=== PATIENT | female | born 1960 | race Caucasian/White ===

== ENCOUNTER 2021-12-27 09:30 | Outpatient (REF) | payer OTHER, SELFPAY ==
[2021-12-27 09:58] LABS: Binax Internal Control QC Valid; Binax Now Covid-19 Ag Negative (Negative); Binax Performed by: HO.BONILM
== END 2021-12-27 09:31 | disposition home or self-care (01) ==
LOC: HO.HMGCLDS 09:30
PROVIDERS: PCP Internal Medicine; Visit Provider Physician Assistant Medical
DX: Z13.89 Encounter for screening for other disorder (principal)

== ENCOUNTER 2022-02-23 06:49 | Outpatient (REF) | payer OTHER, SELFPAY ==
[2022-02-23 12:48] LABS: MANUAL DIFF FLAG NO
[2022-02-23 12:56] LABS: Basophils Absolute Auto 0.1 X10*3/uL (0.0-0.2); Basophils Percent Auto 0.5 % (0-2); Eosinophils Percent Auto 0.4 % (0-4); Hematocrit 38.7 % (37.0-47.0); Hemoglobin 12.7 g/dl (12.0-16.0); Imm Gran Abs Auto 0.05 X10*3/uL (0.00-0.03); Imm Gran Pct Auto 0.5 % (0.0-0.4); Lymphocytes Percent Auto 8.7 % (20-40); Mean Corpuscular HGB Conc 32.8 g/dl (31.0-35.0); Mean Corpuscular Hemoglobin 34.8 pg (27.0-33.0); Mean Platelet Volume 8.6 fL (9.4-12.3); Monocytes Absolute Auto 0.6 X10*3/uL (0.1-1.2); Monocytes Percent Auto 5.6 % (2-11); Neutrophils Absolute Auto 9.3 x10*3/uL (2.0-8.3); Neutrophils Percent Auto 84.3 % (45-73); Platelet Count 302 X10*3/uL (160-400); Red Blood Count 3.65 X10*6/uL (4.20-5.50); Red Cell Distribution Width 12.8 % (11.0-16.0)
[2022-02-23 13:19] LABS: Alanine Aminotransferase 25 U/L (0-31); Albumin Level 4.6 g/dL (3.5-5.0); Alkaline Phosphatase 56 U/L (39-117); Anion Gap 14 (12-20); Aspartate Amino Transferase 23 U/L (5-31); Bilirubin Total 0.6 mg/dL (0.0-1.0); Blood Urea Nitrogen 10 mg/dL (9-16); Calcium 9.1 mg/dL (8.4-10.2); Carbon Dioxide 25 mmol/L (22-29); Chloride 95 mmol/L (96-108); Cholesterol 229 mg/dL; Estimated Glomerular Filt Rate > 60; Glucose Fasting 88 mg/dL (60-99); HDL Cholesterol 85 mg/dL; LDL Cholesterol Calculated 121 mg/dl; Potassium 3.9 mmol/L (3.3-5.1); Sodium 130 mmol/L (135-145); Total Protein 7.1 g/dL (6.5-8.0); Triglycerides 115 mg/dL
== END 2022-02-23 06:50 | disposition home or self-care (01) ==
LOC: HO.HMGCLDS 06:49
PROVIDERS: PCP Internal Medicine; Visit Provider Nurse Practitioner Acute Care
DX: I10 Essential (primary) hypertension (principal); M70.71 Other bursitis of hip, right hip; M70.72 Other bursitis of hip, left hip; M06.9 Rheumatoid arthritis, unspecified; M19.90 Unspecified osteoarthritis, unspecified site
CPT/HCPCS: 36415; 80053; 80061; 85025

== ENCOUNTER → 2022-03-03 10:26 | Outpatient (BNVA) | payer OTHER, SELFPAY | PROVIDERS: PCP Internal Medicine; Visit Provider Physician Assistant Medical | DX: S80.01XA Contusion of right knee, initial encounter (principal); S60.032A Contusion of left middle finger without damage to nail, initial encounter; S39.012A Strain of muscle, fascia and tendon of lower back, initial encounter; W01.0XXA Fall on same level from slipping, tripping and stumbling without subsequent striking against object, initial encounter | CPT/HCPCS: 72100; 73130; 73564; 99203 ==

== ENCOUNTER → 2022-03-06 08:52 | Outpatient (BNVA) | payer OTHER, SELFPAY | PROVIDERS: PCP Internal Medicine; Visit Provider Physician Assistant Medical | DX: S80.01XA Contusion of right knee, initial encounter (principal); L03.115 Cellulitis of right lower limb; S60.032A Contusion of left middle finger without damage to nail, initial encounter; S39.012A Strain of muscle, fascia and tendon of lower back, initial encounter; W01.0XXA Fall on same level from slipping, tripping and stumbling without subsequent striking against object, initial encounter; M54.16 Radiculopathy, lumbar region | CPT/HCPCS: 99213 ==

== ENCOUNTER → 2022-03-10 07:50 | Outpatient (BNVA) | payer OTHER, SELFPAY | PROVIDERS: PCP Internal Medicine; Visit Provider Physician Assistant Medical | DX: S80.01XA Contusion of right knee, initial encounter (principal); L03.115 Cellulitis of right lower limb; S60.032A Contusion of left middle finger without damage to nail, initial encounter; S39.012A Strain of muscle, fascia and tendon of lower back, initial encounter; W18.30XA Fall on same level, unspecified, initial encounter; M54.16 Radiculopathy, lumbar region; G89.29 Other chronic pain | CPT/HCPCS: 99213 ==

== ENCOUNTER → 2022-03-17 09:15 | Outpatient (BNVA) | payer OTHER, SELFPAY | PROVIDERS: PCP Internal Medicine; Visit Provider Internal Medicine | DX: S80.01XD Contusion of right knee, subsequent encounter (principal); S60.032D Contusion of left middle finger without damage to nail, subsequent encounter; S39.012D Strain of muscle, fascia and tendon of lower back, subsequent encounter; W18.30XD Fall on same level, unspecified, subsequent encounter; M54.16 Radiculopathy, lumbar region; G89.29 Other chronic pain | CPT/HCPCS: 99213 ==

== ENCOUNTER → 2022-03-26 07:43 | Outpatient (BNVA) | payer OTHER, SELFPAY | PROVIDERS: PCP Internal Medicine; Visit Provider Physician Assistant Medical | DX: S80.01XD Contusion of right knee, subsequent encounter (principal); S60.032D Contusion of left middle finger without damage to nail, subsequent encounter; S39.012D Strain of muscle, fascia and tendon of lower back, subsequent encounter; W18.30XD Fall on same level, unspecified, subsequent encounter; M54.16 Radiculopathy, lumbar region; G89.29 Other chronic pain | CPT/HCPCS: 99213 ==

== ENCOUNTER → 2022-04-09 08:00 | Outpatient (BNVA) | payer OTHER, SELFPAY | PROVIDERS: PCP Internal Medicine; Visit Provider Physician Assistant Medical | DX: S80.01XD Contusion of right knee, subsequent encounter (principal); S60.032D Contusion of left middle finger without damage to nail, subsequent encounter; S39.012D Strain of muscle, fascia and tendon of lower back, subsequent encounter; W01.0XXD Fall on same level from slipping, tripping and stumbling without subsequent striking against object, subsequent encounter; G89.29 Other chronic pain | CPT/HCPCS: 99213 ==

== ENCOUNTER 2022-04-23 07:00 | Outpatient (RCR) | payer OTHER, SELFPAY ==
--- NOTE | 2022-03-17 08:58 | MHC.PT.EP ---
[facility] [place] [facility] [place] Office [place] Office [address] Tejal Bond [address] [phone] F: [phone] F: [phone] F: [phone] F: [phone] Physical Therapy Plan of Care Date of Evaluation: Date of Surgery: Diagnosis: lumbar strain, right knee contusion. Assessment: The patient arrived reporting lumbar strain and right knee pain. She had reduced knee extension bilaterally by 4 degrees. She has poor lumbar mobility. Decreased lumbar lordosis. Pt did not have a directional preference with Rae assessment. Neutral spine exercises will likely be best. Pt has slightly decreased strength in right knee likely due to pain restriction. She walks with significant trunk kyphosis and has decreased functional mobility due to pain. Frequency and Duration: The patient will be seen 2x/week x 4 weeks. Short Term Goals: 1. Improve knee extension ROM for improved heel strike during gait 2. Educate patient on good pain relieving strategies for work. [employer] Goals: 1. Return to all functional mobility pain free 2. Pt to have improved trunk mobility to allow pain free motion and gait 3. pt to be independent with final HEP. Treatment Plan: Modalities to reduce pain, spasms and effusion. Manual therapy to restore motion and function. Therapeutic exercise to improve strength and flexibility. Neuromuscular re-education for posture and balance. Therapeutic activities to return to functional activities of daily living. Electronically signed by: Rocio Diaz PT DPT Please sign and return to therapist. Thank you for your referral.
== END 2022-05-01 08:49 | disposition home or self-care (01) ==
LOC: HO.PT 07:00
PROVIDERS: Visit Provider Physician Assistant Medical
DX: S80.01XD Contusion of right knee, subsequent encounter (principal); S39.012D Strain of muscle, fascia and tendon of lower back, subsequent encounter
CPT/HCPCS: 97110; 97140; 97161

== ENCOUNTER → 2022-04-23 07:59 | Outpatient (BNVA) | payer OTHER, SELFPAY | PROVIDERS: PCP Internal Medicine; Visit Provider Physician Assistant Medical | DX: S80.01XD Contusion of right knee, subsequent encounter (principal); S60.032D Contusion of left middle finger without damage to nail, subsequent encounter; S39.012D Strain of muscle, fascia and tendon of lower back, subsequent encounter; W01.0XXD Fall on same level from slipping, tripping and stumbling without subsequent striking against object, subsequent encounter; M54.16 Radiculopathy, lumbar region | CPT/HCPCS: 99213 ==

== ENCOUNTER 2022-05-07 09:11 | Outpatient (REF) | payer OTHER, SELFPAY ==
[2022-05-07 11:54] LABS: Anion Gap 16 (12-20); Blood Urea Nitrogen 8 mg/dL (9-16); Calcium 9.4 mg/dL (8.4-10.2); Carbon Dioxide 23 mmol/L (22-29); Chloride 96 mmol/L (96-108); Estimated Glomerular Filt Rate > 60; Glucose Random 126 mg/dL (60-115); Potassium 3.9 mmol/L (3.3-5.1); Sodium 131 mmol/L (135-145)
== END 2022-05-07 09:12 | disposition home or self-care (01) ==
LOC: HO.HMGCLDS 09:11
PROVIDERS: PCP Internal Medicine; Visit Provider Internal Medicine
DX: J44.9 Chronic obstructive pulmonary disease, unspecified (principal); M85.80 Other specified disorders of bone density and structure, unspecified site; I10 Essential (primary) hypertension
CPT/HCPCS: 36415; 80048

== ENCOUNTER → 2022-05-12 07:42 | Outpatient (BNVA) | payer OTHER, SELFPAY | PROVIDERS: PCP Internal Medicine; Visit Provider Physician Assistant Medical | DX: S80.01XD Contusion of right knee, subsequent encounter (principal); S60.032D Contusion of left middle finger without damage to nail, subsequent encounter; S39.012D Strain of muscle, fascia and tendon of lower back, subsequent encounter; W01.0XXD Fall on same level from slipping, tripping and stumbling without subsequent striking against object, subsequent encounter | CPT/HCPCS: 99213 ==

== ENCOUNTER 2022-05-21 07:57 | Outpatient (REF) | payer OTHER, SELFPAY ==
--- NOTE | ~2022-05-21 | MM_ITS ---
EXAMINATION: BONE DENSITOMETRY CLINICAL INDICATION: Encounter for screening for osteoporosis. Essential, primary, hypertension. COMPARISON: None (current study represents initial baseline exam). TECHNIQUE: Using a [employer] DXA System (software version: 13.1) manufactured by [email or web address], dual-energy x-ray absorptiometry was performed of the lumbar spine and left hip. The images are of good technical quality. Summary results are attached. FINDINGS: AP SPINE L1-L2: Density measurements at L3 and L4 are excluded as degenerative changes at these levels may cause overestimation of the lumbar bone mineral density. BMD 1.194 g/cm2, Z-score 1.8, T-score 0.2, normal. LEFT FEMUR, NECK: BMD 0.731 g/cm2, Z-score -0.7, T-score -2.2, osteopenia. LEFT FEMUR, TOTAL: BMD 0.698 g/cm2, Z-score -1.3, T-score -2.5, osteoporosis. IDENTIFIED RISK FACTORS: Rheumatoid arthritis, osteoporosis, history of fracture (adult), tobacco use (current smoker), alcoholism, recurrent falls, height loss, low body weight, low calcium intake, secondary osteoporosis, anticonvulsants, early menopause. HISTORY OF FRACTURE: Lower extremity. MEDICATIONS: None listed. MM/XR DEXA axial skeleton IMPRESSION: 1. DIAGNOSIS: Osteoporosis based on the lowest T-score value of -2.5 in the total femur applying World Health Organization criteria. 2. 10-YEAR FRACTURE RISK PREDICTION, FRAX: According to the guidelines, FRAX calculation should only be performed on patients in the osteopenia bone density category. Therefore, FRAX was not performed on this patient. 3. Treatment Recommendations: NOF guidelines recommend consideration for treatment in postmenopausal women and men age 50 and older presenting with the following: -A hip or vertebral (clinical or morphometric) fracture. -T-score less than or equal to -2.5 at the femoral neck or spine after appropriate evaluation to exclude secondary causes. -Low bone mass at the hip or spine and a 10-year fracture probability by FRAX of greater than or equal to 3% for hip fracture or greater than or equal to 20% for major osteoporotic fracture based on the [place] adapted WHO algorithm. 4. Other Recommendations: All treatment decisions require clinical judgment and consideration of individual patient factors, including patient preferences, comorbidities, previous drug use, risk factors not captured in the FRAX model (e.g. frailty, falls, vitamin D deficiency, increased bone turnover, interval significant decline in bone density) and possible under or overestimation of fracture risk by FRAX. Additional medical evaluation for secondary cause of low bone mineral density may be appropriate. FUTURE SCAN RECOMMENDATION: People with diagnosed cases of osteoporosis or at high risk for fracture should have regular bone mineral density tests. For patients eligible for Medicare, routine testing is allowed once every 2 years. The testing frequency can be increased to one year for patients who have rapidly progressing disease, those who are receiving or discontinuing medical therapy to restore bone mass, or have additional risk factors.
== END 2022-05-21 07:58 | disposition home or self-care (01) ==
LOC: HO.MAMMO 07:57
PROVIDERS: PCP Internal Medicine; Visit Provider Internal Medicine
DX: Z13.820 Encounter for screening for osteoporosis (principal); M85.88 Other specified disorders of bone density and structure, other site; Z78.0 Asymptomatic menopausal state
CPT/HCPCS: 77080

== ENCOUNTER 2022-06-25 10:19 | Outpatient (REF) | payer OTHER, SELFPAY ==
[2022-06-25 15:02] LABS: MANUAL DIFF FLAG NO
[2022-06-25 15:11] LABS: Basophils Absolute Auto 0.1 X10*3/uL (0.0-0.2); Basophils Percent Auto 0.6 % (0-2); Eosinophils Percent Auto 0.4 % (0-4); Hematocrit 36.8 % (37.0-47.0); Hemoglobin 12.5 g/dl (12.0-16.0); Imm Gran Abs Auto 0.03 X10*3/uL (0.00-0.03); Imm Gran Pct Auto 0.4 % (0.0-0.4); Lymphocytes Absolute Auto 0.9 X10*3/uL (1.2-4.9); Lymphocytes Percent Auto 11.5 % (20-40); Mean Corpuscular Hemoglobin 36.1 pg (27.0-33.0); Mean Corpuscular Volume 106.4 fL (80.0-98.0); Mean Platelet Volume 9.1 fL (9.4-12.3); Monocytes Absolute Auto 0.5 X10*3/uL (0.1-1.2); Monocytes Percent Auto 6.7 % (2-11); Neutrophils Absolute Auto 6.2 x10*3/uL (2.0-8.3); Neutrophils Percent Auto 80.4 % (45-73); Platelet Count 317 X10*3/uL (160-400); Red Blood Count 3.46 X10*6/uL (4.20-5.50); Red Cell Distribution Width 12.2 % (11.0-16.0); White Blood Count 7.7 X10*3/uL (4.8-10.8)
[2022-06-25 15:27] LABS: Anion Gap 17 (12-20); Blood Urea Nitrogen 12 mg/dL (9-16); Calcium 9.1 mg/dL (8.4-10.2); Carbon Dioxide 21 mmol/L (22-29); Chloride 97 mmol/L (96-108); Estimated Glomerular Filt Rate > 60; Glucose Random 122 mg/dL (60-115); Sodium 131 mmol/L (135-145)
== END 2022-06-25 10:20 | disposition home or self-care (01) ==
LOC: HO.HMGCLDS 10:19
PROVIDERS: Absent Provider Nurse Practitioner Family; PCP Internal Medicine; Visit Provider Internal Medicine
DX: R23.3 Spontaneous ecchymoses (principal); E87.1 Hypo-osmolality and hyponatremia
CPT/HCPCS: 36415; 80048; 85025

== ENCOUNTER 2022-07-17 11:46 | Outpatient (REF) | payer OTHER, SELFPAY ==
[2022-07-17 12:12] LABS: Binax Internal Control QC Valid; Binax Now Covid-19 Ag Negative (Negative)
== END 2022-07-17 11:47 | disposition home or self-care (01) ==
LOC: HO.HMGCLDS 11:46
PROVIDERS: PCP Internal Medicine; Visit Provider Emergency Medicine
DX: Z20.822 Contact with and (suspected) exposure to COVID-19 (principal); J06.9 Acute upper respiratory infection, unspecified
CPT/HCPCS: 87811; C9803

== ENCOUNTER 2022-07-20 09:09 | Outpatient (REF) | payer OTHER, SELFPAY ==
[2022-07-20 12:24] LABS: Anion Gap 18 (12-20); Carbon Dioxide 21 mmol/L (22-29); Chloride 97 mmol/L (96-108); Potassium 3.8 mmol/L (3.3-5.1); Sodium 132 mmol/L (135-145)
== END 2022-07-20 09:10 | disposition home or self-care (01) ==
LOC: HO.HMGCLDS 09:09
PROVIDERS: PCP Internal Medicine; Visit Provider Internal Medicine
DX: E87.1 Hypo-osmolality and hyponatremia (principal)
CPT/HCPCS: 36415; 80051

== ENCOUNTER 2022-08-28 11:19 | Outpatient (REF) | payer OTHER, SELFPAY ==
--- NOTE | ~2022-08-28 | XR_ITS ---
EXAMINATION: XR WRIST, RIGHT CLINICAL INFORMATION: Fall. COMPARISON: None TECHNIQUE: PA, lateral, and oblique views of the right wrist. FINDINGS: Mildly displaced, transverse fracture through the distal radial metaphysis with small cortical fragments along the ulnar side. Cortical step-off measures up to 0.4 cm. Minimal apex ventral angulation. Mildly displaced fracture through the base of the ulnar styloid. Mild joint space narrowing with tiny marginal osteophytes at the triscaphe and 1st carpometacarpal joints. No osseous erosion. XR/XR wrist RT min 3V IMPRESSION: 1. Mildly displaced, transverse fracture through the distal radial metaphysis. 2. Mildly displaced fracture through the base of the ulnar styloid. 3. Mild degenerative arthritis at the triscaphe and 1st carpometacarpal joints.
== END 2022-08-28 11:20 | disposition home or self-care (01) ==
LOC: HO.HMGCX 11:19
PROVIDERS: PCP Internal Medicine; Visit Provider Emergency Medicine
DX: S69.91XA Unspecified injury of right wrist, hand and finger(s), initial encounter (principal); W19.XXXA Unspecified fall, initial encounter; Y93.9 Activity, unspecified; Y92.9 Unspecified place or not applicable; Y99.9 Unspecified external cause status
CPT/HCPCS: 73110

== ENCOUNTER 2022-09-02 13:02 | Outpatient (REF) | payer OTHER, SELFPAY ==
--- NOTE | ~2022-09-02 | XR_ITS ---
EXAMINATION: XR WRIST, RIGHT CLINICAL INFORMATION: Fracture COMPARISON: Previous x-ray from earlier this month TECHNIQUE: PA, lateral, and oblique views of the right wrist. FINDINGS: There is a comminuted impacted intra-articular right distal radius fracture. Appears unchanged from recent exam. There is a minimally displaced ulnar styloid fracture. Mild arthritis at the first SNF and trapezium, trapezoid scaphoid joints. Soft tissue swelling. XR/XR wrist RT min 3V IMPRESSION: No change in right distal radius and ulnar styloid fractures.
== END 2022-09-02 13:03 | disposition home or self-care (01) ==
LOC: HO.HOSX 13:02
PROVIDERS: PCP Internal Medicine; Visit Provider Physician Assistant
DX: S52.501A Unspecified fracture of the lower end of right radius, initial encounter for closed fracture (principal)
CPT/HCPCS: 29085; 73110

== ENCOUNTER 2022-09-08 09:19 | Outpatient (REF) | payer OTHER, SELFPAY ==
--- NOTE | ~2022-09-08 | XR_ITS ---
EXAMINATION: XR WRIST, RIGHT CLINICAL INFORMATION: Fracture COMPARISON: Previous x-ray from earlier this month TECHNIQUE: PA, lateral, and oblique views of the right wrist. FINDINGS: There is a comminuted impacted intra-articular right distal radius fracture. Appears unchanged from recent exam. There is a minimally displaced ulnar styloid fracture. Mild arthritis at the first PRISON and trapezium, trapezoid scaphoid joints. Soft tissue swelling. XR/XR wrist RT min 3V IMPRESSION: No change in right distal radius and ulnar styloid fractures.
== END 2022-09-08 09:20 | disposition home or self-care (01) ==
LOC: HO.HOSX 09:19
PROVIDERS: Visit Provider Orthopaedic Surgery
DX: S52.501A Unspecified fracture of the lower end of right radius, initial encounter for closed fracture (principal)
CPT/HCPCS: 73110

== ENCOUNTER 2022-09-29 09:22 | Outpatient (REF) | payer OTHER, SELFPAY | END 2022-09-29 09:23 | disposition home or self-care (01) | LOC: HO.HOSX 09:22 | PROVIDERS: Visit Provider Physician Assistant | DX: Z13.89 Encounter for screening for other disorder (principal) ==

== ENCOUNTER 2022-09-30 11:02 | Outpatient (REF) | payer OTHER, SELFPAY ==
--- NOTE | ~2022-09-30 | XR_ITS ---
EXAMINATION: XR WRIST, RIGHT CLINICAL INFORMATION: Pain right wrist. COMPARISON: Right wrist 09/08/2022. TECHNIQUE: PA, lateral, and oblique views of the right wrist. FINDINGS: There is Colles fracture distal radius with dorsal angulation. Minimal to no callus formation is visualized. There is moderate wrist soft tissue swelling. There is no change in the mildly displaced ulnar styloid process fracture. XR/XR wrist RT min 3V IMPRESSION: No change in the Colles fracture distal radius and a displaced ulnar styloid process fracture compared to last exam 09/08/2022.
== END 2022-09-30 11:03 | disposition home or self-care (01) ==
LOC: HO.HOSX 11:02
PROVIDERS: Visit Provider Physician Assistant
DX: S52.501D Unspecified fracture of the lower end of right radius, subsequent encounter for closed fracture with routine healing (principal)
CPT/HCPCS: 29075; 73110

== ENCOUNTER 2022-10-21 12:03 | Outpatient (REF) | payer OTHER, SELFPAY ==
--- NOTE | ~2022-10-21 | XR_ITS ---
EXAMINATION: XR WRIST, RIGHT CLINICAL INFORMATION: Pain in the right wrist. COMPARISON: None TECHNIQUE: PA, lateral, and oblique views of the right wrist. FINDINGS: Impacted mildly displaced distal radial fracture redemonstrated. Fracture line remains partially visible although there is some increased sclerosis indicating at least some interval healing since the initial examination but unchanged compared to the most recent radiographs. There is a persistent dorsal tilt of the articular surface unchanged. There is a slight positive ulnar variance unchanged. Ulnar styloid fracture remains and unattached without osseous bridging. Remaining bones, joints and soft tissues are unremarkable. XR/XR wrist RT min 3V IMPRESSION: 1. Stable appearance of the distal radial fracture with incomplete healing. 2. Ulnar styloid fracture without osseous bridging.
== END 2022-10-21 12:04 | disposition home or self-care (01) ==
LOC: HO.HOSX 12:03
PROVIDERS: Visit Provider Physician Assistant
DX: S52.501D Unspecified fracture of the lower end of right radius, subsequent encounter for closed fracture with routine healing (principal); W19.XXXD Unspecified fall, subsequent encounter
CPT/HCPCS: 73110

== ENCOUNTER 2022-11-04 09:13 | Outpatient (REF) | payer OTHER, SELFPAY ==
[2022-11-04 11:08] LABS: MANUAL DIFF FLAG NO
[2022-11-04 11:24] LABS: Basophils Percent Auto 0.4 % (0-2); Eosinophils Absolute Auto 0.1 X10*3/uL (0.0-0.4); Eosinophils Percent Auto 0.6 % (0-4); Hematocrit 38.3 % (37.0-47.0); Hemoglobin 13.2 g/dl (12.0-16.0); Imm Gran Abs Auto 0.04 X10*3/uL (0.00-0.03); Imm Gran Pct Auto 0.5 % (0.0-0.4); Lymphocytes Absolute Auto 0.9 X10*3/uL (1.2-4.9); Mean Corpuscular HGB Conc 34.5 g/dl (31.0-35.0); Mean Corpuscular Hemoglobin 35.7 pg (27.0-33.0); Mean Corpuscular Volume 103.5 fL (80.0-98.0); Mean Platelet Volume 8.6 fL (9.4-12.3); Monocytes Absolute Auto 0.7 X10*3/uL (0.1-1.2); Monocytes Percent Auto 8.2 % (2-11); Neutrophils Absolute Auto 6.5 x10*3/uL (2.0-8.3); Neutrophils Percent Auto 79.3 % (45-73); Platelet Count 336 X10*3/uL (160-400); Red Cell Distribution Width 12.2 % (11.0-16.0); White Blood Count 8.2 X10*3/uL (4.8-10.8)
[2022-11-04 11:56] LABS: Estimated Average Glucose 103 mg/dL; Hemoglobin A1c % 5.2 %
[2022-11-04 12:01] LABS: Alanine Aminotransferase 27 U/L (0-31); Albumin Level 4.5 g/dL (3.5-5.0); Alkaline Phosphatase 62 U/L (39-117); Anion Gap 14 (12-20); Aspartate Amino Transferase 22 U/L (5-31); Bilirubin Total 0.4 mg/dL (0.0-1.0); Blood Urea Nitrogen 11 mg/dL (9-16); Calcium 9.3 mg/dL (8.4-10.2); Carbon Dioxide 24 mmol/L (22-29); Chloride 97 mmol/L (96-108); Estimated Glomerular Filt Rate > 60; Glucose Random 76 mg/dL (60-115); Potassium 4.6 mmol/L (3.3-5.1); Sodium 130 mmol/L (135-145); Total Protein 6.8 g/dL (6.5-8.0)
[2022-11-04 12:13] LABS: Folate 10.6 ng/mL (> or = 4.0); Vitamin B12 295 pg/mL (200-900)
== END 2022-11-04 09:14 | disposition home or self-care (01) ==
LOC: HO.HMGCLDS 09:13
PROVIDERS: PCP Internal Medicine; Visit Provider Internal Medicine
DX: M81.0 Age-related osteoporosis without current pathological fracture (principal); J44.9 Chronic obstructive pulmonary disease, unspecified; I10 Essential (primary) hypertension; E55.9 Vitamin D deficiency, unspecified; M51.36 Other intervertebral disc degeneration, lumbar region; Z79.899 Other long term (current) drug therapy
CPT/HCPCS: 36415; 80053; 82306; 82607; 82746; 83036; 85025

== ENCOUNTER 2022-11-30 10:17 | Outpatient (REF) | payer OTHER, SELFPAY ==
--- NOTE | ~2022-11-30 | XR_ITS ---
EXAMINATION: XR WRIST, RIGHT CLINICAL INFORMATION: Pain in right wrist COMPARISON: Multiple prior examinations most recent x-ray October 21, 2022. TECHNIQUE: PA, lateral, and oblique views of the right wrist. FINDINGS: Persistent deformity and abnormality of the distal radius compatible with healing impacted distal radius fracture. The dorsal tilt of the articular surface remains unchanged. Sclerotic density noted along the distal radius fracture with residual deformity unchanged. Ulnar styloid fracture redemonstrated with no osseous bridging. Positive ulnar variance unchanged. Remaining bones joints and soft tissues unremarkable. XR/XR wrist RT min 3V IMPRESSION: Stable appearance of the right wrist compared with October [id number]. Healing distal radius fracture. No osseous bridging across the ulnar styloid fracture
== END 2022-11-30 10:18 | disposition home or self-care (01) ==
LOC: HO.HOSX 10:17
PROVIDERS: Visit Provider Physician Assistant
DX: S52.501D Unspecified fracture of the lower end of right radius, subsequent encounter for closed fracture with routine healing (principal)
CPT/HCPCS: 73110

== ENCOUNTER 2022-12-09 09:19 | Outpatient (REF) | payer OTHER, SELFPAY ==
[2022-12-09 12:15] LABS: Anion Gap 14 (12-20); Blood Urea Nitrogen 6 mg/dL (9-16); Calcium 9.1 mg/dL (8.4-10.2); Carbon Dioxide 23 mmol/L (22-29); Chloride 100 mmol/L (96-108); Estimated Glomerular Filt Rate > 60; Glucose Random 87 mg/dL (60-115); Potassium 4.5 mmol/L (3.3-5.1); Sodium 132 mmol/L (135-145)
== END 2022-12-09 09:20 | disposition home or self-care (01) ==
LOC: HO.HMGCLDS 09:19
PROVIDERS: PCP Internal Medicine; Visit Provider Internal Medicine
DX: E87.1 Hypo-osmolality and hyponatremia (principal)
CPT/HCPCS: 36415; 80048

== ENCOUNTER 2022-12-10 06:47 | Outpatient (REF) | payer OTHER, SELFPAY ==
[2022-12-10 11:12] LABS: MANUAL DIFF FLAG NO
[2022-12-10 11:19] LABS: Basophils Absolute Auto 0.1 X10*3/uL (0.0-0.2); Basophils Percent Auto 0.7 % (0-2); Eosinophils Absolute Auto 0.1 X10*3/uL (0.0-0.4); Eosinophils Percent Auto 1.5 % (0-4); Hematocrit 39.5 % (37.0-47.0); Hemoglobin 13.2 g/dl (12.0-16.0); Imm Gran Abs Auto 0.04 X10*3/uL (0.00-0.03); Imm Gran Pct Auto 0.5 % (0.0-0.4); Lymphocytes Absolute Auto 0.7 X10*3/uL (1.2-4.9); Lymphocytes Percent Auto 9.3 % (20-40); Mean Corpuscular HGB Conc 33.4 g/dl (31.0-35.0); Mean Corpuscular Volume 107.6 fL (80.0-98.0); Monocytes Absolute Auto 0.8 X10*3/uL (0.1-1.2); Neutrophils Absolute Auto 5.8 x10*3/uL (2.0-8.3); Platelet Count 318 X10*3/uL (160-400); Red Blood Count 3.67 X10*6/uL (4.20-5.50); Red Cell Distribution Width 12.6 % (11.0-16.0); White Blood Count 7.5 X10*3/uL (4.8-10.8)
[2022-12-10 11:46] LABS: Alanine Aminotransferase 30 U/L (0-31); Albumin Level 4.5 g/dL (3.5-5.0); Alkaline Phosphatase 71 U/L (39-117); Anion Gap 15 (12-20); Aspartate Amino Transferase 30 U/L (5-31); Bilirubin Total 0.6 mg/dL (0.0-1.0); Blood Urea Nitrogen 8 mg/dL (9-16); Calcium 9.5 mg/dL (8.4-10.2); Carbon Dioxide 22 mmol/L (22-29); Chloride 102 mmol/L (96-108); Cholesterol 246 mg/dL; Estimated Glomerular Filt Rate > 60; Glucose Fasting 107 mg/dL (60-99); HDL Cholesterol 77 mg/dL; LDL Cholesterol Calculated 148 mg/dl; Potassium 4.6 mmol/L (3.3-5.1); Sodium 134 mmol/L (135-145); Total Protein 6.8 g/dL (6.5-8.0); Triglycerides 109 mg/dL
[2022-12-10 11:53] LABS: TSH reflex Free T4 1.03 uIU/mL (0.32-4.0)
== END 2022-12-10 06:48 | disposition home or self-care (01) ==
LOC: HO.HMGCLDS 06:47
PROVIDERS: PCP Internal Medicine; Visit Provider Internal Medicine
DX: Z00.00 Encounter for general adult medical examination without abnormal findings (principal); E87.1 Hypo-osmolality and hyponatremia; J44.9 Chronic obstructive pulmonary disease, unspecified; I10 Essential (primary) hypertension
CPT/HCPCS: 36415; 80053; 80061; 84443; 85025

== ENCOUNTER 2022-12-10 08:25 | Outpatient (REF) | payer OTHER, SELFPAY ==
--- NOTE | ~2022-12-10 | XR_ITS ---
EXAMINATION: XR LUMBOSACRAL SPINE CLINICAL INFORMATION: Disc degeneration COMPARISON: Lumbar radiographs 03/03/2022 TECHNIQUE: Three views of the lumbosacral spine. FINDINGS: There are 5 nonrib-bearing lumbar vertebral bodies. Redemonstrated degenerative disc disease from L2 to S1 and mild levoscoliosis centered around L3-L4. There is loss of the normal lumbar lordosis. On the lateral view, there is grade 1 retrolisthesis of L5 on S1 resulting in moderate central canal stenosis. Vertebral body heights are preserved without compression deformity. Extensive vascular calcifications of the aorta are present. XR/XR lumbar spine 2-3V IMPRESSION: Multilevel degenerative changes from L2 to S1, worst at L5-S1 where there is grade 1 retrolisthesis causing moderate central canal stenosis.
== END 2022-12-10 08:26 | disposition home or self-care (01) ==
LOC: HO.HMGCX 08:25
PROVIDERS: PCP Internal Medicine; Visit Provider Internal Medicine
DX: M51.36 Other intervertebral disc degeneration, lumbar region (principal)
CPT/HCPCS: 72100

== ENCOUNTER 2022-12-16 08:00 | Outpatient (RCR) | payer OTHER, SELFPAY ==
--- NOTE | 2022-10-30 08:56 | MHC.OT.EP ---
[address] [phone] Occupational Therapy Plan of Care Date of Evaluation: 10/30/22 Diagnosis: Right Distal Radius Fx Pain Location: 5/10 right radial and ulnar wrist, increasing w/ use Pain Score: 5 Pain Scale Used: Numeric (0 - 10) Aggravating Factors: General use, lifting, etc Alleviating Factors: Temporary relief w/ pain meds, ice and heat at times Assessment: 62 yo female presents about 9 weeks s/p right distal radius fx. She was casted about 6 weeks and placed in prefab wrist orthosis, now referred to OT. On assessment, she has some edema still in ulnar wrist with tednerness to palpate. She also demo's decreased wrist flex and pronation and weakened gross grasp. She is very motivated to return to work but reports she has been having difficulty w/ light daily activities and caring for her disabled partner. She will benefit from cont'd therapy services for range, strengthening and functional training w/ ultimate goal of returning to work. Frequency and Duration: The patient will be seen 2x/wk for 6 weeks Short Term Goals: Ind w/ HEP Wrist flex to 35 degrees Wrist pro to 50 degrees Pt to report ease w/ bimanual self care tasks Penitentiary Goals: Wrist flex to 55 degrees Wrist pro to 70 degrees Gross grasp >40lb QuickDASH score <30 pts Pt to report ease w/ caring for her partner (dressing, IADL, etc) Pain free at rest <2/10 [pain w/ moderate homecare tasks Treatment Plan: Therapeutic Exercise Therapeutic Activity Home Exercise Program Patient Education Edema Control ADL Training Ultrasound Paraffin Fluidotherapy MHP Cold Packs Joint Mobilization Soft Tissue Mobilization Kinesiotaping Electronically Signed By: Alicia Gudino OTR/L CHT Please Sign and return to therapist. Thank you once again for your referral.
--- NOTE | 2022-12-25 08:55 | MHC.OT.DC ---
[address] [phone] F: [phone] Occupational Therapy Discharge Note Patient Name: Kathie Wakefield Provider: Marcia Zamora PA-C Diagnosis: Right Distal Radius Fx Date of Surgery: Date of Evaluation: 10/30/22 Date of Discharge: 12/25/22 Treatments to Date: 7 Cancellations to Date: 1 No Shows to Date: 2 Discharge Status: Visit Non-compliance Discharge Summary: Kathie Parker has been attending OT for management of right distal radius fx. She is about four months s/p injury and last visit was still w/ limited pro and flex, less range and strength today than last week. Pt also w/ higher pain and appears to have more edema. 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 She has no-showed last two appointments and I am unable to reach her on her primary contact number, phone appears to be disconnected. We will be discharging form therapy at this time. Electronically Signed By: Alicia Gudino OTR/L Reviewed/agree with student documentation: Therapist: Please Sign and return to therapist, thank you for your referral.
== END 2022-12-25 08:55 | disposition home or self-care (01) ==
LOC: HO.OT 08:00
PROVIDERS: PCP Internal Medicine; Visit Provider Physician Assistant
DX: S52.501D Unspecified fracture of the lower end of right radius, subsequent encounter for closed fracture with routine healing (principal)
CPT/HCPCS: 97035; 97110; 97165

== ENCOUNTER → 2023-01-19 07:40 | Outpatient (BNVA) | payer OTHER, SELFPAY | PROVIDERS: PCP Internal Medicine; Visit Provider Student in an Organized Health Care Education/Training Program ==

== ENCOUNTER 2023-02-10 07:12 | Outpatient (REF) | payer OTHER, SELFPAY ==
--- NOTE | ~2023-02-10 | XR_ITS ---
EXAMINATION: XR WRIST, RIGHT CLINICAL INFORMATION: Pain in right wrist COMPARISON: Multiple prior radiographs of the right wrist TECHNIQUE: PA, lateral, and oblique views of the right wrist. FINDINGS: Redemonstration of an impacted distal radius fracture with continued remodeling when compared with prior studies. There is no osseous bridging of a previously demonstrated ulnar styloid fracture. There is mild positive ulnar variance which is similar to prior study. No new fractures identified. Alignment is anatomic. Soft tissues are unremarkable. XR/XR wrist RT min 3V IMPRESSION: Continued remodeling of impacted right distal radius fracture Ulnar styloid fracture without osseous bridging Mild positive ulnar variance.
== END 2023-02-10 07:13 | disposition home or self-care (01) ==
LOC: HO.HOSX 07:12
PROVIDERS: Visit Provider Physician Assistant
DX: S52.501D Unspecified fracture of the lower end of right radius, subsequent encounter for closed fracture with routine healing (principal); X58.XXXD Exposure to other specified factors, subsequent encounter
CPT/HCPCS: 73110

== ENCOUNTER → 2023-03-04 08:45 | Outpatient (BNVA) | payer OTHER, SELFPAY | PROVIDERS: PCP Internal Medicine; Visit Provider Nurse Practitioner Family ==

== ENCOUNTER 2023-04-05 11:40 | Outpatient (AMB) | payer OTHER, SELFPAY ==
--- NOTE | 2023-04-05 11:56 | MHC.OFFVIS ---
Intake Vital Signs 04/05/23 12:23 BP 114/72 Blood Pressure Location Lt brachial Position Sitting Respiration 14 Pulse 80 Pulse Source Pulse Oximeter Intake Visit Reasons: Left Dx SNB @ adductor canal Allergies doxycycline Allergy (Unknown, Verified 04/08/23 08:40) nausea, vomiting Tetracyclines Allergy (Unknown, Verified 04/08/23 08:40) Unknown fluticasone furoate [From Trelegy Ellipta] Adverse Reaction (Intermediate, Verified 04/08/23 08:40) Dry Mucus Membranes umeclidinium [From Trelegy Ellipta] Adverse Reaction (Intermediate, Verified 04/08/23 08:40) Dry Mucus Membranes vilanterol [From Trelegy Ellipta] Adverse Reaction (Intermediate, Verified 04/08/23 08:40) Dry Mucus Membranes penicillin V Adverse Reaction (Unknown, Verified 04/08/23 08:40) Unknown inhaled anticholinergic steroids Allergy (Unknown, Uncoded 02/10/23 12:34) unknown HPI Left Dx SNB @ adductor canal HPI Details 62-year-old female presenting today for a left diagnostic SNB at adductor canal. Patient presents for scheduled procedure. Denies any recent cough, cold, infection, fever or other significant changes in medical history since last office visit. [facility] Medical History Alcohol abuse Bursitis of both hips COPD (chronic obstructive pulmonary disease) Degenerative disc disease, lumbar Easy bruising Fall Hypertension Mitral valve prolapse Muscle spasms of neck Osteoarthritis Rheumatoid arthritis Scoliosis Tobacco dependence due to cigarettes Surgical History History of lumbar discectomy History of open reduction and internal fixation (ORIF) procedure Family History Mother Substance use disorder Father Substance use disorder Maternal Aunt Substance use disorder Maternal Uncle Substance use disorder Paternal Uncle Substance use disorder Paternal Aunt Substance use disorder Social History Household Members: Significant Other Housing: Apartment Alcohol intake: current Alcohol intake frequency: 3 or more drinks per day Alcohol type: beer Patient Tobacco Use Status: Current someday Tobacco user Cigarettes Per Day: 7 e-Cigarette/Vaping Use: Never Used service: No 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al status: employed and disabled 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 Alert and oriented. Mood and affect appropriate. Follows and participates in conversation appropriately. Respiratory effort is unlabored. Able to transition from sit to stand unassisted. Ambulates with bilaterally normal heel strike and toe off. Office Procedures Nerve Block Details: Left saphenous nerve block under ultrasound guidance. After obtaining written consent, pre-procedure blood pressure and heart rate were stable and recorded in the nursing record. The patient was placed supine on the table. The medial thigh area overlying the adductor canal was widely prepped with chloraprep, allowed to dry and sterilely draped. Using ultrasound, the appropriate landmarks including the femoral artery and saphenous nerve were identified. The skin overlying the target was anesthetized with 0.5% lidocaine. A 21 gauge 100 mm echostim needle was advanced under sonographic guidance to the adductor canal. Aspiration was negative for heme and synovial fluid. 10 cc of lidocaine 1% was injected around the saphenous nerve. The needles were removed, skin cleansed and a sterile bandage was applied. The patient tolerated the procedure well and no complications were encountered. Following the procedure the patient's vital signs and knee strength were stable. The patient was discharged home in good condition with post-procedural instructions. Time Out: Immediately prior to the procedure, the following was verbally confirmed that there is a signed consent form and that the correct patient, planned procedure, site and side are consistent with documentation and that necessary equipment and/or blood products are available prior to the start of the case. Complications: none EBL: <1 cc 57256 - Saphenous (Left) Procedure code (CPT) selection complete Results Reviewed Results Reviewed: No imaging is available for review. Assessment & Plan Assessment & Plan (1) Bilateral knee pain: Code(s): M25.561 - Pain in right knee; M25.562 - Pain in left knee Plan Patient is status post diagnostic left saphenous nerve block at the adductor canal with local and US guidance. Patient tolerated procedure well and was discharged home in stable condition with discharge instructions. All questions were answered. We will follow-up in two weeks via telephone or in clinic to assess response to therapy. A follow-up appointment was made during today's visit. Scribed for Dr. Storey by Nikunj Damon, medical and health services manager, on 04/05/2023. I, Dr. Storey, have personally reviewed and agree with the information entered by the scribe. Coding Level of Care Code Procedure Only Diagnoses Bilateral knee pain M25.561; M25.562 CPT Codes Nerve Block - Nerve Block 10: 85251 - Saphenous ([id number])
[2023-04-05 12:23] VITALS: BP 114/72; PULSE 80; RESP 14
== END 2023-04-05 12:07 | disposition home or self-care (01) ==
PROVIDERS: PCP Internal Medicine; Visit Provider Internal Medicine
DX: M25.562 Pain in left knee (principal)
CPT/HCPCS: 64447

== ENCOUNTER → 2023-04-05 11:40 | Outpatient (BNVA) | payer OTHER, SELFPAY | PROVIDERS: PCP Internal Medicine; Visit Provider Internal Medicine | DX: M25.562 Pain in left knee (principal); M25.561 Pain in right knee | CPT/HCPCS: 64447 ==

== ENCOUNTER 2023-04-08 08:32 | Outpatient (AMB) | payer OTHER, SELFPAY ==
--- NOTE | 2023-04-08 08:36 | MHC.OFFVIS ---
Intake Vital Signs 04/08/23 08:41 Height 5 ft 5 in Weight 117 lb BMI 19.5 BP 172/81 H Blood Pressure Location Rt brachial Position Sitting Pulse 70 Pulse Source Pulse Oximeter Pulse Oximetry (%) 95 Oxygen Delivery Method Room Air Intake Visit Reasons: s/p Left Dx SNB @ adductor canal Intake Note: Pain today 03/22 Petrologist Required: No Accompanied by: Self / Same As Patient Allergies doxycycline Allergy (Unknown, Verified 04/08/23 08:40) nausea, vomiting Tetracyclines Allergy (Unknown, Verified 04/08/23 08:40) Unknown fluticasone furoate [From Trelegy Ellipta] Adverse Reaction (Intermediate, Verified 04/08/23 08:40) Dry Mucus Membranes umeclidinium [From Trelegy Ellipta] Adverse Reaction (Intermediate, Verified 04/08/23 08:40) Dry Mucus Membranes vilanterol [From Trelegy Ellipta] Adverse Reaction (Intermediate, Verified 04/08/23 08:40) Dry Mucus Membranes penicillin V Adverse Reaction (Unknown, Verified 04/08/23 08:40) Unknown inhaled anticholinergic steroids Allergy (Unknown, Uncoded 02/10/23 12:34) unknown HPI HPI Comments History of Present Illness Details Patient presents today to assess response to Left Diagnostic SNB at adductor canal on 04/05/[address] Storey. Patient reports 90% pain relief for 5 hours with significant improvement in her daily activities and functioning. Patient reports she could not do 2 flights of stairs prior to injections and since injection, she was able to walk and climb stairs without significant improvement. She is interested to proceed with Sprint PNS trial as next steps. Patient is also inquiring on review of recent lumbar spine MRI results which were completed at [facility] during her hospital stay in December. Unfortunately, we received multiple imaging reports from [facility] that do not include MRI of her back but imaging of pelvis, lower extremities and CXR. These were reviewed. We will send another request to [facility] for lumbar spine MRI for potential interventional treatments for her back pain as well. Denies any recent cough, cold, infection, fever or other significant changes in medical history since last office visit. Patient denies any bladder or bowel incontinence or saddle anesthesia. Past Procedures: 04/05/23: Left Diagnostic SNB at adductor canal-90% pain relief for 5 hours PRIOR: Patient presents today for medication review. Patient reports significant bilateral hip, left knee and low back pain. She states Ibuprofen has been working well for her, which she takes once to twice daily but not everyday. Due to osteoporosis most significant in her femur, she is not candidate for steroid injection for hip injections. She is interested to undergo diagnostic left knee nerve blocks for potential Sprint PNS trial. Patient also reports axial low back pain with radiation to her bilateral lower extremities posteriorly with numbness, tingling and intermittent weakness due to hip, back, and knee pain. Reports lumbar spine MRI was completed at [facility] in 2018, results noted below. Patient also injured her right wrist 7 months ago and is wearing right wrist splint. Denies any fever, malaise, weight changes, chest pain or tightness, shortness of breaths, bleeding, bowel or bladder incontinence or saddle anesthesia. PRIOR: Patient is a 61 years old female who presents with multiple chronic pain generators, including lower back pain, neck, bilateral hip and ankle pain with constant muscle spasms and widespread pain. Reports history of L5-S1 discectomy by Dr. Murray in 2001. She attributes her pains to multiple injuries and lumbar and cervical spine degenerative arthritis and stenosis as well rheumatoid arthritis. Patient is noted with multiple bruising in her upper and lower extremities at different stages of healing as well several purpuric spots in upper and lower extremities. Reports easy bruising. She denies any recent trauma, injury or falls. Patient has been managing her pain with gabapentin, duloxetine, methocarbamol and Tylenol with minimal to no pain relief. Patient reports multiple sessions of physical therapy and injections through Dr. Mullen?s office with minimal improvement in her symptoms. Her back pain has been mostly axial without radiation to lower extremities. Patient denies any fever, malaise, chills, weight loss, abdominal or groin pain, chest pain, dizziness, bleeding, bowel or bladder incontinence or saddle anesthesia. Patient reports her main pain generator is right sided neck pain with numbness and tingling in her right hand and fingers in the projection of C3-C7 dermatomes. She is right hand dominant and has been having increasing episodes of dropping objects due to weakness and loss of tankman. Per Dr. Esparza neurosurgical evaluation on 09/20/2018 review, he offered patient a C3-C4 anterior discectomy and fusion due to significant cervical myelopathy symptoms and dropping of objects and a three-level cord compression at C3-C4, C5-C6, and C6-C7. A four-level anterior discectomy and fusion or a posterior C3 to C7 laminectomy with instrumented fusion was also discussed. Patient reports she declined surgery due to financial difficulties with out of pocket expenses but it was not clear if she received medical clearance due to mitral valve prolapse with severe stenosis at that time. Denies shoulder pain but had received shoulder cortisone injections before. She attributes her neck pain due work related surgery when a full of cigarettes fell on her neck 2-3 years ago. Lumbar and cervical imaging is noted below. Denies previous EMG or nerve conduction studies. Patient states she is not interested in interventional treatments to alleviate pain and is interested in stronger medication. I have informed patient that we do not offer opioid prescribing at this time. Patient smokes 7 cigarettes per day and drinks 3-6 beers daily and does see this is a problem. She also notes that she is not allergic to steroid injections or prednisone but had mouth bleed reaction with Trelegy inhaler. Patient requests an acupuncture referral to relieve neck spasms and pain. [facility] Medical History Alcohol abuse Bursitis of both hips COPD (chronic obstructive pulmonary disease) Degenerative disc disease, lumbar Easy bruising Fall Hypertension Mitral valve prolapse Muscle spasms of neck Osteoarthritis Rheumatoid arthritis Scoliosis Tobacco dependence due to cigarettes Surgical History History of lumbar discectomy History of open reduction and internal fixation (ORIF) procedure Family History Mother Substance use disorder Father Substance use disorder Maternal Aunt Substance use disorder Maternal Uncle Substance use disorder Paternal Uncle Substance use disorder Paternal Aunt Substance use disorder Social History Household Members: Significant Other Housing: Apartment Alcohol intake: current Alcohol intake frequency: 3 or more drinks per day Alcohol type: beer Patient Tobacco Use Status: Current someday Tobacco user Cigarettes Per Day: 7 e-Cigarette/Vaping Use: Never Used service: No 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al status: employed and disabled 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 Alert and oriented. Mood and affect appropriate. Follows and participates in conversation appropriately. Respiratory effort is unlabored. Able to transition from sit to stand unassisted. Ambulates with bilaterally normal heel strike and toe off. Back/Spine/Pelvis Thoracic/Lumbar Spine: thoracic and lumbar spine normal to inspection, Thoracic/lumbar spine scar(s), pain with thoraco-lumbar ROM, thoraco-lumbar ROM limited, No thoracic spinal tenderness and lumbar spinal tenderness Extrem General: Yes capillary refill normal, Yes no clubbing, cyanosis or edema and Yes no calf tenderness Left lower extremity: knee (Limited ROM due to pain.) Details: normal to inspection, tenderness Location: of the medial joint line and of the lateral joint line and crepitus; no swelling and no unusual warmth Assessment & Plan Assessment & Plan (1) Degenerative disc disease, lumbar: Comment: (severe multilevel degenerative disc disease from L2-L3 to L5-S1 on 03/03/22 xray), f/u Dr. Mullen, Dr. Esparza (neurosurg) Code(s): M51.36 - Other intervertebral disc degeneration, lumbar region (2) Lumbar post-laminectomy syndrome: Code(s): M96.1 - Postlaminectomy syndrome, not elsewhere classified (3) Bilateral knee pain: Code(s): M25.561 - Pain in right knee; M25.562 - Pain in left knee Plan 1. Patient reports she completed MRI of the lumbar spine in December at [facility] during hospital stay. We will send request for imaging to assess for neural integrity and compression. History of back surgery in 2001. 2. Schedule Left Saphenous Peripheral Nerve Stimulator with Sprint trial under local and US guidance. Diagnostic injection provided her 90% pain relief for 5 hours. All questions and concerns have been answered and patient agreed with the plan. Follow up after Sprint trial and sooner if needed. Justification for interventional therapy: ? Patient with average pain > 6/10 ? Patient has exhausted conservative therapy, NSAIDs, physical therapy The risks, consequences, alternatives, and benefits of various treatment options were discussed with the patient in great detail, including conservative management, injections and procedures. Coding Level of Care Code Est Pt Level 4 (85448) Diagnoses Degenerative disc disease, lumbar M51.36 Lumbar post-laminectomy syndrome M96.1 Bilateral knee pain M25.561; M25.562
[2023-04-08 08:41] VITALS: BP 172/81; PULSE 70; O2SAT 95; BMI 19.5
== END 2023-04-08 09:05 | disposition home or self-care (01) ==
PROVIDERS: PCP Internal Medicine; Visit Provider Nurse Practitioner Family
DX: M51.36 Other intervertebral disc degeneration, lumbar region (principal); M96.1 Postlaminectomy syndrome, not elsewhere classified; M25.561 Pain in right knee; M25.562 Pain in left knee
CPT/HCPCS: 99214

== ENCOUNTER → 2023-04-08 08:32 | Outpatient (BNVA) | payer OTHER, SELFPAY | PROVIDERS: PCP Internal Medicine; Visit Provider Nurse Practitioner Family ==

== ENCOUNTER 2023-05-21 08:28 | Outpatient (REF) | payer OTHER, SELFPAY ==
--- NOTE | ~2023-05-21 | MR_ITS ---
MR LUMBAR SPINE WITHOUT CONTRAST CLINICAL INFORMATION: Intervertebral disc degeneration. COMPARISON: None available. TECHNIQUE: MRI of the lumbar spine was obtained using routine sequences without contrast. FINDINGS: There are 5 nonrib-bearing lumbar-type vertebral bodies. Straightening of the lumbar lordosis. There are chronic endplate Schmorl's nodes at the L1-S1 levels. Vertebral body heights are overall maintained. There are degenerative endplate signal changes throughout the lumbar spine. No acute fractures. Multilevel endplate osteophytes. Moderate disc volume loss at L2-L3, L3-L4, L4-L5, and L5-S1. Disc desiccation at all lumbar levels. Small simple left renal cyst for which no further imaging follow-up is warranted. L1-L2: There is a diffuse annular disc bulge eccentric to the left side and there is a left lateral disc osteophyte protrusion and moderate bilateral facet arthropathy, ligamentum flavum thickening, and prominent epidural fat. Findings in concert result in moderate to severe central canal stenosis, left greater then right subarticular zone stenosis with compression of the traversing left greater the right L2 nerve roots, and moderate left-sided foraminal stenosis with mass effect on the extraforaminal left L1 nerve root. L2-L3: Diffuse annular disc bulge and moderate bilateral facet arthropathy and ligamentum flavum thickening. Prominent epidural fat. Findings in concert result in severe central canal stenosis and moderate right-sided foraminal stenosis. L3-L4: Diffuse disc osteophyte complex and severe bilateral facet arthropathy, ligamentum flavum thickening, and epidural lipomatosis. Findings in concert result in severe central canal stenosis and moderate to severe right-sided foraminal stenosis with compression of the exiting right L3 nerve root. L4-L5: Grade 1 retrolisthesis. Disc osteophyte and severe bilateral facet arthropathy, ligamentum flavum thickening, and epidural lipomatosis result in severe central canal stenosis as well as severe left and moderate right foraminal stenosis with compression of the exiting left L4 nerve root. L5-S1: Broad-based central disc protrusion compresses the traversing S1 nerve roots within the subarticular zones bilaterally and results in moderate central canal stenosis. Background disc osteophyte complex and moderate bilateral facet arthropathy resulting in moderate to severe bilateral foraminal stenosis with compression of the exiting L5 nerve roots bilaterally. MR/MR lumbar spine wo con IMPRESSION: - At L1-L2, advanced multifactorial degenerative changes and epidural lipomatosis result in moderate to severe central canal stenosis, left greater then right subarticular zone stenosis with compression of the traversing left greater the right L2 nerve roots, and moderate left-sided foraminal stenosis with mass effect on the extraforaminal left L1 nerve root. - At L2-L3, advanced multifactorial degenerative changes and epidural lipomatosis result in severe central canal stenosis and moderate right-sided foraminal stenosis. - At L3-L4, advanced multifactorial degenerative changes and epidural lipomatosis result in severe central canal stenosis and moderate to severe right-sided foraminal stenosis with compression of the exiting right L3 nerve root. - At L4-L5, advanced multifactorial degenerative changes and epidural lipomatosis result in severe central canal stenosis as well as severe left and moderate right foraminal stenosis with compression of the exiting left L4 nerve root. - At L5-S1, a broad-based central disc protrusion compresses the traversing S1 nerve roots within the subarticular zones bilaterally and results in moderate central canal stenosis. Spondylitic changes at L5-S1 result in moderate to severe bilateral foraminal stenosis with compression of the exiting L5 nerve roots bilaterally.
== END 2023-05-21 08:29 | disposition home or self-care (01) ==
LOC: HO.MRI 08:28
PROVIDERS: PCP Internal Medicine; Visit Provider Nurse Practitioner Family
DX: M51.36 Other intervertebral disc degeneration, lumbar region (principal); M96.1 Postlaminectomy syndrome, not elsewhere classified; M54.16 Radiculopathy, lumbar region
CPT/HCPCS: 72148

== ENCOUNTER 2023-05-27 13:32 | Outpatient (AMB) | payer OTHER, SELFPAY ==
--- NOTE | 2023-05-27 13:51 | A.OFFPC_ITS ---
Vital Signs 05/27/23 13:53 Height 5 ft 5 in Weight 119 lb 8 oz BMI 19.9 BP 118/58 L Blood Pressure Location Lt brachial Position Sitting Pulse 58 Pulse Source Pulse Oximeter Pulse Oximetry (%) 96 Oxygen Delivery Method Room Air Intake Visit Reasons: Left Eye 06/01, Right Eye 06/17,Cataract surgery Intake Note: Patient is here for left eye cataract surgery on the , and right eye on Jun,. Patient is requesting all medications refill at this time. Allergies doxycycline Allergy (Unknown, Verified 05/27/23 13:58) nausea, vomiting Tetracyclines Allergy (Unknown, Verified 05/27/23 13:58) Unknown fluticasone furoate [From Trelegy Ellipta] Adverse Reaction (Intermediate, Verified 05/27/23 13:58) Dry Mucus Membranes umeclidinium [From Trelegy Ellipta] Adverse Reaction (Intermediate, Verified 05/27/23 13:58) Dry Mucus Membranes vilanterol [From Trelegy Ellipta] Adverse Reaction (Intermediate, Verified 05/27/23 13:58) Dry Mucus Membranes penicillin V Adverse Reaction (Unknown, Verified 05/27/23 13:58) Unknown inhaled anticholinergic steroids Allergy (Unknown, Uncoded 05/27/23 13:58) unknown Tobacco use date assessed: 05/27/23 Dental Screening Dental Screen Date: 05/27/23 Did you have a dental visit in the last 12 months?: Yes Did you have a dental problem in the last 6 months where you did not have access to dental care?: No Was dental information given to patient?: Patient has dentist HPI Left Eye 06/01, Right Eye 06/17,Cataract surgery HPI Details Pt presents for preop for cataract surgery. Hypertension is controlled on current medications. 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 She follows up with pain management for chronic advanced lumbar spine stenosis and bilateral knee pain. She would like to have a work restriction of not standing, lifting more than 10 lb for more than 2 hours at the time. She has been working 6 hours a day. Patient continues to drink 6 beers a day and does not feel she has difficulty cutting down on need to cut down on alcohol intake, despite being aware increase alcohol intake increase her risk for liver damage. [facility] Medical History (Updated 05/27/23 @ 15:47 by Yun Wynne MD) Fall Tobacco dependence due to cigarettes Alcohol abuse Mitral valve prolapse Easy bruising Scoliosis Degenerative disc disease, lumbar COPD (chronic obstructive pulmonary disease) Muscle spasms of neck Rheumatoid arthritis Bursitis of both hips Hypertension Osteoarthritis Surgical History History of open reduction and internal fixation (ORIF) procedure History of lumbar discectomy Family History Mother Substance use disorder Father Substance use disorder Maternal Aunt Substance use disorder Maternal Uncle Substance use disorder Paternal Uncle Substance use disorder Paternal Aunt Substance use disorder Social History Household Members: Significant Other Housing: Apartment Alcohol intake: current Alcohol intake frequency: 3 or more drinks per day Alcohol type: beer Patient Tobacco Use Status: Current someday Tobacco user Cigarettes Per Day: 7 e-Cigarette/Vaping Use: Never Used service: No 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al status: employed and disabled 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 Esvin Tim, Darlin Cabral, Evaristo Ortiz and colleagues, with an educational maddie from [employer]. Review of Systems Const All systems reviewed & are unremarkable except as noted in HPI and below Reports no additional complaints Eyes Reports no additional complaints ENT Reports no additional complaints Card Reports no additional complaints Resp Reports no additional complaints GI Reports no additional complaints Reports no additional complaints Physical exam (Primary Care) Vital Signs: Last Vital Signs Pulse 58 05/27/23 13:53 BP 118/58 L 05/27/23 13:53 Pulse Ox 96 05/27/23 13:53 Oxygen Delivery Method Room Air 05/27/23 13:53 BMI result Body Mass Index 19.9 Tobacco/Smoking Status: Tobacco use Status Tobacco use date assessed 05/27/23 05/27/23 14:05 Patient Tobacco Use Status Current someday Tobacco 05/27/23 14:05 e-Cigarette/Vaping Use Never Used 05/27/23 14:05 Thrive Assessment: Date of Thrive Assessment Date Thrive assessed 05/06/22 05/27/23 14:05 Const General: no acute distress HENMT Ears: hearing grossly normal bilaterally Eyes General: appearance normal, both eyes and all related structures Neck Neck: Yes supple Resp Effort & Inspection: normal respiratory effort Auscultation: clear to auscultation bilaterally Cardio Rhythm: regular rhythm Heart sounds: S1 normal heart sound present and S2 normal heart sound present Assessment and Plan Assessment & Plan (1) Hypertension: Code(s): I10 - Essential (primary) hypertension Plan: Continue current medications (2) Vitamin D deficiency: Code(s): E55.9 - Vitamin D deficiency, unspecified Plan: Continue vitamin-D (3) Annual physical exam: Code(s): Z00.00 - Encounter for general adult medical examination without abnormal findings (4) Lumbar radiculopathy: Comment: Spinal stenosis on MRI, follow-up with pain management and neurosurgeon Dr. Esparza Code(s): M54.16 - Radiculopathy, lumbar region (5) Cataract: Code(s): H26.9 - Unspecified cataract Plan: Patient is medically cleared for cataract surgery (6) COPD (chronic obstructive pulmonary disease): Comment: Lung CA screen program at [facility], last CT 12/2022 Code(s): J44.9 - Chronic obstructive pulmonary disease, unspecified Orders: Orders Comprehensive [place]. Panel Fast 1 Month E55.9 - Vitamin D deficiency, unspecified, H26.9 - Unspecified cataract, I10 - Essential (primary) hypertension, M54.16 - Radiculopathy, lumbar region, Z00.00 - Encounter for general adult medical examination without abnormal findings Complete Blood Count Auto Diff 1 Month E55.9 - Vitamin D deficiency, unspecified, H26.9 - Unspecified cataract, I10 - Essential (primary) hypertension, M54.16 - Radiculopathy, lumbar region, Z00.00 - Encounter for general adult medical examination without abnormal findings TSH reflex Free T4 1 Month E55.9 - Vitamin D deficiency, unspecified, H26.9 - Unspecified cataract, I10 - Essential (primary) hypertension, M54.16 - Radiculopathy, lumbar region, Z00.00 - Encounter for general adult medical examination without abnormal findings Lipid Panel 1 Month E55.9 - Vitamin D deficiency, unspecified, H26.9 - Unspecified cataract, I10 - Essential (primary) hypertension, M54.16 - Radiculopathy, lumbar region, Z00.00 - Encounter for general adult medical examination without abnormal findings Vitamin D 25-OH Total 1 Month E55.9 - Vitamin D deficiency, unspecified, H26.9 - Unspecified cataract, I10 - Essential (primary) hypertension, M54.16 - Radiculopathy, lumbar region, Z00.00 - Encounter for general adult medical examination without abnormal findings Coding Level of Care Code Est Pt Level 4 (89300) Diagnoses Hypertension I10 Vitamin D deficiency E55.9 Annual physical exam Z00.00 Lumbar radiculopathy M54.16 Cataract H26.9 COPD (chronic obstructive pulmonary disease) J44.9
[2023-05-27 13:53] VITALS: BP 118/58; PULSE 58; O2SAT 96; BMI 19.9
== END 2023-05-27 15:47 | disposition home or self-care (01) ==
PROVIDERS: PCP Internal Medicine; Visit Provider Internal Medicine
DX: I10 Essential (primary) hypertension (principal); E55.9 Vitamin D deficiency, unspecified; J44.9 Chronic obstructive pulmonary disease, unspecified; Z00.00 Encounter for general adult medical examination without abnormal findings; M54.16 Radiculopathy, lumbar region; H26.9 Unspecified cataract
CPT/HCPCS: 99214

== ENCOUNTER 2023-05-31 08:14 | Outpatient (AMB) | payer OTHER, SELFPAY ==
--- NOTE | 2023-05-31 08:18 | A.OFFVIS_ITS ---
Intake Vital Signs 3 05/31/23 08:24 Height 5 ft 5 in Weight 119 lb 3 oz BMI 19.8 BP 129/61 Blood Pressure Location Rt brachial Position Sitting Pulse 80 Pulse Source Pulse Oximeter Pulse Oximetry (%) 97 Oxygen Delivery Method Room Air Intake Visit Reasons: Follow Up/MRI Resuts Intake Note: Pain today 05/23. 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 Accompanied by: Self / Same As Patient Allergies doxycycline Allergy (Unknown, Verified 05/31/23 08:23) nausea, vomiting Tetracyclines Allergy (Unknown, Verified 05/31/23 08:23) Unknown fluticasone furoate [From Trelegy Ellipta] Adverse Reaction (Intermediate, Verified 05/31/23 08:23) Dry Mucus Membranes umeclidinium [From Trelegy Ellipta] Adverse Reaction (Intermediate, Verified 05/31/23 08:23) Dry Mucus Membranes vilanterol [From Trelegy Ellipta] Adverse Reaction (Intermediate, Verified 05/31/23 08:23) Dry Mucus Membranes penicillin V Adverse Reaction (Unknown, Verified 05/31/23 08:23) Unknown inhaled anticholinergic steroids Allergy (Unknown, Uncoded 05/27/23 13:58) unknown Medication List - Last Reconciled 05/31/23 by ERNESTO Flowers acetaminophen ER (Tylenol Arthritis Pain) 650 mg PO Q8H PRN albuterol sulfate mg inhalation Q4H PRN albuterol sulfate 90 mcg/actuation 2 puffs inhalation Q4H PRN alendronate 70 mg PO QWEEK ekzyomcodq-zohimcxj-pykqpxhoyq 160-9-4.8 mcg/actuation (Breztri Aerosphere) 2 inhalations inhalation BID bupropion HCl 150 mg PO BID cetirizine 10 mg PO DAILY cholecalciferol (vitamin D3) 50 mcg PO DAILY diclofenac sodium 1% (Voltaren Arthritis Pain) 2 grams topical QID diltiazem HCl ER 120 mg PO DAILY duloxetine 60 mg PO DAILY fluticasone propion-salmeterol 230-21 mcg/actuation (Advair HFA) 2 puffs inhalation BID fluticasone propionate 50 mcg/actuation 1 spray intranasal DAILY folic acid 1 mg PO DAILY gabapentin 600 mg PO TID ibuprofen 600 mg PO TID PRN lidocaine 5% 1 patch topical DAILY lisinopril 30 mg PO DAILY methocarbamol 750 mg PO Q8H PRN montelukast 10 mg PO DAILY multivitamin 1 tab PO DAILY multivitamin with folic acid 400 mcg (Daily-Kindra (with folic acid)) 1 tab PO DAILY nicotine 1 patch topical DAILY thiamine HCl (vitamin B1) (Vitamin B-1) 100 mg PO DAILY trazodone 50 mg PO BEDTIME HPI HPI Comments 2 History of Present Illness0 Details Patient presents today for follow up and discuss recent lumbar spine MRI results. Patient continues to endorse spinal stenosis related pain and axial low back pain with radiation to both legs posteriorly and laterally, worse in right leg with intermittent weakness. Patient is also continues to reports significant left knee pain and was scheduled to undergo Sprint PNS trial for a longer term pain relief but had to cancel this due to family obligations. 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 Caring for him, frequently involves for patient to do heavy lifting, twisting, pulling which significantly exacerbate and worsen her back symptoms. Lumbar spine MRI results were discussed with patient today and are noted below. Patient has significant multilevel degenerative changes with multilevel moderate to severe central canal stenosis and foraminal stenosis as well as chronic endplate Schmorl's nodes at the L1-S1 level. Patient has osteoporosis per DEXA bone scan of 05/21/22. She was prescribed alendronate 70 mg once earlier this year but reports she was not aware of this and has never started it. Patient continues to abuse alcohol, consumes 6 packs of beer daily and continues to smoke cigarrettees without motivation to quit. She has previously received cortisone back injections by Dr. Mullen for cervical and lumbar spine symptoms and was previously evaluated by Dr. Esparza for potential cervical spine surgery which she declined. Patient is intersted to undergo neurosurgical re-evaluation due to progression of her back symptoms. She is not a candidate for cortisone injections due to poor bone quality and high risk for vertebral compression fractures. Patient denies any recent fever, falls, bladder of bowel dysfunction or saddle anesthesia. She continues to take muscle relaxants, lidocaine patches, gabapentin and NSAIDs to partially manage her symptoms. PRIOR: Patient presents today to assess response to Left Diagnostic SNB at adductor canal on 04/05/[address] Storey. Patient reports 90% pain relief for 5 hours with significant improvement in her daily activities and functioning. Patient reports she could not do 2 flights of stairs prior to injections and since injection, she was able to walk and climb stairs without significant improvement. She is interested to proceed with Sprint PNS trial as next steps. Patient is also inquiring on review of recent lumbar spine MRI results which were completed at [place] during her hospital stay in December. Unfortunately, we [place] [facility] [place] of her back but imaging of pelvis, lower extremities and CXR. These were reviewed. We will send another request to [place] for lumbar spine MRI for potential interventional treatments for her back pain as well. Denies any recent cough, cold, infection, fever or other significant changes in medical history since last office visit. Patient denies any bladder or bowel incontinence or saddle anesthesia. Past Procedures: 04/05/23: Left Diagnostic SNB at adducto r canal-90% pain relief for 5 hours PRIOR: Patient presents today for medication review. Patient reports significant bilateral hip, left knee and low back pain. She states Ibuprofen has been working well for her, which she takes once to twice daily but not everyday. Due to osteoporosis most significant in her femur, she is not candidate for steroid injection for hip injections. She is interested to undergo diagnostic left knee nerve blocks for potential Sprint PNS trial. Patient also reports axial low back pain with radiation to her bilateral lower extremities posteriorly with numbness, tingling and intermittent weakness due to hip, back, and knee pain. Reports lumbar spine MRI was completed at [facility] in 2018, results noted below. Patient also injured her right wrist 7 months ago and is wearing right wrist splint. Denies any fever, malaise, weight changes, chest pain or tightness, shortness of breaths, bleeding, bowel or bladder incontinence or saddle anesthesia. PRIOR: Patient is a 61 years old female who presents with multiple chronic pain generators, including lower back pain, neck, bilateral hip and ankle pain with constant muscle spasms and widespread pain. Reports history of L5-S1 discectomy by Dr. Murray in 2001. She attributes her pains to multiple injuries and lumbar and cervical spine degenerative arthritis and stenosis as well rheumatoid arthritis. Patient is noted with multiple bruising in her upper and lower extremities at different stages of healing as well several purpuric spots in upper and lower extremities. Reports easy bruising. She denies any recent trauma, injury or falls. Patient has been managing her pain with gabapentin, duloxetine, methocarbamol and Tylenol with minimal to no pain relief. Patient reports multiple sessions of physical therapy and injections through Dr. Mullen?s office with minimal improvement in her symptoms. Her back pain has been mostly axial without radiation to lower extremities. Patient denies any fever, malaise, chills, weight loss, abdominal or groin pain, chest pain, dizziness, bleeding, bowel or bladder incontinence or saddle anesthesia. Patient reports her main pain generator is right sided neck pain with numbness and tingling in her right hand and fingers in the projection of C3-C7 dermatomes. 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 Per Dr. Esparza neurosurgical evaluation on 09/20/2018 review, he offered patient a C3-C4 anterior discectomy and fusion due to significant cervical myelopathy symptoms and dropping of objects and a three-level cord compression at C3-C4, C5-C6, and C6-C7. A four-level anterior discectomy and fusion or a posterior C3 to C7 laminectomy with instrumented fusion was also discussed. Patient reports she declined surgery due to financial difficulties with out of pocket expenses but it was not clear if she received medical clearance due to mitral valve prolapse with severe stenosis at that time. Denies shoulder pain but had received shoulder cortisone injections before. She attributes her neck pain due work related surgery when a full of cigarettes fell on her neck 2-3 years ago. Lumbar and cervical imaging is noted below. Denies previous EMG or nerve conduction studies. Patient states she is not interested in interventional treatments to alleviate pain and is interested in stronger medication. I have informed patient that we do not offer opioid prescribing at this time. Patient smokes 7 cigarettes per day and drinks 3-6 beers daily and does see this is a problem. She also notes that she is not allergic to steroid injections or prednisone but had mouth bleed reaction with Trelegy inhaler. Patient requests an acupuncture referral to relieve neck spasms and pain. [facility] Medical History (Updated 05/31/23 @ 08:49 by ERNESTO Flowers) Fall Tobacco dependence due to cigarettes Alcohol abuse Mitral valve prolapse Easy bruising Scoliosis Degenerative disc disease, lumbar COPD (chronic obstructive pulmonary disease) Muscle spasms of neck Rheumatoid arthritis Bursitis of both hips Hypertension Osteoarthritis Surgical History History of open reduction and internal fixation (ORIF) procedure History of lumbar discectomy Family History Mother Substance use disorder Father Substance use disorder Maternal Aunt Substance use disorder Maternal Uncle Substance use disorder Paternal Uncle Substance use disorder Paternal Aunt Substance use disorder Social History Household Members: Significant Other Housing: Apartment Alcohol intake: current Alcohol intake frequency: 3 or more drinks per day Alcohol type: beer Patient Tobacco Use Status: Current everyday Tobacco user Cigarettes Per Day: 7 e-Cigarette/Vaping Use: Never Used service: No 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al status: employed and disabled 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: [employer], [place] Cognitive needs: No Hearing needs: No Vision needs: Yes Review of Systems Const All systems reviewed & are unremarkable except as noted in HPI and below Physical Exam Vital Signs: Last Vital Signs Pulse 80 05/31/23 08:24 BP 129/61 05/31/23 08:24 Pulse Ox 97 05/31/23 08:24 Oxygen Delivery Method Room Air 05/31/23 08:24 BMI result Body Mass Index 19.8 General: Appears afebrile. Alert and oriented. Mood and affect appropriate. Follows and participates in conversation appropriately. Respiratory effort is unlabored. Able to transition from sit to stand unassisted. Ambulates with left normal heel strike and toe off and difficulty on the right due to pain and previous right foot fracture. Back/Spine/Pelvis Back: back tenderness Cervical Spine: cervical muscular tenderness, pain with cervical ROM, No Cervical spine tenderness and No step off deformity Thoracic/Lumbar Spine: thoracic and lumbar spine normal to inspection, Thoracic/lumbar spine scar(s), Lasegue's sign positive bilateral and localized, pain with thoraco-lumbar ROM, paraspinal muscle tenderness, thoraco-lumbar ROM limited, No thoracic spinal tenderness, lumbar spinal tenderness and straight leg raise positive bilateral at 40 degrees Pelvis: buttock tenderness Sacroiliac joints: bilaterally tender to palpation Results Reviewed Results Reviewed: MR LUMBAR SPINE WITHOUT CONTRAST 05/21/23 CLINICAL INFORMATION: Intervertebral disc degeneration. COMPARISON: None available. TECHNIQUE: MRI of the lumbar spine was obtained using routine sequences without contrast. FINDINGS: There are 5 nonrib-bearing lumbar-type vertebral bodies. Straightening of the lumbar lordosis. There are chronic endplate Schmorl's nodes at the L1-S1 levels. Vertebral body heights are overall maintained. There are degenerative endplate signal changes throughout the lumbar spine. No acute fractures. Multilevel endplate osteophytes. Moderate disc volume loss at L2-L3, L3-L4, L4-L5, and L5-S1. Disc desiccation at all lumbar levels. Small simple left renal cyst for which no further imaging follow-up is warranted. L1-L2: There is a diffuse annular disc bulge eccentric to the left side and there is a left lateral disc osteophyte protrusion and moderate bilateral facet arthropathy, ligamentum flavum thickening, and prominent epidural fat. Findings in concert result in moderate to severe central canal stenosis, left greater then right subarticular zone stenosis with compression of the traversing left greater the right L2 nerve roots, and moderate left-sided foraminal stenosis with mass effect on the extraforaminal left L1 nerve root. L2-L3: Diffuse annular disc bulge and moderate bilateral facet arthropathy and ligamentum flavum thickening. Prominent epidural fat. Findings in concert result in severe central canal stenosis and moderate right-sided foraminal stenosis. L3-L4: Diffuse disc osteophyte complex and severe bilateral facet arthropathy, ligamentum flavum thickening, and epidural lipomatosis. Findings in concert result in severe central canal stenosis and moderate to severe right-sided foraminal stenosis with compression of the exiting right L3 nerve root. L4-L5: Grade 1 retrolisthesis. Disc osteophyte and severe bilateral facet arthropathy, ligamentum flavum thickening, and epidural lipomatosis result in severe central canal stenosis as well as severe left and moderate right foraminal stenosis with compression of the exiting left L4 nerve root. L5-S1: Broad-based central disc protrusion compresses the traversing S1 nerve roots within the subarticular zones bilaterally and results in moderate central canal stenosis. Background disc osteophyte complex and moderate bilateral facet arthropathy resulting in moderate to severe bilateral foraminal stenosis with compression of the exiting L5 nerve roots bilaterally. IMPRESSION: - At L1-L2, advanced multifactorial degenerative changes and epidural lipomatosis result in moderate to severe central canal stenosis, left greater then right subarticular zone stenosis with compression of the traversing left greater the right L2 nerve roots, and moderate left-sided foraminal stenosis with mass effect on the extraforaminal left L1 nerve root. - At L2-L3, advanced multifactorial degenerative changes and epidural lipomatosis result in severe central canal stenosis and moderate right-sided foraminal stenosis. - At L3-L4, advanced multifactorial degenerative changes and epidural lipomatosis result in severe central canal stenosis and moderate to severe right-sided foraminal stenosis with compression of the exiting right L3 nerve root. - At L4-L5, advanced multifactorial degenerative changes and epidural lipomatosis result in severe central canal stenosis as well as severe left and moderate right foraminal stenosis with compression of the exiting left L4 nerve root. - At L5-S1, a broad-based central disc protrusion compresses the traversing S1 nerve roots within the subarticular zones bilaterally and results in moderate central canal stenosis. Spondylitic changes at L5-S1 result in moderate to severe bilateral foraminal stenosis with compression of the exiting L5 nerve roots bilaterally. BONE DENSITOMETRY 05/21/22 CLINICAL INDICATION: Encounter for screening for osteoporosis. Essential, primary, hypertension. COMPARISON: None (current study represents initial baseline exam). TECHNIQUE: Using a [employer] DXA System (software version: 13.1) manufactured by [employer], dual-energy x-ray absorptiometry was performed of the lumbar spine and left hip. The images are of good technical quality. Summary results are attached. FINDINGS: AP SPINE L1-L2: Density measurements at L3 and L4 are excluded as degenerative changes at these levels may cause overestimation of the lumbar bone mineral density. BMD 1.194 g/cm2, Z-score 1.8, T-score 0.2, normal. LEFT FEMUR, NECK: BMD 0.731 g/cm2, Z-score -0.7, T-score -2.2, osteopenia. LEFT FEMUR, TOTAL: BMD 0.698 g/cm2, Z-score -1.3, T-score -2.5, osteoporosis. IDENTIFIED RISK FACTORS: Rheumatoid arthritis, osteoporosis, history of fracture (adult), tobacco use (current smoker), alcoholism, recurrent falls, height loss, low body weight, low calcium intake, secondary osteoporosis, anticonvulsants, early menopause. HISTORY OF FRACTURE: Lower extremity. MEDICATIONS: None listed. IMPRESSION: 1. DIAGNOSIS: Osteoporosis based on the lowest T-score value of -2.5 in the total femur applying World Health Organization criteria. 2. 10-YEAR FRACTURE RISK PREDICTION, FRAX: According to the guidelines, FRAX calculation should only be performed on patients in the osteopenia bone density category. Therefore, FRAX was not performed on this patient. XR LUMBOSACRAL SPINE 03/03/22 FINDINGS: There is curvature of the mid lumbar spine to the left. Bone alignment is otherwise normal. No fracture or dislocation is seen. There is evidence of severe multilevel degenerative disc disease from L2-L3 to L5-S1. There is lower lumbar spine facet arthritis. There is evidence of atherosclerotic disease. IMPRESSION: No fracture. Scoliosis. Severe degenerative changes. Lumbar Spine MRI 06/2018 Assessment & Plan Assessment & Plan (1) Lumbar radiculopathy: Comment: Spinal stenosis on MRI, follow-up with pain management and neurosurgeon Dr. Esparza Code(s): M54.16 - Radiculopathy, lumbar region (2) Degenerative disc disease, lumbar: Comment: (severe multilevel degenerative disc disease from L2-L3 to L5-S1 on 03/03/22 xray), f/u Dr. Mullen, Dr. Esparza (neurosurg) Code(s): M51.36 - Other intervertebral disc degeneration, lumbar region (3) Scoliosis: Code(s): M41.9 - Scoliosis, unspecified (4) Lumbar spinal stenosis: Code(s): M48.061 - Spinal stenosis, lumbar region without neurogenic claudication (5) Osteoporosis: Code(s): M81.0 - Age-related osteoporosis without current pathological fracture Qualifiers: Osteoporosis type: age-related Presence of current pathological fracture: with current pathological fracture Encounter type: initial encounter Qualified Code(s): M80.00XA - Age-related osteoporosis with current pathological fracture, unspecified site, initial encounter for fracture (6) Alcohol abuse: Code(s): F10.10 - Alcohol abuse, uncomplicated (7) Muscle spasms of neck: Code(s): M62.838 - Other muscle spasm Plan Lumbar spine MRI results were reviewed with patient today and are noted above. Patient will undergo neurosurgical re-evaluation for spinal stenosis related pain with Dr. Esparza. She is not candidate for steroid injections due to osteoporosis. Patient was also advised to follow up with her PCP regarding regarding starting alendronate. Patient was urged to decrease and stop alcohol consumption as well as quit smoking. She has requested refill for nicotine patches but is not motivated to quit smoking. Patient is aware to call if pain worsens or if she develops any red flag symptoms to seek emergency care. Patient denies any cauda equina syndrome symptoms at this time. All questions and concerns have been answered and the patient agreed with the plan. Follow up after neurosurgical evaluation and sooner if needed. Orders: Referrals 2 Neurosurgery Referral M41.9 - Scoliosis, unspecified, M48.061 - Spinal stenosis, lumbar region without neurogenic claudication, M51.36 - Other intervertebral disc degeneration, lumbar region, M54.16 - Radiculopathy, lumbar region Medications: Refilled 2 lidocaine 5% leave on most painful area for up to 12 hrs 1 patch topical DAILY 30 ea 1RF Discontinued 2 aspirin Discontinued Reason: Patient no longer taking 1 tab PO DAILY 90 tabs 3RF lorazepam Take one tab 30-60 min prior to MRI on 05/21/23 at [facility] [place] Discontinued Reason: Patient Completed Course 0.5 mg PO ONCE 1 day PRN 2 tabs 0RF anxiety F41.9 - Anxiety disorder, unspecified, M54.16 - Radiculopathy, lumbar region Coding Level of Care Code Est Pt Level 4 (14147) Diagnoses Lumbar radiculopathy M54.16 Degenerative disc disease, lumbar M51.36 Scoliosis M41.9 Lumbar spinal stenosis M48.061 Age-related osteoporosis with current pathological fracture, initial encounter M80.00XA Osteoporosis type: age-related Presence of current pathological fracture: with current pathological fracture Encounter type: initial encounter Alcohol abuse F10.10 Muscle spasms of neck M62.838
[2023-05-31 08:24] VITALS: BP 129/61; PULSE 80; O2SAT 97; BMI 19.8
== END 2023-05-31 09:03 | disposition home or self-care (01) ==
PROVIDERS: PCP Internal Medicine; Visit Provider Nurse Practitioner Family
DX: M54.16 Radiculopathy, lumbar region (principal); M51.36 Other intervertebral disc degeneration, lumbar region; M41.9 Scoliosis, unspecified; M48.061 Spinal stenosis, lumbar region without neurogenic claudication; M80.00XA Age-related osteoporosis with current pathological fracture, unspecified site, initial encounter for fracture; F10.10 Alcohol abuse, uncomplicated; M62.838 Other muscle spasm
CPT/HCPCS: 99214

== ENCOUNTER → 2023-05-31 08:14 | Outpatient (BNVA) | payer OTHER, SELFPAY | PROVIDERS: PCP Internal Medicine; Visit Provider Nurse Practitioner Family ==

== ENCOUNTER 2023-05-31 09:13 | Outpatient (REF) | payer OTHER, SELFPAY ==
--- NOTE | ~2023-05-31 | XR_ITS ---
EXAMINATION: XR BILATERAL HIPS WITH AP PELVIS CLINICAL INFORMATION: Bilateral hip pain COMPARISON: X-ray lumbar spine 03/03/2022. MRI lumbar spine 05/21/2023. X-ray lumbar spine 11/13/2022 TECHNIQUE: AP view of the pelvis and single views of each hip were obtained. FINDINGS: Advanced degenerative changes in the imaged lower lumbar spine. Degenerative changes in the bilateral hips with mild joint space narrowing and hypertrophic change. Amorphous soft tissue calcifications along the lateral aspect of the right hip joint and lateral to the right greater trochanter. Amorphous calcifications along the lateral aspect of the left hip joint. XR/XR hip BI w PEL1V IMPRESSION: Mild degenerative changes in the bilateral hips. Additional imaging with CT scan or MRI should be considered for better visualization as these modalities are much more sensitive for detection of fracture or other underlying pathology. Advanced degenerative changes in the imaged lower lumbar spine.
== END 2023-05-31 09:14 | disposition home or self-care (01) ==
LOC: HO.HMGCX 09:13
PROVIDERS: PCP Internal Medicine; Visit Provider Nurse Practitioner Family
DX: M25.552 Pain in left hip (principal); M15.9 Polyosteoarthritis, unspecified
CPT/HCPCS: 73521

== ENCOUNTER 2023-07-02 06:02 | Outpatient (REF) | payer OTHER, SELFPAY ==
[2023-07-02 11:19] LABS: MANUAL DIFF FLAG NO
[2023-07-02 11:43] LABS: Basophils Absolute Auto 0.1 X10*3/uL (0.0-0.2); Eosinophils Absolute Auto 0.1 X10*3/uL (0.0-0.4); Eosinophils Percent Auto 1.5 % (0-4); Hematocrit 37.7 % (37.0-47.0); Hemoglobin 12.5 g/dl (12.0-16.0); Imm Gran Abs Auto 0.03 X10*3/uL (0.00-0.03); Imm Gran Pct Auto 0.4 % (0.0-0.4); Lymphocytes Absolute Auto 1.2 X10*3/uL (1.2-4.9); Mean Corpuscular HGB Conc 33.2 g/dl (31.0-35.0); Mean Corpuscular Hemoglobin 33.2 pg (27.0-33.0); Mean Corpuscular Volume 100.3 fL (80.0-98.0); Mean Platelet Volume 9.5 fL (9.4-12.3); Monocytes Absolute Auto 0.6 X10*3/uL (0.1-1.2); Monocytes Percent Auto 7.5 % (2-11); Neutrophils Percent Auto 74.6 % (45-73); Platelet Count 333 X10*3/uL (160-400); Red Blood Count 3.76 X10*6/uL (4.20-5.50); Red Cell Distribution Width 12.9 % (11.0-16.0)
[2023-07-02 12:01] LABS: Alanine Aminotransferase 20 U/L (0-31); Albumin Level 4.3 g/dL (3.5-5.0); Alkaline Phosphatase 68 U/L (39-117); Anion Gap 13 (12-20); Aspartate Amino Transferase 22 U/L (5-31); Bilirubin Total 0.3 mg/dL (0.0-1.0); Blood Urea Nitrogen 11 mg/dL (9-16); Calcium 9.7 mg/dL (8.4-10.2); Carbon Dioxide 23 mmol/L (22-29); Chloride 101 mmol/L (96-108); Cholesterol 182 mg/dL (<200); Estimated Glomerular Filt Rate > 60; Glucose Fasting 103 mg/dL (60-99); HDL Cholesterol 70 mg/dL (>40); LDL Cholesterol Calculated 100 mg/dL (<100); Potassium 3.9 mmol/L (3.3-5.1); Sodium 133 mmol/L (135-145); Total Protein 6.8 g/dL (6.5-8.0); Triglycerides 61 mg/dL (<150)
[2023-07-02 12:25] LABS: TSH reflex Free T4 0.99 uIU/mL (0.32-4.0); Vitamin D 25-OH Total 64.9 ng/mL (>30)
== END 2023-07-02 06:03 | disposition home or self-care (01) ==
LOC: HO.HMGCLDS 06:02
PROVIDERS: PCP Internal Medicine; Visit Provider Internal Medicine
DX: Z00.00 Encounter for general adult medical examination without abnormal findings (principal); I10 Essential (primary) hypertension; E55.9 Vitamin D deficiency, unspecified; M54.16 Radiculopathy, lumbar region; H26.9 Unspecified cataract
CPT/HCPCS: 36415; 80053; 80061; 82306; 84443; 85025

== ENCOUNTER 2023-07-08 07:27 | Outpatient (AMB) | payer OTHER, SELFPAY ==
--- NOTE | 2023-07-08 07:33 | A.OFFPC_ITS ---
Vital Signs 07/08/23 07:35 Height 5 ft 5 in Weight 121 lb BMI 20.1 BP 130/70 Blood Pressure Location Rt brachial Position Sitting Pulse 64 Pulse Source Pulse Oximeter Pulse Oximetry (%) 96 Oxygen Delivery Method Room Air Intake Visit Reasons: Annual PE Intake Note: would like xray of shoulders, needs work note for today. Allergies doxycycline Allergy (Unknown, Verified 07/08/23 07:36) nausea, vomiting Tetracyclines Allergy (Unknown, Verified 07/08/23 07:36) Unknown fluticasone furoate [From Trelegy Ellipta] Adverse Reaction (Intermediate, Verified 07/08/23 07:36) Dry Mucus Membranes umeclidinium [From Trelegy Ellipta] Adverse Reaction (Intermediate, Verified 07/08/23 07:36) Dry Mucus Membranes vilanterol [From Trelegy Ellipta] Adverse Reaction (Intermediate, Verified 07/08/23 07:36) Dry Mucus Membranes penicillin V Adverse Reaction (Unknown, Verified 07/08/23 07:36) Unknown inhaled anticholinergic steroids Allergy (Unknown, Uncoded 07/08/23 07:36) unknown Medication List - Last Reconciled 07/08/23 by Yun Wynne MD acetaminophen ER (Tylenol Arthritis Pain) 650 mg PO Q8H PRN albuterol sulfate mg inhalation Q4H PRN albuterol sulfate 90 mcg/actuation 2 puffs inhalation Q4H PRN alendronate 70 mg PO QWEEK bupropion HCl 150 mg PO BID cetirizine 10 mg PO DAILY cholecalciferol (vitamin D3) 50 mcg PO DAILY diclofenac sodium 1% (Voltaren Arthritis Pain) 2 grams topical QID diltiazem HCl ER 120 mg PO DAILY duloxetine 60 mg PO DAILY fluticasone propion-salmeterol 230-21 mcg/actuation (Advair HFA) 2 puffs inhalation BID fluticasone propionate 50 mcg/actuation 1 spray intranasal DAILY folic acid 1 mg PO DAILY gabapentin 600 mg PO TID ibuprofen 600 mg PO Q8H PRN lidocaine 5% 1 patch topical DAILY lisinopril 30 mg PO DAILY methocarbamol 750 mg PO Q8H PRN montelukast 10 mg PO DAILY multivitamin 1 tab PO DAILY nicotine 1 patch topical DAILY thiamine HCl (vitamin B1) (Vitamin B-1) 100 mg PO DAILY trazodone 50 mg PO BEDTIME Tobacco use date assessed: 05/27/23 HPI Annual PE HPI Details Pt presents for PE. Pt c/o 2 weeks sinus pressure chest congestion and productive cough and chest tightness. She denies fever chills or pleurisy. P atient complains of general joint pains and stiffness both knees shoulders and lower back. She follows up with a pain management. She was prescribed 800 mg of ibuprofen to take 3 times a day. patient drinks 6 beers a day every day. She continues to smoke a pack a day. She has been using Advair inhaler because she could not tolerate Breztri. Patient complains of chronic diarrhea and had a negative colonoscopy at [facility] last year. She follows up with [facility] and has been taking Imodium daily for colitis . [facility] Medical History Fall Tobacco dependence due to cigarettes Alcohol abuse Mitral valve prolapse Easy bruising Scoliosis Degenerative disc disease, lumbar COPD (chronic obstructive pulmonary disease) Muscle spasms of neck Rheumatoid arthritis Bursitis of both hips Hypertension Osteoarthritis Surgical History History of open reduction and internal fixation (ORIF) procedure History of lumbar discectomy Family History Mother Substance use disorder Father Substance use disorder Maternal Aunt Substance use disorder Maternal Uncle Substance use disorder Paternal Uncle Substance use disorder Paternal Aunt Substance use disorder Social History (Updated 05/31/23 @ 08:56 by Lakisha Horner) Household Members: Significant Other Housing: Apartment Alcohol intake: current Alcohol intake frequency: 3 or more drinks per day Alcohol type: beer Patient Tobacco Use Status: Current everyday Tobacco user Cigarettes Per Day: 7 e-Cigarette/Vaping Use: Never Used service: No 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al status: employed and disabled 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 How often do you have a drink containing alcohol?: Never 3. How often do you have six or more drinks on one occasion?: Never Total Score: 0 Score Reviewed/Action Taken: No ZEKE-7 AMB Questionnaire ZEKE-7 Date ZEKE - 7 assessed: 05/06/22 Source: Developed by DrsDevin Tim, Darlin Cabral, Evaristo Ortiz and colleagues, with an educational maddie from [employer] [facility]. Review of Systems Const All systems reviewed & are unremarkable except as noted in HPI and below Reports no additional complaints Eyes Reports no additional complaints ENT Reports no additional complaints Card Reports no additional complaints Resp Reports no additional complaints GI Reports no additional complaints Reports no additional complaints Physical exam (Primary Care) Vital Signs: Last Vital Signs Pulse 64 07/08/23 07:35 BP 130/70 07/08/23 07:35 Pulse Ox 96 07/08/23 07:35 Oxygen Delivery Method Room Air 07/08/23 07:35 BMI result Body Mass Index 20.1 Tobacco/Smoking Status: Tobacco use Status Tobacco use date assessed 05/27/23 07/08/23 07:35 Patient Tobacco Use Status Current everyday Tobacco 07/08/23 07:35 e-Cigarette/Vaping Use Never Used 07/08/23 07:35 Thrive Assessment: Date of Thrive Assessment Date Thrive assessed 05/06/22 07/08/23 07:35 Const General: no acute distress HENMT Head: Yes normal to inspection Ears: TM's normal bilaterally General nose exam: Normal external nose present Face and sinus: Yes sinus tenderness Throat: Yes posterior oropharynx abnormal (erythema) and Yes postnasal drainage Eyes General: appearance normal, both eyes and all related structures Neck Neck: Yes supple and Yes lymphadenopathy Resp Effort & Inspection: normal respiratory effort Auscultation: rhonchi, wheezes and diminished lung sounds Cardio Rhythm: regular rhythm Heart sounds: S1 normal heart sound present and S2 normal heart sound present GI Inspection: Yes normal to inspection Palpation (GI): Soft to palpation Percussion: Yes normal to percussion Auscultation: normal bowel sounds Back/Spine/Pelvis Other: Decreased range of motion lumbar spine paraspinal tenderness in lower lumbar region, decreased range of motion of both knees and shoulders Assessment and Plan Assessment & Plan (1) Arthralgia: Code(s): M25.50 - Pain in unspecified joint Plan: 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 Patient was advised to avoid NSAIDs in combination with alcohol because of increased risk of liver and renal damage, GI bleed (2) Annual physical exam: Code(s): Z00.00 - Encounter for general adult medical examination without abnormal findings Plan: Well-balanced at ago physical activity discussed with the patient. she was advised to stop drinking alcohol and tobacco quitting discussed (3) Sinusitis: Code(s): J32.9 - Chronic sinusitis, unspecified Plan: Z-Brendon is prescribed and supportive care discussed with the patient (4) Alcohol abuse: Comment: Stopping alcohol intake discussed with the patient Code(s): F10.10 - Alcohol abuse, uncomplicated (5) COPD (chronic obstructive pulmonary disease): Comment: Lung CA screen program at [facility], last CT 12/2022 Code(s): J44.9 - Chronic obstructive pulmonary disease, unspecified Plan: Continue Advair and tobacco quitting discussed with the patient (6) Colitis: Comment: F/U with [facility] Code(s): K52.9 - Noninfective gastroenteritis and colitis, unspecified Plan: Patient was advised to follow-up with GI (7) Hypertension: Code(s): I10 - Essential (primary) hypertension Plan: Continue lisinopril and Cardizem (8) Lumbar radiculopathy: Comment: Spinal stenosis on MRI, follow-up with pain management and neurosurgeon Dr. Esparza Code(s): M54.16 - Radiculopathy, lumbar region Plan: Continue gabapentin and follow-up with pain management Orders: Referrals Rheumatology Referral M25.50 - Pain in unspecified joint Medications: New nicotine 1 patch transdermal DAILY 28 ea 5RF Refilled diltiazem HCl ER 120 mg PO DAILY 90 caps 3RF Coding Level of Care Code Est Pt Prev Care 40-64y(03971) Diagnoses Arthralgia M25.50 Annual physical exam Z00.00 Sinusitis J32.9 Alcohol abuse F10.10 COPD (chronic obstructive pulmonary disease) J44.9 Colitis K52.9 Hypertension I10 Lumbar radiculopathy M54.16
[2023-07-08 07:35] VITALS: BP 130/70; PULSE 64; O2SAT 96; BMI 20.1
== END 2023-07-08 10:12 | disposition home or self-care (01) ==
PROVIDERS: Visit Provider Internal Medicine
DX: Z00.00 Encounter for general adult medical examination without abnormal findings (principal); J44.9 Chronic obstructive pulmonary disease, unspecified; M25.50 Pain in unspecified joint; J32.9 Chronic sinusitis, unspecified; F10.10 Alcohol abuse, uncomplicated; K52.9 Noninfective gastroenteritis and colitis, unspecified; I10 Essential (primary) hypertension; M54.16 Radiculopathy, lumbar region
CPT/HCPCS: 99396

== ENCOUNTER 2023-07-15 07:43 | Outpatient (AMB) | payer OTHER, SELFPAY ==
--- NOTE | 2023-07-15 07:46 | A.OFFVIS_ITS ---
Intake Intake Visit Reasons: OV- B/L Shoulder pain Intake Note: Kathie is a 62 year old right hand dominant female who presents today for a new problem visit with complaints of bilateral shoulder pains and weakness. The patient states that at this point her right shoulder pain is more severe than is her left. She has had multiple cortisone injections given into her right shoulder in the past. The injections gave her minimal relief. She has also done physical therapy for 12 weeks over the last 6 months which aggravated her pain. She has tried Tylenol and anti-inflammatory medicines which gave her minimal relief. She reports difficulty lifting her right hand above shoulder height. Patient states that she also has neck pain. She is due to see Dr. Esparza for evaluation of her neck pain over the next few weeks. Allergies doxycycline Allergy (Unknown, Verified 07/08/23 07:36) nausea, vomiting Tetracyclines Allergy (Unknown, Verified 07/08/23 07:36) Unknown fluticasone furoate [From Trelegy Ellipta] Adverse Reaction (Intermediate, V erified 07/08/23 07:36) Dry Mucus Membranes umeclidinium [From Trelegy Ellipta] Adverse Reaction (Intermediate, Verified 07/08/23 07:36) Dry Mucus Membranes vilanterol [From Trelegy Ellipta] Adverse Reaction (Intermediate, Verified 07/08/23 07:36) Dry Mucus Membranes penicillin V Adverse Reaction (Unknown, Verified 07/08/23 07:36) Unknown inhaled anticholinergic steroids Allergy (Unknown, Uncoded 07/08/23 07:36) unknown Medication List - Last Reconciled 07/15/23 by Dewayne Stroud MD albuterol sulfate mg inhalation Q4H PRN albuterol sulfate 90 mcg/actuation 2 puffs inhalation Q4H PRN alendronate 70 mg PO QWEEK bupropion HCl 150 mg PO BID cetirizine 10 mg PO DAILY cholecalciferol (vitamin D3) 50 mcg PO DAILY diclofenac sodium 1% (Voltaren Arthritis Pain) 2 grams topical QID diltiazem HCl ER 120 mg PO DAILY duloxetine 60 mg PO DAILY fluticasone propion-salmeterol 230-21 mcg/actuation (Advair HFA) 2 puffs inhalation BID fluticasone propionate 50 mcg/actuation 1 spray intranasal DAILY folic acid 1 mg PO DAILY gabapentin 600 mg PO TID ibuprofen 600 mg PO Q8H PRN lidocaine 5% 1 patch topical DAILY lisinopril 30 mg PO DAILY methocarbamol 750 mg PO Q8H PRN montelukast 10 mg PO DAILY multivitamin 1 tab PO DAILY nicotine 1 patch transdermal DAILY nicotine 1 patch topical DAILY thiamine HCl (vitamin B1) (Vitamin B-1) 100 mg PO DAILY trazodone 50 mg PO BEDTIME PFSH Medical History Fall Tobacco dependence due to cigarettes Alcohol abuse Mitral valve prolapse Easy bruising Scoliosis Degenerative disc disease, lumbar COPD (chronic obstructive pulmonary disease) Muscle spasms of neck Rheumatoid arthritis Bursitis of both hips Hypertension Osteoarthritis Surgical History History of open reduction and internal fixation (ORIF) procedure History of lumbar discectomy Family History Mother Substance use disorder Father Substance use disorder Maternal Aunt Substance use disorder Maternal Uncle Substance use disorder Paternal Uncle Substance use disorder Paternal Aunt Substance use disorder Social History (Updated 05/31/23 @ 08:56 by Lakisha Horner) Household Members: Significant Other Housing: Apartment Alcohol intake: current Alcohol intake frequency: 3 or more drinks per day Alcohol type: beer Patient Tobacco Use Status: Current everyday Tobacco user Cigarettes Per Day: 7 e-Cigarette/Vaping Use: Never Used service: No 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al status: employed and disabled 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, 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 Cognitive needs: No Hearing needs: No Vision needs: Yes Physical Exam Const Other: Well-nourished well-developed very friendly female awake alert and oriented x3 in no acute distress Extrem Other: Bilateral upper extremity examination shows good capillary refill, no skin lesions noted, normal sensation light touch Right shoulder examination shows decreased range of motion when compared to her left shoulder, positive impingement signs, 4+ out of 5 strength with supraspinatus testing, tenderness over her acromioclavicular joint, no instability Left shoulder examination shows tenderness over her acromioclavicular joint, positive impingement signs, no instability Results Reviewed Results Reviewed: X-rays of the patient's bilateral shoulder show severe acromioclavicular joint narrowing, type 2 acromion, no acute bony abnormalities Assessment & Plan Assessment & Plan (1) Right shoulder pain: Code(s): M25.511 - Pain in right shoulder (2) Left shoulder pain: Code(s): M25.512 - Pain in left shoulder Plan: Ms. Wakefield presents with bilateral shoulder pains and weakness, right greater than left, due to impingement syndrome and possible rotator cuff tearing. Thus, I will send the patient for an MRI of her right shoulder for further evaluation of her rotator cuff tendons. I will see her back once the MRI is completed to discuss the findings and treatment options. Feel free to call me at any time should questions regarding her orthopedic management arise. Thank you very much for asking me to see this very friendly patient. I spent 22 minutes in reviewing the patient's records and imaging studies, seeing the patient and documenting in the medical record. Orders: Orders XR shoulder LT min 2V Today M25.512 - Pain in left shoulder MR shoulder RT wo con Today M25.511 - Pain in right shoulder XR shoulder RT min 2V Today M25.511 - Pain in right shoulder Coding Level of Care Code New Pt Level 2 (21903) Diagnoses Right shoulder pain M25.511 Left shoulder pain M25.512
== END 2023-07-15 08:19 | disposition home or self-care (01) ==
PROVIDERS: PCP Internal Medicine; Visit Provider Orthopaedic Surgery
DX: M25.511 Pain in right shoulder (principal); M25.512 Pain in left shoulder
CPT/HCPCS: 99202

== ENCOUNTER 2023-07-15 09:23 | Outpatient (REF) | payer OTHER, SELFPAY ==
--- NOTE | ~2023-07-15 | XR_ITS ---
EXAMINATION: XR SHOULDER, LEFT CLINICAL INFORMATION: Pain in left shoulder COMPARISON: None available. TECHNIQUE: AP neutral and scapular Y views of the left shoulder. FINDINGS: The bones are intact no fracture. Glenohumeral and acromioclavicular alignment is anatomic with normal glenohumeral joint space. There is mild degenerative change of the left acromioclavicular joint. Several soft tissue calcifications are seen consistent with calcific tendinitis. XR/XR shoulder LT min 2V IMPRESSION: Calcific tendinitis
--- NOTE | ~2023-07-15 | XR_ITS ---
EXAMINATION: XR SHOULDER, RIGHT CLINICAL INFORMATION: Pain in right shoulder COMPARISON: None available. TECHNIQUE: AP neutral and scapular Y views of the right shoulder. FINDINGS: The bones and soft tissues are normal. No fracture. Glenohumeral and acromioclavicular alignment is anatomic with normal joint space. No abnormal soft tissue calcifications. XR/XR shoulder RT min 2V IMPRESSION: No bony abnormality of the right shoulder.
== END 2023-07-15 09:24 | disposition home or self-care (01) ==
LOC: HO.HOSX 09:23
PROVIDERS: Visit Provider Orthopaedic Surgery
DX: M25.511 Pain in right shoulder (principal); M25.512 Pain in left shoulder
CPT/HCPCS: 73030

== ENCOUNTER → 2023-07-21 09:16 | Outpatient (BNVA) | payer OTHER, SELFPAY | PROVIDERS: PCP Internal Medicine; Referring Provider Nurse Practitioner Family; Visit Provider Neurological Surgery ==

== ENCOUNTER 2023-08-23 07:16 | Outpatient (REF) | payer OTHER, SELFPAY ==
--- NOTE | ~2023-08-23 | MR_ITS ---
EXAMINATION: MR SHOULDER WITHOUT CONTRAST, RIGHT CLINICAL INFORMATION: Pain in right shoulder COMPARISON: None available. TECHNIQUE: MRI of the shoulder without contrast was performed on a high-field scanner. FINDINGS: ROTATOR CUFF: Supraspinatus: There is subtle heterogeneity of the intrasubstance portion of the tendon at the posterior insertion compatible with focal tendinosis or a small intrasubstance partial tear. No measurable defect or tendon retraction. Muscle normal. Remaining rotator cuff muscles and tendons normal. BICEPS: Normal. CORACOACROMIAL ARCH: The undersurface of the acromion is curved with no subacromial spur. The acromioclavicular joint is normal. LABRUM/CAPSULE: There is [id number] hypertrophic osteoarthritis of the acromioclavicular joint BURSA: Trace fluid in subacromial-subdeltoid bursa compatible with a minimal bursitis. GLENOHUMERAL JOINT/MARROW: Articular cartilage is normal. Probable synovial recess rather than ganglion cyst along the anterior/superior aspect of the joint abutting the lateral aspect of the coracoid. MR/MR shoulder RT wo con IMPRESSION: 1. [id number] hypertrophic osteoarthritis of the acromioclavicular joint. 2. Minimal subacromial-subdeltoid bursitis. 3. Minimal abnormality of the supraspinatus compatible with tendinosis and/or minimal intrasubstance partial tear but no measurable defect or tendon retraction. 4. Probable synovial recess rather than ganglion cyst along the anterior superior aspect of the glenohumeral joint.
== END 2023-08-23 07:17 | disposition home or self-care (01) ==
LOC: HO.MRI 07:16
PROVIDERS: PCP Internal Medicine; Visit Provider Orthopaedic Surgery
DX: M25.511 Pain in right shoulder (principal)
CPT/HCPCS: 73221

== ENCOUNTER 2023-09-14 07:16 | Outpatient (REF) | payer OTHER, SELFPAY | END 2023-09-14 07:17 | disposition home or self-care (01) | LOC: HO.MRI 07:16 | PROVIDERS: PCP Internal Medicine; Visit Provider Orthopaedic Surgery | DX: M25.512 Pain in left shoulder (principal) | CPT/HCPCS: 73221 ==

== ENCOUNTER 2023-10-05 08:22 | Outpatient (AMB) | payer OTHER, SELFPAY ==
[2023-10-05 08:23] VITALS: BMI 20.1
--- NOTE | 2023-10-05 08:23 | A.OFFVIS_ITS ---
Intake Vital Signs 10/05/23 08:23 Height 5 ft 5 in Weight 121 lb BMI 20.1 Intake Visit Reasons: OV MRI Shoulder review Intake Note: Kathie Mcmullen is a 63 year old female who present for a MRI review of bilateral shoulders. The patient describes her pains as sharp in nature. She has done physical therapy exercises which aggravated her pains. She has also tried Tylenol and anti-inflammatory medicines which gave her minimal relief. The patient states that at this point both of her shoulder pains are equal. She reports difficulty lifting her hands above shoulder height. Allergies doxycycline Allergy (Unknown, Verified 10/05/23 08:34) nausea, vomiting Tetracyclines Allergy (Unknown, Verified 10/05/23 08:34) Unknown fluticasone furoate [From Trelegy Ellipta] Adverse Reaction (Intermediate, Verified 10/05/23 08:34) Dry Mucus Membranes umeclidinium [From Trelegy Ellipta] Adverse Reaction (Intermediate, Verified 10/05/23 08:34) Dry Mucus Membranes vilanterol [From Trelegy Ellipta] Adverse Reaction (Intermediate, Verified 10/05/23 08:34) Dry Mucus Membranes penicillin V Adverse Reaction (Unknown, Verified 10/05/23 08:34) Unknown inhaled anticholinergic steroids Allergy (Unknown, Uncoded 07/08/23 07:36) unknown Medication List - Last Reconciled 10/05/23 by Dewayne Stroud MD albuterol sulfate mg inhalation Q4H PRN albuterol sulfate 90 mcg/actuation 2 puffs inhalation Q4H PRN alendronate 70 mg PO QWEEK bupropion HCl 150 mg PO BID cetirizine 10 mg PO DAILY cholecalciferol (vitamin D3) 50 mcg PO DAILY diclofenac sodium 1% (Voltaren Arthritis Pain) 2 grams topical QID diltiazem HCl ER 120 mg PO DAILY duloxetine 60 mg PO DAILY fluticasone propion-salmeterol 230-21 mcg/actuation (Advair HFA) 2 puffs inhalation BID fluticasone propionate 50 mcg/actuation 1 spray intranasal DAILY folic acid 1 mg PO DAILY gabapentin 600 mg PO TID ibuprofen 600 mg PO Q8H PRN lidocaine 5% 1 patch topical DAILY lisinopril 30 mg PO DAILY methocarbamol 750 mg PO Q8H PRN montelukast 10 mg PO DAILY multivitamin 1 tab PO DAILY nicotine 1 patch transdermal DAILY nicotine 1 patch topical DAILY thiamine HCl (vitamin B1) (Vitamin B-1) 100 mg PO DAILY trazodone 50 mg PO BEDTIME FOR[facility]LY [facility], [facility]–1983 Medical History Fall Tobacco dependence due to cigarettes Alcohol abuse Mitral valve prolapse Easy bruising Scoliosis Degenerative disc disease, lumbar COPD (chronic obstructive pulmonary disease) Muscle spasms of neck Rheumatoid arthritis Bursitis of both hips Hypertension Osteoarthritis Surgical History History of open reduction and internal fixation (ORIF) procedure History of lumbar discectomy Family History Mother Substance use disorder Father Substance use disorder Maternal Aunt Substance use disorder Maternal Uncle Substance use disorder Paternal Uncle Substance use disorder Paternal Aunt Substance use disorder Social History Household Members: Significant Other Housing: Apartment Alcohol intake: current Alcohol intake frequency: 3 or more drinks per day Alcohol type: beer Patient Tobacco Use Status: Current everyday Tobacco user Cigarettes Per Day: 7 e-Cigarette/Vaping Use: Never Used service: No 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al status: employed and disabled 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, 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 Cognitive needs: No Hearing needs: No Vision needs: Yes Physical Exam Vital Signs: BMI result Body Mass Index 20.1 Const Other: Well-nourished well-developed very friendly female awake alert and oriented x3 in no acute distress Extrem Other: Bilateral upper extremity examination shows good capillary refill, no skin lesions noted, normal sensation light touch Bilateral shoulder examination shows forward flexion to 140 degrees, external rotation at 30 degrees, internal rotation to level L4, positive impingement signs, tenderness over her acromioclavicular joints, no instability Results Reviewed Results Reviewed: MRI of the patient's bilateral shoulder show severe acromioclavicular joint narrowing, type 2 acromion, signal change within the supraspinatus tendon due to rotator cuff tendinosis versus possible adhesive capsulitis Assessment & Plan Assessment & Plan (1) Right shoulder pain: Code(s): M25.511 - Pain in right shoulder (2) Left shoulder pain: Code(s): M25.512 - Pain in left shoulder Plan Ms. Wakefield presents with bilateral shoulder pains due to impingement syndrome, acromioclavicular joint arthritis and adhesive capsulitis. I had a lengthy discussion with the patient regarding the treatment options. At this point she appears to be failing continued non operative treatments. The risks and benefits of shoulder arthroscopic surgery were discussed at length with the patient. The surgery would most likely involve diagnostic arthroscopy with arthroscopic distal clavicle excision, arthroscopic acromioplasty, arthroscopic capsular release and manipulation under anesthesia. At this point the patient is not sure which shoulder she wishes to proceed with. She will contact my office to pick a surgery date when she is ready to do so. She will continue with her range of motion exercises in the meantime. Feel free to call me at any time should questions regarding her orthopedic management arise. I spent 22 minutes in reviewing the patient's records and imaging studies, seeing the patient and documenting in the medical record. Coding Level of Care Code Est Pt Level 2 (15442) Diagnoses Right shoulder pain M25.511 Left shoulder pain M25.512
== END 2023-10-05 09:00 | disposition home or self-care (01) ==
PROVIDERS: PCP Internal Medicine; Visit Provider Orthopaedic Surgery
DX: M75.42 Impingement syndrome of left shoulder (principal); M75.41 Impingement syndrome of right shoulder; M19.011 Primary osteoarthritis, right shoulder; M19.012 Primary osteoarthritis, left shoulder
CPT/HCPCS: 99213

== ENCOUNTER → 2023-10-05 08:22 | Outpatient (BNVA) | payer OTHER, SELFPAY | PROVIDERS: PCP Internal Medicine; Visit Provider Orthopaedic Surgery ==

== ENCOUNTER 2023-10-19 07:43 | Outpatient (AMB) | payer OTHER, SELFPAY ==
--- NOTE | 2023-10-19 07:44 | A.OFFVIS_ITS ---
Intake Intake Visit Reasons: Newprob-B/L hip pain Intake Note: Kathie is a 63 year old female who presents today for a new problem visit with complaints of bilateral hip pain. Left feeling worse than the right. This pain keeps her up at night and makes it difficult to sleep. The patient also reports progressively worsening pains in her bilateral groins. Her pains have gotten worse over the last few years in spite of continued non operative treatments. She has tried Tylenol and anti-inflammatory medicines which gave her minimal relief. She has also done physical therapy which aggravated her pain. She also reports intermittent low back pain. She has not had back surgery in the past. Allergies doxycycline Allergy (Unknown, Verified 10/19/23 07:45) nausea, vomiting Tetracyclines Allergy (Unknown, Verified 10/19/23 07:45) Unknown fluticasone furoate [From Trelegy Ellipta] Adverse Reaction (Intermediate, Verified 10/19/23 07:45) Dry Mucus Membranes umeclidinium [From Trelegy Ellipta] Adverse Reaction (Intermediate, Verified 10/19/23 07:45) Dry Mucus Membranes vilanterol [From Trelegy Ellipta] Adverse Reaction (Intermediate, Verified 10/19/23 07:45) Dry Mucus Membranes penicillin V Adverse Reaction (Unknown, Verified 10/19/23 07:45) Unknown inhaled anticholinergic steroids Allergy (Unknown, Uncoded 10/19/23 07:45) unknown [facility] Medical History Fall Tobacco dependence due to cigarettes Alcohol abuse Mitral valve prolapse Easy bruising Scoliosis Degenerative disc disease, lumbar COPD (chronic obstructive pulmonary disease) Muscle spasms of neck Rheumatoid arthritis Bursitis of both hips Hypertension Osteoarthritis Surgical History History of open reduction and internal fixation (ORIF) procedure History of lumbar discectomy Family History Mother Substance use disorder Father Substance use disorder Maternal Aunt Substance use disorder Maternal Uncle Substance use disorder Paternal Uncle Substance use disorder Paternal Aunt Substance use disorder Social History Household Members: Significant Other Housing: Apartment Alcohol intake: current Alcohol intake frequency: 3 or more drinks per day Alcohol type: beer Patient Tobacco Use Status: Current everyday Tobacco user Cigarettes Per Day: 7 e-Cigarette/Vaping Use: Never Used service: No 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al status: employed and disabled 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, 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 Cognitive needs: No Hearing needs: No Vision needs: Yes Physical Exam Const Other: Well-nourished well-developed very friendly female awake alert and oriented x3 in no acute distress Extrem Other: Bilateral lower extremity examination shows good capillary refill, no skin lesions noted, normal sensation light touch Bilateral hip examination shows pain with range of motion, no tenderness over her bursa, increased pain with forward flexion and internal rotation Results Reviewed Results Reviewed: X-rays of the patient's bilateral hip show mild joint space narrowing, no acute bony abnormalities Assessment & Plan Assessment & Plan (1) Left hip pain: Code(s): M25.552 - Pain in left hip (2) Right hip pain: Code(s): M25.551 - Pain in right hip Plan Ms. 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 Thus, I will send the patient for MRI evaluation of both of her hips. I will see her back once the imaging studies are completed to discuss the findings and treatment options. Feel free to call me at any time should questions regarding her orthopedic management arise. I spent 22 minutes in reviewing the patient's records and imaging studies, seeing the patient and documenting in the medical record. Orders: Orders MR hip LT wo con Today M25.552 - Pain in left hip MR hip RT wo con Today M25.551 - Pain in right hip Coding Level of Care Code Est Pt Level 2 (87247) Diagnoses Left hip pain M25.552 Right hip pain M25.551
== END 2023-10-19 08:01 | disposition home or self-care (01) ==
PROVIDERS: PCP Internal Medicine; Visit Provider Orthopaedic Surgery
DX: M25.552 Pain in left hip (principal); M25.551 Pain in right hip
CPT/HCPCS: 99213

== ENCOUNTER 2023-10-19 08:23 | Outpatient (AMB) | payer OTHER, SELFPAY ==
[2023-10-19 08:52] VITALS: BP 138/76; PULSE 74; TEMP 36.5; O2SAT 98; BMI 19.8
--- NOTE | 2023-10-19 08:52 | MHC.OFFWIV ---
Intake Vital Signs 10/19/23 08:52 Height 5 ft 5 in Weight 119 lb 4 oz BMI 19.8 BP 138/76 Blood Pressure Location Rt brachial Position Sitting Pulse 74 Pulse Source Pulse Oximeter Temp 97.7 F Pulse Oximetry (%) 98 Oxygen Delivery Method Room Air Intake Visit Reasons: EST/sinus infection (lobby masked) Intake Note: Pt is here c/o possible sinus infection. Pt states her PCP is aware of her chronic sinus infections. Patient Tobacco Use Status: Current everyday Tobacco user Allergies doxycycline Allergy (Unknown, Verified 10/19/23 08:55) nausea, vomiting Tetracyclines Allergy (Unknown, Verified 10/19/23 08:55) Unknown fluticasone furoate [From Trelegy Ellipta] Adverse Reaction (Intermediate, Verified 10/19/23 08:55) Dry Mucus Membranes umeclidinium [From Trelegy Ellipta] Adverse Reaction (Intermediate, Verified 10/19/23 08:55) Dry Mucus Membranes vilanterol [From Trelegy Ellipta] Adverse Reaction (Intermediate, Verified 10/19/23 08:55) Dry Mucus Membranes penicillin V Adverse Reaction (Unknown, Verified 10/19/23 08:55) Unknown inhaled anticholinergic steroids Allergy (Unknown, Uncoded 10/19/23 08:55) unknown Medication List - Last Reconciled 10/19/23 by ERNESTO Valles albuterol sulfate mg inhalation Q4H PRN albuterol sulfate 90 mcg/actuation 2 puffs inhalation Q4H PRN alendronate 70 mg PO QWEEK bupropion HCl 150 mg PO BID cetirizine 10 mg PO DAILY cholecalciferol (vitamin D3) 50 mcg PO DAILY diclofenac sodium 1% (Voltaren Arthritis Pain) 2 grams topical QID diltiazem HCl ER 120 mg PO DAILY duloxetine 60 mg PO DAILY fluticasone propion-salmeterol 230-21 mcg/actuation (Advair HFA) 2 puffs inhalation BID fluticasone propionate 50 mcg/actuation 1 spray intranasal DAILY folic acid 1 mg PO DAILY gabapentin 600 mg PO TID ibuprofen 600 mg PO Q8H PRN lidocaine 5% 1 patch topical DAILY lisinopril 30 mg PO DAILY methocarbamol 750 mg PO Q8H PRN montelukast 10 mg PO DAILY multivitamin 1 tab PO DAILY nicotine 1 patch transdermal DAILY nicotine 1 patch topical DAILY thiamine HCl (vitamin B1) (Vitamin B-1) 100 mg PO DAILY trazodone 50 mg PO BEDTIME Do you need a note to return to daycare/school/sports/work: No HPI HPI Comments History of Present Illness Details Patient is a 63-year-old female in today for a sick visit. She has a past medical history significant for COPD, hypertension, colitis, and chronic ETOH use. Patient states that for the past 2 weeks she has developed symptoms of sinus tenderness, ear pain, sore throat, cough, chest congestion. Patient denies dizziness, numbness, chest pain, shortness a breath, nausea, vomiting. Patient states she has a longstanding history of recurrent sinus infections. Denies sick contacts. Has used ibuprofen with little relief. [facility] Medical History Fall Tobacco dependence due to cigarettes Alcohol abuse Mitral valve prolapse Easy bruising Scoliosis Degenerative disc disease, lumbar COPD (chronic obstructive pulmonary disease) Muscle spasms of neck Rheumatoid arthritis Bursitis of both hips Hypertension Osteoarthritis Surgical History History of open reduction and internal fixation (ORIF) procedure History of lumbar discectomy Family History Mother Substance use disorder Father Substance use disorder Maternal Aunt Substance use disorder Maternal Uncle Substance use disorder Paternal Uncle Substance use disorder Paternal Aunt Substance use disorder Social History Household Members: Significant Other Housing: Apartment Alcohol intake: current Alcohol intake frequency: 3 or more drinks per day Alcohol type: beer Patient Tobacco Use Status: Current everyday Tobacco user Cigarettes Per Day: 7 e-Cigarette/Vaping Use: Never Used service: No 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al status: employed and disabled 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 Eyes: No Eye Pain, No Swelling, No Redness Cardiovascular : No Chest Pain, No SOB, No Dyspnea on Exertion, No Orthopnea, No Edema, No Palpitations Respiratory : Admits Cough, No Sputum, No Wheezing Gastrointestinal : No Nausea, No Vomiting, Admits some Diarrhea, No Constipation, No abdominal Pain, No Hematochezia, No Melena Psych : No Anxiety/Panic, No Depression All other systems reviewed and are negative Physical Exam Vital Signs: Last Vital Signs Temp 97.7 F 10/19/23 08:52 Pulse 74 10/19/23 08:52 BP 138/76 10/19/23 08:52 Pulse Ox 98 10/19/23 08:52 Oxygen Delivery Method Room Air 10/19/23 08:52 BMI result Body Mass Index 19.8 Vital signs reviewed stable Const Other: Appearance: Alert.? Oriented X3.? No acute distress.? Head: Normocephalic, atraumatic. Eyes: Pupils equal, round and reactive to light.? ENT: Pharynx erythema.?Septum midline. TM erythema and effusion right ear. Neck: Normal inspection.? Neck supple.?Full ROM. CVS: Normal heart rate and rhythm.? Pulses normal. Respiratory: No respiratory distress.? Breath sounds slightly diminshed bilaterally. Neuro: Oriented X 3.? No motor deficit.? No sensory deficit. CN 2-12 intact Assessment & Plan Assessment & Plan (1) Otitis media of right ear: Comment: Patient states the only antibiotic she can take his azithromycin. Will prescribe with prednisone to be taken as directed. Patient has been educated on signs of worsening symptoms and when to report to the walk-in or when to present to the ED. patient states she understands Code(s): H66.91 - Otitis media, unspecified, right ear Qualifiers: Otitis media type: unspecified Qualified Code(s): H66.91 - Otitis media, unspecified, right ear Plan: Take your medications as prescribed. If you were prescribed antibiotics today, it is important that you take your medication to their entirety, do not skip any doses, do not finish them early. Follow-up with your primary care provider this week. Return to the emergency department with new or worsening symptoms. Such as fevers, chills, chest pain, shortness of breath, nausea, vomiting, dizziness, headache, vision changes, lethargy In case of emergency call 911 Plan Follow-up with PCP. Coding Level of Care Code Est Pt Level 3 (64861) Diagnoses Right otitis media, unspecified otitis media type H66.91 Otitis media type: unspecified Time Spent (min) 22
== END 2023-10-19 09:38 | disposition home or self-care (01) ==
PROVIDERS: PCP Internal Medicine; Visit Provider Nurse Practitioner Primary Care
DX: H66.91 Otitis media, unspecified, right ear (principal)
CPT/HCPCS: 99213

== ENCOUNTER 2023-10-19 10:14 | Outpatient (REF) | payer OTHER, SELFPAY ==
[2023-10-19 12:42] LABS: Influenza A PCR NEGATIVE (Negative); Influenza B PCR NEGATIVE (Negative); Resp Syncy Virus RNA Qual PCR POSITIVE (Negative); SARS COV2 PCR INHOUSE NEGATIVE (Negative)
== END 2023-10-19 10:15 | disposition home or self-care (01) ==
LOC: HO.HOSX 10:14
PROVIDERS: Nurse Practitioner Primary Care; Visit Provider Orthopaedic Surgery
DX: Z11.52 Encounter for screening for COVID-19 (principal); Z20.822 Contact with and (suspected) exposure to COVID-19; J06.9 Acute upper respiratory infection, unspecified; M25.551 Pain in right hip; M25.552 Pain in left hip
CPT/HCPCS: 0241U

== ENCOUNTER 2023-10-25 11:33 | Outpatient (AMB) | payer OTHER, SELFPAY ==
[2023-10-25 12:23] VITALS: BP 136/76; PULSE 85; TEMP 37; O2SAT 96
--- NOTE | 2023-10-25 12:23 | AM.OFFWIN_ITS ---
Intake Vital Signs 10/25/23 12:23 Height 5 ft 5 in Weight 120 lb BMI 20.0 BP 136/76 Blood Pressure Location Lt brachial Position Sitting Pulse 85 Pulse Source Pulse Oximeter Temp 98.6 F Temp Source Temporal Artery Scan Pulse Oximetry (%) 96 Oxygen Delivery Method Room Air Intake Visit Reasons: ESt/sinus inf,here last wk notbetter(lobbymasked ) Intake Note: pt is here today for sinus infection here last week not better Patient Tobacco Use Status: Current everyday Tobacco user Allergies doxycycline Allergy (Unknown, Verified 10/25/23 13:21) nausea, vomiting Tetracyclines Allergy (Unknown, Verified 10/25/23 13:21) Unknown fluticasone furoate [From Trelegy Ellipta] Adverse Reaction (Intermediate, Verified 10/25/23 13:21) Dry Mucus Membranes umeclidinium [From Trelegy Ellipta] Adverse Reaction (Intermediate, Verified 10/25/23 13:21) Dry Mucus Membranes vilanterol [From Trelegy Ellipta] Adverse Reaction (Intermediate, Verified 10/25/23 13:21) Dry Mucus Membranes penicillin V Adverse Reaction (Unknown, Verified 10/25/23 13:21) Unknown inhaled anticholinergic steroids Allergy (Unknown, Uncoded 10/25/23 13:21) unknown Medication List - Last Reconciled 10/25/23 by Adan Pagan MD albuterol sulfate mg inhalation Q4H PRN albuterol sulfate 90 mcg/actuation 2 puffs inhalation Q4H PRN alendronate 70 mg PO QWEEK aspirin 1 tab PO DAILY azithromycin For 250 mg dose pack: take 500 mg today (day 1), then 250 mg for 4 days (days 2-5) PO baclofen 10 mg PO BID bupropion HCl 150 mg PO BID cetirizine 10 mg PO DAILY cholecalciferol (vitamin D3) 50 mcg PO DAILY diltiazem HCl ER 120 mg PO DAILY duloxetine 60 mg PO DAILY fluticasone propion-salmeterol 230-21 mcg/actuation (Advair HFA) 2 puffs inhalation BID folic acid 1 mg PO DAILY gabapentin 600 mg PO TID ibuprofen 600 mg PO Q8H PRN lidocaine 5% 1 patch topical DAILY lisinopril 30 mg PO DAILY methocarbamol 750 mg PO Q8H PRN montelukast 10 mg PO DAILY multivitamin 1 tab PO DAILY nicotine 1 patch transdermal DAILY nicotine 1 patch topical DAILY prednisone 20 mg PO BID thiamine HCl (vitamin B1) (Vitamin B-1) 100 mg PO DAILY trazodone 50 mg PO BEDTIME Do you need a note to return to daycare/school/sports/work: Yes HPI ESt/sinus inf,here last wk key(lobbymasked ) HPI0 Details 63-year-old female presents to [facility] for a sick visit. Patient reports that her symptoms of sinus congestion, nonproductive cough and wheezing is continuing. She is completed a course of antibiotics and prednisone. She is a smoker and drinks alcohol every day. Nonproductive cough. No fevers or chills. [facility] Medical History Fall Tobacco dependence due to cigarettes Alcohol abuse Mitral valve prolapse Easy bruising Scoliosis Degenerative disc disease, lumbar COPD (chronic obstructive pulmonary disease) Muscle spasms of neck Rheumatoid arthritis Bursitis of both hips Hypertension Osteoarthritis Surgical History History of open reduction and internal fixation (ORIF) procedure History of lumbar discectomy Family History Mother Substance use disorder Father Substance use disorder Maternal Aunt Substance use disorder Maternal Uncle Substance use disorder Paternal Uncle Substance use disorder Paternal Aunt Substance use disorder Social History Household Members: Significant Other Housing: Apartment Alcohol intake: current Alcohol intake frequency: 3 or more drinks per day Alcohol type: beer Patient Tobacco Use Status: Current everyday Tobacco user Cigarettes Per Day: 7 e-Cigarette/Vaping Use: Never Used service: No 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al status: employed and disabled 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, 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 Cognitive needs: No Hearing needs: No Vision needs: Yes Physical Exam Vital Signs: Last Vital Signs Temp 98.6 F 10/25/23 12:23 Pulse 85 10/25/23 12:23 BP 136/76 10/25/23 12:23 Pulse Ox 96 10/25/23 12:23 Oxygen Delivery Method Room Air 10/25/23 12:23 BMI result Body Mass Index 20.0 Const General: cooperative and healthy appearing Nutritional Appearance: well nourished Orientation/consciousness: patient oriented x3 Limitations: no limitations HEENT Head: Yes normal to inspection Eyes General: appearance normal, both eyes and all related structures Neck Neck: Yes normal visual inspection Chest Chest palpation & inspection: normal palpation of entire chest wall Resp Effort & Inspection: normal respiratory effort Neuro General: patient oriented x3 Assessment & Plan Assessment & Plan (1) Acute bronchitis: Code(s): J20.9 - Acute bronchitis, unspecified Plan: Antibiotics ordered. Increase fluid intake. Tylenol for aches and pains. If symptoms worsen, follow-up here for a recheck. Coding Level of Care Code Est Pt Level 3 (13396) Diagnoses Acute bronchitis J20.9
== END 2023-10-25 13:26 | disposition home or self-care (01) ==
PROVIDERS: PCP Internal Medicine; Visit Provider Internal Medicine
DX: J20.9 Acute bronchitis, unspecified (principal)
CPT/HCPCS: 99213

== ENCOUNTER 2023-11-05 09:44 | Outpatient (AMB) | payer OTHER, SELFPAY ==
[2023-11-05 09:46] VITALS: BP 126/74; PULSE 82; O2SAT 97; BMI 19.8
--- NOTE | 2023-11-05 09:46 | A.OFFPC_ITS ---
Vital Signs 11/05/23 09:46 Height 5 ft 5 in Weight 119 lb BMI 19.8 BP 126/74 Blood Pressure Location Rt brachial Position Sitting Pulse 82 Pulse Source Pulse Oximeter Pulse Oximetry (%) 97 Oxygen Delivery Method Room Air Intake Visit Reasons: Pre op L shoulder Arthroscopy Dr. Stroud Allergies doxycycline Allergy (Unknown, Verified 11/05/23 09:48) nausea, vomiting Tetracyclines Allergy (Unknown, Verified 11/05/23 09:48) Unknown fluticasone furoate [From Trelegy Ellipta] Adverse Reaction (Intermediate, Verified 11/05/23 09:48) Dry Mucus Membranes umeclidinium [From Trelegy Ellipta] Adverse Reaction (Intermediate, Verified 11/05/23 09:48) Dry Mucus Membranes vilanterol [From Trelegy Ellipta] Adverse Reaction (Intermediate, Verified 11/05/23 09:48) Dry Mucus Membranes penicillin V Adverse Reaction (Unknown, Verified 11/05/23 09:48) Unknown inhaled anticholinergic steroids Allergy (Unknown, Uncoded 11/05/23 09:48) unknown Medication List - Last Reconciled 11/05/23 by Yun Wynne MD albuterol sulfate mg inhalation Q4H PRN albuterol sulfate 90 mcg/actuation 2 puffs inhalation Q4H PRN alendronate 70 mg PO QWEEK aspirin 1 tab PO DAILY baclofen 10 mg PO BID bupropion HCl 150 mg PO BID cetirizine 10 mg PO DAILY cholecalciferol (vitamin D3) 50 mcg PO DAILY diltiazem HCl ER 120 mg PO DAILY duloxetine 60 mg PO DAILY fluticasone propion-salmeterol 230-21 mcg/actuation (Advair HFA) 2 puffs inhalation BID folic acid 1 mg PO DAILY gabapentin 600 mg PO TID ibuprofen 600 mg PO Q8H PRN lidocaine 5% 1 patch topical DAILY lisinopril 30 mg PO DAILY methocarbamol 750 mg PO Q8H PRN montelukast 10 mg PO DAILY multivitamin 1 tab PO DAILY nicotine 1 patch transdermal DAILY nicotine 1 patch topical DAILY thiamine HCl (vitamin B1) (Vitamin B-1) 100 mg PO DAILY trazodone 50 mg PO BEDTIME Tobacco use date assessed: 11/05/23 Dental Screening Dental Screen Date: 11/05/23 Did you have a dental visit in the last 12 months?: Yes Did you have a dental problem in the last 6 months where you did not have access to dental care?: No Was dental information given to patient?: Patient has dentist HPI Pre op L shoulder Arthroscopy Dr. Stroud HPI Details Patient presents for preop for left shoulder surgery. She complains of persistent sinus congestion, facial pain, green nasal discharge and intermittent cough but no fever chills shortness of breath or wheezing. Patient took Z-Brendon twice without significant improvement. Hypertension ,chronic anxiety and depression are stable on current medications. Patient is cutting down on smoking down to half a pack a day. She has not been using Advair regularly. [facility] Medical History (Updated 11/05/23 @ 10:38 by Yun Wynne MD) Sinusitis Fall Tobacco dependence due to cigarettes Alcohol abuse Mitral valve prolapse Easy bruising Scoliosis Degenerative disc disease, lumbar COPD (chronic obstructive pulmonary disease) Muscle spasms of neck Rheumatoid arthritis Bursitis of both hips Hypertension Osteoarthritis Surgical History History of open reduction and internal fixation (ORIF) procedure History of lumbar discectomy Family History Mother Substance use disorder Father Substance use disorder Maternal Aunt Substance use disorder Maternal Uncle Substance use disorder Paternal Uncle Substance use disorder Paternal Aunt Substance use disorder Social History Household Members: Significant Other Housing: Apartment Alcohol intake: current Alcohol intake frequency: 3 or more drinks per day Alcohol type: beer Patient Tobacco Use Status: Current everyday Tobacco user Cigarettes Per Day: 7 e-Cigarette/Vaping Use: Never Used service: No 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al status: employed and disabled 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 1. Little interest or pleasure in doing things: more than half the days 2. Feeling down, depressed, or hopeless: nearly every day 3. Trouble falling or staying asleep, or sleeping too much: nearly every day 4. Feeling tired or having little energy: more than half the days 5. Poor appetite or overeating: nearly every day 6. Feeling bad about yourself - or that you are a failure or have let yourself or your family down: nearly every day 7. Trouble concentrating on things, such as reading the newspaper or watching television: nearly every day 8. Moving or speaking so slowly that other people could have noticed. Or the opposite - being so fidgety or restless that you have been moving around a lot more than usual: nearly every day 9. Thoughts that you would be better off or of hurting yourself in some way: several days Total score: 23 Depression Screening Interpretation: Positive Depression Screening Done: Yes Source: Developed by Drs. Esvin Tim, Darlin Cabral, Evaristo Ortiz and colleagues, with an educational maddie from [employer]. Thrive Questionnaire Date Thrive assessed: 11/05/23 I am a: Patient What is your living situation today?: I have a steady place to live Within the past 12 months, did the food you bought not last and you didn't have the money to get more?: Sometimes True Within the past 12 months, did you worry whether your food would run out before you got money to buy more?: Often true Do you have trouble paying for medicines?: Yes Do you have trouble getting transportation to medical appointments?: No Do you have trouble paying your heating and electricity bill?: No Do you have trouble taking care of your child, family member or friend?: No Do you have trouble with day-to-day activities such as bathing, preparing meals, shopping, managing finances, etc.?: No Are you currently unemployed and looking for a job?: No Are you interested in more education?: No Please select the resources that you would like help with: Paying for medicine THRIVE Score: 2 AUDIT C Alcohol Use Questionnaire (AUDIT-C) 1. How often do you have a drink containing alcohol?: 4 or more times a week 2. How many drinks containing alcohol do you have on a typical day when you are drinking?: 1 or 2 3. How often do you have six or more drinks on one occasion?: Never Total Score: 4 ZEKE-7 AMB Questionnaire ZEKE-7 Date ZEKE - 7 assessed: 11/05/23 Feeling nervous, anxious, or on edge: 2 = More than half the days Not being able to stop or control worryin = Nearly every day Worrying too much about different things: 3 = Nearly every day Trouble relaxin = Nearly every day Being so restless that it is hard to sit still: 3 = Nearly every day Becoming easily annoyed or irritable: 1 = Several days Feeling afraid as if something awful might happen: 1 = Several days Total ZEKE-7 score (0-4 normal; 5-9 mild; 10-14 moderate; 15-21 severe): 16 Source: Developed by Drs. Esvin Tim, Darlin Cabral, Evaristo Ortiz and colleagues, with an educational maddie from [employer]. Review of Systems Const All systems reviewed & are unremarkable except as noted in HPI and below Reports no additional complaints Eyes Reports no additional complaints ENT Reports no additional complaints Card Reports no additional complaints Resp Reports no additional complaints GI Reports no additional complaints Physical exam (Primary Care) Vital Signs: Last Vital Signs Pulse 82 11/05/23 09:46 BP 126/74 11/05/23 09:46 Pulse Ox 97 11/05/23 09:46 Oxygen Delivery Method Room Air 11/05/23 09:46 BMI result Body Mass Index 19.8 Tobacco/Smoking Status: Tobacco use Status Tobacco use date assessed 11/05/23 11/05/23 09:51 Patient Tobacco Use Status Current everyday Tobacco 11/05/23 09:51 e-Cigarette/Vaping Use Never Used 11/05/23 09:51 Depression Screening Interpretation: Positive Thrive Assessment: Date of Thrive Assessment Date Thrive assessed 05/06/22 11/05/23 09:51 Const General: no acute distress HENMT Head: Yes normal to inspection Ears: TM's normal bilaterally General nose exam: Abnormal mucous membranes and turbinates present erythematous and Nasal discharge present purulent Throat: Yes posterior oropharynx abnormal and Yes postnasal drainage Neck Neck: Yes no lymphadenopathy and Yes supple Resp Effort & Inspection: normal respiratory effort Auscultation: clear to auscultation bilaterally Cardio Rhythm: regular rhythm Heart sounds: S1 normal heart sound present and S2 normal heart sound present GI Inspection: Yes normal to inspection Assessment and Plan Assessment & Plan (1) Left shoulder pain: Code(s): M25.512 - Pain in left shoulder Plan: Patient is medically cleared for left shoulder surgery. EKG showed normal sinus rhythm no acute ST-T changes (2) Tobacco dependence due to cigarettes: Comment: chest CT 01/03, MULTIPLE PULMONARY NODULES REPEAT CT IN 1 YEAR Code(s): F17.210 - Nicotine dependence, cigarettes, uncomplicated Plan: Tobacco quitting discussed with the patient (3) Hypertension: Code(s): I10 - Essential (primary) hypertension Plan: Continue current medications (4) COPD (chronic obstructive pulmonary disease): Comment: Lung CA screen program at [facility], last CT 12/2022 Code(s): J44.9 - Chronic obstructive pulmonary disease, unspecified (5) Rheumatoid arthritis: Code(s): M06.9 - Rheumatoid arthritis, unspecified (6) Sinusitis: Code(s): J32.9 - Chronic sinusitis, unspecified Plan: For persistent sinusitis Ceftin 500 twice a day for 10 days and prednisone taper as prescribed. Patient was advised to use Flonase nasal spray alternating with saline nasal spray Orders: Orders Hemoglobin A1c Today F17.210 - Nicotine dependence, cigarettes, uncomplicated, I10 - Essential (primary) hypertension, J44.9 - Chronic obstructive pulmonary disease, unspecified, M06.9 - Rheumatoid arthritis, unspecified, M25.512 - Pain in left shoulder Kaitlin K Carlita, PA-C Complete Blood Count Auto Diff Today F17.210 - Nicotine dependence, cigarettes, uncomplicated, I10 - Essential (primary) hypertension, J44.9 - Chronic obstructive pulmonary disease, unspecified, M06.9 - Rheumatoid arthritis, unspecified, M25.512 - Pain in left shoulder Kaitlin K Carlita, PA-C Basic Metabolic Panel Today F17.210 - Nicotine dependence, cigarettes, uncomplicated, I10 - Essential (primary) hypertension, J44.9 - Chronic obstructive pulmonary disease, unspecified, M06.9 - Rheumatoid arthritis, unspecified, M25.512 - Pain in left shoulder Kaitlin K Carlita, PA-C Medications: New cefuroxime axetil 500 mg PO BID 10 days 20 tabs BARBARA Wynne MD fluticasone propionate 50 mcg/actuation (Flonase Allergy Relief) administer into each nostril 2 sprays intranasal DAILY 16 grams 0RF Yun Wynne MD prednisone 4 tabl qd x 3days, then 3 tabl qd x 3 days, then 2 tabl qd x 3 days, then 1 qd x 3 days 30 tabs 0RF Yun Wynne MD Coding Level of Care Code Est Pt Level 4 (46370) Diagnoses Left shoulder pain M25.512 Tobacco dependence due to cigarettes F17.210 Hypertension I10 COPD (chronic obstructive pulmonary disease) J44.9 Rheumatoid arthritis M06.9 Sinusitis J32.9
== END 2023-11-05 10:24 | disposition home or self-care (01) ==
LOC: HO.HMGC 09:44
PROVIDERS: PCP Internal Medicine; Visit Provider Internal Medicine
DX: M25.512 Pain in left shoulder (principal); J44.9 Chronic obstructive pulmonary disease, unspecified; M06.9 Rheumatoid arthritis, unspecified; F17.210 Nicotine dependence, cigarettes, uncomplicated; I10 Essential (primary) hypertension; J32.9 Chronic sinusitis, unspecified
CPT/HCPCS: 99214

== ENCOUNTER 2023-11-05 10:34 | Outpatient (REF) | payer OTHER, SELFPAY ==
[2023-11-05 13:36] LABS: Basophils Absolute Auto 0.1 X10*3/uL (0.0-0.2); Basophils Percent Auto 0.5 % (0-2); Eosinophils Percent Auto 0.2 % (0-4); Hematocrit 38.5 % (37.0-47.0); Hemoglobin 13.3 g/dl (12.0-16.0); Imm Gran Abs Auto 0.04 X10*3/uL (0.00-0.03); Imm Gran Pct Auto 0.4 % (0.0-0.4); Lymphocytes Absolute Auto 0.5 X10*3/uL (1.2-4.9); Lymphocytes Percent Auto 5.2 % (20-40); MANUAL DIFF FLAG SCAN; Mean Corpuscular HGB Conc 34.5 g/dl (31.0-35.0); Mean Corpuscular Hemoglobin 33.7 pg (27.0-33.0); Mean Corpuscular Volume 97.5 fL (80.0-98.0); Monocytes Absolute Auto 0.1 X10*3/uL (0.1-1.2); Monocytes Percent Auto 1.3 % (2-11); Neutrophils Absolute Auto 9.1 x10*3/uL (2.0-8.3); Neutrophils Percent Auto 92.4 % (45-73); Platelet Count 352 X10*3/uL (160-400); Red Blood Count 3.95 X10*6/uL (4.20-5.50); Red Cell Distribution Width 12.3 % (11.0-16.0); SCAN SMEAR FLAG 1; White Blood Count 9.8 X10*3/uL (4.8-10.8)
[2023-11-05 13:40] LABS: Estimated Average Glucose 100 mg/dL; Hemoglobin A1c % 5.1 % (<6.0)
[2023-11-05 13:47] LABS: Anion Gap 14 (12-20); Blood Urea Nitrogen 11 mg/dL (9-16); Calcium 9.6 mg/dL (8.4-10.2); Carbon Dioxide 22 mmol/L (22-29); Chloride 100 mmol/L (96-108); Estimated Glomerular Filt Rate > 60; Glucose Random 109 mg/dL (60-115); Sodium 132 mmol/L (135-145)
[2023-11-05 14:11] LABS: SLIDE REVIEW VERIFIED
== END 2023-11-05 10:35 | disposition home or self-care (01) ==
LOC: HO.HMGCLDS 10:34
PROVIDERS: PCP Internal Medicine; Visit Provider Physician Assistant
DX: M25.512 Pain in left shoulder (principal); I10 Essential (primary) hypertension; J44.9 Chronic obstructive pulmonary disease, unspecified; M06.9 Rheumatoid arthritis, unspecified; F17.210 Nicotine dependence, cigarettes, uncomplicated
CPT/HCPCS: 36415; 80048; 83036; 85025

== ENCOUNTER 2023-11-18 08:35 | Outpatient (REF) | payer OTHER, SELFPAY ==
--- NOTE | ~2023-11-18 | XR_ITS ---
EXAMINATION: XR ANKLE, RIGHT XR FOOT, RIGHT CLINICAL INFORMATION: Right ankle and right foot pain. COMPARISON: None available. TECHNIQUE: AP, lateral, and mortise views of the right ankle. AP, lateral, and oblique views of the right foot. FINDINGS: The request does not state exactly where pain is experienced by the patient was aware pathology is suspected, limiting the study. Therefore, clinical correlation is recommended. There is an old, healed fracture of the distal diaphysis of the tibia. Small plantar calcaneal spur. No acute fracture identified. Alignment is anatomic. No erosions. Joint spaces appear maintained. Soft tissues appear unremarkable. XR/XR ankle RT 2V IMPRESSION: No acute finding.
--- NOTE | ~2023-11-18 | XR_ITS ---
EXAMINATION: XR ANKLE, RIGHT XR FOOT, RIGHT CLINICAL INFORMATION: Right ankle and right foot pain. COMPARISON: None available. TECHNIQUE: AP, lateral, and mortise views of the right ankle. AP, lateral, and oblique views of the right foot. FINDINGS: The request does not state exactly where pain is experienced by the patient was aware pathology is suspected, limiting the study. Therefore, clinical correlation is recommended. There is an old, healed fracture of the distal diaphysis of the tibia. Small plantar calcaneal spur. No acute fracture identified. Alignment is anatomic. No erosions. Joint spaces appear maintained. Soft tissues appear unremarkable. XR/XR foot RT 2V IMPRESSION: No acute finding.
== END 2023-11-18 08:36 | disposition home or self-care (01) ==
LOC: HO.HOSX 08:35
PROVIDERS: PCP Internal Medicine; Visit Provider Physical Medicine & Rehabilitation
DX: S93.401A Sprain of unspecified ligament of right ankle, initial encounter (principal); M76.61 Achilles tendinitis, right leg
CPT/HCPCS: 73600; 73620

== ENCOUNTER 2023-11-18 08:35 | Outpatient (AMB) | payer OTHER, SELFPAY ==
--- NOTE | 2023-11-18 08:38 | MHC.OFFVIS ---
Intake Vital Signs 11/18/23 08:39 Height 5 ft 5 in Weight 119 lb BMI 19.8 Intake Visit Reasons: Newprob-Right ankle pain Intake Note: Kathie Mcmullen a 63 year old female presents today for an evaluation of right ankle pain. Patient reports she has had ankle pain for the last 4 years. States she had a compound fracture and had to have surgery 12 years ago. States she has a discrepancy in height. She is not able to walk long distance and has muscle spasm in feet as well, weakness. Denies recent injury ,numbness or tingling in toes. Allergies doxycycline Allergy (Unknown, Verified 11/18/23 08:43) nausea, vomiting Tetracyclines Allergy (Unknown, Verified 11/18/23 08:43) Nausea and Vomiting fluticasone furoate [From Trelegy Ellipta] Adverse Reaction (Intermediate, Verified 11/18/23 08:43) Dry Mucus Membranes Penicillins Adverse Reaction (Intermediate, Verified 11/18/23 08:43) Nausea and Vomiting umeclidinium [From Trelegy Ellipta] Adverse Reaction (Intermediate, Verified 11/18/23 08:43) Dry Mucus Membranes vilanterol [From Trelegy Ellipta] Adverse Reaction (Intermediate, Verified 11/18/23 08:43) Dry Mucus Membranes inhaled anticholinergic steroids Adverse Reaction (Intermediate, Uncoded 11/18/23 08:43) dry mucous membranes Medication List - Last Reconciled 11/18/23 by Zoey Vasquez MD albuterol sulfate 2.5 mg inhalation Q4H PRN albuterol sulfate 90 mcg/actuation 2 puffs inhalation Q4H PRN alendronate 70 mg PO QWEEK aspirin 1 tab PO DAILY baclofen 10 mg PO BID bupropion HCl 150 mg PO BID cetirizine 10 mg PO DAILY cholecalciferol (vitamin D3) 50 mcg PO DAILY diltiazem HCl ER 120 mg PO DAILY duloxetine 60 mg PO DAILY fluticasone propion-salmeterol 230-21 mcg/actuation (Advair HFA) 2 puffs inhalation BID fluticasone propionate 50 mcg/actuation (Flonase Allergy Relief) 2 sprays intranasal DAILY folic acid 1 mg PO DAILY gabapentin 600 mg PO TID ibuprofen 600 mg PO Q8H PRN lidocaine 5% 1 patch topical DAILY lisinopril 30 mg PO DAILY methocarbamol 750 mg PO Q8H PRN montelukast 10 mg PO DAILY multivitamin 1 tab PO DAILY nicotine 1 patch transdermal DAILY [id number]-VF-dydepbzlmnn 2.5-5-50 mg/5 mL (Robitussin Cough and Cold CF) 15 mL PO Q4H PRN prednisone 4 tabl qd x 3days, then 3 tabl qd x 3 days, then 2 tabl qd x 3 days, then 1 qd x 3 days thiamine HCl (vitamin B1) (Vitamin B-1) 100 mg PO DAILY trazodone 50 mg PO BEDTIME HPI HPI Comments History of Present Illness Details Right ankle fracture 1996, s/p surgery. Ford frozen over the last few years, can't move the muscles , pointing to calf. Feels numb even with hitting the right foot or driving or walking. Pain is getting worse on the ankle. Can't stand long on it. Swells on occasion, depending on how long she stands. Per medical records review, she has seen Orthopedics for bilateral hip pain, bilateral shoulder pain, right radial fracture last year. Getting shoulder surgery tomorrow. She has seen Rheumatology for osteo arthritis, osteoporosis. She also has history of RA. She has seen pain management and Dr. Jain for neck and back pain, injections. History of alcohol abuse. [facility] Medical History (Updated 11/18/23 @ 09:04 by Zoey Vasquez MD) Right ankle pain VIKAS (obstructive sleep apnea) STEMI (ST elevation myocardial infarction) Mitral regurgitation Sinusitis Fall Tobacco dependence due to cigarettes Alcohol abuse Easy bruising Scoliosis Degenerative disc disease, lumbar COPD (chronic obstructive pulmonary disease) Muscle spasms of neck Rheumatoid arthritis Bursitis of both hips Hypertension Osteoarthritis Surgical History H/O colonoscopy Hx of cataract extraction History of open reduction and internal fixation (ORIF) procedure History of lumbar discectomy Family History Mother Substance use disorder Father Substance use disorder Maternal Aunt Substance use disorder Maternal Uncle Substance use disorder Paternal Uncle Substance use disorder Paternal Aunt Substance use disorder Social History Household Members: Significant Other Housing: Apartment Are you a primary rn care manager to a significant other at home: No Do you presently have visiting nurse or other home services: No Alcohol intake: current Alcohol intake frequency: 3 or more drinks per day Alcohol type: beer Patient Tobacco Use Status: Current everyday Tobacco user Tobacco use type: Cigarette Cigarettes Per Day: 7 Years Smoked: 50 e-Cigarette/Vaping Use: Never Used service: No 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al status: employed and disabled 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 MSK: Tender behind right lateral malleolus. Tender on distal Achillis tendon. No redness, swelling, warmth. No tenderness over medial malleolus or plantar fascia. No ankle instability. Able to stand on toes and heels. One leg stand deferred. Strength is 5/5 in all muscle groups tested. No increased tone noted. Neurological: Neurologic examination of the upper and lower extremities was nonfocal with intact sensation, muscle stretch reflexes and without focal motor deficits . Fontanez?s negative bilaterally. Babinski was down going bilaterally. Clonus was negative. Gait is non-antalgic without loss of balance. Patient was able to perform heel walk and toe walk. Results Reviewed Results Reviewed: I reviewed records from the following: As above Assessment & Plan Assessment & Plan (1) Right ankle pain: Code(s): M25.571 - Pain in right ankle and joints of right foot Qualifiers: Chronicity: chronic Qualified Code(s): M25.571 - Pain in right ankle and joints of right foot; G89.29 - Other chronic pain (2) Sprain of lateral ligament of ankle joint: Code(s): S93.409A - Sprain of unspecified ligament of unspecified ankle, initial encounter (3) Achilles tendinitis: Code(s): M76.60 - Achilles tendinitis, unspecified leg Qualifiers: Laterality: right Qualified Code(s): M76.61 - Achilles tendinitis, right leg Plan Chronic right ankle pain, tender around lateral malleolus and Achillis tendon. No weakness or footdrop seen. No signs of active inflammation though. Taught how to use a frozen ice bottle to ice and stretch areas of tightness. We will put on either a lace-up ankle brace if she can manage with her fingers, or compression socks. Deferring referral to PT because she is having surgery tomorrow for her shoulder. X-ray today to rule out any occult fracture given history of osteoporosis. Assessment and plan discussed with patient, and patient was agreeable. All questions were answered thoroughly. Follow-up in 2 months. Zoey Vasquez MD, SREE Board Certified, [place] [employer] and Rehabilitation (ABPMR) Board Certified, [place] Board of Electrodiagnostic Medicine (ABEM) Orders: Orders XR foot RT 2V Today M25.571 - Pain in right ankle and joints of right foot XR ankle RT 2V Today M25.571 - Pain in right ankle and joints of right foot Coding Level of Care Code New Pt Level 4 (48417) Diagnoses Chronic pain of right ankle M25.571; G89.29 Chronicity: chronic Sprain of lateral ligament of ankle joint S93.409A Achilles tendinitis of right lower extremity M76.61 Laterality: right
[2023-11-18 08:39] VITALS: BMI 19.8
== END 2023-11-18 09:28 | disposition home or self-care (01) ==
PROVIDERS: PCP Internal Medicine; Visit Provider Physical Medicine & Rehabilitation
DX: M25.571 Pain in right ankle and joints of right foot (principal); G89.29 Other chronic pain; S93.409A Sprain of unspecified ligament of unspecified ankle, initial encounter; M76.61 Achilles tendinitis, right leg
CPT/HCPCS: 99204

== ENCOUNTER 2023-11-19 09:51 | Day surgery (SDC) | payer OTHER, SELFPAY ==
[2023-11-08 12:08] VITALS: BMI 19.8
[2023-11-08 15:02] VITALS: BMI 19.8
--- NOTE | 2023-11-11 13:16 | P.CONAN_ITS ---
Documented by User: Viviana Rodgers NP 11/17/23 14:25 HPI - Anesthesia Eval Consult details Narrative: 63yo F for Left Shoulder Arthroscopy, distal clavicle excision, acromioplasty, capsular release, manipulation Medically optimized per PCP. Does not need Echo (ordered by cardiology) prior to surgery. Follows Pulmo in [place]. Last office visit 04/2023. COPD-emphysema, pulmo nodules, VIKAS. Does not use CPAP. Follows [facility] cardiology. Last office visit 07/2023. Rec'd echo, but not done yet [facility] Active Problems Active Problems: All Active Problems (Updated 11/08/23 @ 15:17 by Bria Gillette RN) Otitis media of right ear (Acute) Right hip pain (Acute) Bilateral hip pain (Acute) Right shoulder pain (Acute) Left shoulder pain (Acute) Shoulder pain, bilateral (Acute) Arthralgia (Acute) Lumbar spinal stenosis (Acute) Cataract (Acute) Left hip pain (Acute) Lumbar radiculopathy (Acute) Bilateral knee pain (Acute) Annual physical exam (Acute) Vitamin D deficiency (Acute) Osteoporosis (Acute) Lumbar post-laminectomy syndrome (Acute) Cervical radiculopathy (Acute) Hyponatremia (Acute) Screening mammogram for breast cancer (Acute) Normal breast exam (Acute) Hx of colonoscopy (Acute) Colitis (Acute) Contusion, back (Acute) Sinusitis (Acute) Fall (Acute) Tobacco dependence due to cigarettes (Acute) Degenerative disc disease, lumbar (Acute) Osteoarthritis (Acute) Scoliosis (Acute) Alcohol abuse (Acute) Hypertension (Acute) COPD (chronic obstructive pulmonary disease) (Acute) Rheumatoid arthritis (Acute) Muscle spasms of neck (Acute) Past Medical History Medical History Right ankle pain VIKAS (obstructive sleep apnea) STEMI (ST elevation myocardial infarction) Mitral regurgitation Sinusitis Fall Tobacco dependence due to cigarettes Alcohol abuse Easy bruising Scoliosis Degenerative disc disease, lumbar COPD (chronic obstructive pulmonary disease) Muscle spasms of neck Rheumatoid arthritis Bursitis of both hips Hypertension Osteoarthritis Family History Family History Mother Substance use disorder Father Substance use disorder Maternal Aunt Substance use disorder Maternal Uncle Substance use disorder Paternal Uncle Substance use disorder Paternal Aunt Substance use disorder Surgical History Surgical History H/O knee surgery H/O eye surgery H/O colonoscopy Hx of cataract extraction History of open reduction and internal fixation (ORIF) procedure History of lumbar discectomy Social History Social History Household Members: Significant Other Housing: Apartment Are you a primary caregivers non medical to a significant other at home: No Do you presently have visiting nurse or other home services: No Alcohol intake: current Alcohol intake frequency: 3 or more drinks per day Alcohol type: beer Patient Tobacco Use Status: Current everyday Tobacco user Tobacco use type: Cigarette Cigarettes Per Day: 7 Years Smoked: 50 e-Cigarette/Vaping Use: Never Used Use of substances other than those prescribed or required for medical reasons: No Have you been hit, kicked, punched, or otherwise hurt by someone within the past year? 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 Cognitive needs: No Hearing needs: No Vision needs: Yes Meds Allergies Allergy/AdvReac Type Severity Reaction Status Date / Time doxycycline Allergy Unknown nausea, Verified 11/19/23 10:27 vomiting Tetracyclines Allergy Unknown Nausea and Verified 11/19/23 10:27 Vomiting fluticasone furoate AdvReac Intermediate Dry Mucus Verified 11/19/23 10:27 [From Trelegy Ellipta] Membranes Penicillins AdvReac Intermediate Nausea and Verified 11/19/23 10:27 Vomiting umeclidinium AdvReac Intermediate Dry Mucus Verified 11/19/23 10:27 [From Trelegy Ellipta] Membranes vilanterol AdvReac Intermediate Dry Mucus Verified 11/19/23 10:27 [From Trelegy Ellipta] Membranes inhaled anticholinergic AdvReac Intermediate dry mucous Uncoded 11/19/23 10:27 steroids membranes Home Medications Medication Instructions Recorded Confirmed Last Taken Type fluticasone propionate 230 2 puff inhalation BID 05/06/22 11/19/23 Unknown History mcg-salmeterol 21 mcg/actuation HFA inhaler (Advair HFA) montelukast 10 mg tablet 10 mg PO DAILY 05/06/22 11/19/23 Unknown History trazodone 50 mg tablet 50 mg PO BEDTIME 05/06/22 11/19/23 Unknown History albuterol sulfate 2.5 mg/3 mL 2.5 mg inhalation Q4H PRN wheezing 06/04/22 11/19/23 Unknown History (0.083 %) solution for nebulization albuterol sulfate 90 mcg/actuation 2 puff inhalation Q4H PRN wheezing 09/02/22 11/19/23 Unknown History aerosol inhaler gabapentin 300 mg capsule 600 mg PO TID 01/19/23 11/19/23 11/19/23 History bupropion HCl 150 mg tablet,12 hr 150 mg PO BID 03/04/23 11/19/23 Unknown History sustained-release aspirin 81 mg chewable tablet 1 tab PO DAILY 10/25/23 11/19/23 11/17/23 History baclofen 10 mg tablet 10 mg PO BID 10/25/23 11/19/23 Unknown History Exam Height,Weight and Vital Signs: Height 5 ft 5 in Weight 53.977 kg Pertinent Lab Results Pertinent Lab Results: Laboratory Tests 11/05/23 10:40 WBC 9.8 Hgb 13.3 Hct 38.5 Plt Count 352 Sodium 132 L Potassium 4.0 Chloride 100 Carbon Dioxide 22 BUN 11 Creatinine 0.64 Narrative Narrative: EKG 10/2023 NSR @ 71 Right superior axis deviation Possible right vent hypertrophy ECHO 12/2022 LV nml in size. Systolic function is preserved. EF 50-60% No definite WMA. Nml diastolic function. Nml diastolic function LA nml in size Ascending aorta mildly dilated 3.2cm RV nml size. Function is preserved. RA nml in size Moderate tricuspid regurg IVC nml in size. Inspiratory collapse is blunted Cardiac cath 12/2022 mild mid RCA stenosis Remainder of coronaries are nml No evidence for spontaneous coronary artery dissection Rec'd CCB for possible coronary vasospasm, smoking cessation Assessment and Plan Assessment Anesthesia Assessment: Chart Reviewed Documented by User: Jessika Don MD 11/19/23 12:06 [facility] Past Medical History Medical History Right ankle pain VIKAS (obstructive sleep apnea) STEMI (ST elevation myocardial infarction) Mitral regurgitation Sinusitis Fall Tobacco dependence due to cigarettes Alcohol abuse Easy bruising Scoliosis Degenerative disc disease, lumbar COPD (chronic obstructive pulmonary disease) Muscle spasms of neck Rheumatoid arthritis Bursitis of both hips Hypertension Osteoarthritis Family History Family History Mother Substance use disorder Father Substance use disorder Maternal Aunt Substance use disorder Maternal Uncle Substance use disorder Paternal Uncle Substance use disorder Paternal Aunt Substance use disorder Family history of problems with anesthesia: No Surgical History Surgical History H/O knee surgery H/O eye surgery H/O colonoscopy Hx of cataract extraction History of open reduction and internal fixation (ORIF) procedure History of lumbar discectomy History of Problems with Anesthesia: No Social History Social History Household Members: Significant Other Housing: Apartment Are you a primary caregivers non medical to a significant other at home: No Do you presently have visiting nurse or other home services: No Alcohol intake: current Alcohol intake frequency: 3 or more drinks per day Alcohol type: beer Patient Tobacco Use Status: Current everyday Tobacco user Tobacco use type: Cigarette Cigarettes Per Day: 7 Years Smoked: 50 e-Cigarette/Vaping Use: Never Used Use of substances other than those prescribed or required for medical reasons: No Have you been hit, kicked, punched, or otherwise hurt by someone within the past year? 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 Cognitive needs: No Hearing needs: No Vision needs: Yes Meds Allergies Allergy/AdvReac Type Severity Reaction Status Date / Time doxycycline Allergy Unknown nausea, Verified 11/19/23 10:27 vomiting Tetracyclines Allergy Unknown Nausea and Verified 11/19/23 10:27 Vomiting fluticasone furoate AdvReac Intermediate Dry Mucus Verified 11/19/23 10:27 [From Trelegy Ellipta] Membranes Penicillins AdvReac Intermediate Nausea and Verified 11/19/23 10:27 Vomiting umeclidinium AdvReac Intermediate Dry Mucus Verified 11/19/23 10:27 [From Trelegy Ellipta] Membranes vilanterol AdvReac Intermediate Dry Mucus Verified 11/19/23 10:27 [From Trelegy Ellipta] Membranes inhaled anticholinergic AdvReac Intermediate dry mucous Uncoded 11/19/23 10:27 steroids membranes Home Medications Medication Instructions Recorded Confirmed Last Taken Type fluticasone propionate 230 2 puff inhalation BID 05/06/22 11/19/23 Unknown History mcg-salmeterol 21 mcg/actuation HFA inhaler (Advair HFA) montelukast 10 mg tablet 10 mg PO DAILY 05/06/22 11/19/23 Unknown History trazodone 50 mg tablet 50 mg PO BEDTIME 05/06/22 11/19/23 Unknown History albuterol sulfate 2.5 mg/3 mL 2.5 mg inhalation Q4H PRN wheezing 06/04/22 11/19/23 Unknown History (0.083 %) solution for nebulization albuterol sulfate 90 mcg/actuation 2 puff inhalation Q4H PRN wheezing 09/02/22 11/19/23 Unknown History aerosol inhaler gabapentin 300 mg capsule 600 mg PO TID 01/19/23 11/19/23 11/19/23 History bupropion HCl 150 mg tablet,12 hr 150 mg PO BID 03/04/23 11/19/23 Unknown History sustained-release aspirin 81 mg chewable tablet 1 tab PO DAILY 10/25/23 11/19/23 11/17/23 History baclofen 10 mg tablet 10 mg PO BID 10/25/23 11/19/23 Unknown History Exam Airway Mallampati Class: II TM Dist: >3cm Heart: rrr Lungs: cta Assessment and Plan Assessment Anesthesia Assessment: Anesthesia Plan Discussed Final Anesthetic Review Family History of Problems with Anesthesia: No History of Problems with Anesthesia: No NPO: Yes ASA Class: III Final Preanesthetic Review: No Changes in Pt Med Stat, Meds/Allgs Chart Reviewed, Consent Obtained/Reviewed and Anes Risks/Benef Reviewed Patient Risk: Intermediate Procedure Risk: Intermediate Anesthetic Plan Anesthetic Plan: GA Disposition: Standard PACU
[2023-11-19] VITALS (7 sets, daily range): BP systolic 134–147; BP diastolic 57–78; PULSE 69–80; RESP 12–18; TEMP 36.1–37.1; O2SAT 93–97; BMI 19.9
[2023-11-19] MEDS: Albuterol Sulfate (0.083%) 2.5 MG/3 ML VIAL.NEB INHALE (10:59)
[2023-11-19] MEDS: Lactated Ringers 1,000 ML 100 ML IVCONT (11:23)
--- NOTE | 2023-11-19 14:06 | PM.OP ---
Brief Operative Note Date of Service: 11/19/23 Pre-op diagnosis: Left shoulder impingement syndrome, left shoulder acromioclavicular joint arthritis, left shoulder adhesive capsulitis Post-op diagnosis: same Procedure: Left shoulder diagnostic arthroscopy with left shoulder arthroscopic distal clavicle excision, left shoulder arthroscopic acromioplasty, left shoulder arthroscopic anterior capsular release, left shoulder manipulation under anesthesia Implants: none Surgeon: Dewayne Stroud MD Anesthesia: GETA and regional Was an Racking Machine Operator used for this Procedure?: No Estimated blood loss (mL): 10 Pathology: none sent Condition: stable Disposition: PACU
--- NOTE | 2023-11-19 14:08 | W.PM.OPN ---
Operative Note Operative Note Date of Service: 11/19/23 Narrative: After the patient was identified as Kathie Wakefield and her left shoulder was initialed by myself the patient was brought to the holding area where a left shoulder interscalene regional block was performed by the anesthesiologist in routine fashion. The patient was then brought to the operating room where general anesthesia was induced by the anesthesiologist in routine fashion. Because of the patient's allergy to penicillin she was given 900 mg of IV clindamycin preoperatively for infection prophylaxis. Examination under anesthesia of the patient's left shoulder showed decreased range of motion when compared to the right shoulder. The patient's left shoulder had forward flexion to 130 degrees compared to 170 degrees, external rotation to 40 degrees compared to 60 degrees, and internal rotation to 50 degrees compared to 60 degrees. The patient was gently positioned in the beach chair position with all bony prominences well padded. The patient's left shoulder region and upper extremity were prepped and draped in sterile fashion. A formal time-out was completed. A #11 scalpel blade was used to make a posterior portal 2 cm inferior and 1 cm medial to the posterolateral corner of the acromion. Blunt trocar technique was used to enter the glenohumeral joint in routine fashion. An anterior portal was made just lateral to the coracoid process after proper positioning was confirmed using a spinal needle. Diagnostic arthroscopy showed minimal degenerative changes of the glenoid and humeral head articular surfaces. There was no evidence of rotator cuff tearing. There was no evidence of injury to the biceps tendon or its insertion onto the glenoid. There was inflammation of the anterior joint capsule consistent with adhesive capsulitis. The ArthroCare Wand was then used to perform an anterior capsular release between the inferior border of the biceps tendon and the superior border of the subscapularis tendon. The arthroscope was then placed from the posterior portal into the subacromial space. A lateral portal was made 2 fingerbreadths lateral to the anterior lateral corner of the acromion. The ArthroCare Wand was used to ablate soft tissues along the undersurface of the acromion as well as to excise the coracoacromial ligament. There was a sharp spur along the undersurface of the acromion which was removed using the hooded bur. The arthroscope was then placed into the lateral portal and the acromioplasty was completed with the bur in the posterior portal using the posterior aspect of the acromion as a cutting block. The ArthroCare Wand was then brought in through the anterior portal and was used to ablate soft tissues along the acromioclavicular joint and distal clavicle. The posterior and superior ligamentous structures were left intact. A distal clavicle excision of 8 mm was performed using the hooded bur. Any remaining bursal tissue was removed using the arthroscopic shaver. The subacromial space was irrigated and then drained. All arthroscopic instruments were removed. A gentle manipulation under anesthesia was then performed. Full passive range of motion was easily obtained. The 3 portals were closed with 3-0 nylon interrupted suture. The subacromial space was injected with Marcaine. Dry sterile dressing was placed over all incisions. The patient's left upper extremity was placed into a sling. The patient was awoken and extubated in the operating room. The patient was transferred to the recovery room in stable condition.
== END 2023-11-19 15:00 | disposition home or self-care (01) ==
PROVIDERS: PCP Internal Medicine; Visit Provider Orthopaedic Surgery
PROC: (CPT 29805; principal; 2023-11-19 12:00)
DX: M75.42 Impingement syndrome of left shoulder (principal); M75.02 Adhesive capsulitis of left shoulder; M19.012 Primary osteoarthritis, left shoulder; M06.9 Rheumatoid arthritis, unspecified; I10 Essential (primary) hypertension; G47.33 Obstructive sleep apnea (adult) (pediatric); J44.9 Chronic obstructive pulmonary disease, unspecified; Z79.51 Long term (current) use of inhaled steroids; Z79.1 Long term (current) use of non-steroidal anti-inflammatories (NSAID); Z79.899 Other long term (current) drug therapy; Z88.0 Allergy status to penicillin; Z88.1 Allergy status to other antibiotic agents; Z88.8 Allergy status to other drugs, medicaments and biological substances; F10.10 Alcohol abuse, uncomplicated; F17.210 Nicotine dependence, cigarettes, uncomplicated
CPT/HCPCS: 29824; 29825; 29826; 94640; J0131; J0171; J0665; J0736; J1100; J2250; J2405; J2704; J2795; J3010

== ENCOUNTER → 2023-11-19 09:51 | Outpatient (BNV) | payer OTHER, SELFPAY | PROVIDERS: PCP Internal Medicine; Visit Provider Orthopaedic Surgery | DX: M75.42 Impingement syndrome of left shoulder (principal); M19.012 Primary osteoarthritis, left shoulder; M75.02 Adhesive capsulitis of left shoulder | CPT/HCPCS: 29824; 29826 ==

== ENCOUNTER 2023-12-02 08:55 | Outpatient (AMB) | payer OTHER, SELFPAY ==
--- NOTE | 2023-12-02 08:57 | A.OFFVIS_ITS ---
Intake Vital Signs 12/02/23 09:03 Height 5 ft 5 in Weight 120 lb BMI 20.0 Intake Visit Reasons: PO-Lt Shld 11/19/23 , Bilateral shoulder pain Intake Note: Kathie Mcmullen is a 63 year old 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 female who presents for her post operative appointment s/p Left shoulder on 11/19/2023 . Patient reports she is doing well. She has no longer taking narcotics for discomfort. She continues with her home stretching program. She does not wish to go to formal physical therapy. Today the patient is most concerned with progressively worsening right shoulder pain. She describes her right shoulder pain as sharp and severe in nature, 10/10. Her right shoulder pain has gotten worse over the last few years in spite of continued non operative treatments. She has done physical therapy which aggravated her pain. She has also tried Tylenol and anti-inflammatory medicines which gave her minimal relief. She has had injections in the past which gave her no relief. The patient states that she has difficulty lifting her right hand above shoulder height. Allergies doxycycline Allergy (Unknown, Verified 12/02/23 09:04) nausea, vomiting Tetracyclines Allergy (Unknown, Verified 12/02/23 09:04) Nausea and Vomiting fluticasone furoate [From Trelegy Ellipta] Adverse Reaction (Intermediate, V erified 12/02/23 09:04) Dry Mucus Membranes Penicillins Adverse Reaction (Intermediate, Verified 12/02/23 09:04) Nausea and Vomiting umeclidinium [From Trelegy Ellipta] Adverse Reaction (Intermediate, Verified 12/02/23 09:04) Dry Mucus Membranes vilanterol [From Trelegy Ellipta] Adverse Reaction (Intermediate, Verified 12/02/23 09:04) Dry Mucus Membranes inhaled anticholinergic steroids Adverse Reaction (Intermediate, Uncoded 11/19/23 10:27) dry mucous membranes Medication List - Last Reconciled 12/02/23 by Dewayne Stroud MD albuterol sulfate 2.5 mg inhalation Q4H PRN albuterol sulfate 90 mcg/actuation 2 puffs inhalation Q4H PRN alendronate 70 mg PO QWEEK aspirin 1 tab PO DAILY baclofen 10 mg PO BID bupropion HCl 150 mg PO BID cetirizine 10 mg PO DAILY cholecalciferol (vitamin D3) 50 mcg PO DAILY diltiazem HCl ER 120 mg PO DAILY duloxetine 60 mg PO DAILY fluticasone propion-salmeterol 230-21 mcg/actuation (Advair HFA) 2 puffs inhalation BID fluticasone propionate 50 mcg/actuation (Flonase Allergy Relief) 2 sprays intranasal DAILY folic acid 1 mg PO DAILY gabapentin 600 mg PO TID ibuprofen 600 mg PO Q8H PRN lidocaine 5% 1 patch topical DAILY lisinopril 30 mg PO DAILY methocarbamol 750 mg PO Q8H PRN montelukast 10 mg PO DAILY multivitamin 1 tab PO DAILY nicotine 1 patch transdermal DAILY oxycodone 10 mg (2 x 5 mg) PO Q4H PRN miqnohoihdzji-UX-lddkkkrkjgy 2.5-5-50 mg/5 mL (Robitussin Cough and Cold CF) 15 mL PO Q4H PRN prednisone 4 tabl qd x 3days, then 3 tabl qd x 3 days, then 2 tabl qd x 3 days, then 1 qd x 3 days thiamine HCl (vitamin B1) (Vitamin B-1) 100 mg PO DAILY trazodone 50 mg PO BEDTIME PFSH Medical History Right ankle pain VIKAS (obstructive sleep apnea) STEMI (ST elevation myocardial infarction) Mitral regurgitation Sinusitis Fall Tobacco dependence due to cigarettes Alcohol abuse Easy bruising Scoliosis Degenerative disc disease, lumbar COPD (chronic obstructive pulmonary disease) Muscle spasms of neck Rheumatoid arthritis Bursitis of both hips Hypertension Osteoarthritis Surgical History H/O knee surgery H/O eye surgery H/O colonoscopy Hx of cataract extraction History of open reduction and internal fixation (ORIF) procedure History of lumbar discectomy Family History Mother Substance use disorder Father Substance use disorder Maternal Aunt Substance use disorder Maternal Uncle Substance use disorder Paternal Uncle Substance use disorder Paternal Aunt Substance use disorder Social History Household Members: Significant Other Housing: Apartment Are you a primary rn progressive care unit to a significant other at home: No Do you presently have visiting nurse or other home services: No Alcohol intake: current Alcohol intake frequency: 3 or more drinks per day Alcohol type: beer Patient Tobacco Use Status: Current everyday Tobacco user Tobacco use type: Cigarette Cigarettes Per Day: 7 Years Smoked: 50 e-Cigarette/Vaping Use: Never Used service: No 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al status: employed and disabled 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: [employer]- [employer] department, rt hand Cognitive needs: No Hearing needs: No Vision needs: Yes Physical Exam Vital Signs: BMI result Body Mass Index 20.0 Const Other: Well-nourished well-developed very friendly female awake alert and oriented x3 in no acute distress Extrem Other: Bilateral upper extremity examination shows good capillary refill, no skin lesions noted, normal sensation light touch Left shoulder examination shows that the surgical incisions are healing well, no erythema, minimal discomfort with range of motion Right shoulder examination shows decreased range of motion when compared to her left shoulder, 5/5 strength with supraspinatus testing, positive impingement signs, tenderness over her acromioclavicular joint, no instability Results Reviewed Results Reviewed: MRI of the patient's right shoulder show severe acromioclavicular joint narrowing, a type 3 acromion, signal change within the supraspinatus tendon most likely due to adhesive capsulitis Assessment & Plan Assessment & Plan (1) Shoulder pain, bilateral: Code(s): M25.511 - Pain in right shoulder; M25.512 - Pain in left shoulder Plan Ms. Wakefield is doing very well after undergoing left shoulder arthroscopic surgery on 11/19/2023. Her sutures were removed and Steri-Strips placed over her incisions. She will continue with her home stretching program. The patient does have progressively worsening right shoulder pain and stiffness due to acromioclavicular joint arthritis, impingement syndrome and adhesive capsulitis. I had a lengthy discussion with the patient regarding the treatment options. At this point she has failed continued non operative treatments. The risks and benefits of right shoulder surgery were discussed at length with the patient. The patient wishes to proceed with surgery. Surgery will likely involve right shoulder diagnostic arthroscopy with distal clavicle excision, acromioplasty, capsular release and manipulation under anesthesia. The patient will be scheduled for next available date. She will follow-up as instructed. Feel free to call me at any time should questions regarding her orthopedic management arise. I spent 22 minutes in reviewing the patient's records and imaging studies, seeing the patient and documenting in the medical record. Coding Level of Care Code Est Pt Level 2 (69601) Diagnoses Shoulder pain, bilateral M25.511; M25.512
== END 2023-12-02 09:21 | disposition home or self-care (01) ==
PROVIDERS: PCP Internal Medicine; Visit Provider Orthopaedic Surgery
DX: M25.511 Pain in right shoulder (principal); M25.512 Pain in left shoulder
CPT/HCPCS: 99213

== ENCOUNTER → 2023-12-02 08:55 | Outpatient (BNVA) | payer OTHER, SELFPAY | PROVIDERS: PCP Internal Medicine; Visit Provider Orthopaedic Surgery ==

== ENCOUNTER 2023-12-06 07:19 | Outpatient (REF) | payer OTHER, SELFPAY ==
--- NOTE | ~2023-12-06 | MR_ITS ---
EXAMINATION: MR OF THE LEFT HIP WITHOUT CONTRAST CLINICAL INFORMATION: Pain in the left hip. COMPARISON: X-ray of the left hip May 2023. TECHNIQUE: MRI of the left hip is performed without contrast on a high-field MRI scanner. FINDINGS: BONE/CARTILAGE: Articular Cartilage: Normal. Marrow: There is a 5 mm intraosseous subcortical lesion in the lateral aspect of femoral head-neck junction dark on T1 and bright on T2 with punctate areas of low signal on both sequences. This likely reflects a small cartilage lesion/enchondroma. No effusion. LABRUM/CAPSULE: There is fairly diffuse globular increased signal throughout much of the superior labrum extending anterior to posterior. There is an additional paralabral cyst abutting the posterior superior labrum extending to the labral base. The cyst measures 13 mm craniocaudal, 12 mm transverse, and 5 mm AP. These findings are consistent with nondisplaced labral tearing anterior to posterior with a paralabral cyst associated with this posteriorly. MUSCLES/TENDONS: Mild increased T2 signal surrounding the distal gluteus medias and minimus tendons extending to the greater trochanter attachment consistent with peritendinitis/partial tearing but without any measurable defect. The muscles are normal. The remaining muscles and tendons are normal. NEUROVASCULAR STRUCTURES: Normal. SUBCUTANEOUS SOFT TISSUES: Normal. ADDITIONAL FINDINGS: Limited evaluation of the pelvis is also included in the examination. No bone or intrapelvic soft tissue abnormality detected. Advanced degenerative changes of the lower partially visualized lumbosacral spine extending from L3-L4 through L5-S1. These degenerative changes are more fully demonstrated on prior MRI lumbosacral spine 05/21/2023. MR/MR hip LT wo con IMPRESSION: 1. Tear of the superior labrum extending anterior to posterior with paralabral cyst posteriorly. 2. Peritendinitis/partial tearing of the gluteus medius and minimus tendons. 3. Small intraosseous lesion in the femoral head-neck junction most likely reflects a small cartilage lesion/enchondroma.
--- NOTE | ~2023-12-06 | MR_ITS ---
EXAMINATION: MR HIP WITHOUT CONTRAST, RIGHT CLINICAL INFORMATION: Pain in the right hip. COMPARISON: X-rays of the right hip May 2023. TECHNIQUE: MRI of the right hip was obtained using routine sequences on a high-field magnet. FINDINGS: BONE/CARTILAGE: Normal. No effusion. No arthrosis. LIGAMENTUM TERES: Normal. LABRUM/CAPSULE: There is linear increased signal along the base of the middle third portion of the superior labrum likely reflecting a nondisplaced tear. No associated paralabral cyst. MUSCLES/TENDONS: Mild increased signal surrounding the distal gluteus medius tendon, compatible with minimal partial tearing and/or peritendinitis. Remaining muscles and tendons normal. INTRAPELVIC SOFT TISSUES: Unremarkable. TROCHANTERIC BURSA: Tiny fluid compatible normal variation or minimal bursitis. NEUROVASCULAR STRUCTURES: Normal. SUBCUTANEOUS SOFT TISSUES: Normal. Limited evaluation of the pelvis was also performed during this examination. Remaining bones and joints of the pelvis are unremarkable. Advanced multilevel degenerative disc changes present from L3-L4 through L5-S1. MR/MR hip RT wo con IMPRESSION: 1. Mild abnormality of the distal gluteus medius tendon compatible with minimal partial tearing and/or peritendinitis. 2. Trace fluid in the trochanteric bursa compatible with normal variation or minimal bursitis. 3. No arthrosis of the hip joint. 4. Nondisplaced tear of the superior labrum. 5. Limited evaluation of the pelvis demonstrates advanced multilevel degenerative disc changes.
== END 2023-12-06 07:20 | disposition home or self-care (01) ==
LOC: HO.MRI 07:19
PROVIDERS: PCP Internal Medicine; Visit Provider Orthopaedic Surgery
DX: M25.552 Pain in left hip (principal); M25.551 Pain in right hip
CPT/HCPCS: 73721

== ENCOUNTER 2023-12-09 08:17 | Outpatient (AMB) | payer OTHER, SELFPAY ==
--- NOTE | 2023-12-09 08:21 | MHC.OFFVIS ---
Intake Vital Signs 12/09/23 08:21 Height 5 ft 5 in Weight 120 lb BMI 20.0 Intake Visit Reasons: [place] Review - B[place] H[place] [place] pain Intake Note: Kathie Mcmullen is a 63 year old female who presents with complaints of progressively worsening low back pain which radiates down the posterior aspects of both of her hips all the way down to her feet. The patient states that she did undergo low back surgery by Dr. Murray several years ago. She got fairly good relief from that surgery initially. She denies any groin pain. She has done physical therapy exercises which aggravated her pain. She has also tried Tylenol and anti-inflammatory medicines which gave her minimal relief. She also reports intermittent weakness in her legs. Allergies doxycycline Allergy (Unknown, Verified 12/09/23 08:21) nausea, vomiting Tetracyclines Allergy (Unknown, Verified 12/09/23 08:21) Nausea and Vomiting fluticasone furoate [From Trelegy Ellipta] Adverse Reaction (Intermediate, Verified 12/09/23 08:21) Dry Mucus Membranes Penicillins Adverse Reaction (Intermediate, Verified 12/09/23 08:21) Nausea and Vomiting umeclidinium [From Trelegy Ellipta] Adverse Reaction (Intermediate, Verified 12/09/23 08:21) Dry Mucus Membranes vilanterol [From Trelegy Ellipta] Adverse Reaction (Intermediate, Verified 12/09/23 08:21) Dry Mucus Membranes inhaled anticholinergic steroids Adverse Reaction (Intermediate, Uncoded 11/19/23 10:27) dry mucous membranes Medication List - Last Reconciled 12/09/23 by Dewayne Stroud MD albuterol sulfate 2.5 mg inhalation Q4H PRN albuterol sulfate 90 mcg/actuation 2 puffs inhalation Q4H PRN alendronate 70 mg PO QWEEK aspirin 1 tab PO DAILY baclofen 10 mg PO BID bupropion HCl 150 mg PO BID cetirizine 10 mg PO DAILY cholecalciferol (vitamin D3) 50 mcg PO DAILY diltiazem HCl ER 120 mg PO DAILY duloxetine 60 mg PO DAILY fluticasone propion-salmeterol 230-21 mcg/actuation (Advair HFA) 2 puffs inhalation BID fluticasone propionate 50 mcg/actuation (Flonase Allergy Relief) 2 sprays intranasal DAILY folic acid 1 mg PO DAILY gabapentin 600 mg PO TID ibuprofen 600 mg PO Q8H PRN lidocaine 5% 1 patch topical DAILY lisinopril 30 mg PO DAILY methocarbamol 750 mg PO Q8H PRN montelukast 10 mg PO DAILY multivitamin 1 tab PO DAILY nicotine 1 patch transdermal DAILY oxycodone 10 mg (2 x 5 mg) PO Q4H PRN cihldccqtbajn-PB-ferdvdrvngb 2.5-5-50 mg/5 mL (Robitussin Cough and Cold CF) 15 mL PO Q4H PRN prednisone 4 tabl qd x 3days, then 3 tabl qd x 3 days, then 2 tabl qd x 3 days, then 1 qd x 3 days thiamine HCl (vitamin B1) (Vitamin B-1) 100 mg PO DAILY trazodone 50 mg PO BEDTIME PFSH Medical History Right ankle pain VIKAS (obstructive sleep apnea) STEMI (ST elevation myocardial infarction) Mitral regurgitation Sinusitis Fall Tobacco dependence due to cigarettes Alcohol abuse Easy bruising Scoliosis Degenerative disc disease, lumbar COPD (chronic obstructive pulmonary disease) Muscle spasms of neck Rheumatoid arthritis Bursitis of both hips Hypertension Osteoarthritis Surgical History H/O knee surgery H/O eye surgery H/O colonoscopy Hx of cataract extraction History of open reduction and internal fixation (ORIF) procedure History of lumbar discectomy Family History Mother Substance use disorder Father Substance use disorder Maternal Aunt Substance use disorder Maternal Uncle Substance use disorder Paternal Uncle Substance use disorder Paternal Aunt Substance use disorder Social History Household Members: Significant Other Housing: Apartment Are you a primary child care center assistant director to a significant other at home: No Do you presently have visiting nurse or other home services: No Alcohol intake: current Alcohol intake frequency: 3 or more drinks per day Alcohol type: beer Patient Tobacco Use Status: Current everyday Tobacco user Tobacco use type: Cigarette Cigarettes Per Day: 7 Years Smoked: 50 e-Cigarette/Vaping Use: Never Used service: No 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al status: employed and disabled 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, 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 Cognitive needs: No Hearing needs: No Vision needs: Yes Physical Exam Vital Signs: BMI result Body Mass Index 20.0 Const Other: Well-nourished well-developed very friendly female awake alert and oriented x3 in no acute distress Back/Spine/Pelvis Other: Low back examination shows bilateral paraspinal muscle tenderness, pain with range of motion, positive straight leg raise test bilaterally at 70 degrees Results Reviewed Results Reviewed: MRIs of the patient's bilateral hips show mild diffuse joint space narrowing, possible small tears of her labrum, no evidence of avascular necrosis, no acute bony abnormalities MRI of the patient's lumbar spine shows evidence of severe central and foraminal stenosis, no acute bony abnormalities Assessment & Plan Assessment & Plan (1) Lumbar spinal stenosis: Code(s): M48.061 - Spinal stenosis, lumbar region without neurogenic claudication (2) Low Back Pain: Code(s): M54.50 - Low back pain, unspecified Plan Ms. Wakefield presents with low back pain which radiates into both of her legs due to severe lumbar stenosis. I had a lengthy discussion with the patient regarding the treatment options. I did recommend that the patient follow up with the Neurosurgery Department here at [facility]. I put in a referral to the neurosurgery department. She will follow-up as instructed. The patient's hip pain is most likely secondary to her lumbar pathology. She will contact me prior to that time should her symptoms worsen in any way. Feel free to call me at any time should questions regarding her orthopedic management arise. I spent 22 minutes in reviewing the patient's records and imaging studies, seeing the patient and documenting in the medical record. Orders: Referrals Neurosurgery Referral M48.061 - Spinal stenosis, lumbar region without neurogenic claudication Coding Level of Care Code Est Pt Level 2 (63980) Diagnoses Lumbar spinal stenosis M48.061 Low Back Pain M54.50
== END 2023-12-09 08:37 | disposition home or self-care (01) ==
PROVIDERS: PCP Internal Medicine; Visit Provider Orthopaedic Surgery
DX: M48.061 Spinal stenosis, lumbar region without neurogenic claudication (principal); M54.50 Low back pain, unspecified
CPT/HCPCS: 99024

== ENCOUNTER → 2023-12-09 08:17 | Outpatient (BNVA) | payer OTHER, SELFPAY | PROVIDERS: PCP Internal Medicine; Visit Provider Orthopaedic Surgery ==

== ENCOUNTER 2023-12-16 09:09 | Outpatient (AMB) | payer OTHER, SELFPAY ==
--- NOTE | 2023-12-16 09:20 | A.OFFVIS_ITS ---
Intake Intake Visit Reasons: ov-Right ankle pain Intake Note: Pt presents to the office today for right ankle pain. Pt states the pain has been going on for a few years. She states she had previous surgery on her right leg and ankle years ago. Pt states the pain is always there and she cant walk or stand for long periods of time. She states the pain stays in her ankle. Pt states her ankle will start to swell if she has been standing for a while. Pt states elevation helps a little bit. Allergies doxycycline Allergy (Unknown, Verified 12/16/23 09:20) nausea, vomiting Tetracyclines Allergy (Unknown, Verified 12/16/23 09:20) Nausea and Vomiting fluticasone furoate [From Trelegy Ellipta] Adverse Reaction (Intermediate, Verified 12/16/23 09:20) Dry Mucus Membranes Penicillins Adverse Reaction (Intermediate, Verified 12/16/23 09:20) Nausea and Vomiting umeclidinium [From Trelegy Ellipta] Adverse Reaction (Intermediate, Verified 12/16/23 09:20) Dry Mucus Membranes vilanterol [From Trelegy Ellipta] Adverse Reaction (Intermediate, Verified 12/16/23 09:20) Dry Mucus Membranes inhaled anticholinergic steroids Adverse Reaction (Intermediate, Uncoded 12/16/23 09:20) dry mucous membranes Medication List - Last Reconciled 12/16/23 by Zoey Vasquez MD albuterol sulfate 2.5 mg inhalation Q4H PRN albuterol sulfate 90 mcg/actuation 2 puffs inhalation Q4H PRN alendronate 70 mg PO QWEEK aspirin 1 tab PO DAILY baclofen 10 mg PO BID bupropion HCl SR 150 mg PO BID cetirizine 10 mg PO DAILY cholecalciferol (vitamin D3) 50 mcg PO DAILY diltiazem HCl ER 120 mg PO DAILY duloxetine 60 mg PO DAILY fluticasone propion-salmeterol 230-21 mcg/actuation (Advair HFA) 2 puffs inhalation BID fluticasone propionate 50 mcg/actuation (Flonase Allergy Relief) 2 sprays intranasal DAILY folic acid 1 mg PO DAILY gabapentin 600 mg PO TID ibuprofen 600 mg PO Q8H PRN leg brace (Ankle Brace) As directed lidocaine 5% 1 patch topical DAILY lisinopril 30 mg PO DAILY methocarbamol 750 mg PO Q8H PRN montelukast 10 mg PO DAILY multivitamin 1 tab PO DAILY nicotine 1 patch transdermal DAILY oxycodone 10 mg (2 x 5 mg) PO Q4H PRN orophhybkdjcu-DE-dqsomdxrjbr 2.5-5-50 mg/5 mL (Robitussin Cough and Cold CF) 15 mL PO Q4H PRN prednisone 4 tabl qd x 3days, then 3 tabl qd x 3 days, then 2 tabl qd x 3 days, then 1 qd x 3 days thiamine HCl (vitamin B1) (Vitamin B-1) 100 mg PO DAILY trazodone 50 mg PO BEDTIME HPI HPI Comments History of Present Illness Details Right ankle fracture 1996, s/p surgery. [place] frozen over the last few years, can't move the muscles , pointing to calf. Feels numb even with hitting the right foot or driving or walking. Pain is getting worse on the ankle. Can't stand long on it. Swells on occasion, depending on how long she stands. Per medical records review, she has seen Orthopedics for bilateral hip pain, bilateral shoulder pain, right radial fracture last year. Recently saw Dr. Stroud for back pain, referred to neurosurgery. She has seen Rheumatology for osteo arthritis, osteoporosis. She also has history of RA. She has seen pain management and Dr. Mullen for neck and back pain, injections. History of alcohol abuse. s/p Left shoulder on 11/19/2023 - did well. Still hurts on lateral ankle. Says it is still swollen. Tries to elevate it. Says she's been doing exercises at home. Says she wore the lace up ankle brace but she was not wearing it today. [facility] Medical History Right ankle pain VIKAS (obstructive sleep apnea) STEMI (ST elevation myocardial infarction) Mitral regurgitation Sinusitis Fall Tobacco dependence due to cigarettes Alcohol abuse Easy bruising Scoliosis Degenerative disc disease, lumbar COPD (chronic obstructive pulmonary disease) Muscle spasms of neck Rheumatoid arthritis Bursitis of both hips Hypertension Osteoarthritis Surgical History H/O knee surgery H/O eye surgery H/O colonoscopy Hx of cataract extraction History of open reduction and internal fixation (ORIF) procedure History of lumbar discectomy Family History Mother Substance use disorder Father Substance use disorder Maternal Aunt Substance use disorder Maternal Uncle Substance use disorder Paternal Uncle Substance use disorder Paternal Aunt Substance use disorder Social History Household Members: Significant Other Housing: Apartment Are you a primary hearing healthcare practitioner to a significant other at home: No Do you presently have visiting nurse or other home services: No Alcohol intake: current Alcohol intake frequency: 3 or more drinks per day Alcohol type: beer Patient Tobacco Use Status: Current everyday Tobacco user Tobacco use type: Cigarette Cigarettes Per Day: 7 Years Smoked: 50 e-Cigarette/Vaping Use: Never Used service: No 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al status: employed and disabled 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 MSK: Tender behind right lateral malleolus. Tender on distal Achillis tendon. No redness, swelling, warmth. No sign of tear. No tenderness over medial malleolus or plantar fascia. No ankle instability. Strength is 5/5 in all muscle groups tested. No increased tone noted. Neurological: Neurologic examination of the upper and lower extremities was nonfocal with intact sensation, muscle stretch reflexes and without focal motor deficits . Fontanez?s negative bilaterally. Babinski was down going bilaterally. Clonus was negative. Gait is non-antalgic without loss of balance. Results Reviewed Results Reviewed: Ordering Physician: Zoey Delarosa Date of Service: 11/18/23 Procedure(s): XR foot RT 2V Accession Number(s): [id number] cc: Yun Wynne MD; Zoey Delarosa~ EXAMINATION: XR ANKLE, RIGHT XR FOOT, RIGHT CLINICAL INFORMATION: Right ankle and right foot pain. COMPARISON: None available. TECHNIQUE: AP, lateral, and mortise views of the right ankle. AP, lateral, and oblique views of the right foot. FINDINGS: The request does not state exactly where pain is experienced by the patient was aware pathology is suspected, limiting the study. Therefore, clinical correlation is recommended. There is an old, healed fracture of the distal diaphysis of the tibia. Small plantar calcaneal spur. No acute fracture identified. Alignment is anatomic. No erosions. Joint spaces appear maintained. Soft tissues appear unremarkable. XR/XR foot RT 2V IMPRESSION: No acute finding. Assessment & Plan Assessment & Plan (1) Right ankle pain: Code(s): M25.571 - Pain in right ankle and joints of right foot Qualifiers: Chronicity: chronic Qualified Code(s): M25.571 - Pain in right ankle and joints of right foot; G89.29 - Other chronic pain (2) Sprain of lateral ligament of ankle joint: Code(s): S93.409A - Sprain of unspecified ligament of unspecified ankle, initial encounter (3) Achilles tendinitis: Code(s): M76.60 - Achilles tendinitis, unspecified leg Qualifiers: Laterality: right Qualified Code(s): M76.61 - Achilles tendinitis, right leg Plan Chronic right ankle pain, tender around lateral malleolus and Achilles tendon. No signs of instability or acute inflammation on exam today. But abrading machine tender on achilles and around lateral malleolus. Xray did not show any fracture. Discussed better stable shoeware. Recommend PT but she defers, didn't want to go and wants to keep doing own exercises at home. Referring to Pain Management, for consideration of achilles injection? She was not wearing the lace up ankle brace today. She needs better stability shoes. Recommend trying [facility] in [place] (referral sent) or [facility]. Assessment and plan discussed with patient, and patient was agreeable. All questions were answered thoroughly. Follow-up as needed. Zoey Vasquez MD, SREE Board Certified, [place] [employer] and [employer] (ABPMR) Board Certified, [place] [employer] (ABEM) Orders: Referrals Pain Management Referral M76.61 - Achilles tendinitis, right leg, S93.409A - Sprain of unspecified ligament of unspecified ankle, initial encounter Medications: New leg brace (Ankle Brace) As directed 1 ea 0RF hard sole or ankle support M76.61 - Achilles tendinitis, right leg, S93.409A - Sprain of unspecified ligament of unspecified ankle, initial encounter Coding Level of Care Code Est Pt Level 4 (50343) Diagnoses Chronic pain of right ankle M25.571; G89.29 Chronicity: chronic Sprain of lateral ligament of ankle joint S93.409A Achilles tendinitis of right lower extremity M76.61 Laterality: right
== END 2023-12-16 09:42 | disposition home or self-care (01) ==
PROVIDERS: PCP Internal Medicine; Visit Provider Physical Medicine & Rehabilitation
DX: M25.571 Pain in right ankle and joints of right foot (principal); G89.29 Other chronic pain; S93.409A Sprain of unspecified ligament of unspecified ankle, initial encounter; M76.61 Achilles tendinitis, right leg
CPT/HCPCS: 99213

== ENCOUNTER → 2023-12-16 09:09 | Outpatient (BNVA) | payer OTHER, SELFPAY | PROVIDERS: PCP Internal Medicine; Visit Provider Physical Medicine & Rehabilitation ==

== ENCOUNTER 2023-12-24 10:47 | Outpatient (AMB) | payer OTHER, SELFPAY ==
--- NOTE | 2023-12-24 10:51 | HO.SPINEOV ---
Intake Intake Visit Reasons: Spinal stenosis, lumbar region Intake Note: Ms. Wakefield is here today c/o neck pain. 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: No Allergies doxycycline Allergy (Unknown, Verified 12/24/23 10:56) nausea, vomiting Tetracyclines Allergy (Unknown, Verified 12/24/23 10:56) Nausea and Vomiting fluticasone furoate [From Trelegy Ellipta] Adverse Reaction (Intermediate, Verified 12/24/23 10:56) Dry Mucus Membranes Penicillins Adverse Reaction (Intermediate, Verified 12/24/23 10:56) Nausea and Vomiting umeclidinium [From Trelegy Ellipta] Adverse Reaction (Intermediate, Verified 12/24/23 10:56) Dry Mucus Membranes vilanterol [From Trelegy Ellipta] Adverse Reaction (Intermediate, Verified 12/24/23 10:56) Dry Mucus Membranes inhaled anticholinergic steroids Adverse Reaction (Intermediate, Uncoded 12/16/23 09:20) dry mucous membranes Assessment & Plan Assessment & Plan (1) Lumbar stenosis with neurogenic claudication: Code(s): M48.062 - Spinal stenosis, lumbar region with neurogenic claudication Plan Dear Dr. Stroud, Thank you for referring Kathie Mcmullen to our office today. She is a complicated 63-year-old female who comes in today with a chief complaint of low back pain with radiation into her bilateral lower extremities. She is known to our service and was previously evaluated by Dr. Esparza for both cervical spine and lumbar spine complaints at [facility]. She states that she was not in a position where she could take the time off to have surgery at the time in which she was previously evaluated, but is now willing to pursue a surgical intervention to solve her pain. When describing the radiation of her symptoms she states that pain shoots diffusely down both of her legs and terminates at the bottom of her feet. She reports that this pain worsens with walking and causes her to need to stop frequently when ambulating. She also endorses bilateral foot numbness that comes and goes throughout the day and has contributed to her falling several times over the course of the last year. Additionally, she reports she has to utilize the shopping cart at a grocery store in order to do her shopping with any success. She states that her low back pain is by far her worst complaint. She has tried several courses of physical therapy, cortisone injections, and acupuncture without relief of her symptoms. PMH: History of microdiskectomy completed by Dr. Hickman in July of 2002. History of multiple compound fractures in her right ankle and leg in 1996. History of left knee cap repair by Dr. Fox in 2021. History of bilateral cataract surgery. History of myocardial infarction in December of 2022. No stent placed, no current anticoagulation. High blood pressure, asthma, hx alcohol use disorder, osteoarthritis, osteoporosis, rheumatoid arthritis, bilateral hip bursitis, ulcerative colitis, mitral valve prolapse. Social hx: Patient smokes 1/2 pack per day, does not disclose any substance use however has alcohol abuse on medical history. Medications: Albuterol, alendronate, aspirin, baclofen, bupropion, cetirizine, vitamin D3, diltiazem, duloxetine, fluticasone, folic acid, gabapentin, ibuprofen, lidocaine, lisinopril, methocarbamol, montelukast, multivitamin, nicotine patches, oxycodone, prednisone, trazodone, thiamine. Allergies: Doxycycline, tetracyclines, fluticasone, penicillins, trelegy Ellipta. Physical exam: The patient has 4/5 limited handgrip strength bilaterally. The rest of her strength is 5/5 intact, however she does elicit pain to full strength testing in lower extremities. Her left patella reflex is 2+ (previous patellar repair on this side) and the rest of her reflexes are 3+ hyperactive. Her sensation is grossly intact. She rises from a seated position without difficulty and ambulates without an antalgic gait. (-) Fontanez's, (-) clonus, (-) straight leg raise bilaterally. Imaging review: MRI of the lumbar spine completed here at [facility] shows a slight degenerative levoscoliosis with the apex at L3. There is severe loss of disc height from L2-3 L3-4, L4-5, and L5-S1. As result of this she has moderate central canal and bilateral foraminal stenosis at L2-3 (worse on the R at this level), and severe central canal and bilateral foraminal stenosis from L3-S1. The x-ray imaging which was also completed here at [facility] last year, does not show any significant instability when compared to MRI. Impression: Kathie Mcmullen is a pleasant yet complicated 63-year-old female who comes in today with a chief complaint of low back pain with radicular pains diffusely down both of her lower extremities terminating at the bottom of her feet. She states that this issue has been longstanding and gradually came on over the course of many years. It has now gotten to the point where she is fell several times in the last year, and needs to brace herself on things like shopping carts in order to get around grocery stores. Walking causes her a significant amount of pain and distress. I would like to have Kathie Mcmullen sent for a CT scan of her lumbar spine to evaluate for any auto fusion/osteophyte growth that can not be seen on MRI/x-ray. I would then like the patient to follow-up with Dr. Esparza to discuss surgical interventions to help solve her problem. If we are able to evaluate what has already been fused we will then be able to make it better surgical decision. Of note, the patient may not be a surgical fusion candidate given her complicated medical history and her current diagnosis of osteoporosis confirmed by DEXA scan 2 years ago. This of course is up to the discretion of the attending neurosurgeon. Thank you for allowing us to care for your patient. The total time spent with this visit with this patient was 60 minutes reviewing history, physical exam, X-ray and MRI imaging review, and implementation of treatment plan or further diagnostic testing. Moses Esparza MD,PhD [facility] Orders: Orders CT lumbar spine wo IV con Today M48.062 - Spinal stenosis, lumbar region with neurogenic claudication Coding Level of Care Code New Pt Level 5 (68566) Diagnoses Lumbar stenosis with neurogenic claudication M48.062
== END 2023-12-24 11:30 | disposition home or self-care (01) ==
PROVIDERS: PCP Internal Medicine; Referring Provider Orthopaedic Surgery; Visit Provider Physician Assistant
DX: M48.062 Spinal stenosis, lumbar region with neurogenic claudication (principal)
CPT/HCPCS: 99205

== ENCOUNTER → 2023-12-24 10:47 | Outpatient (BNVA) | payer OTHER, SELFPAY | PROVIDERS: PCP Internal Medicine; Visit Provider Physician Assistant ==

== ENCOUNTER 2024-01-10 08:27 | Outpatient (AMB) | payer OTHER, SELFPAY ==
--- NOTE | 2024-01-10 08:31 | MHC.OFFVIS ---
Vital Signs 01/10/24 08:32 Height 5 ft 5 in Weight 123 lb BMI 20.5 BP 134/67 Blood Pressure Location Lt brachial Position Sitting Respiration 14 Pulse 95 Pulse Source Pulse Oximeter Pulse Oximetry (%) 96 Oxygen Delivery Method Room Air Intake Visit Reasons: Achilles tendinitis, right leg Allergies doxycycline Allergy (Unknown, Verified 01/12/24 09:00) nausea, vomiting Tetracyclines Allergy (Unknown, Verified 01/12/24 09:00) Nausea and Vomiting fluticasone furoate [From Trelegy Ellipta] Adverse Reaction (Intermediate, Verified 01/12/24 09:00) Dry Mucus Membranes Penicillins Adverse Reaction (Intermediate, Verified 01/12/24 09:00) Nausea and Vomiting umeclidinium [From Trelegy Ellipta] Adverse Reaction (Intermediate, Verified 01/12/24 09:00) Dry Mucus Membranes vilanterol [From Trelegy Ellipta] Adverse Reaction (Intermediate, Verified 01/12/24 09:00) Dry Mucus Membranes inhaled anticholinergic steroids Adverse Reaction (Intermediate, Uncoded 01/12/24 09:00) dry mucous membranes Medication List - Last Reconciled 01/10/24 by Елена Cash LPN albuterol sulfate 2.5 mg inhalation Q4H PRN albuterol sulfate 90 mcg/actuation 2 puffs inhalation Q4H PRN alendronate 70 mg PO QWEEK aspirin 1 tab PO DAILY baclofen 10 mg PO BID bupropion HCl SR 150 mg PO BID cetirizine 10 mg PO DAILY cholecalciferol (vitamin D3) 50 mcg PO DAILY diltiazem HCl ER 120 mg PO DAILY duloxetine 60 mg PO DAILY fluticasone propion-salmeterol 230-21 mcg/actuation (Advair HFA) 2 puffs inhalation BID fluticasone propionate 50 mcg/actuation (Flonase Allergy Relief) 2 sprays intranasal DAILY folic acid 1 mg PO DAILY gabapentin 600 mg PO TID ibuprofen 600 mg PO Q8H PRN leg brace (Ankle Brace) As directed lidocaine 5% 1 patch topical DAILY lisinopril 30 mg PO DAILY methocarbamol 750 mg PO Q8H PRN montelukast 10 mg PO DAILY multivitamin 1 tab PO DAILY nicotine 1 patch transdermal DAILY oxycodone 10 mg (2 x 5 mg) PO Q4H PRN [id number] 2.5-5-50 mg/5 mL (Robitussin Cough and Cold CF) 15 mL PO Q4H PRN prednisone 4 tabl qd x 3days, then 3 tabl qd x 3 days, then 2 tabl qd x 3 days, then 1 qd x 3 days thiamine HCl (vitamin B1) (Vitamin B-1) 100 mg PO DAILY trazodone 50 mg PO BEDTIME HPI HPI Achilles tendinitis, right leg: Details: 63-year-old female who presents today to the office for evaluation of right leg Achilles tendinitis. She reports bilateral foot numbness that comes and goes throughout the day and has contributed to her falling several times over the course of the last year. She has to utilize the shopping cart at a grocery store in order to do her shopping with any success. She has been doing home exercises for foot. She complains of low back pain with radiation into her bilateral lower extremities. She described her pain as shooting sensations that diffused down both of her legs and terminated at the bottom of her feet. She reports that this pain worsens with walking and causes her to need to stop frequently when ambulating. She has tried several courses of physical therapy, cortisone injections, and acupuncture without relief of her symptoms. She has a history of a microdiskectomy completed by Dr. Hickman in July 2002. History of multiple compound fractures in her right ankle and leg in 1996. History of left knee cap repair by Dr. Fox in 2021. History of bilateral cataract surgery. History of myocardial infarction in December 2022. She smokes 1/2 pack per day. She has a history of alcohol abuse. Past procedures 04/05/23: Left saphenous nerve block under ultrasound guidance: 90% pain relief for 5 hours. [facility] Medical History Right ankle pain VIKAS (obstructive sleep apnea) STEMI (ST elevation myocardial infarction) Mitral regurgitation Sinusitis Fall Tobacco dependence due to cigarettes Alcohol abuse Easy bruising Scoliosis Degenerative disc disease, lumbar COPD (chronic obstructive pulmonary disease) Muscle spasms of neck Rheumatoid arthritis Bursitis of both hips Hypertension Osteoarthritis Surgical History History of lumbar surgery Hx of left knee surgery History of ankle surgery Hx of shoulder surgery H/O knee surgery H/O eye surgery H/O colonoscopy Hx of cataract extraction History of open reduction and internal fixation (ORIF) procedure History of lumbar discectomy Family History Mother Substance use disorder Father Substance use disorder Maternal Aunt Substance use disorder Maternal Uncle Substance use disorder Paternal Uncle Substance use disorder Paternal Aunt Substance use disorder Social History Household Members: Significant Other Housing: Apartment Are you a primary interior plant caretaker to a significant other at home: No Do you presently have visiting nurse or other home services: No Alcohol intake: current Alcohol intake frequency: 3 or more drinks per day Alcohol type: beer Patient Tobacco Use Status: Never used Tobacco Tobacco use type: Cigarette Cigarettes Per Day: 7 Years Smoked: 50 e-Cigarette/Vaping Use: Never Used service: No 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al status: employed 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 Alert and oriented. Mood and affect appropriate. Follows and participates in conversation appropriately. Respiratory effort is unlabored. Able to transition from sit to stand unassisted. Ambulates with bilaterally normal heel strike and toe off. Pain is localized directly into the inferior aspect of the lateral malleolus, which is worse with weight bearing. On ultrasound exam: There is no echogenic abnormality of the Achilles tendon. There is no hypo or hyperechoic lesions or evidence of partial fraying/tears or fluid collections. No tenderness with deep palpation using the ultrasound probe on dynamic motion of the Achilles tendon. Office Procedures Joint Injection/Drain Joint Injection/Drain Details: Right tibiotalar joint injection, ultrasound guided Primary Site: other (right tibiotalar) Prep: site was prepped using sterile technique Injected: Kenalog (30 mg) and with 3 mL of (Ropivacaine 0.5%) Approach Used: anterior (With needle visualization under ultrasound, away from the DP artery) Procedure: The patient tolerated the procedure well Coding Details: An ultrasound image of the injection was taken and stored in the permanent record. Additional procedure code (CPT) needed Results Reviewed Results Reviewed: CLINICAL INFORMATION: Right ankle and right foot pain. COMPARISON: None available. TECHNIQUE: AP, lateral, and mortise views of the right ankle. AP, lateral, and oblique views of the right foot. FINDINGS: The request does not state exactly where pain is experienced by the patient was aware pathology is suspected, limiting the study. Therefore, clinical correlation is recommended. There is an old, healed fracture of the distal diaphysis of the tibia. Small plantar calcaneal spur. No acute fracture identified. Alignment is anatomic. No erosions. Joint spaces appear maintained. Soft tissues appear unremarkable. XR/XR ankle RT 2V IMPRESSION: No acute finding. Assessment & Plan Assessment & Plan (1) Right ankle pain: Code(s): M25.571 - Pain in right ankle and joints of right foot Category: Medical Qualifiers: Chronicity: chronic Qualified Code(s): M25.571 - Pain in right ankle and joints of right foot; G89.29 - Other chronic pain Plan Based on ultrasound findings today, I do not think her ankle pain is originating from the Achilles tendon. Given her history of prior ankle injuries and surgeries, I think she may have accelerated degenerative of the ankle joints. While in the office today I injected her right tibiotalar joint, ultrasound guided. Patient tolerated procedure well and was discharged home in stable condition with discharge instructions. All questions were answered. Based on response to today's injection, we may repeat it. Scribed for Dr. Storey by Nikunj Damon anesthesiology medical doctor, on 01/10/2024. I, Dr. Storey, have personally reviewed and agree with the information entered by the scribe. Coding Level of Care Code Est Pt Level 4 (61793) Diagnoses Chronic pain of right ankle M25.571; G89.29 Chronicity: chronic
[2024-01-10 08:32] VITALS: BP 134/67; PULSE 95; RESP 14; O2SAT 96; BMI 20.5
== END 2024-01-10 09:22 | disposition home or self-care (01) ==
PROVIDERS: PCP Internal Medicine; Visit Provider Internal Medicine
DX: M25.571 Pain in right ankle and joints of right foot (principal); G89.29 Other chronic pain
CPT/HCPCS: 20606; 99214

== ENCOUNTER → 2024-01-10 08:27 | Outpatient (BNVA) | payer OTHER, SELFPAY | PROVIDERS: PCP Internal Medicine; Visit Provider Internal Medicine | DX: G89.29 Other chronic pain (principal); M25.571 Pain in right ankle and joints of right foot | CPT/HCPCS: 20606; J2795; J3301 ==

== ENCOUNTER 2024-01-12 08:13 | Outpatient (AMB) | payer BC, SELFPAY ==
--- NOTE | 2024-01-12 08:20 | A.OFFVIS_ITS ---
Vital Signs 01/12/24 08:25 Height 5 ft 5 in Weight 120 lb BMI 20.0 Intake Visit Reasons: OV- Pre Op Right shoulder Intake Note: this is not our patient's correct chart. No office visit was seen under this patient's name today. The real patient's name in the computer is Kathie Landin. Allergies No Known Allergies Allergy (Verified 01/12/24 08:26) Medication List - Last Reconciled 01/12/24 by Dewayne Stroud MD albuterol sulfate mg inhalation Q4H PRN baclofen 10 mg PO BID bupropion HCl SR 150 mg PO BID cetirizine 10 mg PO DAILY cholecalciferol (vitamin D3) 50 mcg PO DAILY diltiazem HCl ER (Tiadylt ER) 120 mg PO DAILY duloxetine 60 mg PO DAILY fluticasone propion-salmeterol 115-21 mcg/actuation 2 puffs inhalation BID fluticasone propionate 50 mcg/actuation 2 sprays intranasal DAILY folic acid 1 mg PO DAILY gabapentin mg PO ibuprofen 600 mg PO Q8H PRN lisinopril 30 mg PO DAILY methocarbamol 750 mg PO Q8H PRN montelukast 10 mg PO BEDTIME multivitamin 1 tab PO DAILY prednisone mg PO thiamine HCl (vitamin B1) (Vitamin B-1) 100 mg PO DAILY PFSH Surgical History (Updated 01/12/24 @ 08:31 by Megan Raymundo CMA) History of lumbar surgery Hx of left knee surgery History of ankle surgery Hx of shoulder surgery Social History (Updated 01/12/24 @ 08:31 by Megan Raymundo CMA) Patient Tobacco Use Status: Never used Tobacco 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al status: employed 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: [employer], 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 Physical Exam Vital Signs: BMI result Body Mass Index 20.0 Assessment & Plan Assessment & Plan (1) Right shoulder pain: Code(s): M25.511 - Pain in right shoulder Category: Medical Plan Today's office note was dictated under Kathie DUTTON Urvashi . Coding Level of Care Code Global (81044) Diagnoses Right shoulder pain M25.511
== END 2024-01-12 08:49 | disposition home or self-care (01) ==
PROVIDERS: Visit Provider Orthopaedic Surgery
DX: M25.511 Pain in right shoulder (principal)
CPT/HCPCS: 99024

== ENCOUNTER → 2024-01-12 08:13 | Outpatient (BNVA) | payer BC, SELFPAY | PROVIDERS: Visit Provider Orthopaedic Surgery ==

== ENCOUNTER 2024-01-12 08:38 | Outpatient (AMB) | payer OTHER, SELFPAY ==
--- NOTE | 2024-01-12 08:39 | MHC.OFFVIS ---
Vital Signs 01/12/24 08:39 Height 5 ft 5 in Weight 120 lb BMI 20.0 Intake Visit Reasons: Preop RT Shoulder 01/28/24 Intake Note: Kathie Mcmullen is a 63-year-old female who presents with complaints of progressively worsening right shoulder pain. The patient did undergo left shoulder arthroscopic surgery on 11/19/2023. She reports minimal discomfort in her left shoulder. She describes her right shoulder pain as sharp and severe in nature. Her right shoulder pain has gotten worse over the last few years in spite of continued non operative treatments. She has done physical therapy which aggravated her pain. She has also tried Tylenol and anti-inflammatory medicines which gave her minimal relief. She has had injections in the past which gave her no relief. Kathie Mcmullen is a 63 year old female who presnents for her pre operative appointment for her Right Shoulder on 01/28/2024. Allergies doxycycline Allergy (Unknown, Verified 01/12/24 09:00) nausea, vomiting Tetracyclines Allergy (Unknown, Verified 01/12/24 09:00) Nausea and Vomiting fluticasone furoate [From Trelegy Ellipta] Adverse Reaction (Intermediate, Verified 01/12/24 09:00) Dry Mucus Membranes Penicillins Adverse Reaction (Intermediate, Verified 01/12/24 09:00) Nausea and Vomiting umeclidinium [From Trelegy Ellipta] Adverse Reaction (Intermediate, Verified 01/12/24 09:00) Dry Mucus Membranes vilanterol [From Trelegy Ellipta] Adverse Reaction (Intermediate, Verified 01/12/24 09:00) Dry Mucus Membranes inhaled anticholinergic steroids Adverse Reaction (Intermediate, Uncoded 01/12/24 09:00) dry mucous membranes Medication List - Last Reconciled 01/12/24 by Dewayne Stroud MD albuterol sulfate 2.5 mg inhalation Q4H PRN albuterol sulfate 90 mcg/actuation 2 puffs inhalation Q4H PRN alendronate 70 mg PO QWEEK aspirin 1 tab PO DAILY baclofen 10 mg PO BID bupropion HCl SR 150 mg PO BID cetirizine 10 mg PO DAILY cholecalciferol (vitamin D3) 50 mcg PO DAILY diltiazem HCl ER 120 mg PO DAILY duloxetine 60 mg PO DAILY fluticasone propion-salmeterol 230-21 mcg/actuation (Advair HFA) 2 puffs inhalation BID fluticasone propionate 50 mcg/actuation (Flonase Allergy Relief) 2 sprays intranasal DAILY folic acid 1 mg PO DAILY gabapentin 600 mg PO TID hydromorphone (Dilaudid) 4 mg PO Q4H PRN 1 week ibuprofen 600 mg PO Q8H PRN leg brace (Ankle Brace) As directed lidocaine 5% 1 patch topical DAILY lisinopril 30 mg PO DAILY methocarbamol 750 mg PO Q8H PRN montelukast 10 mg PO DAILY multivitamin 1 tab PO DAILY nicotine 1 patch transdermal DAILY oxycodone 10 mg (2 x 5 mg) PO Q4H PRN [id number] 2.5-5-50 mg/5 mL (Robitussin Cough and Cold CF) 15 mL PO Q4H PRN prednisone 4 tabl qd x 3days, then 3 tabl qd x 3 days, then 2 tabl qd x 3 days, then 1 qd x 3 days thiamine HCl (vitamin B1) (Vitamin B-1) 100 mg PO DAILY trazodone 50 mg PO BEDTIME PFSH Medical History Right ankle pain VIKAS (obstructive sleep apnea) STEMI (ST elevation myocardial infarction) Mitral regurgitation Sinusitis Fall Tobacco dependence due to cigarettes Alcohol abuse Easy bruising Scoliosis Degenerative disc disease, lumbar COPD (chronic obstructive pulmonary disease) Muscle spasms of neck Rheumatoid arthritis Bursitis of both hips Hypertension Osteoarthritis Surgical History History of lumbar surgery Hx of left knee surgery History of ankle surgery Hx of shoulder surgery H/O knee surgery H/O eye surgery H/O colonoscopy Hx of cataract extraction History of open reduction and internal fixation (ORIF) procedure History of lumbar discectomy Family History Mother Substance use disorder Father Substance use disorder Maternal Aunt Substance use disorder Maternal Uncle Substance use disorder Paternal Uncle Substance use disorder Paternal Aunt Substance use disorder Social History Household Members: Significant Other Housing: Apartment Are you a primary childcare administrator to a significant other at home: No Do you presently have visiting nurse or other home services: No Alcohol intake: current Alcohol intake frequency: 3 or more drinks per day Alcohol type: beer Patient Tobacco Use Status: Never used Tobacco Tobacco use type: Cigarette Cigarettes Per Day: 7 Years Smoked: 50 e-Cigarette/Vaping Use: Never Used service: No 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al status: employed 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, 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 Cognitive needs: No Hearing needs: No Vision needs: Yes Physical Exam Vital Signs: BMI result Body Mass Index 20.0 Const Other: Well-nourished well-developed very friendly female awake alert and oriented x3 in no acute distress Extrem Other: Bilateral upper extremity examination shows good capillary refill, no skin lesions noted, normal sensation light touch Right shoulder examination shows decreased range of motion when compared to her left shoulder, 4+ out of 5 strength with supraspinatus testing, positive impingement signs, tenderness over her acromioclavicular joint, no instability Results Reviewed Results Reviewed: X-rays of the patient's right shoulder show severe acromioclavicular joint narrowing, a type 3 acromion, no acute bony abnormalities Assessment & Plan Assessment & Plan (1) Right shoulder pain: Code(s): M25.511 - Pain in right shoulder Category: Medical Plan Ms. Wakefield presents with progressively worsening right shoulder pain due to impingement syndrome and acromioclavicular joint arthritis. I had a lengthy discussion regarding the treatment options. At this point she has failed continued non operative treatments. The risks and benefits of right shoulder arthroscopic surgery were discussed at length with the patient. The patient wishes to proceed with surgery. Surgery will most likely involve right shoulder diagnostic arthroscopy with distal clavicle excision and acromioplasty. The patient was given a prescription for Dilaudid at her preoperative appointment. The patient also has bilateral hip pains. She questions whether or not she can get a cortisone injection for her hip pains. Thus, I will refer her to the pain management Center here at [facility] for further information regarding the risks and benefits of hip cortisone injections. Feel free to call me at any time should questions regarding her orthopedic management arise. I spent 20 minutes in reviewing the patient's records and imaging studies, seeing the patient and documenting in the medical record. Orders: Referrals Pain Management Referral M25.551 - Pain in right hip, M25.552 - Pain in left hip Medications: New hydromorphone (Dilaudid) Partial Fill upon patient request. 4 mg PO Q4H 1 week PRN 30 tabs 0RF pain Coding Level of Care Code Est Pt Level 3 (71609) Diagnoses Right shoulder pain M25.511
== END 2024-01-12 08:51 | disposition home or self-care (01) ==
LOC: HO.HOS 08:38
PROVIDERS: PCP Internal Medicine; Visit Provider Orthopaedic Surgery
DX: M25.511 Pain in right shoulder (principal); M75.41 Impingement syndrome of right shoulder; M19.011 Primary osteoarthritis, right shoulder
CPT/HCPCS: 99214

== ENCOUNTER → 2024-01-12 08:38 | Outpatient (BNVA) | payer OTHER, SELFPAY | PROVIDERS: PCP Internal Medicine; Visit Provider Orthopaedic Surgery ==

== ENCOUNTER 2024-01-28 07:16 | Day surgery (SDC) | payer OTHER, SELFPAY ==
--- NOTE | 2024-01-26 13:34 | P.CONAN_ITS ---
Documented by User: Viviana Rodgers NP 01/27/24 09:59 HPI - Anesthesia Eval Consult details Narrative: 63yo F for Right Shoulder Arthroscopy distal clavicle excision, acromioplasty s/p same on Left 11/2023 with GA-ETT 7.5 and block. Prior to: Medically optimized per PCP. Does not need Echo (ordered by cardiology) prior to surgery. Follows Pulmd in [place]. Last office visit 04/2023. COPD-emphysema, pulmo nodules, VIKAS. Does not use CPAP. Follows [facility] cardiology. Last office visit 07/2023. Rec'd echo, but not done yet ON LICENSE OF [facility] Active Problems Active Problems: All Active Problems Right shoulder pain (Acute) Pain of both hip joints (Acute) Lumbar stenosis with neurogenic claudication (Acute) Achilles tendinitis (Acute) Sprain of lateral ligament of ankle joint (Acute) Otitis media of right ear (Acute) Right hip pain (Acute) Bilateral hip pain (Acute) Right shoulder pain (Acute) Left shoulder pain (Acute) Shoulder pain, bilateral (Acute) Arthralgia (Acute) Lumbar spinal stenosis (Acute) Cataract (Acute) Left hip pain (Acute) Lumbar radiculopathy (Acute) Bilateral knee pain (Acute) Annual physical exam (Acute) Vitamin D deficiency (Acute) Osteoporosis (Acute) Lumbar post-laminectomy syndrome (Acute) Cervical radiculopathy (Acute) Hyponatremia (Acute) Screening mammogram for breast cancer (Acute) Normal breast exam (Acute) Hx of colonoscopy (Acute) Colitis (Acute) Contusion, back (Acute) Right ankle pain (Acute) Sinusitis (Acute) Fall (Acute) Tobacco dependence due to cigarettes (Acute) Degenerative disc disease, lumbar (Acute) Osteoarthritis (Acute) Scoliosis (Acute) Alcohol abuse (Acute) Hypertension (Acute) COPD (chronic obstructive pulmonary disease) (Acute) Rheumatoid arthritis (Acute) Muscle spasms of neck (Acute) Past Medical History Medical History Right ankle pain VIKAS (obstructive sleep apnea) STEMI (ST elevation myocardial infarction) Mitral regurgitation Sinusitis Fall Tobacco dependence due to cigarettes Alcohol abuse Easy bruising Scoliosis Degenerative disc disease, lumbar COPD (chronic obstructive pulmonary disease) Muscle spasms of neck Rheumatoid arthritis Bursitis of both hips Hypertension Osteoarthritis Family History Family History Mother Substance use disorder Father Substance use disorder Maternal Aunt Substance use disorder Maternal Uncle Substance use disorder Paternal Uncle Substance use disorder Paternal Aunt Substance use disorder Family history of problems with anesthesia: No Surgical History Surgical History History of lumbar surgery Hx of left knee surgery History of ankle surgery Hx of shoulder surgery H/O eye surgery H/O colonoscopy Hx of cataract extraction History of open reduction and internal fixation (ORIF) procedure History of lumbar discectomy History of Problems with Anesthesia: No Social History Social History Household Members: Significant Other Housing: Apartment Are you a primary memory care director to a significant other at home: No Do you presently have visiting nurse or other home services: No Alcohol intake: current Alcohol intake frequency: 3 or more drinks per day Alcohol type: beer Patient Tobacco Use Status: Current everyday Tobacco user Tobacco use type: Cigarette Cigarettes Per Day: 7 Years Smoked: 50 e-Cigarette/Vaping Use: Never Used Use of substances other than those prescribed or required for medical reasons: No Have you been hit, kicked, punched, or otherwise hurt by someone within the past year? If so, by whom?: No Are you DNR?: No Advance Directives: No Advance Directives Information Provided: Yes Advance Directives on File: No Recently lost weight without trying: No Eating poorly because of decreased appetite: No Nutrition Risks: No Nutritional Risk Poor oral hygiene: No (caps upper front/one broken molar) service: No 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al status: employed 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: [id number], 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 Cognitive needs: No Hearing needs: No Vision needs: Yes Meds Allergies Allergy/AdvReac Type Severity Reaction Status Date / Time doxycycline Allergy Intermediate nausea, Verified 01/28/24 07:44 vomiting Tetracyclines Allergy Intermediate Nausea and Verified 01/28/24 07:44 Vomiting fluticasone furoate AdvReac Intermediate Dry Mucus Verified 01/28/24 07:44 [From Trelegy Ellipta] Membranes Penicillins AdvReac Intermediate Nausea and Verified 01/28/24 07:44 Vomiting umeclidinium AdvReac Intermediate Dry Mucus Verified 01/28/24 07:44 [From Trelegy Ellipta] Membranes vilanterol AdvReac Intermediate Dry Mucus Verified 01/28/24 07:44 [From Trelegy Ellipta] Membranes inhaled anticholinergic AdvReac Intermediate dry mucous Uncoded 01/28/24 07:44 steroids membranes Active Medications: Current Medications Clindamycin Phosphate (Cleocin) 900 mg in 50 mls @ 50 mls/hr IV PREOP ONE Stop: 01/28/24 06:23 Home Medications ?Medication ?Instructions ?Recorded ?Confirmed ?Last Taken ?Type fluticasone propionate 230 2 puff inhalation BID 05/06/22 01/26/24 Unknown History mcg-salmeterol 21 mcg/actuation HFA inhaler (Advair HFA) trazodone 50 mg tablet 50 mg PO BEDTIME 05/06/22 01/26/24 Unknown History albuterol sulfate 90 mcg/actuation 2 puff inhalation Q4H PRN wheezing 09/02/22 01/26/24 Unknown History aerosol inhaler albuterol sulfate 2.5 mg/3 mL 2.5 mg inhalation Q4H PRN wheezing 01/12/24 01/26/24 Unknown History (0.083 %) solution for nebulization baclofen 10 mg tablet 10 mg PO BID 01/12/24 01/26/24 Unknown History bupropion HCl 150 mg tablet,12 hr 150 mg PO BID 01/12/24 01/26/24 Unknown History sustained-release cetirizine 10 mg tablet 10 mg PO DAILY 01/12/24 01/26/24 Unknown History cholecalciferol (vitamin D3) 50 50 mcg PO DAILY 01/12/24 01/26/24 Unknown History mcg (2,000 unit) tablet diltiazem HCl 120 mg capsule,24 120 mg PO DAILY 01/12/24 01/28/24 01/28/24 History hr,extended release (Tiadylt ER) duloxetine 60 mg capsule,delayed 60 mg PO DAILY 01/12/24 01/26/24 Unknown History release fluticasone propionate 50 2 spray intranasal DAILY 01/12/24 01/26/24 Unknown History mcg/actuation nasal spray,suspension folic acid 1 mg tablet 1 mg PO DAILY 01/12/24 01/26/24 Unknown History gabapentin 300 mg capsule 600 mg PO TID 01/12/24 01/28/2424 History lisinopril 30 mg tablet 30 mg PO DAILY 01/12/24 01/26/24 Unknown History methocarbamol 750 mg tablet 750 mg PO Q8H PRN muscle spasm 01/12/24 01/26/24 Unknown History montelukast 10 mg tablet 10 mg PO BEDTIME 01/12/24 01/26/24 Unknown History multivitamin 1 tab PO DAILY 01/12/24 01/26/24 Unknown History thiamine HCl (vitamin B1) 100 mg 100 mg PO DAILY 01/12/24 01/26/24 Unknown History tablet (Vitamin B-1) Robitussin 01/28/24 01/28/24 06:00 History benzonatate 100 mg capsule 100 mg PO TID PRN cough 01/28/24 01/28/24 01/28/24 07:00 History Exam Height,Weight and Vital Signs: Height 5 ft 5 in Weight 54.431 kg Pertinent Lab Results Pertinent Lab Results: Laboratory Tests 11/05/23 10:40 WBC 9.8 Hgb 13.3 Hct 38.5 Plt Count 352 Sodium 132 L Potassium 4.0 Chloride 100 Carbon Dioxide 22 BUN 11 Creatinine 0.64 Narrative Narrative: EKG 10/2023 NSR @ 71 Right superior axis deviation Possible right vent hypertrophy ECHO 11/2023 LV nml in size. Overall LV systolic function nml. LVEF 55-60%. No definite WMA. Nml diastolic function. LV wall thickness mildly increased RV nml in size and function Aortic root is nml in size. Mild dilation of aortic root (3.5cm) No significant change from 12/2022 Cardiac cath 12/2022 mild mid RCA stenosis Remainder of coronaries are nml No evidence for spontaneous coronary artery dissection Rec'd CCB for possible coronary vasospasm, smoking cessation Assessment and Plan Assessment Anesthesia Assessment: Chart Reviewed Final Anesthetic Review Family History of Problems with Anesthesia: No History of Problems with Anesthesia: No Documented by User: Jessika Don MD 01/28/24 09:44 ON LICENSE OF [facility] Past Medical History Medical History Right ankle pain VIKAS (obstructive sleep apnea) STEMI (ST elevation myocardial infarction) Mitral regurgitation Sinusitis Fall Tobacco dependence due to cigarettes Alcohol abuse Easy bruising Scoliosis Degenerative disc disease, lumbar COPD (chronic obstructive pulmonary disease) Muscle spasms of neck Rheumatoid arthritis Bursitis of both hips Hypertension Osteoarthritis Family History Family History Mother Substance use disorder Father Substance use disorder Maternal Aunt Substance use disorder Maternal Uncle Substance use disorder Paternal Uncle Substance use disorder Paternal Aunt Substance use disorder Surgical History Surgical History History of lumbar surgery Hx of left knee surgery History of ankle surgery Hx of shoulder surgery H/O eye surgery H/O colonoscopy Hx of cataract extraction History of open reduction and internal fixation (ORIF) procedure History of lumbar discectomy Social History Social History Household Members: Significant Other Housing: Apartment Are you a primary memory care director to a significant other at home: No Do you presently have visiting nurse or other home services: No Alcohol intake: current Alcohol intake frequency: 3 or more drinks per day Alcohol type: beer Patient Tobacco Use Status: Current everyday Tobacco user Tobacco use type: Cigarette Cigarettes Per Day: 7 Years Smoked: 50 e-Cigarette/Vaping Use: Never Used Use of substances other than those prescribed or required for medical reasons: No Have you been hit, kicked, punched, or otherwise hurt by someone within the past year? 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 Cognitive needs: No Hearing needs: No Vision needs: Yes Meds Allergies Allergy/AdvReac Type Severity Reaction Status Date / Time doxycycline Allergy Intermediate nausea, Verified 01/28/24 07:44 vomiting Tetracyclines Allergy Intermediate Nausea and Verified 01/28/24 07:44 Vomiting fluticasone furoate AdvReac Intermediate Dry Mucus Verified 01/28/24 07:44 [From Trelegy Ellipta] Membranes Penicillins AdvReac Intermediate Nausea and Verified 01/28/24 07:44 Vomiting umeclidinium AdvReac Intermediate Dry Mucus Verified 01/28/24 07:44 [From Trelegy Ellipta] Membranes vilanterol AdvReac Intermediate Dry Mucus Verified 01/28/24 07:44 [From Trelegy Ellipta] Membranes inhaled anticholinergic AdvReac Intermediate dry mucous Uncoded 01/28/24 07:44 steroids membranes Home Medications ?Medication ?Instructions ?Recorded ?Confirmed ?Last Taken ?Type fluticasone propionate 230 2 puff inhalation BID 05/06/22 01/26/24 Unknown History mcg-salmeterol 21 mcg/actuation HFA inhaler (Advair HFA) trazodone 50 mg tablet 50 mg PO BEDTIME 05/06/22 01/26/24 Unknown History albuterol sulfate 90 mcg/actuation 2 puff inhalation Q4H PRN wheezing 09/02/22 01/26/24 Unknown History aerosol inhaler albuterol sulfate 2.5 mg/3 mL 2.5 mg inhalation Q4H PRN wheezing 01/12/24 01/26/24 Unknown History (0.083 %) solution for nebulization baclofen 10 mg tablet 10 mg PO BID 01/12/24 01/26/24 Unknown History bupropion HCl 150 mg tablet,12 hr 150 mg PO BID 01/12/24 01/26/24 Unknown History sustained-release cetirizine 10 mg tablet 10 mg PO DAILY 01/12/24 01/26/24 Unknown History cholecalciferol (vitamin D3) 50 50 mcg PO DAILY 01/12/24 01/26/24 Unknown History mcg (2,000 unit) tablet diltiazem HCl 120 mg capsule,24 120 mg PO DAILY 01/12/24 01/28/24 01/28/24 History hr,extended release (Tiadylt ER) duloxetine 60 mg capsule,delayed 60 mg PO DAILY 01/12/24 01/26/24 Unknown History release fluticasone propionate 50 2 spray intranasal DAILY 01/12/24 01/26/24 Unknown History mcg/actuation nasal spray,suspension folic acid 1 mg tablet 1 mg PO DAILY 01/12/24 01/26/24 Unknown History gabapentin 300 mg capsule 600 mg PO TID 01/12/24 01/28/24 01/28/24 History lisinopril 30 mg tablet 30 mg PO DAILY 01/12/24 01/26/24 Unknown History methocarbamol 750 mg tablet 750 mg PO Q8H PRN muscle spasm 01/12/24 01/26/24 Unknown History montelukast 10 mg tablet 10 mg PO BEDTIME 01/12/24 01/26/24 Unknown History multivitamin 1 tab PO DAILY 01/12/24 01/26/24 Unknown History thiamine HCl (vitamin B1) 100 mg 100 mg PO DAILY 01/12/24 01/26/24 Unknown History tablet (Vitamin B-1) Robitussin 01/28/24 01/28/24 06:00 History benzonatate 100 mg capsule 100 mg PO TID PRN cough 01/28/24 01/28/24 01/28/24 07:00 History Exam Airway Mallampati Class: II TM Dist: >3cm Neck ROM: Full Heart: rrr Lungs: cta Assessment and Plan Assessment Anesthesia Assessment: Anesthesia Plan Discussed Final Anesthetic Review NPO: Yes ASA Class: III Final Preanesthetic Review: No Changes in Pt Med Stat, Meds/Allgs Chart Reviewed, Consent Obtained/Reviewed and Anes Risks/Benef Reviewed Patient Risk: Intermediate Procedure Risk: Intermediate Anesthetic Plan Anesthetic Plan: GA and Regional Block Disposition: Standard PACU
[2024-01-28] VITALS (9 sets, daily range): BP systolic 139–154; BP diastolic 60–74; PULSE 74–86; RESP 12–16; TEMP 36.1–36.7; O2SAT 94–98; BMI 20.5
[2024-01-28] MEDS: Albuterol Sulfate (0.083%) 2.5 MG/3 ML VIAL.NEB INHALE (08:22)
--- NOTE | 2024-01-28 08:42 | PC.NURSE ---
Patient took dose of Robitussin this AM at 0600 for chronic post nasal drip per patient. Dr. Don made aware.
[2024-01-28] MEDS: Lactated Ringers 1,000 ML 100 ML IVCONT (08:53)
--- NOTE | 2024-01-28 10:30 | PM.OP ---
Brief Operative Note Date of Service: 01/28/24 Pre-op diagnosis: Right shoulder impingement syndrome, right shoulder acromioclavicular joint arthritis, right shoulder adhesive capsulitis Post-op diagnosis: same Procedure: Right shoulder arthroscopic distal clavicle excision, right shoulder arthroscopic acromioplasty, right shoulder arthroscopic anterior capsular release, right shoulder manipulation under anesthesia Implants: none Surgeon: Dewayne Stroud MD Anesthesia: GETA and regional Was an Prisoner Classification Interviewer used for this Procedure?: No Estimated blood loss (mL): 10 Pathology: none sent Condition: stable Disposition: PACU
--- NOTE | 2024-01-28 10:31 | W.PM.OPN ---
Operative Note Operative Note Date of Service: 01/28/24 Narrative: After the patient was identified as Kathie Wakefield and her right shoulder was initialed by myself the patient was brought to the holding area where a right shoulder interscalene regional block was performed by the anesthesiologist in routine fashion. The patient was then brought to the operating room where general anesthesia was induced by the anesthesiologist in routine fashion. Because of the patient's allergy to penicillin she was given 900 mg of IV clindamycin preoperatively for infection prophylaxis. Examination under anesthesia of the patient's right shoulder showed decreased passive range of motion when compared to the left shoulder. The patient's right shoulder had passive forward flexion to 130 degrees compared to 170 degrees, external rotation to 40 degrees compared to 60 degrees, and internal rotation to 50 degrees compared to 60 degrees. The patient was gently positioned in the beach chair position with all bony prominences well padded. The patient's right shoulder region and upper extremity were prepped and draped in sterile fashion. A formal time-out was completed. A #11 scalpel blade was used to make a posterior portal 2 cm inferior and 1 cm medial to the posterolateral corner of the acromion. Blunt trocar technique was used to enter the glenohumeral joint in routine fashion. An anterior portal was made just lateral to the coracoid process after proper positioning was confirmed using a spinal needle. Diagnostic arthroscopy showed minimal degenerative changes of the glenoid and humeral head articular surfaces. There was no evidence of rotator cuff tearing. There was no evidence of injury to the biceps tendon or its insertion onto the glenoid. There was inflammation of the anterior joint capsule consistent with adhesive capsulitis. The ArthroCare Wand was then used to perform an anterior capsular release between the inferior border of the biceps tendon and the superior border of the subscapularis tendon. The arthroscope was then placed from the posterior portal into the subacromial space. A lateral portal was made 2 fingerbreadths lateral to the anterior lateral corner of the acromion. The ArthroCare Wand was used to ablate soft tissues along the undersurface of the acromion as well as to excise the coracoacromial ligament. There was a sharp spur along the undersurface of the acromion which was removed using the hooded bur. The arthroscope was then placed into the lateral portal and the acromioplasty was completed with the bur in the posterior portal using the posterior aspect of the acromion as a cutting block. The ArthroCare Wand was then brought in through the anterior portal and was used to ablate soft tissues along the acromioclavicular joint and distal clavicle. The posterior and superior ligamentous structures were left intact. A distal clavicle excision of 8 mm was performed using the fluted bur. Any remaining bursal tissue was removed using the arthroscopic shaver. The subacromial space was irrigated and then drained. All arthroscopic instruments were removed. A gentle manipulation under anesthesia was then performed. Full passive range of motion was easily attained. The 3 portals were closed with 3-0 nylon interrupted suture. The subacromial space was injected with Marcaine. Dry sterile dressing was placed over all incisions. The patient's right upper extremity was placed into a sling. The patient was awoken and extubated in the operating room. The patient was transferred to the recovery room in stable condition.
== END 2024-01-28 11:43 | disposition home or self-care (01) ==
PROVIDERS: PCP Internal Medicine; Visit Provider Orthopaedic Surgery
PROC: (CPT 29805; principal; 2024-01-28 09:00)
DX: M75.41 Impingement syndrome of right shoulder (principal); M75.01 Adhesive capsulitis of right shoulder; M19.011 Primary osteoarthritis, right shoulder; G47.33 Obstructive sleep apnea (adult) (pediatric); I10 Essential (primary) hypertension; M06.9 Rheumatoid arthritis, unspecified; F10.10 Alcohol abuse, uncomplicated; Z79.899 Other long term (current) drug therapy; Z79.1 Long term (current) use of non-steroidal anti-inflammatories (NSAID); Z79.51 Long term (current) use of inhaled steroids; Z79.82 Long term (current) use of aspirin; Z88.0 Allergy status to penicillin; Z88.1 Allergy status to other antibiotic agents; Z88.8 Allergy status to other drugs, medicaments and biological substances; Z98.890 Other specified postprocedural states; F17.210 Nicotine dependence, cigarettes, uncomplicated
CPT/HCPCS: 29824; 29825; 29826; 94640; J0131; J0171; J0665; J0736; J1100; J2250; J2405; J2704; J2795; J3010

== ENCOUNTER → 2024-01-28 07:16 | Outpatient (BNV) | payer OTHER, SELFPAY | PROVIDERS: PCP Internal Medicine; Visit Provider Orthopaedic Surgery | DX: M75.41 Impingement syndrome of right shoulder (principal); M19.011 Primary osteoarthritis, right shoulder; M75.01 Adhesive capsulitis of right shoulder | CPT/HCPCS: 29824; 29826 ==

== ENCOUNTER 2024-02-09 10:07 | Outpatient (REF) | payer OTHER, SELFPAY ==
--- NOTE | ~2024-02-09 | CT_ITS ---
CT LUMBAR SPINE WITHOUT CONTRAST CLINICAL INFORMATION: Spinal stenosis, lumbar region with neurogenic claudication. COMPARISON: None available TECHNIQUE: Multidetector CT acquisition of the lumbar spine is obtained without contrast. Multiplanar reformats are acquired and utilized for image interpretation. This CT examination was performed using dose optimization techniques as appropriate, variously including the following: *Automated exposure control *Adjustment of mA and/or kV according to patient size (this includes techniques or standardized protocols for targeted exams where dose is matched to indication/reason for exam; i.e. extremities or head) *Use of iterative reconstruction technique FINDINGS: There are 5 nonrib-bearing lumbar-type vertebral bodies. Lumbar kyphosis. Leftward convex scoliosis. Grade 1 retrolisthesis of L2 on L3, L3 on L4, L4 on L5, and L5 on S1. Vertebral body heights maintained. Severe disc volume loss and vacuum phenomenon at L2-L3, L3-L4, L4-L5, and L5-S1. There are multiple old healed left-sided transverse process fractures at L2, L3, L4, and L5. Mild disc volume loss and vacuum phenomenon at L1-L2. No fractures. Multi-level endplate osteophytes. Simple left renal cyst. Extensive aortoiliac atherosclerotic calcification. At L1-L2, a left paracentral/left lateral disc protrusion results in mass effect on the traversing left L2 nerve root within the left subarticular zone and probable mass effect on the extraforaminal left L1 nerve root. At L2-L3, there is a diffuse annular disc bulge the superimposed left paracentral disc protrusion and bilateral facet arthropathy and ligamentum flavum thickening. Probable moderate central canal stenosis, left greater than right subarticular zone stenosis with mass effect on the traversing left L3 nerve root, and moderate right foraminal stenosis with disc contacting the extraforaminal nerve roots bilaterally. At L3-L4, there is a diffuse annular disc bulge and there is moderate bilateral facet arthropathy and ligamentum flavum thickening. Findings in concert result in suspected moderate central canal stenosis and moderate to severe right foraminal stenosis with mass effect on the exiting right L3 nerve root. At L4-L5, there is a diffuse annular disc bulge and there is severe bilateral facet arthropathy and ligamentum flavum thickening. Findings in concert result in suspected moderate to severe central canal stenosis, severe bilateral subarticular zone stenosis with mass effect on the traversing L5 nerve roots bilaterally, as well as severe left and moderate to severe right foraminal stenosis with mass effect on the exiting L4 nerve roots bilaterally. At L5-S1, there is vacuum phenomenon within an inferiorly migrating left paracentral disc extrusion suspected to compress the traversing left S1 nerve root within the left S1 lateral recess. There is also a right paracentral disc protrusion resulting in mass effect on the traversing right S1 nerve root within the right subarticular zone. Disc osteophyte results in significant anterior right-sided foraminal stenosis with mass effect on the exiting right L5 nerve root. There is at least moderate central canal stenosis at this level. CT/CT lumbar spine wo IV con IMPRESSION: Advanced lumbar spondylosis with multilevel central canal stenosis that is likely greatest and severe at L4-L5. There is multilevel high-grade subarticular zone stenosis and foraminal stenosis with mass effect on multiple traversing and exiting nerve roots as discussed above. At L5-S1, there is vacuum phenomenon within a large inferiorly migrating left paracentral disc extrusion compressing the traversing left S1 nerve root. Mass effect on additional traversing and exiting nerve roots as discussed above.
== END 2024-02-09 10:08 | disposition home or self-care (01) ==
LOC: HO.CT 10:07
PROVIDERS: PCP Internal Medicine; Visit Provider Physician Assistant
DX: M48.062 Spinal stenosis, lumbar region with neurogenic claudication (principal)
CPT/HCPCS: 72132

== ENCOUNTER 2024-02-10 11:13 | Outpatient (AMB) | payer OTHER, SELFPAY ==
--- NOTE | 2024-02-10 11:33 | MHC.OFFVIS ---
Intake Visit Reasons: PO RT Shoulder 01/28/24 Intake Note: Kathie Mcmullen is a 63 year old female who presents for her post operative appointment s/p her Right shoulder on 01/28/2024. The patient reports mild to moderate discomfort in her right shoulder. She continues with her home stretching program. She does not wish to go to formal physical therapy. Allergies doxycycline Allergy (Intermediate, Verified 02/10/24 11:39) nausea, vomiting Tetracyclines Allergy (Intermediate, Verified 02/10/24 11:39) Nausea and Vomiting fluticasone furoate [From Trelegy Ellipta] Adverse Reaction (Intermediate, Verified 02/10/24 11:39) Dry Mucus Membranes Penicillins Adverse Reaction (Intermediate, Verified 02/10/24 11:39) Nausea and Vomiting umeclidinium [From Trelegy Ellipta] Adverse Reaction (Intermediate, Verified 02/10/24 11:39) Dry Mucus Membranes vilanterol [From Trelegy Ellipta] Adverse Reaction (Intermediate, Verified 02/10/24 11:39) Dry Mucus Membranes inhaled anticholinergic steroids Adverse Reaction (Intermediate, Uncoded 02/10/24 11:39) dry mucous membranes Medication List - Last Reconciled 02/10/24 by Dewayne Stroud MD albuterol sulfate 90 mcg/actuation 2 puffs inhalation Q4H PRN albuterol sulfate 2.5 mg inhalation Q4H PRN alendronate 70 mg PO QWEEK aspirin 1 tab PO DAILY baclofen 10 mg PO BID benzonatate 100 mg PO TID PRN bupropion HCl SR 150 mg PO BID cetirizine 10 mg PO DAILY cholecalciferol (vitamin D3) 50 mcg PO DAILY diltiazem HCl ER (Tiadylt ER) 120 mg PO DAILY duloxetine 60 mg PO DAILY fluticasone propion-salmeterol 230-21 mcg/actuation (Advair HFA) 2 puffs inhalation BID fluticasone propionate 50 mcg/actuation 2 sprays intranasal DAILY folic acid 1 mg PO DAILY gabapentin 600 mg PO TID hydromorphone (Dilaudid) 4 mg PO Q4H PRN 1 week ibuprofen 600 mg PO Q8H PRN leg brace (Ankle Brace) As directed lidocaine 5% 1 patch topical DAILY lisinopril 30 mg PO DAILY methocarbamol 750 mg PO Q8H PRN montelukast 10 mg PO BEDTIME multivitamin 1 tab PO DAILY nicotine 1 patch transdermal DAILY oxycodone 5 mg PO Q4H PRN 1 week [Robitussin ] thiamine HCl (vitamin B1) (Vitamin B-1) 100 mg PO DAILY trazodone 50 mg PO BEDTIME PFSH Medical History Right ankle pain VIKAS (obstructive sleep apnea) STEMI (ST elevation myocardial infarction) Mitral regurgitation Sinusitis Fall Tobacco dependence due to cigarettes Alcohol abuse Easy bruising Scoliosis Degenerative disc disease, lumbar COPD (chronic obstructive pulmonary disease) Muscle spasms of neck Rheumatoid arthritis Bursitis of both hips Hypertension Osteoarthritis Surgical History (Updated 02/10/24 @ 11:46 by Megan Raymunod CMA) Hx of shoulder surgery (~01/28/24) History of lumbar surgery Hx of left knee surgery History of ankle surgery Hx of shoulder surgery H/O eye surgery H/O colonoscopy Hx of cataract extraction History of open reduction and internal fixation (ORIF) procedure History of lumbar discectomy Family History Mother Substance use disorder Father Substance use disorder Maternal Aunt Substance use disorder Maternal Uncle Substance use disorder Paternal Uncle Substance use disorder Paternal Aunt Substance use disorder Social History Household Members: Significant Other Housing: Apartment Are you a primary healthcare network pricing consultant to a significant other at home: No Do you presently have visiting nurse or other home services: No Alcohol intake: current Alcohol intake frequency: 3 or more drinks per day Alcohol type: beer Patient Tobacco Use Status: Current everyday Tobacco user Tobacco use type: Cigarette Cigarettes Per Day: 7 Years Smoked: 50 e-Cigarette/Vaping Use: Never Used service: No 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al status: employed and disabled 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 Wakefield doing fairly well after undergoing right shoulder arthroscopic surgery on 01/28/2024. Her sutures were removed and Steri-Strips placed over her incisions. She will continue with her home stretching program. The do's and don'ts of lifting were discussed at length with the patient. She will contact me prior to her follow-up appointment in 6 weeks should any questions or concerns arise. Feel free to call me at any time should questions regarding her orthopedic management arise. Coding Level of Care Code Global (61293) Diagnoses Right shoulder pain M25.511
== END 2024-02-10 11:58 | disposition home or self-care (01) ==
PROVIDERS: PCP Internal Medicine; Visit Provider Orthopaedic Surgery
DX: M25.511 Pain in right shoulder (principal)
CPT/HCPCS: 99024

== ENCOUNTER → 2024-02-10 11:13 | Outpatient (BNVA) | payer OTHER, SELFPAY | PROVIDERS: PCP Internal Medicine; Visit Provider Orthopaedic Surgery ==

== ENCOUNTER 2024-02-18 10:15 | Outpatient (AMB) | payer OTHER, SELFPAY ==
--- NOTE | 2024-02-18 10:22 | HO.SPINEOV ---
Intake Visit Reasons: CT scan results Intake Note: Ms. Wakefield is here today to F/u on her CT scan results. Sample Cutter Required: No Allergies doxycycline Allergy (Intermediate, Verified 02/10/24 11:39) nausea, vomiting Tetracyclines Allergy (Intermediate, Verified 02/10/24 11:39) Nausea and Vomiting fluticasone furoate [From Trelegy Ellipta] Adverse Reaction (Intermediate, Verified 02/10/24 11:39) Dry Mucus Membranes Penicillins Adverse Reaction (Intermediate, Verified 02/10/24 11:39) Nausea and Vomiting umeclidinium [From Trelegy Ellipta] Adverse Reaction (Intermediate, Verified 02/10/24 11:39) Dry Mucus Membranes vilanterol [From Trelegy Ellipta] Adverse Reaction (Intermediate, Verified 02/10/24 11:39) Dry Mucus Membranes inhaled anticholinergic steroids Adverse Reaction (Intermediate, Uncoded 02/10/24 11:39) dry mucous membranes Assessment & Plan Assessment & Plan (1) Cervical myelopathy: Code(s): G95.9 - Disease of spinal cord, unspecified Category: Medical Plan Mrs Wakefield is here in follow-up today. She previously saw Moses TORREZ. please refer to the specifics of his note for the details of why she is here today. 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 She is due to undergo an ACDF C3-4 but because of various life issues pertaining to her who at the time was sick with cancer she never underwent the surgery. She tells me that she continues to have balance issues with numbness going down into her arms. I examined her again today and she has diffuse hand weakness and upper extremity weakness with hyperreflexia, clonus and Richard's sign in the right hand. Her gait is also unsteady as well. I told her that her lumbar CT done at [place] does show diffuse arthritis changes from L3-S1 but with the setting of cervical myelopathy in the background which has been untreated now for about 6 years, that we need to address this before we consider doing anything with her lumbar spine. I am going to order an urgent MRI and I would like to see her back in the office afterwards. Total amount of time spent in this visit was 20 minutes in discussion of symptoms, lumbar CT imaging results and subsequent plan of care Santi Esparza MD,PhD [facility] Orders: Orders MR cervical spine wo con Today G95.9 - Disease of spinal cord, unspecified Coding Level of Care Code Est Pt Level 3 (75507) Diagnoses Cervical myelopathy G95.9
== END 2024-02-18 11:59 | disposition home or self-care (01) ==
PROVIDERS: PCP Internal Medicine; Visit Provider Physician Assistant
DX: G95.9 Disease of spinal cord, unspecified (principal)
CPT/HCPCS: 99213

== ENCOUNTER → 2024-02-18 10:15 | Outpatient (BNVA) | payer OTHER, SELFPAY | PROVIDERS: PCP Internal Medicine; Visit Provider Physician Assistant ==

== ENCOUNTER 2024-02-24 13:49 | Outpatient (REF) | payer OTHER, SELFPAY ==
--- NOTE | ~2024-02-24 | MR_ITS ---
EXAMINATION: MR CERVICAL SPINE WITHOUT CONTRAST CLINICAL INFORMATION: Cervical myelopathy. COMPARISON: Cervical spine radiograph from 02/24/2024. TECHNIQUE: MRI of the cervical spine was obtained using routine sequences without contrast. FINDINGS: Mildly motion degraded exam. Reversal the normal cervical lordosis centered on C5-C6. Moderate degenerative stepwise anterolistheses of C2-C6. Mild degenerative disc disease at C7-T1. Advanced degenerative disc disease from C5-C7. Moderate degenerative disc disease from C2-C5. Associated mixed Modic type discogenic and plate changes including mild Modic type I discogenic edema from C3-C7 (worst at C6-C7). Moderate marrow edema within the posterior elements of C4-C7 consistent with degenerative stress reaction. No additional suspicious marrow edema. The vertebral body heights are well-maintained. No demonstrated spinal cord signal abnormalities. Limited evaluation of the soft tissues of the neck without demonstrated abnormalities. The flow voids of the major cervical vessels are maintained. Normal appearance of the cervicomedullary junction and visualized posterior fossa. SPINAL LEVELS: C2-C3: Moderate disc-osteophyte complex. There is moderate left and mild right uncovertebral joint arthropathy. There is severe left and moderate right facet joint arthropathy. There is moderate left worse than right neural foraminal stenosis. There is mild spinal canal stenosis. C3-C4: Prominent disc-osteophyte complex. There is severe bilateral uncovertebral joint arthropathy. There is severe bilateral facet joint arthropathy. There is severe bilateral neural foraminal stenosis. There is moderate spinal canal stenosis. C4-C5: Moderate disc-osteophyte complex. There is severe right and moderate left uncovertebral joint arthropathy. There is severe right and moderate left facet joint arthropathy. There is severe right and mild left neural foraminal stenosis. There is no spinal canal stenosis. C5-C6: Moderate disc-osteophyte complex. There is severe left and moderate right uncovertebral joint arthropathy. There is severe left and moderate right facet joint arthropathy. There is severe left and mild to moderate right neural foraminal stenosis. There is mild spinal canal stenosis. C6-C7: Moderate disc-osteophyte complex. There is severe left and moderate right uncovertebral joint arthropathy. There is moderate to severe left and moderate right facet joint arthropathy. There is severe left worse than right neural foraminal stenosis. There is mild spinal canal stenosis. C7-T1: Mild disc-osteophyte complex. There is moderate bilateral uncovertebral joint arthropathy. There is moderate bilateral facet joint arthropathy. There is moderate right and mild left neural foraminal stenosis. There is no spinal canal stenosis. MR/MR cervical spine wo con IMPRESSION: Advanced multilevel degenerative spondyloarthropathy of the cervical spine as described in detail above. Most notably, there is moderate spinal canal stenosis at C3-C4. Mild spinal canal stenoses at C2-C3, C5-C6, and C6-C7. Moderate to severe neural foraminal stenoses from C2-T1.
== END 2024-02-24 13:50 | disposition home or self-care (01) ==
LOC: HO.MRI 13:49
PROVIDERS: PCP Internal Medicine; Visit Provider Physician Assistant
DX: G95.9 Disease of spinal cord, unspecified (principal)
CPT/HCPCS: 72141

== ENCOUNTER 2024-02-24 15:29 | Outpatient (AMB) | payer OTHER, SELFPAY ==
--- NOTE | 2024-02-24 15:33 | A.SPINEOV_ITS ---
Intake Visit Reasons: CT results Intake Note: Ms. Wakefield is here to f/u on CT results. Glue Wheel Operator Required: No Allergies doxycycline Allergy (Intermediate, Verified 02/10/24 11:39) nausea, vomiting Tetracyclines Allergy (Intermediate, Verified 02/10/24 11:39) Nausea and Vomiting fluticasone furoate [From Trelegy Ellipta] Adverse Reaction (Intermediate, Verified 02/10/24 11:39) Dry Mucus Membranes Penicillins Adverse Reaction (Intermediate, Verified 02/10/24 11:39) Nausea and Vomiting umeclidinium [From Trelegy Ellipta] Adverse Reaction (Intermediate, Verified 02/10/24 11:39) Dry Mucus Membranes vilanterol [From Trelegy Ellipta] Adverse Reaction (Intermediate, Verified 02/10/24 11:39) Dry Mucus Membranes inhaled anticholinergic steroids Adverse Reaction (Intermediate, Uncoded 02/10/24 11:39) dry mucous membranes Assessment & Plan Assessment & Plan (1) Cervical myelopathy: Code(s): G95.9 - Disease of spinal cord, unspecified Category: Medical Plan Mrs Wakefield is following up in the office today to review her cervical MRI. He was done [facility]. There is no report back yet, but the previously seen area of stenosis at C3-4 appears about stable compared to what it was back in [address] Esparza initially offered the patient anterior cervical fusion. The patient's clinical presentation could be seen in my last note. It looks as though there is still moderate to severe cervical stenosis at this level and given her hand weakness, fine motor issues, balance problems and hyperreflexia she would likely still be a good candidate for ACDF. I will obtain flexion-extension x-rays because there has a slight spondylolisthesis at this level. I will review these with Dr. Esparza just to see if he would like to do the procedure with the plate or just with a stand-alone cage. The patient understands that the primary goal of the surgery is to arrest her symptoms, not to return her to normal neurological function. She will need a cardiac clearance from her loom inspector at [facility]. She will stop her aspirin 1 week prior to surgery. Pt was given risk and benefits of surgery including but not limited to infection, hematoma , nerve injury,durotomy, weakness,bowel/bladder injury, persistent pain, vocal hoarseness, dysphagia as well as the option to continue with conservative treatment and patient wishes to proceed with surgery. Pt is aware they should stop their motrin, aspirin 7 days prior to surgery. All questions were answered to the best of our ability. If there is anything about this patients medical history that we have overlooked or concerns you have about us proceeding with surgery we would appreciate any input you can offer. Total amount of time spent in this visit was 20 minutes in discussion of symptoms, cervical imaging results and subsequent plan of care Santi Esparza MD,PhD [facility] Orders: Orders XR cervical spine 4V Today G95.9 - Disease of spinal cord, unspecified Coding Level of Care Code Est Pt Level 3 (00598) Diagnoses Cervical myelopathy G95.9
== END 2024-02-25 08:51 | disposition home or self-care (01) ==
PROVIDERS: PCP Internal Medicine; Visit Provider Physician Assistant
DX: G95.9 Disease of spinal cord, unspecified (principal)
CPT/HCPCS: 99213

== ENCOUNTER 2024-02-24 15:51 | Outpatient (REF) | payer OTHER, SELFPAY ==
--- NOTE | ~2024-02-24 | XR_ITS ---
EXAMINATION: XR CERVICAL SPINE CLINICAL INFORMATION: Disease and spinal cord. COMPARISON: Portions of the MRI cervical spine dated 03/25/2024. TECHNIQUE: Frontal and lateral (neutral, flexion and extension) views of the cervical spine were obtained. FINDINGS: There is bony demineralization. At C2-C3, a 3 mm anterolisthesis is seen. At C3-C4, a 4 mm anterolisthesis is seen. At C4-C5, a 3 anterolisthesis mm is seen. At C5-C6, there is mild disc space narrowing. At C6-C7, there is marked disc space narrowing, with endplate arthropathy. No acute fracture or spondylolysis seen. There is no significant instability with flexion or extension. The posterior elements are intact. There is multi-level facet arthropathy. The dens is intact. No prevertebral soft tissue swelling is seen. XR/XR cervical spine 4V IMPRESSION: 1 There is multi-level cervical degenerative disc disease and endplate and facet arthropathy. Degenerative disc disease most pronounced at C6-C7, where it is severe. 2. There is no instability with flexion or extension.
== END 2024-02-24 15:52 | disposition home or self-care (01) ==
LOC: HO.HOSX 15:51
PROVIDERS: Visit Provider Physician Assistant
DX: G95.9 Disease of spinal cord, unspecified (principal)
CPT/HCPCS: 72050

== ENCOUNTER 2024-03-15 06:50 | Outpatient (REF) | payer OTHER, SELFPAY | END 2024-03-15 06:51 | disposition home or self-care (01) | LOC: HO.HOSX 06:50 | PROVIDERS: Visit Provider Orthopaedic Surgery | DX: Z13.89 Encounter for screening for other disorder (principal) ==

== ENCOUNTER 2024-04-05 09:04 | Outpatient (AMB) | payer OTHER, SELFPAY ==
--- NOTE | 2024-04-05 09:34 | MHC.OFFVIS ---
Vital Signs 04/05/24 09:35 Height 5 ft 5 in Weight 120 lb BMI 20.0 Intake Visit Reasons: Newprob-B/L knee pain- Intake Note: Kathie Mcmullen is a 63 year old female who presents with complaints of progressively worsening bilateral knee pains and giving way, right greater than left. The patient states that she injured her right knee approximately 8 years ago. She twisted her knee and had acute onset of pain. She has failed the last 6 weeks of conservative treatment. She has taken Tylenol and ibuprofen which gave her minimal relief. She has also done physical therapy exercises which aggravated her pain. She states that her right knee will give out several times per day. She has had injections in the past which gave her no relief. Allergies doxycycline Allergy (Intermediate, Verified 04/05/24 09:35) nausea, vomiting Tetracyclines Allergy (Intermediate, Verified 04/05/24 09:35) Nausea and Vomiting onion Allergy (Verified 04/05/24 10:38) Vomiting fluticasone furoate [From Trelegy Ellipta] Adverse Reaction (Intermediate, Verified 04/05/24 09:35) Dry Mucus Membranes Penicillins Adverse Reaction (Intermediate, Verified 04/05/24 09:35) Nausea and Vomiting umeclidinium [From Trelegy Ellipta] Adverse Reaction (Intermediate, Verified 04/05/24 09:35) Dry Mucus Membranes vilanterol [From Trelegy Ellipta] Adverse Reaction (Intermediate, Verified 04/05/24 09:35) Dry Mucus Membranes inhaled anticholinergic steroids Adverse Reaction (Intermediate, Uncoded 04/05/24 09:35) dry mucous membranes [facility] Medical History (Updated 04/05/24 @ 10:50 by Zenaida Rodriguez RN) Back pain Migraine Anxiety Depression Lumbar herniated disc Deviated nasal septum Cough Asthma Mitral valve prolapse Right ankle pain VIKAS (obstructive sleep apnea) STEMI (ST elevation myocardial infarction) Mitral regurgitation Sinusitis Fall Tobacco dependence due to cigarettes Alcohol abuse Easy bruising Scoliosis Degenerative disc disease, lumbar COPD (chronic obstructive pulmonary disease) Muscle spasms of neck Rheumatoid arthritis Bursitis of both hips Hypertension Osteoarthritis Surgical History (Updated 02/10/24 @ 11:46 by Megan Raymundo CMA) Hx of shoulder surgery (~01/28/24) History of lumbar surgery Hx of left knee surgery History of ankle surgery Hx of shoulder surgery H/O eye surgery H/O colonoscopy Hx of cataract extraction History of open reduction and internal fixation (ORIF) procedure History of lumbar discectomy Family History Mother Substance use disorder Father Substance use disorder Maternal Aunt Substance use disorder Maternal Uncle Substance use disorder Paternal Uncle Substance use disorder Paternal Aunt Substance use disorder Social History Household Members: Significant Other Housing: Apartment Are you a primary lawn caretaker to a significant other at home: No Do you presently have visiting nurse or other home services: No Alcohol intake: current Alcohol intake frequency: 3 or more drinks per day Alcohol type: beer Patient Tobacco Use Status: Current everyday Tobacco user Tobacco use type: Cigarette Cigarettes Per Day: 7 Years Smoked: 50 e-Cigarette/Vaping Use: Never Used Use of substances other than those prescribed or required for medical reasons: No Have you been hit, kicked, punched, or otherwise hurt by someone within the past year? 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 Cognitive needs: No Hearing needs: No Vision needs: Yes Physical Exam Vital Signs: BMI result Body Mass Index 20.0 Const Other: Well-nourished well-developed very friendly female awake alert and oriented x3 in no acute distress Extrem Other: Bilateral lower extremity examination shows good capillary refill, no skin lesions noted, normal sensation light touch Bilateral knee examination shows minimal effusions, minimal crepitus with range of motion, tenderness along her medial joint lines, positive Khalida's test, no instability Results Reviewed Results Reviewed: Standing full weight-bearing x-rays of the patient's bilateral knee show mild diffuse joint space narrowing, no acute bony abnormalities Assessment & Plan Assessment & Plan (1) Right knee pain: Code(s): M25.561 - Pain in right knee Category: Medical Plan Ms. Wakefield presents with bilateral knee pains and mechanical symptoms, right greater than left, most likely due to tearing of her medial menisci. Thus, I will send the patient for an MRI of her right knee for further evaluation of her meniscus tissue. I will see her back once the MRI is completed to discuss the findings and treatment options. She will continue with her activity modifications in the meantime. Feel free to call me at any time should questions regarding her orthopedic management arise. I spent 21 minutes in reviewing the patient's records and imaging studies, seeing the patient and documenting in the medical record. Orders: Orders XR knee RT 3V 03/15/24 M25.561 - Pain in right knee XR knee LT 3V 04/05/24 M25.562 - Pain in left knee XR knee RT 3V 04/05/24 M25.561 - Pain in right knee XR knee LT 3V 03/15/24 M25.562 - Pain in left knee MR knee RT wo con 04/05/24 M25.561 - Pain in right knee Coding Level of Care Code Est Pt Level 3 (22468) Diagnoses Right knee pain M25.561
== END 2024-04-05 10:06 | disposition home or self-care (01) ==
PROVIDERS: PCP Internal Medicine; Visit Provider Orthopaedic Surgery
DX: M25.561 Pain in right knee (principal)
CPT/HCPCS: 99213

== ENCOUNTER 2024-04-05 09:34 | Outpatient (REF) | payer OTHER, SELFPAY ==
--- NOTE | ~2024-04-05 | XR_ITS ---
EXAMINATION: XR KNEE, LEFT CLINICAL INFORMATION: Left knee pain. COMPARISON: None available. TECHNIQUE: Three views of the left knee. FINDINGS: Mild chondrocalcinosis and mild joint space narrowing predominantly involving the medial compartment. No fracture or joint effusion appreciated. No lytic or sclerotic bony lesion identified. Alignment is anatomic. XR/XR knee LT 3V IMPRESSION: Findings as above.
--- NOTE | ~2024-04-05 | XR_ITS ---
EXAMINATION: XR KNEE, RIGHT CLINICAL INFORMATION: Right knee pain. COMPARISON: None available. TECHNIQUE: Three views of the right knee. FINDINGS: Mild chondrocalcinosis and mild joint space narrowing predominantly involving the medial compartment. No fracture or joint effusion appreciated. No lytic or sclerotic bony lesion identified. Alignment is anatomic. XR/XR knee RT 3V IMPRESSION: Findings as above.
== END 2024-04-05 09:35 | disposition home or self-care (01) ==
LOC: HO.HOSX 09:34
PROVIDERS: Visit Provider Orthopaedic Surgery
DX: M25.562 Pain in left knee (principal); M25.561 Pain in right knee
CPT/HCPCS: 73562; J1010

== ENCOUNTER 2024-04-10 11:40 | Outpatient (REF) | payer OTHER, SELFPAY ==
[2024-04-10 14:13] LABS: Alanine Aminotransferase 26 U/L (0-31); Albumin Level 4.7 g/dL (3.5-5.0); Alkaline Phosphatase 59 U/L (39-117); Anion Gap 12 (12-20); Aspartate Amino Transferase 35 U/L (5-31); Bilirubin Total 0.3 mg/dL (0.0-1.0); Blood Urea Nitrogen 7 mg/dL (9-16); Calcium 9.5 mg/dL (8.4-10.2); Carbon Dioxide 26 mmol/L (22-29); Chloride 92 mmol/L (96-108); Estimated Glomerular Filt Rate > 60; Glucose Random 92 mg/dL (60-115); Potassium 3.8 mmol/L (3.3-5.1); Sodium 126 mmol/L (135-145); Total Protein 7.2 g/dL (6.5-8.0)
== END 2024-04-10 11:41 | disposition home or self-care (01) ==
LOC: HO.HMGCLDS 11:40
PROVIDERS: PCP Internal Medicine; Visit Provider Internal Medicine
DX: Z00.00 Encounter for general adult medical examination without abnormal findings (principal)
CPT/HCPCS: 36415; 80053

== ENCOUNTER 2024-04-14 09:11 | Outpatient (AMB) | payer OTHER, SELFPAY ==
[2024-04-14 09:16] VITALS: BP 136/78; PULSE 92; O2SAT 96; BMI 20.1
--- NOTE | 2024-04-14 09:16 | MHC.PC.OV ---
Vital Signs 04/14/24 09:16 Height 5 ft 5 in Weight 121 lb BMI 20.1 BP 136/78 Blood Pressure Location Rt brachial Position Sitting Pulse 92 Pulse Source Pulse Oximeter Pulse Oximetry (%) 96 Oxygen Delivery Method Room Air Intake Visit Reasons: SpinePreOp Intake Note: Pt is here today for a pre op. Pt is having spinal surgery on 04/20/24. Allergies doxycycline Allergy (Intermediate, Verified 04/14/24 09:16) nausea, vomiting Tetracyclines Allergy (Intermediate, Verified 04/14/24 09:16) Nausea and Vomiting onion Allergy (Verified 04/14/24 09:16) Vomiting fluticasone furoate [From Trelegy Ellipta] Adverse Reaction (Intermediate, Verified 04/14/24 09:16) Dry Mucus Membranes Penicillins Adverse Reaction (Intermediate, Verified 04/14/24 09:16) Nausea and Vomiting umeclidinium [From Trelegy Ellipta] Adverse Reaction (Intermediate, Verified 04/14/24 09:16) Dry Mucus Membranes vilanterol [From Trelegy Ellipta] Adverse Reaction (Intermediate, Verified 04/14/24 09:16) Dry Mucus Membranes inhaled anticholinergic steroids Adverse Reaction (Intermediate, Uncoded 04/14/24 09:16) dry mucous membranes Medication List - Last Reconciled 04/14/24 by Yun Wynne MD albuterol sulfate 90 mcg/actuation 2 puffs inhalation Q4H PRN albuterol sulfate 2.5 mg inhalation Q4H PRN alendronate 70 mg PO QWEEK aspirin 1 tab PO DAILY baclofen 10 mg PO BID benzonatate 100 mg PO TID PRN budesonide DR-ER 3 mg PO DAILY bupropion HCl SR 150 mg PO BID cetirizine 10 mg PO DAILY cholecalciferol (vitamin D3) 50 mcg PO DAILY diltiazem HCl ER (Tiadylt ER) 120 mg PO DAILY duloxetine 60 mg PO DAILY fluticasone propion-salmeterol 230-21 mcg/actuation (Advair HFA) 2 puffs inhalation BID folic acid 1 mg PO DAILY gabapentin 600 mg (2 x 300 mg) PO TID ibuprofen 600 mg PO Q8H PRN leg brace (Ankle Brace) As directed lidocaine 5% 1 patch topical DAILY lisinopril 30 mg PO DAILY methocarbamol 750 mg PO Q8H PRN montelukast 10 mg PO BEDTIME multivitamin 1 tab PO DAILY nicotine 1 patch transdermal DAILY oxycodone 2.5 mg PO DAILY PRN pjgbuwfxwhugeum-MU-xjplylbmzwf 30-10-100 mg/5 mL 20 mL PO DAILY thiamine HCl (vitamin B1) (Vitamin B-1) 100 mg PO DAILY Tobacco use date assessed: 04/14/24 Dental Screening Dental Screen Date: 11/05/23 HPI SpinePreOp HPI Details Patient presents for a preop for C-spine surgery for spinal stenosis.. COPD hypertension chronic anxiety/depression are controlled on current medications. Patient continues to drink 2-3 beers a day. She was prescribed ibuprofen 600 mg 3 times a day by pain management for chronic lower back bilateral shoulder and knee pains. Patient has a history of ST-elevation VT in 11/30/2022 during hospitalization for alcohol withdrawal with normal cardiac catheterization and echocardiogram. She was diagnosed with coronary artery vasospasm and started on Cardizem. She was cleared by [facility]. [facility] Medical History (Updated 04/14/24 @ 16:10 by Yun Wynne MD) Back pain Migraine Anxiety Depression Lumbar herniated disc Deviated nasal septum Cough Asthma Mitral valve prolapse Right ankle pain VIKAS (obstructive sleep apnea) STEMI (ST elevation myocardial infarction) Mitral regurgitation Sinusitis Fall Tobacco dependence due to cigarettes Alcohol abuse Easy bruising Scoliosis Degenerative disc disease, lumbar COPD (chronic obstructive pulmonary disease) Muscle spasms of neck Rheumatoid arthritis Bursitis of both hips Hypertension Osteoarthritis Surgical History Hx of shoulder surgery (~01/28/24) History of lumbar surgery Hx of left knee surgery History of ankle surgery Hx of shoulder surgery H/O eye surgery H/O colonoscopy Hx of cataract extraction History of open reduction and internal fixation (ORIF) procedure History of lumbar discectomy Family History Mother Substance use disorder Father Substance use disorder Maternal Aunt Substance use disorder Maternal Uncle Substance use disorder Paternal Uncle Substance use disorder Paternal Aunt Substance use disorder Social History Household Members: Significant Other Housing: Apartment Are you a primary patient care representative to a significant other at home: No Do you presently have visiting nurse or other home services: No Alcohol intake: current Alcohol intake frequency: 3 or more drinks per day Alcohol type: beer Patient Tobacco Use Status: Current everyday Tobacco user Tobacco use type: Cigarette Cigarettes Per Day: 7 Years Smoked: 50 e-Cigarette/Vaping Use: Never Used service: No 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al status: employed and disabled 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 1. Little interest or pleasure in doing things: not at all 2. Feeling down, depressed, or hopeless: not at all 3. Trouble falling or staying asleep, or sleeping too much: nearly every day 4. Feeling tired or having little energy: nearly every day 5. Poor appetite or overeating: not at all 6. Feeling bad about yourself - or that you are a failure or have let yourself or your family down: nearly every day 7. Trouble concentrating on things, such as reading the newspaper or watching television: not at all 8. Moving or speaking so slowly that other people could have noticed. Or the opposite - being so fidgety or restless that you have been moving around a lot more than usual: nearly every day 9. Thoughts that you would be better off or of hurting yourself in some way: nearly every day Total score: 15 Depression Screening Interpretation: Positive (Patient is established with psychiatrist and a counselor) Depression Screening Follow-up: Existing condition and In treatment Depression Screening Done: Yes Source: Developed by Drs. Esvin Tim, Darlin Cabral, Evaristo Ortiz and colleagues, with an educational maddie from [employer]. Thrive Questionnaire Date Thrive assessed: 11/05/23 I am a: Patient What is your living situation today?: I choose not to answer this question Within the past 12 months, did the food you bought not last and you didn't have the money to get more?: Often true Within the past 12 months, did you worry whether your food would run out before you got money to buy more?: Sometimes True Do you have trouble paying for medicines?: Yes Do you have trouble getting transportation to medical appointments?: No Do you have trouble paying your heating and electricity bill?: Yes Do you have trouble taking care of your child, family member or friend?: No Do you have trouble with day-to-day activities such as bathing, preparing meals, shopping, managing finances, etc.?: Yes Are you currently unemployed and looking for a job?: No Are you interested in more education?: No Please select the resources that you would like help with: Housing/Prison Currently or been in a relationship where the following occur: Controlled Emotionally THRIVE Score: 4 AUDIT C Alcohol Use Questionnaire (AUDIT-C) 1. How often do you have a drink containing alcohol?: 4 or more times a week 2. How many drinks containing alcohol do you have on a typical day when you are drinking?: 3 or 4 3. How often do you have six or more drinks on one occasion?: Weekly Total Score: 8 ZEKE-7 AMB Questionnaire ZEKE-7 Date ZEKE - 7 assessed: 11/05/23 Feeling nervous, anxious, or on edge: 3 = Nearly every day Not being able to stop or control worryin = Nearly every day Worrying too much about different things: 3 = Nearly every day Trouble relaxin = Nearly every day Being so restless that it is hard to sit still: 3 = Nearly every day Becoming easily annoyed or irritable: 3 = Nearly every day Feeling afraid as if something awful might happen: 0 = Not at all Total ZEKE-7 score (0-4 normal; 5-9 mild; 10-14 moderate; 15-21 severe): 18 Source: Developed by Drs. Esvin Tim, Darlin Cabral, Evaristo Ortiz and colleagues, with an educational maddie from [employer]. Review of Systems Const All systems reviewed & are unremarkable except as noted in HPI and below Reports no additional complaints Eyes Reports no additional complaints ENT Reports no additional complaints Card Reports no additional complaints Resp Reports no additional complaints GI Reports no additional complaints Physical exam (Primary Care) Vital Signs: Last Vital Signs Pulse 92 04/14/24 09:16 BP 136/78 04/14/24 09:16 Pulse Ox 96 04/14/24 09:16 Oxygen Delivery Method Room Air 04/14/24 09:16 BMI result Body Mass Index 20.1 Tobacco/Smoking Status: Tobacco use Status Tobacco use date assessed 04/14/24 04/14/24 09:17 Patient Tobacco Use Status Current everyday Tobacco 04/14/24 09:17 Tobacco use type Cigarette 04/14/24 09:17 e-Cigarette/Vaping Use Never Used 04/14/24 09:17 PHQ-9: PHQ-9 Score PHQ-9: Total score 15 04/14/24 09:57 Depression Screening Interpretation: Positive (Patient is established with psychiatrist and a counselor) Depression Screening Follow-up: Existing condition and In treatment Thrive Assessment: Date of Thrive Assessment Date Thrive assessed 11/05/23 04/14/24 09:17 Currently or been in a relationship where the following occur: Controlled Emotionally Const General: no acute distress HENMT Head: Yes normal to inspection Ears: hearing grossly normal bilaterally Face and sinus: Yes normal facial exam Neck Neck: Yes supple Resp Effort & Inspection: normal respiratory effort Auscultation: clear to auscultation bilaterally Cardio Rhythm: regular rhythm Heart sounds: S1 normal heart sound present and S2 normal heart sound present GI Inspection: Yes normal to inspection Palpation (GI): Soft to palpation Percussion: Yes normal to percussion Auscultation: normal bowel sounds Assessment and Plan Assessment & Plan (1) STEMI (ST elevation myocardial infarction): Comment: 11/2022 a normal coronary catheterization and echocardiogram,-thought to be vasospasm during hospitalization for alcohol withdrawal, f/u [facility]iology Code(s): I21.3 - ST elevation (STEMI) myocardial infarction of unspecified site Plan: EKG today showed normal sinus rhythm first-degree AV block no ST-T changes. Patient will continue current medications as medically cleared for C-spine surgery (2) COPD (chronic obstructive pulmonary disease): Comment: Lung CA screen program at [facility], last CT 12/2022 Code(s): J44.9 - Chronic obstructive pulmonary disease, unspecified Plan: Continue Advair and albuterol as needed (3) Depression: Comment: Patient is established with the psychiatry and counseling Code(s): F32.A - Depression, unspecified Plan: Continue current medications follow-up with psychiatry (4) Alcohol abuse: Comment: currently 2 beers QPM Code(s): F10.10 - Alcohol abuse, uncomplicated Plan: Patient was advised to cut down on alcohol and not combining with NSAIDs Orders: Orders AMB EKG-In Office Today I10 - Essential (primary) hypertension, J44.9 - Chronic obstructive pulmonary disease, unspecified Coding Level of Care Code Est Pt Level 4 (82659) Diagnoses STEMI (ST elevation myocardial infarction) I21.3 COPD (chronic obstructive pulmonary disease) J44.9 Depression F32.A Alcohol abuse F10.10
== END 2024-04-14 11:22 | disposition home or self-care (01) ==
PROVIDERS: PCP Internal Medicine; Visit Provider Internal Medicine
DX: I25.2 Old myocardial infarction (principal); J44.9 Chronic obstructive pulmonary disease, unspecified; F32.A Depression, unspecified; F10.10 Alcohol abuse, uncomplicated
CPT/HCPCS: 93000; 99214

== ENCOUNTER 2024-04-21 13:27 | Outpatient (REF) | payer OTHER, SELFPAY ==
[2024-04-21 14:47] LABS: Anion Gap 12 (12-20); Blood Urea Nitrogen 6 mg/dL (9-16); Calcium 9.5 mg/dL (8.4-10.2); Carbon Dioxide 26 mmol/L (22-29); Chloride 99 mmol/L (96-108); Estimated Glomerular Filt Rate > 60; Glucose Random 83 mg/dL (60-115); Potassium 4.4 mmol/L (3.3-5.1); Sodium 133 mmol/L (135-145)
[2024-04-21 14:55] LABS: Osmolality, Serum 273 mosm/kg (281-305)
[2024-04-21 16:06] LABS: Osmolality Urine 234 mosm/kg (373-1093)
== END 2024-04-21 13:28 | disposition home or self-care (01) ==
LOC: HO.LAB 13:27
PROVIDERS: PCP Internal Medicine; Visit Provider Internal Medicine
DX: E87.1 Hypo-osmolality and hyponatremia (principal)
CPT/HCPCS: 36415; 80048; 83930; 83935; 84300

== ENCOUNTER 2024-04-26 10:36 | Outpatient (REF) | payer OTHER, SELFPAY ==
[2024-04-26 11:03] LABS: Anion Gap 13 (12-20); Blood Urea Nitrogen 7 mg/dL (9-16); Calcium 9.6 mg/dL (8.4-10.2); Carbon Dioxide 26 mmol/L (22-29); Chloride 94 mmol/L (96-108); Estimated Glomerular Filt Rate > 60; Glucose Random 82 mg/dL (60-115); Sodium 129 mmol/L (135-145)
== END 2024-04-26 10:37 | disposition home or self-care (01) ==
LOC: HO.LAB 10:36
PROVIDERS: PCP Internal Medicine; Visit Provider Internal Medicine
DX: E87.1 Hypo-osmolality and hyponatremia (principal)
CPT/HCPCS: 36415; 80048

== ENCOUNTER 2024-04-27 08:53 | Day surgery (SDC) | payer OTHER, SELFPAY ==
--- NOTE | 2024-04-19 08:51 | P.CONAN_ITS ---
Documented by User: Viviana Rodgers NP 04/26/24 10:08 HPI - Anesthesia Eval Consult details Narrative: 63yo F for C3-4 Ant Cerv Discectomy w/ fusion,possible plating Medically optimized per PCP (prior to reviewing lab results - Na 126) Cardiac cleared. Follows [facility] cardiology STEMI 12/2022 (likely vasospasm during ETOH withdrawal - nml coronary cath and echo) Na low at 126. Case reviewed with Dr Don. Needs further optimization from PCP prior to surgery. Per PCP - pt placed on 48 oz fluid restriction, repeat labs with Na @ 133 PMFSH Active Problems Active Problems: All Active Problems Depression (Acute) STEMI (ST elevation myocardial infarction) (Acute) Right knee pain (Acute) Left knee pain (Acute) Cervical myelopathy (Acute) Right shoulder pain (Acute) Pain of both hip joints (Acute) Lumbar stenosis with neurogenic claudication (Acute) Achilles tendinitis (Acute) Sprain of lateral ligament of ankle joint (Acute) Otitis media of right ear (Acute) Right hip pain (Acute) Bilateral hip pain (Acute) Right shoulder pain (Acute) Left shoulder pain (Acute) Shoulder pain, bilateral (Acute) Arthralgia (Acute) Lumbar spinal stenosis (Acute) Cataract (Acute) Left hip pain (Acute) Lumbar radiculopathy (Acute) Bilateral knee pain (Acute) Annual physical exam (Acute) Vitamin D deficiency (Acute) Osteoporosis (Acute) Lumbar post-laminectomy syndrome (Acute) Cervical radiculopathy (Acute) Hyponatremia (Acute) Screening mammogram for breast cancer (Acute) Normal breast exam (Acute) Hx of colonoscopy (Acute) Colitis (Acute) Contusion, back (Acute) Right ankle pain (Acute) Sinusitis (Acute) Fall (Acute) Tobacco dependence due to cigarettes (Acute) Degenerative disc disease, lumbar (Acute) Osteoarthritis (Acute) Scoliosis (Acute) Alcohol abuse (Acute) Hypertension (Acute) COPD (chronic obstructive pulmonary disease) (Acute) Rheumatoid arthritis (Acute) Muscle spasms of neck (Acute) Past Medical History Medical History Back pain Migraine Anxiety Depression Lumbar herniated disc Deviated nasal septum Cough Asthma Mitral valve prolapse Right ankle pain VIKAS (obstructive sleep apnea) STEMI (ST elevation myocardial infarction) Mitral regurgitation Sinusitis Fall Tobacco dependence due to cigarettes Alcohol abuse Easy bruising Scoliosis Degenerative disc disease, lumbar COPD (chronic obstructive pulmonary disease) Muscle spasms of neck Rheumatoid arthritis Bursitis of both hips Hypertension Osteoarthritis Family History Family History Mother Substance use disorder Father Substance use disorder Maternal Aunt Substance use disorder Maternal Uncle Substance use disorder Paternal Uncle Substance use disorder Paternal Aunt Substance use disorder Family history of problems with anesthesia: No Surgical History Surgical History Hx of shoulder surgery (~01/28/24) History of lumbar surgery Hx of left knee surgery History of ankle surgery Hx of shoulder surgery H/O eye surgery H/O colonoscopy Hx of cataract extraction History of open reduction and internal fixation (ORIF) procedure History of lumbar discectomy History of Problems with Anesthesia: No Social History Social History Household Members: Significant Other Housing: Apartment Are you a primary manager critical care unit to a significant other at home: No Do you presently have visiting nurse or other home services: No Alcohol intake: current Alcohol intake frequency: 3 or more drinks per day Alcohol type: beer Patient Tobacco Use Status: Current everyday Tobacco user Tobacco use type: Cigarette Cigarettes Per Day: 7 Years Smoked: 50 e-Cigarette/Vaping Use: Never Used Use of substances other than those prescribed or required for medical reasons: No Have you been hit, kicked, punched, or otherwise hurt by someone within the past year? 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 Cognitive needs: No Hearing needs: No Vision needs: Yes Meds Allergies Allergy/AdvReac Type Severity Reaction Status Date / Time doxycycline Allergy Intermediate nausea, Verified 04/27/24 09:33 vomiting Tetracyclines Allergy Intermediate Nausea and Verified 04/27/24 09:33 Vomiting onion Allergy Vomiting Verified 04/27/24 09:33 fluticasone furoate AdvReac Intermediate Dry Mucus Verified 04/27/24 09:33 [From Trelegy Ellipta] Membranes Penicillins AdvReac Intermediate Nausea and Verified 04/27/24 09:33 Vomiting umeclidinium AdvReac Intermediate Dry Mucus Verified 04/27/24 09:33 [From Trelegy Ellipta] Membranes vilanterol AdvReac Intermediate Dry Mucus Verified 04/27/24 09:33 [From Trelegy Ellipta] Membranes inhaled anticholinergic AdvReac Intermediate dry mucous Uncoded 04/14/24 09:16 steroids membranes Home Medications ?Medication ?Instructions ?Recorded ?Confirmed ?Last Taken ?Type fluticasone propionate 230 2 puff inhalation BID 05/06/22 04/14/24 Unknown History mcg-salmeterol 21 mcg/actuation HFA inhaler (Advair HFA) albuterol sulfate 90 mcg/actuation 2 puff inhalation Q4H PRN wheezing 09/02/22 04/14/24 04/27/24 History aerosol inhaler albuterol sulfate 2.5 mg/3 mL 2.5 mg inhalation Q4H PRN wheezing 01/12/24 04/14/24 Unknown History (0.083 %) solution for nebulization baclofen 10 mg tablet 10 mg PO BID 01/12/24 04/14/24 Unknown History bupropion HCl 150 mg tablet,12 hr 150 mg PO BID 01/12/24 04/14/24 04/27/24 History sustained-release cetirizine 10 mg tablet 10 mg PO DAILY 01/12/24 04/14/24 04/27/24 History montelukast 10 mg tablet 10 mg PO BEDTIME 01/12/24 04/14/24 Unknown History multivitamin 1 tab PO DAILY 01/12/24 04/14/24 Unknown History budesonide 3 mg 3 mg PO DAILY 04/05/24 04/14/24 Unknown History capsule,delayed,extended release folic acid 1 mg tablet 1 mg PO DAILY 04/05/24 04/14/24 Unknown History oxycodone 5 mg tablet 2.5 mg PO DAILY PRN pain 04/05/24 04/14/24 Unknown History fiwgttpbnkporyy-QA-jrpdezzcfmb 30 20 ml PO DAILY 04/05/24 04/14/24 Unknown History mg-10 mg-100 mg/5 mL oral syrup thiamine HCl (vitamin B1) 100 mg 100 mg PO DAILY 04/05/24 04/14/24 Unknown History tablet (Vitamin B-1) benzonatate 100 mg capsule 100 mg PO DAILY 04/27/24 04/27/24 04/27/24 History Exam Height,Weight and Vital Signs: Height 5 ft 5 in Weight 54.431 kg Pertinent Lab Results Pertinent Lab Results: Laboratory Tests 11/05/23 04/21/24 10:40 13:42 WBC 9.8 Hgb 13.3 Hct 38.5 Plt Count 352 Sodium 133 L Potassium 4.4 Chloride 99 Carbon Dioxide 26 BUN 6 L Creatinine 0.58 Narrative Narrative: EKG 04/2024 SR with 1st deg AV block Right superior axis deviation Min volt criteria for LVH ECHO 11/2023 LV nml in size LV sys function is nml LVEF 55-60% No definite WMA Nml diastolic function LV wall thickness mildly increased RV nml in size and function Aortic root nml in size, mild dilation of aortic root Assessment and Plan Assessment Anesthesia Assessment: Chart Reviewed Final Anesthetic Review Family History of Problems with Anesthesia: No History of Problems with Anesthesia: No Documented by User: Vida Abreu MD 04/27/24 11:43 PMFSH Past Medical History Medical History Back pain Migraine Anxiety Depression Lumbar herniated disc Deviated nasal septum Cough Asthma Mitral valve prolapse Right ankle pain VIKAS (obstructive sleep apnea) STEMI (ST elevation myocardial infarction) Mitral regurgitation Sinusitis Fall Tobacco dependence due to cigarettes Alcohol abuse Easy bruising Scoliosis Degenerative disc disease, lumbar COPD (chronic obstructive pulmonary disease) Muscle spasms of neck Rheumatoid arthritis Bursitis of both hips Hypertension Osteoarthritis Family History Family History Mother Substance use disorder Father Substance use disorder Maternal Aunt Substance use disorder Maternal Uncle Substance use disorder Paternal Uncle Substance use disorder Paternal Aunt Substance use disorder Surgical History Surgical History Hx of shoulder surgery (~01/28/24) History of lumbar surgery Hx of left knee surgery History of ankle surgery Hx of shoulder surgery H/O eye surgery H/O colonoscopy Hx of cataract extraction History of open reduction and internal fixation (ORIF) procedure History of lumbar discectomy Social History Social History Household Members: Significant Other Housing: Apartment Are you a primary manager critical care unit to a significant other at home: No Do you presently have visiting nurse or other home services: No Alcohol intake: current Alcohol intake frequency: 3 or more drinks per day Alcohol type: beer Patient Tobacco Use Status: Current everyday Tobacco user Tobacco use type: Cigarette Cigarettes Per Day: 7 Years Smoked: 50 e-Cigarette/Vaping Use: Never Used Use of substances other than those prescribed or required for medical reasons: No Have you been hit, kicked, punched, or otherwise hurt by someone within the past year? 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 Cognitive needs: No Hearing needs: No Vision needs: Yes Meds Allergies Allergy/AdvReac Type Severity Reaction Status Date / Time doxycycline Allergy Intermediate nausea, Verified 04/27/24 09:33 vomiting Tetracyclines Allergy Intermediate Nausea and Verified 04/27/24 09:33 Vomiting onion Allergy Vomiting Verified 04/27/24 09:33 fluticasone furoate AdvReac Intermediate Dry Mucus Verified 04/27/24 09:33 [From Trelegy Ellipta] Membranes Penicillins AdvReac Intermediate Nausea and Verified 04/27/24 09:33 Vomiting umeclidinium AdvReac Intermediate Dry Mucus Verified 04/27/24 09:33 [From Trelegy Ellipta] Membranes vilanterol AdvReac Intermediate Dry Mucus Verified 04/27/24 09:33 [From Trelegy Ellipta] Membranes inhaled anticholinergic AdvReac Intermediate dry mucous Uncoded 04/14/24 09:16 steroids membranes Home Medications ?Medication ?Instructions ?Recorded ?Confirmed ?Last Taken ?Type fluticasone propionate 230 2 puff inhalation BID 05/06/22 04/14/24 Unknown History mcg-salmeterol 21 mcg/actuation HFA inhaler (Advair HFA) albuterol sulfate 90 mcg/actuation 2 puff inhalation Q4H PRN wheezing 09/02/22 04/14/24 04/27/24 History aerosol inhaler albuterol sulfate 2.5 mg/3 mL 2.5 mg inhalation Q4H PRN wheezing 01/12/24 04/14/24 Unknown History (0.083 %) solution for nebulization baclofen 10 mg tablet 10 mg PO BID 01/12/24 04/14/24 Unknown History bupropion HCl 150 mg tablet,12 hr 150 mg PO BID 01/12/24 04/14/24 04/27/24 History sustained-release cetirizine 10 mg tablet 10 mg PO DAILY 01/12/24 04/14/24 04/27/24 History montelukast 10 mg tablet 10 mg PO BEDTIME 01/12/24 04/14/24 Unknown History multivitamin 1 tab PO DAILY 01/12/24 04/14/24 Unknown History budesonide 3 mg 3 mg PO DAILY 04/05/24 04/14/24 Unknown History capsule,delayed,extended release folic acid 1 mg tablet 1 mg PO DAILY 04/05/24 04/14/24 Unknown History oxycodone 5 mg tablet 2.5 mg PO DAILY PRN pain 04/05/24 04/14/24 Unknown History tzytytoryasvigz-OM-doclqjvzaik 30 20 ml PO DAILY 04/05/24 04/14/24 Unknown History mg-10 mg-100 mg/5 mL oral syrup thiamine HCl (vitamin B1) 100 mg 100 mg PO DAILY 04/05/24 04/14/24 Unknown History tablet (Vitamin B-1) benzonatate 100 mg capsule 100 mg PO DAILY 04/27/24 04/27/24 04/27/24 History Exam Airway Mallampati Class: III TM Dist: >3cm Neck ROM: Limited Loose/Missing/Broken Teeth: No Heart: RRR Lungs: distant but clear Assessment and Plan Assessment Anesthesia Assessment: Anesthesia Plan Discussed Final Anesthetic Review NPO: Yes ASA Class: III Final Preanesthetic Review: Meds/Allgs Chart Reviewed, Consent Obtained/Reviewed and Anes Risks/Benef Reviewed Patient Risk: Intermediate Procedure Risk: Intermediate Anesthetic Plan Anesthetic Plan: GA Disposition: Standard PACU
[2024-04-27] VITALS (8 sets, daily range): BP systolic 146–164; BP diastolic 63–73; PULSE 72–87; RESP 16; TEMP 36.4–36.7; O2SAT 92–100; BMI 19.5
--- NOTE | 2024-04-27 07:38 | P.DS_ITS ---
DS: Providers Provider Date of Service: 04/27/24 Date of discharge: 04/27/24 Primary care physician: Yun Wynne MD Admitting clinician: Sp Esparza DS: Diagnosis Discharge Diagnosis (1) Cervical myelopathy: Status: Acute DS: Summary Time Attestation Discharge Coordination Time (in mins): 6 Quality: Safe Use of Opioids Does Pt have an Active Cancer Diagnosis on the Problem List?: No Quality: Stroke Does the patient have a stroke diagnosis?: No Physical Exam Vital Signs: Vital Signs: BMI result Body Mass Index 20.0 Discharge Plan Discharge Patient Disposition: Home, Self-Care Referrals: Yun Wynne MD [Primary Care Provider] - 1 Week Discharge Medications: New oxycodone 5 mg tablet 5 mg PO Q4H PRN (Reason: pain) Qty: 20 0RF Rx Instructions: Partial Fill upon patient request. Continued alendronate 70 mg tablet 70 mg PO QWEEK Qty: 12 1RF duloxetine 60 mg capsule,delayed release(DR/EC) 60 mg PO DAILY Qty: 90 1RF lisinopril 30 mg tablet 30 mg PO DAILY Qty: 90 1RF diltiazem HCl [Tiadylt ER] 120 mg capsule,extended release 24 hr 120 mg PO DAILY Qty: 90 1RF cholecalciferol (vitamin D3) 50 mcg (2,000 unit) tablet 50 mcg PO DAILY Qty: 90 1RF gabapentin 300 mg capsule 600 mg PO TID Qty: 540 3RF methocarbamol 750 mg tablet 750 mg PO Q8H PRN (Reason: for muscle spasm) Qty: 270 0RF thiamine HCl (vitamin B1) [Vitamin B-1] 100 mg Tablet 100 mg PO DAILY folic acid 1 mg Tablet 1 mg PO DAILY oxycodone 5 mg tablet 2.5 mg PO DAILY PRN (Reason: pain) Rx Instructions: Partial Fill upon patient request. [id number] 30-10-100 mg/5 mL Syrup 20 ml PO DAILY budesonide 3 mg capsule,delayed,extend.release 3 mg PO DAILY Advair HFA 230-21 mcg/actuation HFA aerosol inhaler 2 puff inhalation BID nicotine 21 mg/24 hr patch 24 hour 1 patch transdermal DAILY Qty: 28 5RF albuterol sulfate 90 mcg/actuation HFA aerosol inhaler 2 puff inhalation Q4H PRN (Reason: wheezing) lidocaine 5 % adhesive patch,medicated 1 patch topical DAILY Qty: 30 1RF Rx Instructions: leave on most painful area for up to 12 hrs baclofen 10 mg tablet 10 mg PO BID cetirizine 10 mg tablet 10 mg PO DAILY multivitamin Tablet 1 tab PO DAILY bupropion HCl 150 mg tablet sustained-release 12 hr 150 mg PO BID albuterol sulfate 2.5 mg /3 mL (0.083 %) solution for nebulization 2.5 mg inhalation Q4H PRN (Reason: wheezing) montelukast 10 mg tablet 10 mg PO BEDTIME (DME) Ankle Brace Misc See Rx Instructions .Route Qty: 1 0RF Rx Instructions: As directed Held ibuprofen 600 mg tablet 600 mg PO Q8H PRN (Reason: for pain) Qty: 90 0RF Hold Instructions: Resume on 05/04/24. You may resume 7 days after surgery aspirin 81 mg tablet,chewable 1 tab PO DAILY Qty: 90 1RF Hold Instructions: Resume on 05/04/24. You may resume aspirin 7 days after surgery No Action benzonatate 100 mg Capsule 100 mg PO DAILY Discharge Orders: Discharge Order (Routine); Ordered 04/27/24 Ordered By: Santi Islas Diet: Advance to usual diet Activity on Discharge: As tolerated Activity Restrictions/Additional Instructions: After your spinal surgery we ask you to observe the following restr ictions/guidelines: Activity: It is normal to feel some discomfort as you increase your activity, but that will improve with time. We ask you avoid heavy lifting or acitivities that cause pain. As a general rule, 8lbs is a safe limit for lifting right after surgery. Walk as much as you feel comfortable but not to exhaustion. You will feel extra tired the first few days after surgery. Stay well hydrated. It is OK to walk up and down stairs You may return to driving when you are off narcotics (such as vicodin, oxycodone, dilaudid, etc), and you are back to normal functional capacity. If you have any concerns please check with office before driving. Return to work is specific to each patient and each surgery, so please speak with your doctor/PA at first follow up. Please bring paperwork such as FMLA at that time if you need it filled out. Medications: You may resume aspirin and ibuprofen 7 days after surgery For optimum pain control, it is best to start with a combination of 500 mg of Tylenol every 4 hours with 600 mg of Motrin every 8 hours, and use narcotics as needed in between for breakthrough pain. We will give you a short supply of narcotics after surgery (usually one weeks worth). If you need more please call the office but do not use more than prescribed. You will need to give our office 48 hours notice if you need narcotics refilled and we do not fill narcotics on weekends or evenings. If you are on a narcotic, it is a good idea to take a stool softener such as colace or senna to avoid constipation If you take blood thinner such as aspirin, Plavix, Coumadin, Effient, Eliquis etc for conditions such as Afib, DVT, Pulmonary embolus, coronary disease, stents etc please speak with your surgeon about specific details as to when you can resume these medications. You can resume NSAIDs on post op day 1 (eg: Motrin, Naproxen, etc). Follow up: Please call the office, , after surgery to arrange a 3 week follow up for wound check. Wound Care: You may remove your dressing on the first day after surgery. ?You may ?leave open to air. Please do not remove the steri strips underneath. they will fall off on their own in one week. IT IS NORMAL FOR THE WOUND TO OOZE OR BE BLOODY FOR A FEW DAYS AFTER SURGERY. ?IF THIS HAPPENS JUST PLACE NEW DRESSING OVER IT TO AVOID STAINING CLOTHES. You may shower on post op day # 1 We ask that you do not let the water soak the wound. If it does get wet, just towel dry lightly. Please do not scrub your incision or place any type of chemical/ointment on the wound. No tub baths, pools or jacuzzis for one month. If you have any leaking or redness from your wound, or fevers, please call office Print Language: Iranian
[2024-04-27] MEDS: Albuterol Sulfate (0.083%) 2.5 MG/3 ML VIAL.NEB INHALE (10:07)
[2024-04-27] MEDS: methocarbamoL 750 MG TABLET PO (10:09)
[2024-04-27] MEDS: Lactated Ringers 1,000 ML 100 ML IVCONT (10:24)
[2024-04-27] MEDS: vancomycin HCL 1,000 MG in 0.9 % Sodium Chloride 250 ML 270 MG IV (10:24)
--- NOTE | 2024-04-27 10:34 | P.HPSUR_ITS ---
Pre-Procedural Eval Section A - 24 Hr Update-Section A only Date of Service: 04/27/24 The patient is an INPATIENT: No Changes since office visit: No Cold of Flu in the past 2 weeks, No New Medical Problems, No Changes in Medication and No Patient answered all questions The patient has been examined within 24 hours of the surgical procedure. The History & Physical has been completed within 30 days and I have reviewed it.: No Section B - Complete if H&P > 30 days Chief Complaint: Disease of spinal cord, unspecified Allergies: Allergies Allergy/AdvReac Type Severity Reaction Status Date / Time doxycycline Allergy Intermediate nausea, Verified 04/27/24 09:33 vomiting Tetracyclines Allergy Intermediate Nausea and Verified 04/27/24 09:33 Vomiting onion Allergy Vomiting Verified 04/27/24 09:33 fluticasone furoate AdvReac Intermediate Dry Mucus Verified 04/27/24 09:33 [From Trelegy Ellipta] Membranes Penicillins AdvReac Intermediate Nausea and Verified 04/27/24 09:33 Vomiting umeclidinium AdvReac Intermediate Dry Mucus Verified 04/27/24 09:33 [From Trelegy Ellipta] Membranes vilanterol AdvReac Intermediate Dry Mucus Verified 04/27/24 09:33 [From Trelegy Ellipta] Membranes inhaled anticholinergic AdvReac Intermediate dry mucous Uncoded 04/14/24 09:16 steroids membranes Review of Systems Sugical H&P ROS: Negative: Constitution, Cardiovascular, Respiratory, Neurological, Psychiatric, Hem-Onc, Allergic/Immunologic, Gastrointestinal, Genitourinary, Musculoskeletal, Integumentary, Endocrine and Eyes/Ears/Nose/Throat Exam Surgical H&P Exam: Normal: HEENT, Normal: Heart, Normal: Lungs, Normal: Ex tremities, Normal: Abdomen, Normal: Skin and Normal: Neurological (awake, alert,oriented x 3 ) Plan Diagnosis/Plan: Unchanged C3-4 aCDF with possible plating Time Spent With Patient Time: Total time managing care of this patient today __5__ minutes.
--- NOTE | 2024-04-27 12:05 | P.OP_ITS ---
Operative Note Operative Note Date of Service: 04/27/24 Narrative: Preoperative Diagnosis: Cervical myelopathy Procedure: C3-C4 Anterior discectomy, arthrodesis and implantation cage ; C3- C4 anterior instrumentation ; local autograft; microscope Informed Consent was obtained for this operation. I have explained the nature, purpose and benefits of the operation. I have discussed the risks and benefit of the operation including possible complications or adverse events with patient/f amily. Alternative(s) were discussed with the patient with their relative benefits and risks as well as the consequences of not accepting the operation were included in obtaining consent. Surgeon: DOMITILA LR MD, PHD Procedure Assisted By: shyanne Siddiqui Description of Procedure: This 63-year-old female suffering from cervical myelopathy. The MRI shows severe spinal stenosis at C3-C4. She was offered an anterior diskectomy and fusion of this level. The procedure complications were explained. The patient was consented. The patient was brought to the operating room and endotracheally intubated. The patient was put in supine position with slight extension of the neck. Prep and drape was done followed by timeout. A mid cervical incision was made followed by opening of the platysma. The prevertebral fascia was reached following the natural planes while the physician real estate assistant provided manual retraction. The prevertebral fascia was opened to expose the disc space. A spin al needle was placed in the disk space to confirm the correct level with xray. The longus colli muscles were released bilaterally and a self retaining retractor was inserted. Two Tecate pins were placed in the C3-C4 vertebral bodies and distraction was give over the interspace. The discectomy was completed toward the posterior annulus of the disc. The microscope was brought in. The remainder of the discectomy was completed. The posterior ligament was opened and resected to expose the underlying dura. Osteophytes were resected from the body of C3-C4 and saved for autograft. Bilateral foraminotomies were done. The endplates were prepared after which a 6 mm cage filled with autograft was inserted into the disc space. A separate attached plate was locked down with 2 x 14 mm screws as anterior instrumentation. Final x-rays in AP and lateral projection showed a satisfactory position of the implant. The physician real estate assistant took over. The Tecate pin was removed. Hemostasis was done. He closed the incision in 2 layers with a 3-0 Vicryl. Steri-Strips used to approximate incision. An OpSite with Tegaderm was used to cover the incision. All sponge and needle counts were correct. Patient was extubated and transported in stable is to recovery room. Anesthesia: General Estimated Blood Loss (ml): 10 Duration of Surgery: 45 minutes Postoperative Plan: Discharge home Complications: None
--- NOTE | 2024-04-27 13:48 | PM.DS ---
DS: Providers Provider Date of Service: 04/27/24 Primary care physician: Yun Wynne MD DS: Diagnosis Discharge Diagnosis (1) Cervical myelopathy: Status: Acute DS: Summary Time Attestation Discharge Coordination Time (in mins): 3 Quality: Safe Use of Opioids Does Pt have an Active Cancer Diagnosis on the Problem List?: No Quality: Stroke Does the patient have a stroke diagnosis?: No Physical Exam Vital Signs: Vital Signs: Last Vital Signs Temp 97.6 F 04/27/24 13:27 Pulse 81 04/27/24 13:27 Resp 16 04/27/24 13:27 BP 151/63 H 04/27/24 13:27 Pulse Ox 93 04/27/24 13:27 O2 Del Method Room Air 04/27/24 13:27 O2 Flow Rate 2 04/27/24 12:58 BMI result Body Mass Index 19.5 Discharge Plan Discharge Patient Disposition: Home, Self-Care Referrals: Yun Wynne MD [Primary Care Provider] - 1 Week Discharge Medications: New oxycodone 5 mg tablet 5 mg PO Q4H PRN (Reason: pain) Qty: 20 0RF Rx Instructions: Partial Fill upon patient request. Continued alendronate 70 mg tablet 70 mg PO QWEEK Qty: 12 1RF duloxetine 60 mg capsule,delayed release(DR/EC) 60 mg PO DAILY Qty: 90 1RF lisinopril 30 mg tablet 30 mg PO DAILY Qty: 90 1RF diltiazem HCl [Tiadylt ER] 120 mg capsule,extended release 24 hr 120 mg PO DAILY Qty: 90 1RF cholecalciferol (vitamin D3) 50 mcg (2,000 unit) tablet 50 mcg PO DAILY Qty: 90 1RF gabapentin 300 mg capsule 600 mg PO TID Qty: 540 3RF methocarbamol 750 mg tablet 750 mg PO Q8H PRN (Reason: for muscle spasm) Qty: 270 0RF thiamine HCl (vitamin B1) [Vitamin B-1] 100 mg Tablet 100 mg PO DAILY folic acid 1 mg Tablet 1 mg PO DAILY oxycodone 5 mg tablet 2.5 mg PO DAILY PRN (Reason: pain) Rx Instructions: Partial Fill upon patient request. [id number] 30-10-100 mg/5 mL Syrup 20 ml PO DAILY budesonide 3 mg capsule,delayed,extend.release 3 mg PO DAILY Advair HFA 230-21 mcg/actuation HFA aerosol inhaler 2 puff inhalation BID nicotine 21 mg/24 hr patch 24 hour 1 patch transdermal DAILY Qty: 28 5RF albuterol sulfate 90 mcg/actuation HFA aerosol inhaler 2 puff inhalation Q4H PRN (Reason: wheezing) lidocaine 5 % adhesive patch,medicated 1 patch topical DAILY Qty: 30 1RF Rx Instructions: leave on most painful area for up to 12 hrs baclofen 10 mg tablet 10 mg PO BID cetirizine 10 mg tablet 10 mg PO DAILY multivitamin Tablet 1 tab PO DAILY bupropion HCl 150 mg tablet sustained-release 12 hr 150 mg PO BID albuterol sulfate 2.5 mg /3 mL (0.083 %) solution for nebulization 2.5 mg inhalation Q4H PRN (Reason: wheezing) montelukast 10 mg tablet 10 mg PO BEDTIME (DME) Ankle Brace Misc See Rx Instructions .Route Qty: 1 0RF Rx Instructions: As directed Held ibuprofen 600 mg tablet 600 mg PO Q8H PRN (Reason: for pain) Qty: 90 0RF Hold Instructions: Resume on 05/04/24. You may resume 7 days after surgery aspirin 81 mg tablet,chewable 1 tab PO DAILY Qty: 90 1RF Hold Instructions: Resume on 05/04/24. You may resume aspirin 7 days after surgery No Action benzonatate 100 mg Capsule 100 mg PO DAILY Discharge Orders: Discharge Order (Routine); Ordered 04/27/24 Ordered By: Santi Islas Diet: Advance to usual diet Activity on Discharge: As tolerated Activity Restrictions/Additional Instructions: After your spinal surgery we ask you to observe the following restrictions/guidelines: Activity: It is normal to feel some discomfort as you increase your activity, but that will improve with time. We ask you avoid heavy lifting or acitivities that cause pain. As a general rule, 8lbs is a safe limit for lifting right after surgery. Walk as much as you feel comfortable but not to exhaustion. You will feel extra tired the first few days after surgery. Stay well hydrated. It is OK to walk up and down stairs You may return to driving when you are off narcotics (such as vicodin, oxycodone, dilaudid, etc), and you are back to normal functional capacity. If you have any concerns please check with office before driving. Return to work is specific to each patient and each surgery, so please speak with your doctor/PA at first follow up. Please bring paperwork such as FMLA at that time if you need it filled out. Medications: You may resume aspirin and ibuprofen 7 days after surgery For optimum pain control, it is best to start with a combination of 500 mg of Tylenol every 4 hours with 600 mg of Motrin every 8 hours, and use narcotics as needed in between for breakthrough pain. We will give you a short supply of narcotics after surgery (usually one weeks worth). If you need more please call the office but do not use more than prescribed. You will need to give our office 48 hours notice if you need narcotics refilled and we do not fill narcotics on weekends or evenings. If you are on a narcotic, it is a good idea to take a stool softener such as colace or senna to avoid constipation If you take blood thinner such as aspirin, Plavix, Coumadin, Effient, Eliquis etc for conditions such as Afib, DVT, Pulmonary embolus, coronary disease, stents etc please speak with your surgeon about specific details as to when you can resume these medications. You can resume NSAIDs on post op day 1 (eg: Motrin, Naproxen, etc). Follow up: Please call the office, , after surgery to arrange a 3 week follow up for wound check. Wound Care: You may remove your dressing on the first day after surgery. ?You may ?leave open to air. Please do not remove the steri strips underneath. they will fall off on their own in one week. IT IS NORMAL FOR THE WOUND TO OOZE OR BE BLOODY FOR A FEW DAYS AFTER SURGERY. ?IF THIS HAPPENS JUST PLACE NEW DRESSING OVER IT TO AVOID STAINING CLOTHES. You may shower on post op day # 1 We ask that you do not let the water soak the wound. If it does get wet, just towel dry lightly. Please do not scrub your incision or place any type of chemical/ointment on the wound. No tub baths, pools or jacuzzis for one month. If you have any leaking or redness from your wound, or fevers, please call office Print Language: Marshallese
--- NOTE | 2024-04-27 14:30 | PC.NURSE ---
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 [place] [facility] [place]
--- NOTE | 2024-04-27 14:31 | PC.NURSE ---
patient aware of no asa or NSAIDS x 7 days as ordered. asa/ ibuprofen crossed out on discharge instructions.
== END 2024-04-27 14:31 | disposition home or self-care (01) ==
LOC: HO.SSS 08:53
PROVIDERS: PCP Internal Medicine; Visit Provider Neurological Surgery
PROC: (CPT 22551; principal; 2024-04-27 12:00)
DX: M48.02 Spinal stenosis, cervical region (principal); G99.2 Myelopathy in diseases classified elsewhere; I10 Essential (primary) hypertension; J44.9 Chronic obstructive pulmonary disease, unspecified
CPT/HCPCS: 22551; 22853; 22845; 20936; C1713; C1889; J0131; J1100; J2250; J2405; J2704; J3010; J3370; L8699

== ENCOUNTER → 2024-04-27 08:53 | Outpatient (BNV) | payer OTHER, SELFPAY | PROVIDERS: PCP Internal Medicine; Visit Provider Neurological Surgery | DX: M50.020 Cervical disc disorder with myelopathy, mid-cervical region, unspecified level (principal) | CPT/HCPCS: 20936; 22551; 22845; 22853; 99499 ==

== ENCOUNTER 2024-05-11 09:38 | Outpatient (REF) | payer OTHER, SELFPAY | END 2024-05-11 09:39 | disposition home or self-care (01) | LOC: HO.HOSX 09:38 | PROVIDERS: PCP Internal Medicine; Visit Provider Physician Assistant | DX: Z13.89 Encounter for screening for other disorder (principal) ==

== ENCOUNTER 2024-05-11 09:38 | Outpatient (AMB) | payer OTHER, SELFPAY ==
--- NOTE | 2024-05-11 09:42 | A.SPINEOV_ITS ---
Intake Visit Reasons: 1st post op Intake Note: Ms. Wakefield is here today for her 1st post-op visit. 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: No Allergies doxycycline Allergy (Intermediate, Verified 04/27/24 09:33) nausea, vomiting Tetracyclines Allergy (Intermediate, Verified 04/27/24 09:33) Nausea and Vomiting onion Allergy (Verified 04/27/24 09:33) Vomiting fluticasone furoate [From Trelegy Ellipta] Adverse Reaction (Intermediate, Verified 04/27/24 09:33) Dry Mucus Membranes Penicillins Adverse Reaction (Intermediate, Verified 04/27/24 09:33) Nausea and Vomiting umeclidinium [From Trelegy Ellipta] Adverse Reaction (Intermediate, Verified 04/27/24 09:33) Dry Mucus Membranes vilanterol [From Trelegy Ellipta] Adverse Reaction (Intermediate, Verified 04/27/24 09:33) Dry Mucus Membranes inhaled anticholinergic steroids Adverse Reaction (Intermediate, Uncoded 04/14/24 09:16) dry mucous membranes Assessment & Plan Assessment & Plan (1) Cervical myelopathy: Code(s): G95.9 - Disease of spinal cord, unspecified Category: Medical Plan Kathie avila comes in today for 1st postoperative visit after having a C3-4 ACDF completed. She reports that she feels fairly similar to how she felt prior to surgery. She does have some pain in the back of her neck and still has some mild discomfort with swallowing. Overall she is doing well in his satisfied with the surgery. She denies any significant restrictions/complications since her surgery. She did state that she has not been able to fill her ibuprofen because we have had a hold on it since surgery. I did check her chart and it appears as though hour hold for her ibuprofen after being discharged was still in place, some how. I removed this hold and reordered the medication for her as she states she has nothing for pain control at this time. I did educate her on the dangers of taking this much ibuprofen, and she states that she ?skips doses and does not always take it. No new neurological deficits, the patient is able to ambulate well and rises from a seated position without difficulty. Her anterior incision site appears closed, clean, dry, well healing. She still had some Steri-Strips remaining over the surface of the incision which I removed during this visit. I would like Foster to come back in 6 weeks with a set of x-rays. She states that she needs to return to work, so I provided her with a return to work letter, and copied the restrictions that were given to her by her primary care physician as these have been acceptable by her job/HR for her to return to work in the past, and are very similar to the recommendations we would give her postoperatively anyways. Moses Esparza MD,PhD [facility] Orders: Orders XR cervical spine 4V Today LORE Sauced[place] G95.9 - Disease of spinal cord, unspecified Medications: Resumed ibuprofen 600 mg PO Q8H PRN 90 tabs 0RF for pain LORE Sauceda M25.511 - Pain in right shoulder, M25.512 - Pain in left shoulder, M25.551 - Pain in right hip, M25.552 - Pain in left hip, M96.1 - Postlaminectomy syndrome, not elsewhere classified ibuprofen 600 mg PO Q8H PRN 90 tabs 0RF for pain ERNESTO Flowers M25.511 - Pain in right shoulder, M25.512 - Pain in left shoulder, M25.551 - Pain in right hip, M25.552 - Pain in left hip, M96.1 - Postlaminectomy syndrome, not elsewhere classified Coding Level of Care Code Global (83971) Diagnoses Cervical myelopathy G95.9
== END 2024-05-11 10:02 | disposition home or self-care (01) ==
PROVIDERS: PCP Internal Medicine; Visit Provider Physician Assistant
DX: G95.9 Disease of spinal cord, unspecified (principal)
CPT/HCPCS: 99024

== ENCOUNTER 2024-06-05 09:02 | Outpatient (REF) | payer OTHER, SELFPAY ==
--- NOTE | ~2024-06-05 | MR_ITS ---
EXAMINATION: MR KNEE WITHOUT CONTRAST, RIGHT CLINICAL INFORMATION: Right knee pain and pressure. COMPARISON: Right knee radiographs dated 04/05/2024. TECHNIQUE: MRI of the knee without contrast was performed using routine sequences on a high-field scanner. FINDINGS: MENISCI: Medial Meniscus: Oblique tibial articular surface tear at the central third of the posterior body and extending through the posterior horn and root. Tiny meniscal flap adjacent to the meniscal body within the medial meniscotibial recess. Mild adjacent soft tissue edema. Lateral Meniscus: Intact LIGAMENTS: Cruciate: Intact Collateral: Intact EXTENSOR MECHANISM: Mild distal quadriceps tendinosis. Intact patellar tendon. Normal patellofemoral alignment. ARTICULAR CARTILAGE/BONE: Patellofemoral Compartment: Intact articular cartilage. Medial Compartment: Intact articular cartilage. Lateral Compartment: Intact articular cartilage. JOINT FLUID AND BURSAE: Trace joint effusion and trace Mack's cyst. Synovial recess versus ganglion cyst superior to the Mack's cyst measuring up to 4 cm. MUSCLE/TENDONS: Mildly increased T2 signal within the lateral gastrocnemius and peroneal muscles, which could represent mild strains. MR/MR knee RT wo con IMPRESSION: 1. Oblique tibial articular surface tear of the posterior medial meniscal body extending through the posterior horn and root. Tiny meniscal flap adjacent to the meniscal body. Mild adjacent soft tissue edema. 2. Mild distal quadriceps tendinosis. 3. Trace joint effusion and trace Mack's cyst. Synovial recess versus ganglion cyst superior to the Mack's cyst measuring up to 4 cm. 4. Possible mild strains of the lateral gastrocnemius and peroneal muscles. Electronically signed by: Hai Katz MD 06/06/2024 10:24 AM EDT
== END 2024-06-05 09:03 | disposition home or self-care (01) ==
LOC: HO.MRI 09:02
PROVIDERS: PCP Internal Medicine; Visit Provider Orthopaedic Surgery
DX: M25.561 Pain in right knee (principal)
CPT/HCPCS: 73721

== ENCOUNTER 2024-06-13 07:51 | Outpatient (AMB) | payer OTHER, SELFPAY ==
--- NOTE | 2024-06-13 07:54 | A.OFFVIS_ITS ---
Intake Visit Reasons: OV- Right Knee MRI review Intake Note: Urvashi is a 63 year old female who presents with complaints of progressively worsening right knee pain and way. She describes her pain as sharp in nature. Pain is along the medial aspect right knee. She did injure her knee approximately 1 year ago. She twisted her knee and had acute onset of pain. Since that time her symptoms have gotten worse in spite of continued non operative treatments. She has failed the last 6 weeks of conservative treatment which included physical therapy exercises ibuprofen, Tylenol and topical creams. She states that her right knee will give out several times per day. She states that her knee pain is now interfering with her activities of daily living and her ability to sleep well through the night. Allergies doxycycline Allergy (Intermediate, Verified 06/13/24 07:55) nausea, vomiting Tetracyclines Allergy (Intermediate, Verified 06/13/24 07:55) Nausea and Vomiting onion Allergy (Verified 06/13/24 07:55) Vomiting fluticasone furoate [From Trelegy Ellipta] Adverse Reaction (Intermediate, Verified 06/13/24 07:55) Dry Mucus Membranes Penicillins Adverse Reaction (Intermediate, Verified 06/13/24 07:55) Nausea and Vomiting umeclidinium [From Trelegy Ellipta] Adverse Reaction (Intermediate, Verified 06/13/24 07:55) Dry Mucus Membranes vilanterol [From Trelegy Ellipta] Adverse Reaction (Intermediate, Verified 06/13/24 07:55) Dry Mucus Membranes inhaled anticholinergic steroids Adverse Reaction (Intermediate, Uncoded 04/14/24 09:16) dry mucous membranes Medication List - Last Reconciled 06/13/24 by Dewayne Stroud MD albuterol sulfate 90 mcg/actuation 2 puffs inhalation Q4H PRN albuterol sulfate 2.5 mg inhalation Q4H PRN alendronate 70 mg PO QWEEK aspirin 1 tab PO DAILY baclofen 10 mg PO BID benzonatate 100 mg PO DAILY budesonide DR-ER 3 mg PO DAILY bupropion HCl SR 150 mg PO BID cetirizine 10 mg PO DAILY cholecalciferol (vitamin D3) 50 mcg PO DAILY diltiazem HCl ER (Tiadylt ER) 120 mg PO DAILY duloxetine 60 mg PO DAILY fluticasone propion-salmeterol 230-21 mcg/actuation (Advair HFA) 2 puffs inhalation BID folic acid 1 mg PO DAILY gabapentin 600 mg (2 x 300 mg) PO TID ibuprofen 600 mg PO Q8H PRN leg brace (Ankle Brace) As directed lidocaine 5% 1 patch topical DAILY lisinopril 30 mg PO DAILY methocarbamol 750 mg PO Q8H PRN montelukast 10 mg PO BEDTIME multivitamin 1 tab PO DAILY nicotine 1 patch transdermal DAILY oxycodone 5 mg PO Q6H PRN [id number]-[id number] 30-10-100 mg/5 mL 20 mL PO DAILY thiamine HCl (vitamin B1) (Vitamin B-1) 100 mg PO DAILY PFSH Medical History Back pain Migraine Anxiety Depression Lumbar herniated disc Deviated nasal septum Cough Asthma Mitral valve prolapse Right ankle pain VIKAS (obstructive sleep apnea) STEMI (ST elevation myocardial infarction) Mitral regurgitation Sinusitis Fall Tobacco dependence due to cigarettes Alcohol abuse Easy bruising Scoliosis Degenerative disc disease, lumbar COPD (chronic obstructive pulmonary disease) Muscle spasms of neck Rheumatoid arthritis Bursitis of both hips Hypertension Osteoarthritis Surgical History Hx of shoulder surgery (~01/28/24) History of lumbar surgery Hx of left knee surgery History of ankle surgery Hx of shoulder surgery H/O eye surgery H/O colonoscopy Hx of cataract extraction History of open reduction and internal fixation (ORIF) procedure History of lumbar discectomy Family History Mother Substance use disorder Father Substance use disorder Maternal Aunt Substance use disorder Maternal Uncle Substance use disorder Paternal Uncle Substance use disorder Paternal Aunt Substance use disorder Social History Household Members: Significant Other Housing: Apartment Are you a primary physician assistant primary care to a significant other at home: No Do you presently have visiting nurse or other home services: No Alcohol intake: current Alcohol intake frequency: 3 or more drinks per day Alcohol type: beer Patient Tobacco Use Status: Current everyday Tobacco user Tobacco use type: Cigarette Cigarettes Per Day: 7 Years Smoked: 50 e-Cigarette/Vaping Use: Never Used service: No 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al status: employed and disabled 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: [employer], 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 Cognitive needs: No Hearing needs: No Vision needs: Yes Physical Exam Const Other: Well-nourished well-developed very friendly female awake alert and oriented x3 in no acute distress Extrem Other: Bilateral lower extremity examination shows good capillary refill, no skin lesions noted, normal sensation light touch Right knee examination shows a minimal effusion, minimal crepitus with range of motion, tenderness along her medial joint line, positive Khalida's test, no instability Results Reviewed Results Reviewed: Standing full weight-bearing x-rays of the patient's right knee show mild diffuse joint space narrowing, no acute bony abnormalities MRI of the patient's right knee shows mild diffuse degenerative changes as well as a tear of the medial meniscus Assessment & Plan Assessment & Plan (1) Tear of medial meniscus of right knee: Code(s): S83.241A - Other tear of medial meniscus, current injury, right knee, initial encounter Category: Medical Plan Ms. Wakefield presents with progressively worsening right knee pain and mechanical symptoms due to a tear of her medial meniscus. I had a lengthy discussion with the patient regarding the treatment options. At this point she has failed continued non operative treatments. The risks and benefits of right knee arthroscopic surgery were discussed at length with the patient. The patient wishes to proceed with surgery. She will be scheduled for next available date. Surgery will involve right knee diagnostic arthroscopy with partial medial meniscectomy. The patient does understand that she may not get 100% relief of her symptoms depending on the severity of her degenerative changes. I did refill her prescription for ibuprofen to help with her symptoms in the meantime. Feel free to call me at any time should questions regarding her orthopedic management arise. I spent 20 minutes in reviewing the patient's records and imaging studies, seeing the patient and documenting in the medical record. Medications: Refilled ibuprofen 600 mg PO Q8H PRN 120 tabs 3RF for pain M25.511 - Pain in right shoulder, M25.512 - Pain in left shoulder, M25.551 - Pain in right hip, M25.552 - Pain in left hip, M96.1 - Postlaminectomy syndrome, not elsewhere classified Coding Level of Care Code Est Pt Level 3 (35970) Complex EM visit Add On G2211 Diagnoses Tear of medial meniscus of right knee S83.241A
== END 2024-06-13 08:06 | disposition home or self-care (01) ==
PROVIDERS: PCP Internal Medicine; Visit Provider Orthopaedic Surgery
DX: S83.241A Other tear of medial meniscus, current injury, right knee, initial encounter (principal)
CPT/HCPCS: 99214

== ENCOUNTER → 2024-06-13 07:51 | Outpatient (BNVA) | payer OTHER, SELFPAY | PROVIDERS: PCP Internal Medicine; Visit Provider Orthopaedic Surgery ==

== ENCOUNTER 2024-06-21 10:08 | Outpatient (AMB) | payer OTHER, SELFPAY ==
--- NOTE | 2024-06-21 10:53 | AM.OFFWIN_ITS ---
Intake Vital Signs 06/21/24 10:55 Weight 126 lb BP 140/90 H Blood Pressure Location Lt brachial Position Sitting Pulse 84 Pulse Source Pulse Oximeter Temp 97.9 F Temp Source Oral Pulse Oximetry (%) 97 Oxygen Delivery Method Room Air Intake Visit Reasons: EP-sinus infection Intake Note: Patient here for sinus pressure, headache which has been going on for about 2 months. Patient Tobacco Use Status: Current everyday Tobacco user Allergies doxycycline Allergy (Intermediate, Verified 06/21/24 10:56) nausea, vomiting Tetracyclines Allergy (Intermediate, Verified 06/21/24 10:56) Nausea and Vomiting onion Allergy (Verified 06/21/24 10:56) Vomiting fluticasone furoate [From Trelegy Ellipta] Adverse Reaction (Intermediate, Verified 06/21/24 10:56) Dry Mucus Membranes Penicillins Adverse Reaction (Intermediate, Verified 06/21/24 10:56) Nausea and Vomiting umeclidinium [From Trelegy Ellipta] Adverse Reaction (Intermediate, Verified 06/21/24 10:56) Dry Mucus Membranes vilanterol [From Trelegy Ellipta] Adverse Reaction (Intermediate, Verified 06/21/24 10:56) Dry Mucus Membranes inhaled anticholinergic steroids Adverse Reaction (Intermediate, Uncoded 06/21/24 10:56) dry mucous membranes Do you need a note to return to daycare/school/sports/work: Yes HPI EP-sinus infection HPI Details This note is constructed using voice recognition software. While every effort has been made to ensure accuracy, dish machine operator errors may have been included. The patient is a 63 year old female who presents to the clinic today with sinus infection for the past 2 months. She reports that she has not been seen for this as she has been dealing with surgeries. She reports chronic history of sinus infections, and multiple antibiotic allergies. She denies cough, shortness of breath. She does report that she has had fevers intermittently since onset. She reports the pain to be across the front of her face and masklike, and into the years bilaterally. [facility] Medical History Back pain Migraine Anxiety Depression Lumbar herniated disc Deviated nasal septum Cough Asthma Mitral valve prolapse Right ankle pain VIKAS (obstructive sleep apnea) STEMI (ST elevation myocardial infarction) Mitral regurgitation Sinusitis Fall Tobacco dependence due to cigarettes Alcohol abuse Easy bruising Scoliosis Degenerative disc disease, lumbar COPD (chronic obstructive pulmonary disease) Muscle spasms of neck Rheumatoid arthritis Bursitis of both hips Hypertension Osteoarthritis Surgical History Hx of shoulder surgery (~01/28/24) History of lumbar surgery Hx of left knee surgery History of ankle surgery Hx of shoulder surgery H/O eye surgery H/O colonoscopy Hx of cataract extraction History of open reduction and internal fixation (ORIF) procedure History of lumbar discectomy Family History Mother Substance use disorder Father Substance use disorder Maternal Aunt Substance use disorder Maternal Uncle Substance use disorder Paternal Uncle Substance use disorder Paternal Aunt Substance use disorder Social History Household Members: Significant Other Housing: Apartment Are you a primary progressive care unit registered nurse to a significant other at home: No Do you presently have visiting nurse or other home services: No Alcohol intake: current Alcohol intake frequency: 3 or more drinks per day Alcohol type: beer Patient Tobacco Use Status: Current everyday Tobacco user Tobacco use type: Cigarette Cigarettes Per Day: 7 Years Smoked: 50 e-Cigarette/Vaping Use: Never Used service: No 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al status: employed and disabled 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, 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 Cognitive needs: No Hearing needs: No Vision needs: Yes Review of Systems Const All systems reviewed & are unremarkable except as noted in HPI and below Physical Exam Vital Signs: Last Vital Signs Temp 97.9 F 06/21/24 10:55 Pulse 84 06/21/24 10:55 BP 140/90 H 06/21/24 10:55 Pulse Ox 97 06/21/24 10:55 Oxygen Delivery Method Room Air 06/21/24 10:55 Const General: cooperative, healthy appearing, comfortable and no acute distress Orientation/consciousness: patient oriented x3 Limitations: no limitations HEENT Head: Yes normal to inspection Ears: hearing grossly normal bilaterally, external ears normal and TM's normal bilaterally General nose exam: Normal external nose present, Normal nares present, Abnormal mucous membranes and turbinates present erythematous and Nasal discharge present purulent Face and sinus: Yes normal facial exam and Yes sinus tenderness Mouth: Normal oral and palatal mucosa present and moist mucous membranes Throat: Yes posterior oropharynx normal, Yes tonsils normal and Yes uvula midline Eyes General: appearance normal, both eyes and all related structures Neck Neck: Yes normal visual inspection Resp Effort & Inspection: normal respiratory effort, able to speak in complete sentences, Actively coughing, no respiratory distress, not tachypneic, no tripod positioning and no use of accessory muscles Auscultation: clear to auscultation bilaterally Cardio Rate: regular rate Rhythm: regular rhythm Heart sounds: normal S1 and S2 Skin General skin exam: no rashes or lesions noted Neuro General: patient oriented x3 Extrem General: Yes normal to inspection and Yes no clubbing, cyanosis or edema Assessment & Plan Assessment & Plan (1) Sinusitis: Code(s): J32.9 - Chronic sinusitis, unspecified Qualifiers: Sinusitis location: frontal Chronicity: acute Recurrence: not specified as recurrent Qualified Code(s): J01.10 - Acute frontal sinusitis, unspecified Plan: Supportive measures encouraged and reviewed. Advised consideration of sinus rinse if needed. Antibiotic sent to requested pharmacy, advised patient to take antibiotics until completed and not to stop if feeling better, unless the patient has side effects. Advised patient to follow up with primary care provider with worsening or failure to resolve. Plan See above for full details and plan. Medications: New cefpodoxime must administer with a meal/food 200 mg PO BID 7 days 14 tabs 0RF Coding Level of Care Code Est Pt Level 3 (44872) Diagnoses Acute frontal sinusitis, recurrence not specified J01.10 Sinusitis location: frontal Chronicity: acute Recurrence: not specified as recurrent
[2024-06-21 10:55] VITALS: BP 140/90; PULSE 84; TEMP 36.6; O2SAT 97
== END 2024-06-21 11:35 | disposition home or self-care (01) ==
PROVIDERS: PCP Internal Medicine; Visit Provider Registered Nurse
DX: J01.10 Acute frontal sinusitis, unspecified (principal)

== ENCOUNTER → 2024-06-21 10:08 | Outpatient (BNVA) | payer OTHER, SELFPAY | PROVIDERS: PCP Internal Medicine; Visit Provider Registered Nurse ==

== ENCOUNTER 2024-06-22 09:54 | Outpatient (REF) | payer OTHER, SELFPAY | END 2024-06-22 09:55 | disposition home or self-care (01) | LOC: HO.HOSX 09:54 | PROVIDERS: Visit Provider Physician Assistant | DX: G95.9 Disease of spinal cord, unspecified (principal); M48.062 Spinal stenosis, lumbar region with neurogenic claudication | CPT/HCPCS: 72050; 72110 ==

== ENCOUNTER 2024-06-22 14:53 | Outpatient (AMB) | payer OTHER, SELFPAY ==
--- NOTE | 2024-06-22 15:23 | HO.SPINEOV ---
Intake Visit Reasons: 2nd post op with xrays Intake Note: Ms. Wakefield is here today for her 2nd post-op with x-rays. Administrative Volunteer Required: No Allergies doxycycline Allergy (Intermediate, Verified 06/21/24 10:56) nausea, vomiting Tetracyclines Allergy (Intermediate, Verified 06/21/24 10:56) Nausea and Vomiting onion Allergy (Verified 06/21/24 10:56) Vomiting fluticasone furoate [From Trelegy Ellipta] Adverse Reaction (Intermediate, Verified 06/21/24 10:56) Dry Mucus Membranes Penicillins Adverse Reaction (Intermediate, Verified 06/21/24 10:56) Nausea and Vomiting umeclidinium [From Trelegy Ellipta] Adverse Reaction (Intermediate, Verified 06/21/24 10:56) Dry Mucus Membranes vilanterol [From Trelegy Ellipta] Adverse Reaction (Intermediate, Verified 06/21/24 10:56) Dry Mucus Membranes inhaled anticholinergic steroids Adverse Reaction (Intermediate, Uncoded 06/21/24 10:56) dry mucous membranes Assessment & Plan Assessment & Plan (1) Lumbar stenosis with neurogenic claudication: Code(s): M48.062 - Spinal stenosis, lumbar region with neurogenic claudication Category: Medical (2) Scoliosis (and kyphoscoliosis), idiopathic: Code(s): M41.20 - Other idiopathic scoliosis, site unspecified Category: Medical Plan MRs Wakefield is here for her 2nd postoperative visit after an anterior cervical fusion C3-4. This was done for myelopathic symptoms. She still has a numbness in her hands, and I told her that that may end up being something that never goes away due to the spinal cord compression that was present before surgery. She is back to work already, seems to be doing okay from the standpoint of neck pain. Denies any issues with swallowing. Her x-rays today look excellent. What she wanted to discuss more than anything today is the chronic back pain that she has been having. She has had for decades and it has been getting steadily worse. She stands all day and has a lot of issues maintaining an upright posture at work. If she flexes forward the pain goes away. It is in her thoracic spine, lower thoracic and diffusely throughout her lumbar spine. Intermittent leg pains as well. The patient does not have any updated imaging other than a lumbar CT which I reviewed and shows severe diffuse spondylosis with [id number] endplate contact basically throughout her whole lumbar spine. On my exam when I review her spinal alignment she appears to have a step-off somewhere around the thoracolumbar junction. She also has a significantly kyphotic posture when she is get stands up. I told her I would order a scoliosis series, lumbar x-rays as well as MRI of the thoracic and lumbar to evaluate this a little bit further and see if there is anything that can be done for her. I counseled her that scoliosis correction and someone with a history of osteoporosis at her age is suboptimal conditions and that very often results and complications that make the pain worse than it is before surgery. Right now she is still able to work and function but she tells me that the pain is a 20 on a scale of 10 every day. Once the imaging is completed I will see her back in the office. Total amount of time spent in this visit was 20 minutes in discussion of symptoms, lumbar CT imaging results and subsequent plan of care Santi Esparza MD,PhD [facility] Orders: Orders XR lumbar spine 4V min Today M48.062 - Spinal stenosis, lumbar region with neurogenic claudication XR scoliosis survey Today M41.20 - Other idiopathic scoliosis, site unspecified MR thoracic spine wo con Today M41.20 - Other idiopathic scoliosis, site unspecified MR lumbar spine wo con Today M41.20 - Other idiopathic scoliosis, site unspecified Coding Level of Care Code Est Pt Level 3 (04392) Diagnoses Lumbar stenosis with neurogenic claudication M48.062 Scoliosis (and kyphoscoliosis), idiopathic M41.20
== END 2024-06-22 15:58 | disposition home or self-care (01) ==
PROVIDERS: PCP Internal Medicine; Visit Provider Physician Assistant
DX: M48.062 Spinal stenosis, lumbar region with neurogenic claudication (principal); M41.20 Other idiopathic scoliosis, site unspecified
CPT/HCPCS: 99024

== ENCOUNTER 2024-07-12 07:25 | Outpatient (REF) | payer OTHER, SELFPAY | END 2024-07-12 07:26 | disposition home or self-care (01) | LOC: HO.MRI 07:25 | PROVIDERS: PCP Internal Medicine; Visit Provider Physician Assistant | DX: M41.20 Other idiopathic scoliosis, site unspecified (principal) | CPT/HCPCS: 72148 ==

== ENCOUNTER 2024-07-13 07:19 | Outpatient (REF) | payer OTHER, SELFPAY | END 2024-07-13 07:20 | disposition home or self-care (01) | LOC: HO.MRI 07:19 | PROVIDERS: PCP Internal Medicine; Visit Provider Physician Assistant | DX: M41.20 Other idiopathic scoliosis, site unspecified (principal) | CPT/HCPCS: 72146 ==

== ENCOUNTER 2024-07-21 06:30 | Day surgery (SDC) | payer OTHER, SELFPAY ==
[2024-07-19 09:57] VITALS: BMI 20.1
--- NOTE | 2024-07-19 14:46 | P.CONAN_ITS ---
Documented by User: Viviana Rodgers NP 07/19/24 14:49 HPI - Anesthesia Eval Consult details Narrative: 63yo F for Right Knee Arthroscopy, partial medial meniscectomy s/p cervical discectomy 04/2024 with GA-ETT 7 Cardiac cleared prior to cervical. Follows [facility] cardiology STEMI 12/2022 (likely vasospasm during ETOH withdrawal - nml coronary cath and echo) Hyponatremia. Placed on 48oz fluid restriction by PCP prior to cervical procedure. No repeat since DOS @ 129 PMFSH Active Problems Active Problems: All Active Problems Scoliosis (and kyphoscoliosis), idiopathic (Acute) Tear of medial meniscus of right knee (Acute) Right knee pain (Acute) Left knee pain (Acute) Cervical myelopathy (Acute) Right shoulder pain (Acute) Pain of both hip joints (Acute) Lumbar stenosis with neurogenic claudication (Acute) Achilles tendinitis (Acute) Sprain of lateral ligament of ankle joint (Acute) Otitis media of right ear (Acute) Right hip pain (Acute) Bilateral hip pain (Acute) Right shoulder pain (Acute) Left shoulder pain (Acute) Shoulder pain, bilateral (Acute) Arthralgia (Acute) Lumbar spinal stenosis (Acute) Cataract (Acute) Left hip pain (Acute) Lumbar radiculopathy (Acute) Bilateral knee pain (Acute) Annual physical exam (Acute) Sinusitis (Acute) Vitamin D deficiency (Acute) Osteoporosis (Acute) Fall (Acute) Lumbar post-laminectomy syndrome (Acute) Cervical radiculopathy (Acute) Hyponatremia (Acute) Screening mammogram for breast cancer (Acute) Normal breast exam (Acute) Hx of colonoscopy (Acute) Colitis (Acute) Contusion, back (Acute) Depression (Acute) STEMI (ST elevation myocardial infarction) (Acute) Right ankle pain (Acute) Tobacco dependence due to cigarettes (Acute) Degenerative disc disease, lumbar (Acute) Osteoarthritis (Acute) Scoliosis (Acute) Alcohol abuse (Acute) Hypertension (Acute) COPD (chronic obstructive pulmonary disease) (Acute) Rheumatoid arthritis (Acute) Muscle spasms of neck (Acute) Past Medical History Medical History Back pain Migraine Anxiety Depression Lumbar herniated disc Deviated nasal septum Asthma Mitral valve prolapse Right ankle pain VIKAS (obstructive sleep apnea) STEMI (ST elevation myocardial infarction) Mitral regurgitation Tobacco dependence due to cigarettes Alcohol abuse Easy bruising Scoliosis Degenerative disc disease, lumbar COPD (chronic obstructive pulmonary disease) Muscle spasms of neck Rheumatoid arthritis Bursitis of both hips Hypertension Osteoarthritis Family History Family History Mother Substance use disorder Father Substance use disorder Maternal Aunt Substance use disorder Maternal Uncle Substance use disorder Paternal Uncle Substance use disorder Paternal Aunt Substance use disorder Family history of problems with anesthesia: No Surgical History Surgical History Hx of cervical discectomy Hx of shoulder surgery (~01/28/24) History of lumbar surgery Hx of left knee surgery History of ankle surgery Hx of shoulder surgery H/O eye surgery H/O colonoscopy Hx of cataract extraction History of open reduction and internal fixation (ORIF) procedure History of lumbar discectomy History of Problems with Anesthesia: No Social History Social History Household Members: Significant Other Housing: Apartment Are you a primary critical care specialist to a significant other at home: No Do you presently have visiting nurse or other home services: No Alcohol intake: current Alcohol intake frequency: 3 or more drinks per day Alcohol type: beer Patient Tobacco Use Status: Current everyday Tobacco user Tobacco use type: Cigarette Cigarettes Per Day: 7 Years Smoked: 50 e-Cigarette/Vaping Use: Never Used Use of substances other than those prescribed or required for medical reasons: No Have you been hit, kicked, punched, or otherwise hurt by someone within the past year? If so, by whom?: No Spiritual Healthcare Practices: none Judaism Healthcare Practices: none Cultural Healthcare Practices: none Are you DNR?: Yes Advance Directives: No Advance Directives Information Provided: Yes Recently lost weight without trying: No Eating poorly because of decreased appetite: No Nutrition Risks: No Nutritional Risk FDLMP: n/a Poor oral hygiene: Yes (missing teeth upper & lower/multiple crowns) service: No 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al status: employed and disabled 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: [employer], 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 Cognitive needs: No Hearing needs: No Vision needs: Yes Meds Allergies Allergy/AdvReac Type Severity Reaction Status Date / Time doxycycline Allergy Intermediate nausea, Verified 07/21/24 06:46 vomiting onion Allergy Intermediate Vomiting Verified 07/21/24 06:46 Tetracyclines Allergy Intermediate Nausea and Verified 07/21/24 06:46 Vomiting fluticasone furoate AdvReac Intermediate Dry Mucus Verified 07/21/24 06:46 [From Trelegy Ellipta] Membranes Penicillins AdvReac Intermediate Nausea and Verified 07/21/24 06:46 Vomiting umeclidinium AdvReac Intermediate Dry Mucus Verified 07/21/24 06:46 [From Trelegy Ellipta] Membranes vilanterol AdvReac Intermediate Dry Mucus Verified 07/21/24 06:46 [From Trelegy Ellipta] Membranes inhaled anticholinergic AdvReac Intermediate dry mucous Uncoded 07/21/24 06:46 steroids membranes Active Medications: Current Medications Clindamycin Phosphate (Cleocin) 900 mg in 50 mls @ 50 mls/hr IV PREOP ONE Stop: 07/21/24 05:59 Home Medications ?Medication ?Instructions ?Recorded ?Confirmed ?Last Taken ?Type albuterol sulfate 90 mcg/actuation 2 puff inhalation Q4H PRN wheezing 09/02/22 07/21/24 07/21/24 History aerosol inhaler albuterol sulfate 2.5 mg/3 mL 2.5 mg inhalation Q4H PRN wheezing 01/12/24 07/21/24 Unknown History (0.083 %) solution for nebulization baclofen 10 mg tablet 10 mg PO BID 01/12/24 07/21/24 Unknown History bupropion HCl 150 mg tablet,12 hr 150 mg PO BID 01/12/24 07/21/24 04/27/24 History sustained-release cetirizine 10 mg tablet 10 mg PO DAILY 01/12/24 07/21/24 04/27/24 History montelukast 10 mg tablet 10 mg PO BEDTIME 01/12/24 07/21/24 Unknown History multivitamin 1 tab PO DAILY 01/12/24 07/21/24 Unknown History budesonide 3 mg 3 mg PO DAILY 04/05/24 07/21/24 Unknown History capsule,delayed,extended release folic acid 1 mg tablet 1 mg PO DAILY 04/05/24 07/21/24 07/19/24 History hiaeqfejtzvqtzq-IJ-vqiygqgwaim 30 20 ml PO DAILY 04/05/24 07/21/24 07/20/24 History mg-10 mg-100 mg/5 mL oral syrup thiamine HCl (vitamin B1) 100 mg 100 mg PO DAILY 04/05/24 07/19/24 Unknown History tablet (Vitamin B-1) diltiazem HCl 120 mg capsule,24 240 mg PO DAILY 06/21/24 07/21/24 07/21/24 History hr,extended release (Tiadylt ER) benzonatate 100 mg capsule 100 mg PO TID PRN cough 07/21/24 07/21/24 07/21/24 History Exam Height,Weight and Vital Signs: Height 5 ft 5 in Weight 54.885 kg Narrative Narrative: EKG 04/2024 SR with 1st deg AV block Right superior axis deviation Min volt criteria for LVH ECHO 11/2023 LV nml in size LV sys function is nml LVEF 55-60% No definite WMA Nml diastolic function LV wall thickness mildly increased RV nml in size and function Aortic root nml in size, mild dilation of aortic root Assessment and Plan Assessment Anesthesia Assessment: Chart Reviewed Final Anesthetic Review Family History of Problems with Anesthesia: No History of Problems with Anesthesia: No Documented by User: Jessika Don MD 07/21/24 08:27 [facility] Past Medical History Medical History Back pain Migraine Anxiety Depression Lumbar herniated disc Deviated nasal septum Asthma Mitral valve prolapse Right ankle pain VIKAS (obstructive sleep apnea) STEMI (ST elevation myocardial infarction) Mitral regurgitation Tobacco dependence due to cigarettes Alcohol abuse Easy bruising Scoliosis Degenerative disc disease, lumbar COPD (chronic obstructive pulmonary disease) Muscle spasms of neck Rheumatoid arthritis Bursitis of both hips Hypertension Osteoarthritis Family History Family History Mother Substance use disorder Father Substance use disorder Maternal Aunt Substance use disorder Maternal Uncle Substance use disorder Paternal Uncle Substance use disorder Paternal Aunt Substance use disorder Surgical History Surgical History Hx of cervical discectomy Hx of shoulder surgery (~01/28/24) History of lumbar surgery Hx of left knee surgery History of ankle surgery Hx of shoulder surgery H/O eye surgery H/O colonoscopy Hx of cataract extraction History of open reduction and internal fixation (ORIF) procedure History of lumbar discectomy Social History Social History Household Members: Significant Other Housing: Apartment Are you a primary critical care specialist to a significant other at home: No Do you presently have visiting nurse or other home services: No Alcohol intake: current Alcohol intake frequency: 3 or more drinks per day Alcohol type: beer Patient Tobacco Use Status: Current everyday Tobacco user Tobacco use type: Cigarette Cigarettes Per Day: 7 Years Smoked: 50 e-Cigarette/Vaping Use: Never Used Use of substances other than those prescribed or required for medical reasons: No Have you been hit, kicked, punched, or otherwise hurt by someone within the past year? 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 Cognitive needs: No Hearing needs: No Vision needs: Yes Meds Allergies Allergy/AdvReac Type Severity Reaction Status Date / Time doxycycline Allergy Intermediate nausea, Verified 07/21/24 06:46 vomiting onion Allergy Intermediate Vomiting Verified 07/21/24 06:46 Tetracyclines Allergy Intermediate Nausea and Verified 07/21/24 06:46 Vomiting fluticasone furoate AdvReac Intermediate Dry Mucus Verified 07/21/24 06:46 [From Trelegy Ellipta] Membranes Penicillins AdvReac Intermediate Nausea and Verified 07/21/24 06:46 Vomiting umeclidinium AdvReac Intermediate Dry Mucus Verified 07/21/24 06:46 [From Trelegy Ellipta] Membranes vilanterol AdvReac Intermediate Dry Mucus Verified 07/21/24 06:46 [From Treelva Ellipta] Membranes inhaled anticholinergic AdvReac Intermediate dry mucous Uncoded 07/21/24 06:46 steroids membranes Home Medications ?Medication ?Instructions ?Recorded ?Confirmed ?Last Taken ?Type albuterol sulfate 90 mcg/actuation 2 puff inhalation Q4H PRN wheezing 09/02/22 07/21/24 07/21/24 History aerosol inhaler albuterol sulfate 2.5 mg/3 mL 2.5 mg inhalation Q4H PRN wheezing 01/12/2405/06 Unknown History (0.083 %) solution for nebulization baclofen 10 mg tablet 10 mg PO BID 01/12/24 07/21/24 Unknown History bupropion HCl 150 mg tablet,12 hr 150 mg PO BID 01/12/24 07/21/24 04/27/24 History sustained-release cetirizine 10 mg tablet 10 mg PO DAILY 01/12/24 07/21/24 04/27/24 History montelukast 10 mg tablet 10 mg PO BEDTIME 01/12/24 07/21/24 Unknown History multivitamin 1 tab PO DAILY 01/12/24 07/21/24 Unknown History budesonide 3 mg 3 mg PO DAILY 04/05/24 07/21/24 Unknown History capsule,delayed,extended release folic acid 1 mg tablet 1 mg PO DAILY 04/05/24 07/21/24 07/19/24 History nsxrpndeeckqyec-FP-fnldxdjisqb 30 20 ml PO DAILY 04/05/24 07/21/24 07/20/24 History mg-10 mg-100 mg/5 mL oral syrup thiamine HCl (vitamin B1) 100 mg 100 mg PO DAILY 04/05/24 07/19/24 Unknown History tablet (Vitamin B-1) diltiazem HCl 120 mg capsule,24 240 mg PO DAILY 06/21/24 07/21/24 07/21/24 History hr,extended release (Tiadylt ER) benzonatate 100 mg capsule 100 mg PO TID PRN cough 07/21/24 07/21/24 07/21/24 History Exam Airway Mallampati Class: II TM Dist: >3cm Neck ROM: Full Heart: rrr Lungs: cta Assessment and Plan Assessment Anesthesia Assessment: Anesthesia Plan Discussed Final Anesthetic Review NPO: Yes ASA Class: III Final Preanesthetic Review: No Changes in Pt Med Stat, Meds/Allgs Chart Reviewed, Consent Obtained/Reviewed and Anes Risks/Benef Reviewed Patient Risk: Intermediate Procedure Risk: Low Anesthetic Plan Anesthetic Plan: GA Disposition: Standard PACU
[2024-07-21] VITALS (8 sets, daily range): BP systolic 127–140; BP diastolic 55–70; PULSE 66–79; RESP 12–16; TEMP 36.1–36.7; O2SAT 96–99; BMI 20.5
[2024-07-21 07:01] LABS: Hematocrit 39.1 % (37.0-47.0); Hemoglobin 13.9 g/dl (12.0-16.0); Mean Corpuscular HGB Conc 35.5 g/dl (31.0-35.0); Mean Corpuscular Hemoglobin 34.5 pg (27.0-33.0); Platelet Count 277 X10*3/uL (160-400); Red Blood Count 4.03 X10*6/uL (4.20-5.50); White Blood Count 7.4 X10*3/uL (4.8-10.8)
[2024-07-21] MEDS: Albuterol Sulfate (0.083%) 2.5 MG/3 ML VIAL.NEB INHALE (07:13)
[2024-07-21 07:16] LABS: Anion Gap 18 (12-20); Blood Urea Nitrogen 6 mg/dL (9-16); Calcium 9.7 mg/dL (8.4-10.2); Carbon Dioxide 25 mmol/L (22-29); Chloride 95 mmol/L (96-108); Creatinine Clr Calc Pharmacy 81.5; Estimated Glomerular Filt Rate > 60; Glucose Fasting 111 mg/dL (60-99); Potassium 4.7 mmol/L (3.3-5.1); Sodium 133 mmol/L (135-145)
[2024-07-21] MEDS: Lactated Ringers 1,000 ML 50 ML IVCONT (07:36)
--- NOTE | 2024-07-21 10:26 | P.BOP_ITS ---
Brief Operative Note Date of Service: 07/21/24 Pre-op diagnosis: Right knee medial meniscus tear, right knee degenerative joint disease Post-op diagnosis: same Procedure: Right knee diagnostic arthroscopy with right knee arthroscopic partial medial meniscectomy, right knee arthroscopic chondroplasty of the undersurface of the patella Implants: None Surgeon: Dewayne Stroud MD Anesthesia: GLMA Was an Early Childhood Teacher Assistant used for this Procedure?: No Estimated blood loss (mL): 10 Pathology: none sent Condition: stable Disposition: PACU
--- NOTE | 2024-07-21 10:27 | P.OP_ITS ---
Operative Note Operative Note Date of Service: 07/21/24 Narrative: After the patient was identified as Kathie Wakefield and her right knee was initialed by myself they were brought to the operating room where general anesthesia was induced by the anesthesiologist in routine fashion. Because of the patient's allergy to penicillin she was given 900 mg of IV clindamycin for infection prophylaxis. A formal time-out was completed. The patient's right lower extremity was prepped and draped in sterile fashion. Marcaine with epinephrine was injected into the planned incision sites as well as their right knee joint. A # 11 scalpel blade was used to make an anterolateral portal 1 cm proximal to the joint line and 1 cm lateral to the patellar tendon. Blunt trocar technique was used into the suprapatellar pouch with the knee in extension. Diagnostic arthroscopy showed multiple bands of thickened plica which would be excised at the end of the procedure. There were no loose bodies or abnormalities found in either the medial or lateral gutters. There were diffuse grades 1 and 2 degenerative changes of the undersurface of the patella as well as grade 1 degenerative changes of the trochlear groove. The patient's knee was flexed to 45 degrees and a valgus force was placed upon it. The medial compartment was entered. An anteromedial portal was made 1 cm proximal to the joint line and 1 cm medial to the patellar tendon. Probing of the medial meniscus showed a radial tear of the posterior horn. A partial medial meniscectomy was performed using the arthroscopic shaver. Following the partial meniscectomy the remainder of the meniscus tissue was stable. There were diffus e grade 1 degenerative changes of the medial femoral condyle and medial tibial plateau. The patient's knee was then placed into a neutral position. There was no injury to the anterior cruciate ligament. The patient's knee was then placed into the figure of 4 position and the lateral compartment was entered. There were minimal degenerative changes of the lateral femoral condyle and lateral tibial plateau. There was no evidence of lateral meniscus tearing. The patient's knee was once again brought into extension and the suprapatellar pouch was entered. The arthroscopic shaver and the ArthroCare Wand were used to excise the thickened bands of plica. The undersurface of the patella was then made smooth using the arthroscopic shaver. The articular surface of the trochlear groove was already smooth so no chondroplasty was indicated. The knee joint was irrigated and then drained. All arthroscopic instruments were removed. The 2 portals were closed with 3-0 nylon interrupted suture. The knee joint was injected with Marcaine. Dry sterile dressing and Saul bandages were placed over the patient's knee. The patient was awoken and extubated in the operating room. They were transferred to the recovery room in stable condition.
== END 2024-07-21 11:34 | disposition home or self-care (01) ==
PROVIDERS: Nurse Practitioner; PCP Internal Medicine; Visit Provider Orthopaedic Surgery
PROC: (CPT 29870; principal; 2024-07-21 09:00)
DX: S83.241A Other tear of medial meniscus, current injury, right knee, initial encounter (principal); M17.11 Unilateral primary osteoarthritis, right knee; M23.51 Chronic instability of knee, right knee; M67.51 Plica syndrome, right knee; X50.1XXA Overexertion from prolonged static or awkward postures, initial encounter; Y93.9 Activity, unspecified; Y92.9 Unspecified place or not applicable; Y99.8 Other external cause status; J44.9 Chronic obstructive pulmonary disease, unspecified; G47.33 Obstructive sleep apnea (adult) (pediatric); I25.2 Old myocardial infarction; I10 Essential (primary) hypertension; M06.9 Rheumatoid arthritis, unspecified; F10.10 Alcohol abuse, uncomplicated; Z79.51 Long term (current) use of inhaled steroids; Z79.82 Long term (current) use of aspirin; Z79.899 Other long term (current) drug therapy; Z88.1 Allergy status to other antibiotic agents; Z88.0 Allergy status to penicillin; Z88.8 Allergy status to other drugs, medicaments and biological substances; Z66 Do not resuscitate
CPT/HCPCS: 29881; 36415; 80048; 85027; J0131; J0171; J0736; J2003; J2704; J2795; J3010

== ENCOUNTER → 2024-07-21 06:30 | Outpatient (BNV) | payer OTHER, SELFPAY | PROVIDERS: PCP Internal Medicine; Visit Provider Orthopaedic Surgery | DX: S83.241A Other tear of medial meniscus, current injury, right knee, initial encounter (principal) | CPT/HCPCS: 29881 ==

== ENCOUNTER 2024-07-28 10:23 | Outpatient (AMB) | payer OTHER, SELFPAY ==
--- NOTE | 2024-07-28 10:32 | A.SPINEOV_ITS ---
Intake Visit Reasons: MRI f/up Intake Note: Ms. Wakefield is here today to F/u on her MRI Result. Underliner Required: No Allergies doxycycline Allergy (Intermediate, Verified 07/28/24 10:33) nausea, vomiting onion Allergy (Intermediate, Verified 07/28/24 10:33) Vomiting Tetracyclines Allergy (Intermediate, Verified 07/28/24 10:33) Nausea and Vomiting fluticasone furoate [From Trelegy Ellipta] Adverse Reaction (Intermediate, Verified 07/28/24 10:33) Dry Mucus Membranes Penicillins Adverse Reaction (Intermediate, Verified 07/28/24 10:33) Nausea and Vomiting umeclidinium [From Trelegy Ellipta] Adverse Reaction (Intermediate, Verified 07/28/24 10:33) Dry Mucus Membranes vilanterol [From Trelegy Ellipta] Adverse Reaction (Intermediate, Verified 07/28/24 10:33) Dry Mucus Membranes inhaled anticholinergic steroids Adverse Reaction (Intermediate, Uncoded 07/21/24 06:46) dry mucous membranes Assessment & Plan Assessment & Plan (1) Lumbar stenosis with neurogenic claudication: Code(s): M48.062 - Spinal stenosis, lumbar region with neurogenic claudication Category: Medical Plan Mrs Wakefield is here in follow up today to discuss her lumbar imaging that was done at [facility]. She has been followed here for her cervical myelopathy, she is status post ACDF earlier this year. There are also issues with her lumbar spine that have been plaguing her for years. She has low back pain all throughout her lumbar spine with radiating leg pains that go down along the outer part of her legs into her calves and feet. 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 She has been doing this for many many years. She is currently on light duty at work which seems to be helping her out a bit. She has been through therapy and cortisone shots in the past without any improvements in her symptoms. She has been on Tylenol and [id number]-[id number] medications as needed but these things do not really help. Her pain has been getting progressively worse over the years. She is very frustrated because her ability to walk any length of distance is very limited currently. On exam she has full strength of bilateral lower extremities. I reviewed her imaging done at [place] with Dr. Esparza. She has an extensive amount of degeneration in her lumbar spine extending from L1-S1. She has a levoscoliosis as well. It gets worse with standing. She also has what looks like osteoporosis and an old compression deformity at L2. She has moderate stenosis at L1-2, moderate to severe at L2-3, moderate at L3-4 and severe at L4- 5. Her CT scan shows diffuse thinning of the bones with no signs of fusion of the vertebral segments. We had a lengthy discussion about the fact that fixing her back pain with surgical correction of her scoliosis would be very high risk given her osteoporosis. Specifically there is a chance that the cages would not fuse or that she would have loosening of the pedicle screws which may require further surgery extended up to her thoracic spine. This would be about a 3-4 month recovery for her even if the surgery went well without complications. She just simply can not afford to be out of work that long and does not want to risk the complications of pseudoarthrosis. Dr. Esparza did however feel that t reatment of the stenosis at L4-5 which is severe may give her some relief with the walking that is giving her the cramping down into her legs and calves. We consider the option of possibly doing L2-3 as well, but given the kyphotic curvature of her spine at that level, we suspect we would destabilize her if we decompressed her. Therefore, Dr. Esparza is willing to offer her a unilateral approach for bilateral decompression at the L4-5 level. She is very worried about getting back to work within 2 weeks of the surgery and I told her as long as she remains on light duty would be okay for her to go back at that time. She will call us when she can coordinate a time to have the operation. Pt was given risk and benefits of surgery including but not limited to infection, hematoma , nerve injury, durotomy, weakness,bowel/bladder injury, persistent leg pain, persistent back pain as well as the option to continue with conservative treatment and patient wishes to proceed with surgery. Pt is aware they should stop their motrin, aspirin 7 days prior to surgery. All questions were answered to the best of our ability. If there is anything about this patients medical history that we have overlooked or concerns you have about us proceeding with surgery we would appreciate any input you can offer. Total amount of time spent in this visit was 20 minutes in discussion of symptoms, lumbar imaging results and subsequent plan of care Santi Esparza MD,PhD [facility] Coding Level of Care Code Est Pt Level 3 (80499) Diagnoses Lumbar stenosis with neurogenic claudication M48.062
== END 2024-07-28 11:15 | disposition home or self-care (01) ==
PROVIDERS: PCP Internal Medicine; Visit Provider Physician Assistant
DX: M48.062 Spinal stenosis, lumbar region with neurogenic claudication (principal)
CPT/HCPCS: 99213

== ENCOUNTER 2024-08-08 08:54 | Outpatient (AMB) | payer OTHER, SELFPAY ==
--- NOTE | 2024-08-08 08:56 | MHC.OFFVIS ---
Vital Signs 08/08/24 08:59 Height 5 ft 5 in Weight 120 lb BMI 20.0 Intake Visit Reasons: PO RT Knee 07/21/24 DR Intake Note: Kathie is a 63 year old female who presents today post operatively s/p right knee 07/21/2024. She reports mild discomfort in her right knee. She has returned to work. She denies any fevers or chills. Allergies doxycycline Allergy (Intermediate, Verified 08/08/24 09:00) nausea, vomiting onion Allergy (Intermediate, Verified 08/08/24 09:00) Vomiting Tetracyclines Allergy (Intermediate, Verified 08/08/24 09:00) Nausea and Vomiting fluticasone furoate [From Trelegy Ellipta] Adverse Reaction (Intermediate, Verified 08/08/24 09:00) Dry Mucus Membranes Penicillins Adverse Reaction (Intermediate, Verified 08/08/24 09:00) Nausea and Vomiting umeclidinium [From Trelegy Ellipta] Adverse Reaction (Intermediate, Verified 08/08/24 09:00) Dry Mucus Membranes vilanterol [From Trelegy Ellipta] Adverse Reaction (Intermediate, Verified 08/08/24 09:00) Dry Mucus Membranes inhaled anticholinergic steroids Adverse Reaction (Intermediate, Uncoded 08/08/24 09:00) dry mucous membranes Medication List - Last Reconciled 08/09/24 by Dewayne Stroud MD albuterol sulfate 90 mcg/actuation 2 puffs inhalation Q4H PRN albuterol sulfate 2.5 mg inhalation Q4H PRN alendronate 70 mg PO QWEEK aspirin 1 tab PO DAILY baclofen 10 mg PO BID benzonatate 100 mg PO TID PRN budesonide DR-ER 3 mg PO DAILY bupropion HCl SR 150 mg PO BID cetirizine 10 mg PO DAILY cholecalciferol (vitamin D3) 50 mcg PO DAILY diltiazem HCl ER (Tiadylt ER) 240 mg PO DAILY duloxetine 60 mg PO DAILY folic acid 1 mg PO DAILY gabapentin 600 mg (2 x 300 mg) PO TID ibuprofen 600 mg PO Q8H PRN leg brace (Ankle Brace) As directed lidocaine 5% 1 patch topical DAILY lisinopril 30 mg PO DAILY methocarbamol 750 mg PO Q8H PRN montelukast 10 mg PO BEDTIME multivitamin 1 tab PO DAILY nicotine 1 patch transdermal DAILY oxycodone 5 mg PO Q6H PRN qcfugnvfimtvlxi-FB-xelsglwchja 30-10-100 mg/5 mL 20 mL PO DAILY thiamine HCl (vitamin B1) (Vitamin B-1) 100 mg PO DAILY PFSH Medical History Back pain Migraine Anxiety Depression Lumbar herniated disc Deviated nasal septum Asthma Mitral valve prolapse Right ankle pain VIKAS (obstructive sleep apnea) STEMI (ST elevation myocardial infarction) Mitral regurgitation Tobacco dependence due to cigarettes Alcohol abuse Easy bruising Scoliosis Degenerative disc disease, lumbar COPD (chronic obstructive pulmonary disease) Muscle spasms of neck Rheumatoid arthritis Bursitis of both hips Hypertension Osteoarthritis Surgical History Hx of cervical discectomy Hx of shoulder surgery (~01/28/24) History of lumbar surgery Hx of left knee surgery History of ankle surgery Hx of shoulder surgery H/O eye surgery H/O colonoscopy Hx of cataract extraction History of open reduction and internal fixation (ORIF) procedure History of lumbar discectomy Family History Mother Substance use disorder Father Substance use disorder Maternal Aunt Substance use disorder Maternal Uncle Substance use disorder Paternal Uncle Substance use disorder Paternal Aunt Substance use disorder Social History Household Members: Significant Other Housing: Apartment Are you a primary wound care coordinator to a significant other at home: No Do you presently have visiting nurse or other home services: No Alcohol intake: current Alcohol intake frequency: 3 or more drinks per day Alcohol type: beer Patient Tobacco Use Status: Current everyday Tobacco user Tobacco use type: Cigarette Cigarettes Per Day: 7 Years Smoked: 50 e-Cigarette/Vaping Use: Never Used service: No 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al status: employed and disabled 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 Wakefield doing well after undergoing right knee arthroscopic surgery on 07/21/2024. Her sutures were removed and Steri-Strips placed over her incisions. She will continue with her activity modifications. She will contact me prior to her follow-up appointment in 6-8 weeks should any questions or concerns arise. Feel free to call me at any time should questions regarding her orthopedic management arise. Coding Level of Care Code Global (55938) Diagnoses Right knee pain M25.561
== END 2024-08-08 09:20 | disposition home or self-care (01) ==
PROVIDERS: PCP Internal Medicine; Visit Provider Orthopaedic Surgery
DX: M25.561 Pain in right knee (principal)
CPT/HCPCS: 99024

== ENCOUNTER 2024-10-31 07:27 | Emergency (ER) | payer OTHER, SELFPAY ==
[2024-10-31 07:30] VITALS: BP 139/52; BP 172/92; PULSE 72; PULSE 88; RESP 18; TEMP 36.7; O2SAT 98; O2SAT 99
--- OUTSIDE RECORDS SUMMARY | 2024-10-31 07:52 | XMS_ITS | Clinical Summary ---
Author Organization [address] [facility] Address [address] [place] [address] Phone Care Team Providers Care Car Body Inspector Name Role Phone Yun Wynne MD Primary Care Provider [phone] Allergies Active Allergy Reactions Criticality Noted Date Comments Clindamycin GI intolerance 12/03/2022 Gastritis Doxycycline Hyclate 01/25/2020 Nausea Mhkrgsmllpk-Bvzmmyans-Etgpcj e r Medium 03/31/2021 Gum bleed. Onion Nausea And Vomiting 04/28/2023 Penicillins 02/07/2011 Medications dilTIAZem CD (CARDIZEM CD) 120 mg 24 hr capsule Take 2 capsules (240 mg total) by mouth 1 (one) time each day. 1 Active alendronate (FOSAMAX) 70 mg tablet Take 1 tablet (70 mg total) by mouth every 7 (seven) days. 3 Active baclofen (LIORESAL) 10 mg tablet Take 1 tablet (10 mg total) by mouth 2 (two) times a day. [address] (ENTOCORT EC) 3 mg 24 hr capsule Take 3 capsules (9 mg total) by mouth 1 (one) time each day in the morning. 3 Active albuterol HFA (PROAIR HFA ; PROVENTIL HFA ; VENTOLIN HFA) 90 mcg/actuation inhaler Inhale 2 puffs by mouth every 4 (four) hours if needed for wheezing or shortness of breath. 3 Active albuterol 2.5 mg /3 mL (0.083 %) nebulizer solution Take 3 mL (2.5 mg total) by nebulization every 4 (four) hours if needed for wheezing or shortness of breath. 3 Active multivitamin tablet Take 1 tablet by mouth 1 (one) time each day. 3 Active methocarbamoL (ROBAXIN) 750 mg tablet Take 1 tablet (750 mg total) by mouth. 2 Active lisinopriL (PRINIVIL,ZESTR IL) 30 mg tablet Take 1 tablet (30 mg total) by mouth 1 (one) time each day. 2 Active lidocaine (LIDODERM) 5 % patch Apply 1 patch topically every 12 (twelve) hours if needed for moderate pain. APPLY 1 PATCH TO THE AFFECTED AREA. REMOVE AFTER 12 HOURS 2 Active dilTIAZem (Tiadylt ER) 120 mg 24 hr capsule Take 1 capsule (120 mg total) by mouth 1 (one) time each day. 2 Active DULoxetine (CYMBALTA) [address] capsule Take 1 capsule (60 mg total) by mouth 1 (one) time each day. 1 Active gabapentin (NEURONTIN) 300 mg capsule Take 1 capsule (300 mg total) by mouth 3 (three) times a day. 1 Active fluticasone propionate (FLONASE) 50 mcg/actuation nasal spray Administer 1 spray into each nostril 1 (one) time each day. 2 Active cholecalciferol (VITAMIN D-3) 50 mcg (2,000 unit) tablet Take 1 tablet (2,000 Units total) by mouth 1 (one) time each day. 3 Active traZODone (DESYREL) 50 mg tablet Take 1 tablet (50 mg total) by mouth at bedtime. 2 Active montelukast (SINGULAIR) 10 mg tablet Take 1 tablet (10 mg total) by mouth at bedtime. 3 Active triamcinolone (NASACORT) 55 mcg nasal inhaler 2 Sprays by Nasal route daily. Intranasal: Two sprays in each nostril once daily; once symptoms controlled reduce to 1 spray in each nostril once daily. Discontinue therapy if adequate symptomatic relief is not observed within 3 weeks. 2 Active sodium chloride-aloe vera (Ecorse Saline) gel topical gel 1 Dose by Nasal route 2 times daily as needed for Other (for nasal dryness). 4 Active ibuprofen (ADVIL,MOTRIN) 600 mg tablet Take 1 tablet (600 mg total) by mouth every 8 (eight) hours if needed for mild pain. 4 Active folic acid (FOLVITE) 1 mg tablet Take 1 tablet (1,000 mcg total) by mouth 1 (one) time each day. 4 Active aspirin 81 mg chewable tablet Chew 1 tablet (81 mg total). 3 Active famotidine (PEPCID) 20 mg tablet Take 1 tablet (20 mg total) by mouth 2 (two) times a day. Active HYDROmorphone (DILAUDID) 4 mg tablet Take by mouth. Activ e nicotine (NICODERM CQ) 21 mg/[address] 1 patch on the skin 1 (one) time each day at the same time. Place 1 Patch onto the skin every 24 hours. - Transdermal Active oxyCODONE (OXY-IR) 5 mg immediate release capsule Take 1 capsule (5 mg total) by mouth every 4 (four) hours if needed for severe pain. Active fluticasone propionate (FLONASE) 50 mcg/actuation nasal spray 2 Sprays by Each Nare route daily. 4 Active buPROPion SR (WELLBUTRIN SR) 150 mg 12 hr tablet TAKE 1 TABLET BY MOUTH TWICE DAILY 180 tablet 4 Active cetirizine (ZyrTEC) 10 mg tablet TAKE 1 TABLET BY MOUTH DAILY 90 tablet 3 4 Active fluticasone-armida meterol (ADVAIR DISKUS) 250-50 mcg/dose diskus inhaler Inhale 1 puff by mouth 2 (two) times a day. Rinse mouth with water after use to reduce aftertaste and incidence of candidiasis. Do not swallow. Active Vitamin B-1 100 mg tablet Take 1 tablet (100 mg total) by mouth 1 (one) time each day. 4 Active Active Problems Problem Noted Date Diagnosed Date Chronic sinusitis 09/11/2024 Environmental allergies 05/17/2024 Sleep apnea, primary central 08/11/2022 Overview (06/09/2024): MIxed Sleep apnea , primarily central AHI 5 [facility] Home Sleep Apnea Test: Date ; BMI 20.6;, AHI 5; average oxygen saturation 91% (lowest 84% without saturations <88% for 5% or more of study) - Obstructive Sleep Apnea - mild; without sleep related hypoventilation by 2021 home sleep apnea test. Fibromyalgia 12/02/2021 Spinal stenosis, lumbar 08/04/2021 Lymphocytic colitis 12/25/2020 Hyponatremia 03/01/2020 Lung nodule 11/14/2019 Overview (11/02/2023): LDCT 09/2018 - groundglass peribronchial 8 mm nodule LDCT 2019 - above is resolved; small stable pulmonary nodules, emphysema Alcohol abuse 01/21/2018 Overview (11/02/2023): 6-pack per day (November 2021) Tobacco dependency 01/21/2018 Overview (11/02/2023): 1/2 PPD (November 2021) Emphysema of lung 06/05/2013 Overview (06/09/2024): COPD/emphysema of lung PFTs 2013 - normal LDCT 2019 - emphysematous changes. HTN (hypertension) 02/07/2011 MVP (mitral valve prolapse) 02/07/2011 Encounters Date Type Department Care Team Description 09/11/2024 8:50 AM EST Office Visit Pulmonolgy - [address] [place] [address] Consuelo Cordova NP Recurrent sinus infections (Primary Dx); Chronic sinusitis, unspecified location; Tobacco dependency; Pulmonary emphysema, unspecified emphysema type (CMS/HCC); Sleep apnea, primary central; Lung nodule from Last 3 Months Immunizations Name Administration Dates Next Due Moderna SARS-CoV-2 COVID-19, mRNA, LNP-S, preservative free 09/26/2021 Pneumococcal polysaccharide 23 valent (Pneumovax 23) 2yo and older 07/23/2015 Tdap Tetanus diptheria acell ular pertussis (Boostrix; Adacel) 7yo and older 09/26/2021,05/04/2011 Zoster recombinant (Shingrix) 19yo and older ,09/26/2021 Surgical History Surgery Date Site/Laterality Comments BACK SURGERY PROCEDURE: HISTORICAL BACK SURGERY; COMMENT: early lumbar herniated disc repair LEG SURGERY 09/13/1999 PROCEDURE: HISTORICAL LEG SURGERY; COMMENT: compound fracture of leg WISDOM TOOTH EXTRACTION PROCEDURE: HISTORICAL WISDOM TEETH EXTRACTION Medical History Medical History Date Comments Hypertension DX:Hypertension MVP (mitral valve prolapse) DX:M [employer] (mitral valve prolapse) Environmental allergies DX:Envir onmental allergies; COMMENT: on albuterol Muscle spasm DX:Muscle spasm Back pain DX:Back pain; CO MMENT: s/p surgery for herniated disc Spinal stenosis, lumbar 08/04/2021 DX:Spina l stenosis, lumbar Family History Medical History Relation Name Comments Thyroid disease Brother Heart attack Father alcoholic liver disease Heart attack Mother alcoholism Other: uterine polyps Sister Breast cancer Neg Hx Colon cancer Neg Hx Ovarian cancer Neg Hx Relation Name Status Comments Brother Alive Father Mother Sister Alive Social History Tobacco Use Types Packs/Day Years Used Date Smoking Tobacco: Every Day Cigarettes 0.3 50.1 Started: 1973 Smokeless Tobacco: Never Tobacco Cessation:Ready to Q uit: Not Asked; Counseling Given: Not Answered Alcohol Use Standard Drinks/Week Comments Yes 3 (1 standard drink = 0.6 oz pur e alcohol) Comments Unknown Sex and Gender Information Value Date Recorded Sex Assigned at Not on file Legal Sex Female 4:48 AM EST Gender Identity Not on file Sexual Orientation Not on file Obstetrics History Last Filed Vital Signs Vital Sign Reading Time Taken Comments Blood Pressure 138/70 09/11/2024 8:55 AM EST Pulse 82 09/11/2024 8:55 AM EST Temperature 36.8 ??C (98.2 ??F) 09/11/2024 8:55 AM ES T Respiratory Rate 18 09/11/2024 8:55 AM EST Oxygen Saturation 96% 09/11/2024 8:55 AM EST Inhaled Oxygen Concentration - - Weight 57.1 kg (125 lb 12.8 oz) 09/11/2024 8:55 AM EST Height 165.1 cm (5' 5 ) 09/11/2024 8:55 AM EST Body Mass Index 20.93 09/11/2024 8:55 AM EST Plan of Treatment Upcoming Encounters Date Type Department Care Team (Late st Contact Info) Description 12/22/2024 8:00 AM EDT Appointment Radiology Department [address] [address] 03/12/2025 8:50 AM EDT Office Visit Pulmonolgy - [place] [facility] [address] [place] [phone] Consuelo Cordova NP [facility] [address] [place] [address] Health Maintenance Due Date Last Done Comments Hepatitis A Vaccines (1 of 2 - Risk 2-dose series) 1980 Pneumococcal Vaccine: 50+ Years (2 of 2 - PCV) 07/23/2016 07/23/2015 Pneumococcal Vaccine: Pediatrics (0 to 5 Years) and At-Risk Patients (6 to 64 Years) (2 of 2 - PCV) 07/23/2016 07/23/2015 Cervical Cancer Screening: Pap Smear 06/20/2018 06/20/2015, 06/20/2015 RSV Immunization Patients 60+ Years Old (1 - Risk 60-74 years 1-dose series) 2021 Depression Screening 08/22/2022 HIV Screening 08/22/2022 Social Influencers of Health Screening 08/22/2022 Hypertension/CHF/CAD Annual BMP Blood Test 08/23/2022 12/24/2020 COVID-19 Vaccine ( season) 2024 09/26/2021, 02/05/2021, 01/08/2021 Influenza Vaccine (#1) 2024 Cholesterol Screening (Lipid Panel) 01/17/2025 01/18/2020 Lung Cancer Screening (Low Dose CT) 04/19/2025 04/19/2024, 04/12/2023, 04/10/2022, Additional history exists Breast Cancer Screening 12/09/2025 12/10/19 24, 12/02/2022, 11/08/2021, Additional history exists Colorectal Cancer Screening: Colonoscopy 03/01/2030 03/01/2020 DTaP,Tdap,and Td Vaccines (3 - Td or Tdap) 09/26/2031 09/26/2021, 05/04/2011 Hepatitis C Screening Completed 03/04/2013 Zoster Vaccines Completed 11/29/2021, 09/26/2021 HIB Vaccines Aged Out No longer eligi ble based on patient's age to complete this topic HPV Vaccines Aged Out No longer eligi ble based on patient's age to complete this topic Hepatitis B Vaccines Aged Out No long er eligible based on patient's age to complete this topic IPV Vaccines Aged Out No longer eligi ble based on patient's age to complete this topic MMR Vaccines Aged Out No longer eligi ble based on patient's age to complete this topic Meningococcal ACWY Vaccine Aged Out N o longer eligible based on patient's age to complete this topic Meningococcal B Vacine Aged Out No lo nger eligible based on patient's age to complete this topic RSV Immunization Patients Under 20 months Aged Out No longer eligible based on patient's age to complete this topic Varicella Vaccines Aged Out No longer eligible based on patient's age to complete this topic Procedures Procedure Name Priority Date/Time Associated Diagnosis Comments CT LUNG SCREENING LOW DOSE Routine 04/19/2024 7:15 PM EDT Nicotine dependence, cigarettes, uncomplicated SCREENING MAMMOGRAPHY BI 2-VIEW BREAST INC CAD Routine 12/10/2023 7:50 AM EDT Encounter for screening mammogram for malignant neoplasm of breast ANNUAL BMP BLOOD TEST Routine 12/24/2020 COLONOSCOPY Routine 03/01/2020 LIPID PANEL Routine 01/18/2020 HPV Routine 06/20/2015 HEPATITIS C SCREENING Routine 03/04/2013 from Last 3 Months or Most Recently Relevant to Health Maintenance Results * CT LUNG SCREENING LOW DOSE (04/19/2024 7:15 PM EDT) Anatomical Region Laterality Modality Computed Tomogra phy 04/16/2024 8:05 AM EDT Narrative 04/19/2024 7:15 PM EDT [facility] Diagnostic Imaging Department [address] [place] [id number] Patient: ??URVASHI WAKEFIELD ?/Age/Sex: 1960 - 63 - F Unit#: ??[id number] ? Location/Status: ??SPDICATLS/REG CLI ? Mnemonic/Ordering Site: ??CTLUNGLD/SPCT Ordering Physician: ??DAVIS MACK MD CT Lung Screening Low Dose - 04/16/24807 Report Status:Signed PROCEDURE: Chest CT INDICATION: Lung cancer screening, current smoker, 48 pack year smoking history TECHNIQUE: Chest CT without contrast. Multi planar reformats were created and interpreted. The examination was performed utilizing dose reduction techniques. Total DLP 180 COMPARISON: ??04/12/2023 FINDINGS: LUNGS/PLEURA: Central airways are patent. ??Emphysema. ??2 mm right upper lobe nodule is stable compared to prior. ??No new or suspicious pulmonary nodules. ??No pleural effusion or pneumothorax. MEDIASTINUM: Thyroid gland is unremarkable. No mediastinal or hilar lymphadenopathy. Cardiac chambers are normal in size. No pericardial effusion. Esophagus is normal. CHEST WALL: No axillary lymphadenopathy or superficial hematoma. UPPER ABDOMEN:Hepatic steatosis. BONES: Bones are normal for age. IMPRESSION: No new or suspicious pulmonary nodules. ??Lung RADS 2-benign. ??Recommend continued screening with low-dose chest CT in 12 months. Dictating Physician: ??KINGSLEY FONTANEZ MD Electronically Signed by: ??KINGSLEY FONTANEZ MD Dic Date/Time: ??04/19/241824 Sign date/Time: ??04/19/241914 Procedure Note Kingsley Fontanez MD - 06/28/2024 [facility] Diagnostic Imaging Department [address] [place] [address] Patient: URVASHI WAKEFIELD /Age/Sex: 1960 - 63 - F Unit#: [id number] [facility] Mnemonic/Ordering Site: [facility] Ordering Physician: DAVIS MACK MD CT Lung Screening Low Dose - 04/16/24 - 807 Report Status:Signed PROCEDURE: Chest CT INDICATION: Lung cancer screening, current smoker, 48 pack year smokinghistory TECHNIQUE: Chest CT without contrast. Multi planar reformats were createdand interpreted. The examination was performed utilizing dose reductiontechniques. Total DLP 180 COMPARISON: 04/12/2023 FINDINGS: LUNGS/PLEURA: Central airways are patent. Emphysema. 2 mm right upperlobe nodule is stable compared to prior. No new or suspicious pulmonarynodules. No pleural effusion or pneumothorax. MEDIASTINUM: Thyroid gland is unremarkable. No mediastinal or hilar lymphadenopathy. Cardiac chambers are normal in size. No pericardialeffusion. Esophagus is normal. CHEST WALL: No axillary lymphadenopathy or superficial hematoma. UPPER ABDOMEN:Hepatic steatosis. BONES: Bones are normal for age. IMPRESSION: No new or suspicious pulmonary nodules. Lung RADS 2-benign. Recommend continued screening with low-dose chest CT in 12 months. Dictating Physician: KINGSLEY FONTANEZ MD Electronically Signed by: KINGSLEY FONTANEZ MD Dic Date/Time: 04/19/241824 Sign date/Time: 04/19/241914 us Davis Mack MD IMG CT PROCEDURES Final Result * SCREENING MAMMOGRAPHY BI 2-VIEW BREAST INC CAD (12/10/2023 7:50 AM EDT) Anatomical Region Laterality Modality Radiographic Henrietta ging 12/02/2022 8:31 AM EDT Narrative 12/10/2023 5:34 PM EDT This is a summary report. The complete report is available in the patient's medical record. If you cannot access the medical record, please contact the sending organization for a detailed fax or copy. Full field digital screening 2D C views and tomosynthesis mammography, reviewed with CAD and compared to previous. The breast tissue is heterogeneously dense, limiting sensitivity. No suspicious mass, architectural distortion or suspicious calcifications are identified. IMPRESSION: : Dense breast tissue, limiting the sensitivity of mammography. No mammographic evidence of malignancy. BIRADS 1-Negative; N. 5 year breast cancer risk assessment 1.5 % Lifetime breast cancer risk assessment 7.0 % Breast cancer risk category Low (<15%) Procedure Note Elvia Koenig MD - 05/01/2024 This is a summary report. The complete report is available in thepatient's medical record. If you cannot access the medical record, pleasecontact the sending organization for a detailed fax or copy. Full field digital screening 2D C views and tomosynthesis mammography,reviewed with CAD and compared to previous. The breast tissue isheterogeneously dense, limiting sensitivity. No suspicious mass,architectural distortion or suspicious calcifications are identified. IMPRESSION: : Dense breast tissue, limiting the sensitivity of mammography. Nomammographic evidence of malignancy. BIRADS 1-Negative; N. 5 year breast cancer risk assessment 1.5 % Lifetime breast cancer risk assessment 7.0 % Breast cancer risk category Low (<15%) Result [facility] Kemi Patiño MD IMG XR PROCEDURES Final Result * Annual BMP Blood Test (12/24/2020) [facility] Annual BMP Blood Test Abstracted Result [facility] Provider HEALTH MAINTENANCE Final Result * Colonoscopy (03/01/2020) [facility] Colonoscopy Abstracted, no interpretation Anatomical Region Laterality Modality Other Result [facility] HEALTH MAINTENANCE Final Result * (ABNORMAL) Lipid panel (01/18/2020) [facility] LDL/HDL Ratio 3 0 - 4 Triglycerides 99 0 - 150 mg/dL Cholesterol 190 0 - 200 mg/dL HDL 61 >=40 mg/dL LDL Cholesterol 110(A) 0 - 100 mg/dL Blood Venous blood specimen / Unknown Result [facility] Provider LAB BLOOD ORDERABLES Nova [facility] Result * Cervical Cancer Screening: HPV (06/20/2015) [facility] Cervical Cancer Screening: HPV Abstracted, negative Result [facility] Provider HEALTH MAINTENANCE Final Result * Hepatitis C Screening (03/04/2013) [facility] Hepatitis C Screening Abstracted Result [facility] Provider HEALTH MAINTENANCE Final Result from Last 3 Months or Most Recently Relevant to Health Maintenance Insurance [employer] [facility] Care Teams Car Body Inspector Relationship Specialty Start Date End Date Yun Wynne MD PCP - General 08/25/22
--- OUTSIDE RECORDS SUMMARY | 2024-10-31 07:52 | XMS_ITS | Clinical Summary ---
Author Organization [facility] Address [address] [place] [id number] Care Team Providers Care Wind Turbine Service Technician Name Role Phone Unavailable Primary Care Provider Unavailabl e Social History Tobacco Use Types Packs/Day Years Used Date Smoking Tobacco: Never Assessed Comments Unknown Sex and Gender Information Value Date Recorded Sex Assigned at Not on file Legal Sex Female 11:13 AM EDT Gender Identity Not on file Sexual Orientation Not on file Plan of Treatment Health Maintenance Due Date Last Done Comments Breast Cancer Screening 1960 Colorectal Cancer Screening: Annual FOBT 2010 Colorectal Cancer Screening: Colonoscopy 2010 Colorectal Cancer Screening: Sigmoidoscopy 2010 Pneumococcal Vaccine: Pediat rics (0 to 5 Years) and At-Risk Patients (6 to 64 Years) (2 of 2 - PCV) 07/23/2016 07/23/2015 Influenza Vaccine (#1) 2024 Hepatitis B Vaccine Aged Out No longe r eligible based on patient's age to complete [place] [id number] COMPREHENSIVE BENEFITS
--- NOTE | 2024-10-31 07:56 | ED_ITS ---
HPI - Wound/Laceration General Chief Complaint: Wound/Laceration Stated Complaint: Lac to left apodaca/bleeding controlled Time Seen by Provider: 10/31/24 07:56 Source: patient, EMS, RN notes reviewed and old records reviewed Mode of arrival: EMS Limitations: no limitations History of Present Illness ED Provider: Eduardo Schilling PA-C HPI narrative: 64 yo female presents to the ER from home via EMS for evaluation of a laceration to the left apodaca. she was at work today, walked between 2 pallets and cut her left lower leg through her jeans sustained a skin tear. she is UTD on her tdap. she states she has thin skin and has gotten skin tears before that take a long time to heal. she is not diabetic. she denies pain in the foot or ankle. no numbness, tingling or weakness. Onset (ago): minute(s) Extremity Location: left: lower leg Place: work Patient tetanus UTD: Yes Context: accidental Associated symptoms: pain Treatments prior to arrival: bandage Related Data Home Medications ?Medication ?Instructions ?Recorded ?Confirmed albuterol sulfate 90 mcg/actuation 2 puff inhalation Q4H PRN wheezing 09/02/22 08/09/24 aerosol inhaler albuterol sulfate 2.5 mg/3 mL 2.5 mg inhalation Q4H PRN wheezing 01/12/24 08/09/24 (0.083 %) solution for nebulization baclofen 10 mg tablet 10 mg PO BID 01/12/24 08/09/24 bupropion HCl 150 mg tablet,12 hr 150 mg PO BID 01/12/24 08/09/24 sustained-release cetirizine 10 mg tablet 10 mg PO DAILY 01/12/24 08/09/24 montelukast 10 mg tablet 10 mg PO BEDTIME 01/12/24 08/09/24 budesonide 3 mg 3 mg PO DAILY 04/05/24 08/09/24 capsule,delayed,extended release folic acid 1 mg tablet 1 mg PO DAILY 04/05/24 08/09/24 vcjmasbarwhsgey-RP-wufopsxmjdg 30 20 ml PO DAILY 04/05/24 08/09/24 mg-10 mg-100 mg/5 mL oral syrup thiamine HCl (vitamin B1) 100 mg 100 mg PO DAILY 07/24/24 11/27/24 tablet (Vitamin B-1) diltiazem HCl 120 mg capsule,24 240 mg PO DAILY 06/21/24 08/09/24 hr,extended release (Tiadylt ER) benzonatate 100 mg capsule 100 mg PO TID PRN cough 07/21/24 08/09/24 Previous Rx's ?Medication ?Instructions ?Recorded lidocaine 5 % topical patch 1 patch topical DAILY #30 ea 05/31/23 nicotine 21 mg/24 hr daily 1 patch transdermal DAILY #28 ea 07/08/23 transdermal patch leg brace (Ankle Brace) #1 ea 12/16/23 alendronate 70 mg tablet 70 mg PO QWEEK #12 tabs 03/19/24 gabapentin 300 mg capsule 600 mg (2 x 300 mg) PO TID #540 03/28/24 caps methocarbamol 750 mg tablet 750 mg PO Q8H PRN for muscle spasm 04/13/24 #270 tabs ibuprofen 600 mg tablet 600 mg PO Q8H PRN for pain #120 06/13/24 tabs oxycodone 5 mg tablet 5 mg PO Q6H PRN pain (scale score 07/21/24 7-10) #20 tabs lisinopril 30 mg tablet 30 mg PO DAILY #90 tabs 08/14/24 multivitamin 1 tab PO DAILY #90 tabs 08/14/24 cholecalciferol (vitamin D3) 50 50 mcg PO DAILY #90 tabs 09/10/24 mcg (2,000 unit) tablet aspirin 81 mg chewable tablet 1 tab PO DAILY #90 tabs 09/19/24 duloxetine 60 mg capsule,delayed 60 mg PO DAILY #90 caps 10/13/24 release Allergies Allergy/AdvReac Type Severity Reaction Status Date / Time doxycycline Allergy Intermediate nausea, Verified 10/31/24 07:35 vomiting onion Allergy Intermediate Vomiting Verified 10/31/24 07:35 Tetracyclines Allergy Intermediate Nausea and Verified 10/31/24 07:35 Vomiting fluticasone furoate AdvReac Intermediate Dry Mucus Verified 10/31/24 07:35 [From Trelegy Ellipta] Membranes Penicillins AdvReac Intermediate Nausea and Verified 10/31/24 07:35 Vomiting umeclidinium AdvReac Intermediate Dry Mucus Verified 10/31/24 07:35 [From Trelegy Ellipta] Membranes vilanterol AdvReac Intermediate Dry Mucus Verified 10/31/24 07:35 [From Maday Burleson] Membranes inhaled anticholinergic AdvReac Intermediate dry mucous Uncoded 08/08/24 09:00 steroids membranes Review of Systems Review of Systems: Yes all other systems are reviewed and are negative [facility] Past Medical History Medical History Back pain Migraine Anxiety Depression Lumbar herniated disc Deviated nasal septum Asthma Mitral valve prolapse Right ankle pain VIKAS (obstructive sleep apnea) STEMI (ST elevation myocardial infarction) Mitral regurgitation Tobacco dependence due to cigarettes Alcohol abuse Easy bruising Scoliosis Degenerative disc disease, lumbar COPD (chronic obstructive pulmonary disease) Muscle spasms of neck Rheumatoid arthritis Bursitis of both hips Hypertension Osteoarthritis Surgical History Hx of cervical discectomy Hx of shoulder surgery (~01/28/24) History of lumbar surgery Hx of left knee surgery History of ankle surgery Hx of shoulder surgery H/O eye surgery H/O colonoscopy Hx of cataract extraction History of open reduction and internal fixation (ORIF) procedure History of lumbar discectomy Family History Family History Mother Substance use disorder Father Substance use disorder Maternal Aunt Substance use disorder Maternal Uncle Substance use disorder Paternal Uncle Substance use disorder Paternal Aunt Substance use disorder Social History Social History Household Members: Significant Other Housing: Apartment Are you a primary senior care manager to a significant other at home: No Do you presently have visiting nurse or other home services: No Alcohol intake: current Alcohol intake frequency: 3 or more drinks per day Alcohol type: beer Patient Tobacco Use Status: Current everyday Tobacco user Tobacco use type: Cigarette Cigarettes Per Day: 7 Years Smoked: 50 e-Cigarette/Vaping Use: Never Used Advance Directives: Yes Advance Directives Information Provided: No Advance Directives on File: No Do you have a plan to hurt others: No Plan service: No 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al status: employed and disabled 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 Oriented X3. No acute distress. HEENT: normal inspection CVS: Normal heart rate and rhythm. Pulses normal. Respiratory: No respiratory distress. Skin: Skin warm and dry. Normal skin color. Normal skin turgor. No rashes. Extremities: left lower leg with a 4cm irregularly shaped skin tear with exposed adipose tissue, no visible bone, mild oozing. compartments are soft and compressible. NV intact distally. Neuro: Oriented X 3. No motor deficit. No sensory deficit. Medical Decision Making Medical Decision Making MDM Narrative: 64 yo female presenting for evaluation of a skin tear to the left lower leg. no visible bone. tdap up to date. no significant bleeding. wound cleaned w/ saline and approximated with several steri strips. xeroform and DSD placed. wound care discussed w/ patient along w/ return precautions. stable for d/c home Differential Diagnosis Differential Diagnoses: The differential diagnosis associated with the presentation includes simple skin tear, open fracture, deep laceration Independent Historian Clinical information obtained from an independent historian. History obtained from or confirmed by: EMS External Record Review External record reviewed: Prior outpatient labs and Prior outpatient radiology Tests considered The following testing was considered but not selected: xr fib/tib considered, low suspicion for bone involvement Prescription Management I considered prescription management with: Pain Medication and Antibiotic Procedures Laceration Laceration 1: Site: lower extremity Side (If applicable): left Size (cm): 4 Description: flap Depth: simple, single layer Pre-repair: wound explored, irrigated extensively and deep structures intact Skin layer closed with: other (steri strips) Critical Care Time Critical Care Time Critical Care Time: No Discharge Plan Discharge Clinical Impression: Noninfected skin tear of left leg Qualifiers: Encounter type: initial encounter Qualified Code(s): S81.812A - Laceration without foreign body, left lower leg, initial encounter Patient Disposition: Home, Self-Care Instructions: Skin Tear (ED) Additional Instructions: change the dressing daily - use the yellow gauze, then a nonstick bad and then wrap in gauze wrap do not get wet for 72 hours then you can shower and briefly get wet then pat dry follow up with your doctor recommend following up with wound clinic as this can be a long healing process If you develop new or worsening symptoms call 911 or come back to the ER for further evaluation. Prescriptions: No Action alendronate 70 mg tablet 70 mg PO QWEEK Qty: 12 1RF gabapentin 300 mg capsule 600 mg PO TID Qty: 540 3RF methocarbamol 750 mg tablet 750 mg PO Q8H PRN (Reason: for muscle spasm) Qty: 270 0RF oxycodone 5 mg tablet 5 mg PO Q6H PRN (Reason: pain (scale score 7-10)) Qty: 20 0RF Rx Instructions: Partial Fill upon patient request. multivitamin Tablet 1 tab PO DAILY Qty: 90 1RF lisinopril 30 mg tablet 30 mg PO DAILY Qty: 90 1RF cholecalciferol (vitamin D3) 50 mcg (2,000 unit) tablet 50 mcg PO DAILY Qty: 90 1RF aspirin 81 mg tablet,chewable 1 tab PO DAILY Qty: 90 1RF duloxetine 60 mg capsule,delayed release(DR/EC) 60 mg PO DAILY Qty: 90 3RF thiamine HCl (vitamin B1) [Vitamin B-1] 100 mg Tablet 100 mg PO DAILY folic acid 1 mg Tablet 1 mg PO DAILY hktzosonoiqhlyt-OB-zfpaekspuhk 30-10-100 mg/5 mL Syrup 20 ml PO DAILY budesonide 3 mg capsule,delayed,extend.release 3 mg PO DAILY benzonatate 100 mg capsule 100 mg PO TID PRN (Reason: cough) nicotine 21 mg/24 hr patch 24 hour 1 patch transdermal DAILY Qty: 28 5RF albuterol sulfate 90 mcg/actuation HFA aerosol inhaler 2 puff inhalation Q4H PRN (Reason: wheezing) lidocaine 5 % adhesive patch,medicated 1 patch topical DAILY Qty: 30 1RF Rx Instructions: leave on most painful area for up to 12 hrs baclofen 10 mg tablet 10 mg PO BID cetirizine 10 mg tablet 10 mg PO DAILY bupropion HCl 150 mg tablet sustained-release 12 hr 150 mg PO BID albuterol sulfate 2.5 mg /3 mL (0.083 %) solution for nebulization 2.5 mg inhalation Q4H PRN (Reason: wheezing) montelukast 10 mg tablet 10 mg PO BEDTIME diltiazem HCl [Tiadylt ER] 120 mg capsule,extended release 24 hr 240 mg PO DAILY (DME) Ankle Brace Misc See Rx Instructions .Route Qty: 1 0RF Rx Instructions: As directed ibuprofen 600 mg tablet 600 mg PO Q8H PRN (Reason: for pain) Qty: 120 3RF Referrals: [facility] Wound Care Management [Provider Group] Yun Wynne MD [Primary Care Provider] - Stand Alone Forms: Work/School Release Interventions: ED Discharge Assessment Last Done: 10/31/24 09:09 Discharge Date/Time: 10/31/24 09:09 Print Language: Macedonian
[2024-10-31 09:09] VITALS: BP 139/52; PULSE 72; RESP 18; TEMP 36.7; O2SAT 98
== END 2024-10-31 09:09 | disposition home or self-care (01) ==
PROVIDERS: Emergency Provider Emergency Medicine Emergency Medical Services; PCP Internal Medicine
DX: S81.812A Laceration without foreign body, left lower leg, initial encounter (principal); W45.8XXA Other foreign body or object entering through skin, initial encounter; Y93.89 Activity, other specified; Y92.59 Other trade areas as the place of occurrence of the external cause; Y99.0 Civilian activity done for income or pay
CPT/HCPCS: 99282; 99283

== ENCOUNTER 2024-11-08 09:13 | Outpatient (AMB) | payer OTHER, SELFPAY ==
--- NOTE | 2024-11-08 09:16 | MHC.OFFVIS ---
Vital Signs 11/08/24 09:16 Height 5 ft 5 in Weight 120 lb BMI 20.0 Intake Visit Reasons: PO RT Knee 07/21/24 DR-3 month follow up Intake Note: Kathie is a 64 year old female who presents today post operatively status post right knee arthroscopic surgery on 07/21/2024. Patient reports ongoing aches for which she takes Ibuprofen and a muscle relaxer. Patient is not interested on going to PT. She continues with her home stretching program. She denies any fevers or chills. Allergies doxycycline Allergy (Intermediate, Verified 11/08/24 09:16) nausea, vomiting onion Allergy (Intermediate, Verified 11/08/24 09:16) Vomiting Tetracyclines Allergy (Intermediate, Verified 11/08/24 09:16) Nausea and Vomiting fluticasone furoate [From Trelegy Ellipta] Adverse Reaction (Intermediate, Verified 11/08/24 09:16) Dry Mucus Membranes Penicillins Adverse Reaction (Intermediate, Verified 11/08/24 09:16) Nausea and Vomiting umeclidinium [From Trelegy Ellipta] Adverse Reaction (Intermediate, Verified 11/08/24 09:16) Dry Mucus Membranes vilanterol [From Trelegy Ellipta] Adverse Reaction (Intermediate, Verified 11/08/24 09:16) Dry Mucus Membranes inhaled anticholinergic steroids Adverse Reaction (Intermediate, Uncoded 11/08/24 09:16) dry mucous membranes Medication List - Last Reviewed 11/08/24 by SKYLAR Mcintosh albuterol sulfate 90 mcg/actuation 2 puffs inhalation Q4H PRN albuterol sulfate 2.5 mg inhalation Q4H PRN alendronate 70 mg PO QWEEK aspirin 1 tab PO DAILY baclofen 10 mg PO BID benzonatate 100 mg PO TID PRN budesonide DR-ER 3 mg PO DAILY bupropion HCl SR 150 mg PO BID cetirizine 10 mg PO DAILY cholecalciferol (vitamin D3) 50 mcg PO DAILY diltiazem HCl ER (Tiadylt ER) 240 mg PO DAILY duloxetine 60 mg PO DAILY folic acid 1 mg PO DAILY gabapentin 600 mg (2 x 300 mg) PO TID ibuprofen 600 mg PO Q8H PRN leg brace (Ankle Brace) As directed lidocaine 5% 1 patch topical DAILY lisinopril 30 mg PO DAILY methocarbamol 750 mg PO Q8H PRN montelukast 10 mg PO BEDTIME multivitamin 1 tab PO DAILY nicotine 1 patch transdermal DAILY oxycodone 5 mg PO Q6H PRN xszqrndtwvmpigo-UU-ybvunnxofly 30-10-100 mg/5 mL 20 mL PO DAILY thiamine HCl (vitamin B1) (Vitamin B-1) 100 mg PO DAILY PFSH Medical History Back pain Migraine Anxiety Depression Lumbar herniated disc Deviated nasal septum Asthma Mitral valve prolapse Right ankle pain VIKAS (obstructive sleep apnea) STEMI (ST elevation myocardial infarction) Mitral regurgitation Tobacco dependence due to cigarettes Alcohol abuse Easy bruising Scoliosis Degenerative disc disease, lumbar COPD (chronic obstructive pulmonary disease) Muscle spasms of neck Rheumatoid arthritis Bursitis of both hips Hypertension Osteoarthritis Surgical History Hx of cervical discectomy Hx of shoulder surgery (~01/28/24) History of lumbar surgery Hx of left knee surgery History of ankle surgery Hx of shoulder surgery H/O eye surgery H/O colonoscopy Hx of cataract extraction History of open reduction and internal fixation (ORIF) procedure History of lumbar discectomy Family History Mother Substance use disorder Father Substance use disorder Maternal Aunt Substance use disorder Maternal Uncle Substance use disorder Paternal Uncle Substance use disorder Paternal Aunt Substance use disorder Social History Household Members: Significant Other Housing: Apartment Are you a primary hospice spiritual care coordinator to a significant other at home: No Do you presently have visiting nurse or other home services: No Alcohol intake: current Alcohol intake frequency: 3 or more drinks per day Alcohol type: beer Patient Tobacco Use Status: Current everyday Tobacco user Tobacco use type: Cigarette Cigarettes Per Day: 7 Years Smoked: 50 e-Cigarette/Vaping Use: Never Used service: No 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al status: employed and disabled 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, 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 Wakefield continues to do well after undergoing right knee arthroscopic surgery on 07/21/2024. She does have residual discomfort due to early degenerative joint disease. At this point the patient's symptoms are tolerable to her. We will hold off on a cortisone injection. She will continue with her home exercise program. She will follow up with me on an as-needed basis should her symptoms worsen in any way. Feel free to call me at any time should questions regarding her orthopedic management arise. I spent 22 minutes in reviewing the patient's records and imaging studies, seeing the patient and documenting in the medical record. Medications: New bismuth tribrom-petrolatum,wh 5 X 9 (Xeroform) As directed 72 ea 0RF bismuth tribrom-petrolatum,wh 5 X 9 (Xeroform) As directed 72 ea 3RF Refilled ibuprofen 600 mg PO Q8H PRN 120 tabs 3RF for pain M25.511 - Pain in right shoulder, M25.512 - Pain in left shoulder, M25.551 - Pain in right hip, M25.552 - Pain in left hip, M96.1 - Postlaminectomy syndrome, not elsewhere classified Coding Level of Care Code Est Pt Level 3 (45601) Complex EM visit Add On G2211 Diagnoses Arthritis of right knee M17.11
--- OUTSIDE RECORDS SUMMARY | 2024-11-08 10:15 | XMS_ITS | Clinical Summary ---
Author Organization [facility] Facility Address [address] [place] [id number] Care Team Providers Care Market Relationship Manager Name Role Phone Unavailable Primary Care Provider [...] complete [place] [id number] COMPREHENSIVE BENEFITS
--- OUTSIDE RECORDS SUMMARY | 2024-11-08 10:15 | XMS_ITS | Clinical Summary ---
Author Organization [facility] Address [address] [place] [address] Phone Care Team Providers Care Inbound Customer Service Agent Name Role Phone Yun Wynne MD Primary Care Provider [phone] Allergies Active Allergy Reactions Criticality Noted Date Comments Clindamycin GI intolerance 12/03/2022 Gastritis Doxycycline Hyclate 01/25/2020 Nausea Esplrkpgosr-Vlcaboeqx-Enypsv e r Medium 03/31/2021 Gum bleed. Onion [...] 3 weeks. 2 Active sodium chloride-aloe vera ([place] Saline) gel topical gel 1 Dose by [...] Sleep apnea , primarily central AHI 5 [facility] Home Sleep Apnea Test: Date ; BMI [...] 8:50 AM EST Office Visit Pulmonolgy - [address] [place] [address] Consuelo Cordova NP Recurrent sinus [...] Hypertension DX:Hypertension MVP (mitral valve prolapse) DX:M SECOND HELPER (mitral valve prolapse) Environmental allergies DX:Envir onmental [...] 12/22/2024 8:00 AM EDT Appointment Radiology Department [address] [id number] 03/12/2025 8:50 AM EDT Office Visit Pulmonolgy - [place] [facility] [address] [place] [phone] Consuelo Cordova NP [address] [facility] [address] [place] [address] Health Maintenance Due Date Last Done Comments [...] AM EDT Narrative 04/19/2024 7:15 PM EDT [facility] Diagnostic Imaging Department [address] [place] [address] Patient: ??URVASHI WAKEFIELD ?/Age/Sex: 1960 - 63 - F Unit#: ??[id number] ? Location/Status: ??SPDICATLS/REG CLI ? Mnemonic/Ordering Site: [...] Procedure Note Kingsley Fontanez MD - 06/28/2024 [facility] Diagnostic Imaging Department [address] [place] [address] Patient: URVASHI WAKEFIELD /Age/Sex: 1960 - 63 - F Unit#: [id number] [facility] Mnemonic/Ordering Site: [facility] Ordering Physician: DAVIS MACK MD CT Lung [...] Breast cancer risk category Low (<15%) Result [facility] Kemi Patiño MD IMG XR PROCEDURES Final Result * Annual BMP Blood Test (12/24/2020) [facility] Annual BMP Blood Test Abstracted Result [facility] Provider HEALTH MAINTENANCE Final Result * Colonoscopy (03/01/2020) [facility] Colonoscopy Abstracted, no interpretation Anatomical Region Laterality Modality Other Result [facility] HEALTH MAINTENANCE Final Result * (ABNORMAL) Lipid panel (01/18/2020) [facility] LDL/HDL Ratio 3 0 - 4 Triglycerides 99 0 - 150 mg/dL Cholesterol 190 0 - 200 mg/dL HDL 61 >=40 mg/dL LDL Cholesterol 110(A) 0 - 100 mg/dL Blood Venous blood specimen / Unknown Result [facility] Provider LAB BLOOD ORDERABLES Nova l Result * Cervical Cancer Screening: HPV (06/20/2015) [facility] Cervical Cancer Screening: HPV Abstracted, negative Result [facility] Provider HEALTH MAINTENANCE Final Result * Hepatitis C Screening (03/04/2013) [facility] Hepatitis C Screening Abstracted Result [facility] Provider HEALTH MAINTENANCE Final Result from Last 3 Months or Most Recently Relevant to Health Maintenance Insurance [employer] [facility] [employer] [place] [address] Care Teams Inbound Customer Service Agent Relationship Specialty Start Date End Date Yun Wynne MD PCP - General 08/25/22
== END 2024-11-08 09:30 | disposition home or self-care (01) ==
PROVIDERS: PCP Internal Medicine; Visit Provider Orthopaedic Surgery
DX: M17.11 Unilateral primary osteoarthritis, right knee (principal)
CPT/HCPCS: 99213

== ENCOUNTER → 2024-11-08 09:13 | Outpatient (BNVA) | payer OTHER, SELFPAY | PROVIDERS: PCP Internal Medicine; Visit Provider Orthopaedic Surgery ==

== ENCOUNTER 2024-11-23 08:00 | Outpatient (AMB) | payer OTHER, SELFPAY ==
--- OUTSIDE RECORDS SUMMARY | 2024-11-23 08:03 | XMS_ITS | Clinical Summary ---
Author Organization [facility] Facility Address [address] [address] Care Team Providers Care Service Or Work Dispatcher Chief Name Role Phone Unavailable Primary Care Provider [...] complete [place] [id number] [place] [address]
--- OUTSIDE RECORDS SUMMARY | 2024-11-23 08:03 | XMS_ITS | Clinical Summary ---
Author Organization [facility] Address [address] [place] [address] Phone Care Team Providers Care Transistor Tester Name Role Phone Yun Wynne MD Primary Care Provider [phone] Allergies Active Allergy Reactions Criticality Noted Date Comments Clindamycin GI intolerance 12/03/2022 Gastritis Doxycycline Hyclate 01/25/2020 Nausea Swtwrmbayox-Litjjbntd-Dhhzhw e r Medium 03/31/2021 Gum bleed. Onion [...] 3 weeks. 2 Active sodium chloride-aloe vera ([place] Saline) gel topical gel 1 Dose by [...] Sleep apnea , primarily central AHI 5 [facility] Home Sleep Apnea Test: Date ; [...] 8:50 AM EST Office Visit Pulmonolgy - [address] [place] [address] Consuelo Cordova NP Recurrent sinus [...] Hypertension DX:Hypertension MVP (mitral valve prolapse) DX:M RN TRAINING (mitral valve prolapse) Environmental allergies DX:Envir onmental [...] Date Smoking Tobacco: Every Day Cigarettes 0.3 50.2 Started: 1974 Smokeless Tobacco: Never Tobacco Cessation:Ready [...] 12/22/2024 8:00 AM EDT Appointment Radiology Department [address] [address] 03/12/2025 8:50 AM EDT Office Visit Pulmonolgy - [place] [facility] [address] [place] [id number] Consuelo Cordova NP [address] [facility] [address] [place] [address] Health Maintenance Due Date Last Done Comments [...] AM EDT Narrative 04/19/2024 7:15 PM EDT Diagnostic Imaging Department [address] [place] [id number] Patient: ??URVASHI WAKEFIELD ?/Age/Sex: 1960 - 63 - F Unit#: ??[id number] ? Location/Status: ??SPDICATLS/REG CLI ? Mnemonic/Ordering Site: [...] Procedure Note Kingsley Fontanez MD - 06/28/2024 Diagnostic Imaging Department [address] [place] [address] Patient: URVASHI WAKEFIELD /Age/Sex: 1960 - 63 - F Unit#: [id number] Location/Status: [facility] Mnemonic/Ordering Site: [facility] Ordering Physician: DAIVS MACK MD CT Lung Screening Low Dose [...] Breast cancer risk category Low (<15%) Result [facility] Kemi Patiño MD IMG XR PROCEDURES Final Result * Annual BMP Blood Test (12/24/2020) [facility] Annual BMP Blood Test Abstracted Result [facility] Provider HEALTH MAINTENANCE Final Result * Colonoscopy (03/01/2020) [facility] Colonoscopy Abstracted, no interpretation Anatomical Region Laterality Modality Other Result [facility] HEALTH MAINTENANCE Final Result * (ABNORMAL) Lipid panel (01/18/2020) [facility] LDL/HDL Ratio 3 0 - 4 Triglycerides 99 0 - 150 mg/dL Cholesterol 190 0 - 200 mg/dL HDL 61 >=40 mg/dL LDL Cholesterol 110(A) 0 - 100 mg/dL Blood Venous blood specimen / Unknown Result [facility] Provider LAB BLOOD ORDERABLES Nova l Result * Cervical Cancer Screening: HPV (06/20/2015) [facility] Cervical Cancer Screening: HPV Abstracted, negative Result [facility] Provider HEALTH MAINTENANCE Final Result * Hepatitis C Screening (03/04/2013) [facility] Hepatitis C Screening Abstracted Result [facility] Provider HEALTH MAINTENANCE Final Result from Last 3 Months or Most Recently Relevant to Health Maintenance Insurance [employer] [facility] Care Teams Transistor Tester Relationship Specialty Start Date End Date Yun Wynne MD PCP - General 08/25/22
[2024-11-23 08:13] VITALS: BP 120/74; PULSE 88; RESP 18; TEMP 36.8; O2SAT 96; BMI 20.5
--- NOTE | 2024-11-23 08:13 | A.OFFPC_ITS ---
Vital Signs 11/23/24 08:13 Height 5 ft 5 in Weight 123 lb BMI 20.5 BP 120/74 Blood Pressure Location Rt brachial Position Sitting Respiration 18 Pulse 88 Pulse Source Pulse Oximeter Temp 98.2 F Temp Source Oral Pulse Oximetry (%) 96 Oxygen Delivery Method Room Air Intake Visit Reasons: Annual PE Intake Note: Pt is here today for PE. Allergies doxycycline Allergy (Intermediate, Verified 11/23/24 08:15) nausea, vomiting onion Allergy (Intermediate, Verified 11/23/24 08:15) Vomiting Tetracyclines Allergy (Intermediate, Verified 11/23/24 08:15) Nausea and Vomiting fluticasone furoate [From Trelegy Ellipta] Adverse Reaction (Intermediate, Verified 11/23/24 08:15) Dry Mucus Membranes Penicillins Adverse Reaction (Intermediate, Verified 11/23/24 08:15) Nausea and Vomiting umeclidinium [From Trelegy Ellipta] Adverse Reaction (Intermediate, Verified 11/23/24 08:15) Dry Mucus Membranes vilanterol [From Trelegy Ellipta] Adverse Reaction (Intermediate, Verified 11/23/24 08:15) Dry Mucus Membranes inhaled anticholinergic steroids Adverse Reaction (Intermediate, Uncoded 11/23/24 08:15) dry mucous membranes Medication List - Last Reconciled 11/23/24 by Yun Wynne MD albuterol sulfate 90 mcg/actuation 2 puffs inhalation Q4H PRN albuterol sulfate 2.5 mg inhalation Q4H PRN alendronate 70 mg PO QWEEK aspirin 1 tab PO DAILY baclofen 10 mg PO BID benzonatate 100 mg PO TID PRN bismuth tribrom-petrolatum,wh 5 X 9 (Xeroform) As directed budesonide DR-ER 3 mg PO DAILY bupropion HCl SR 150 mg PO BID cetirizine 10 mg PO DAILY cholecalciferol (vitamin D3) 50 mcg PO DAILY diltiazem HCl ER (Tiadylt ER) 240 mg PO DAILY diltiazem HCl ER (Tiadylt ER) 240 mg PO DAILY duloxetine 60 mg PO DAILY folic acid 1 mg PO DAILY gabapentin 600 mg (2 x 300 mg) PO TID ibuprofen 600 mg PO Q8H PRN leg brace (Ankle Brace) As directed lidocaine 5% 1 patch topical DAILY lisinopril 30 mg PO DAILY methocarbamol 750 mg PO Q8H PRN montelukast 10 mg PO BEDTIME multivitamin 1 tab PO DAILY nicotine 1 patch transdermal DAILY oxycodone 5 mg PO Q6H PRN rerjlmhavmcbqkm-FE-menuovjbkjl 30-10-100 mg/5 mL 20 mL PO DAILY silver (Acticoat Dressing) 1 ea topical .qd thiamine HCl (vitamin B1) (Vitamin B-1) 100 mg PO DAILY Tobacco use date assessed: 11/23/24 Dental Screening Dental Screen Date: 11/23/24 Did you have a dental visit in the last 12 months?: Yes Did you have a dental problem in the last 6 months where you did not have access to dental care?: No Was dental information given to patient?: Patient has dentist HPI Annual PE HPI Details Patient presents for a physical. She complains of sinus congestion postnasal drip greenish discharge increasing productive cough and wheezing for 1 week. Patient complains of right apodaca wound after she scraped her apodaca at work 3 weeks ago. She has been applying bacitracin topical and Steri-Strips fell off a week ago. patient still has a small amount of yellowish discharge present and some redness around the wound area [facility] Medical History (Updated 11/23/24 @ 09:30 by Yun Wynne MD) Back pain Migraine Anxiety Depression Lumbar herniated disc Deviated nasal septum Asthma Mitral valve prolapse Right ankle pain VIKAS (obstructive sleep apnea) STEMI (ST elevation myocardial infarction) Mitral regurgitation Tobacco dependence due to cigarettes Alcohol abuse Easy bruising Scoliosis Degenerative disc disease, lumbar COPD (chronic obstructive pulmonary disease) Muscle spasms of neck Rheumatoid arthritis Bursitis of both hips Hypertension Osteoarthritis Surgical History (Updated 11/23/24 @ 08:44 by Yun Wynne MD) Hx of cervical discectomy Hx of shoulder surgery (~01/28/24) History of lumbar surgery Hx of left knee surgery History of ankle surgery Hx of shoulder surgery H/O eye surgery H/O colonoscopy Hx of cataract extraction History of open reduction and internal fixation (ORIF) procedure History of lumbar discectomy Family History Mother Substance use disorder Father Substance use disorder Maternal Aunt Substance use disorder Maternal Uncle Substance use disorder Paternal Uncle Substance use disorder Paternal Aunt Substance use disorder Social History Household Members: Significant Other Housing: Apartment Are you a primary managed care manager to a significant other at home: No Do you presently have visiting nurse or other home services: No Alcohol intake: current Alcohol intake frequency: 3 or more drinks per day Alcohol type: beer Patient Tobacco Use Status: Current everyday Tobacco user Tobacco use type: Cigarette Cigarettes Per Day: 7 Years Smoked: 50 e-Cigarette/Vaping Use: Never Used service: No 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al status: employed and disabled 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: [employer] Cognitive needs: No Hearing needs: No Vision needs: Yes Questionnaire PHQ-9 Over the last 2 weeks, how often have you been bothered by any of the following problems? 1. Little interest or pleasure in doing things: nearly every day 2. Feeling down, depressed, or hopeless: several days 3. Trouble falling or staying asleep, or sleeping too much: nearly every day 4. Feeling tired or having little energy: nearly every day 5. Poor appetite or overeating: more than half the days 6. Feeling bad about yourself - or that you are a failure or have let yourself or your family down: not at all 7. Trouble concentrating on things, such as reading the newspaper or watching television: not at all 8. Moving or speaking so slowly that other people could have noticed. Or the opposite - being so fidgety or restless that you have been moving around a lot more than usual: not at all 9. Thoughts that you would be better off or of hurting yourself in some way: not at all Total score: 12 Depression Screening Interpretation: Positive (Patient is established with a psychiatrist and counselor) Depression Screening Follow-up: Existing condition and In treatment Depression Screening Done: Yes 87086 - PHQ-9 Billing: Yes Source: Developed by Drs. Esvin Tim, Darlin Cabral, Evaristo Ortiz and colleagues, with an educational maddie from [employer]. Thrive Questionnaire Date Thrive assessed: 11/23/24 I am a: Patient What is your living situation today?: I have a place to live, but I am worried about losing it in the future Within the past 12 months, did the food you bought not last and you didn't have the money to get more?: Sometimes True Within the past 12 months, did you worry whether your food would run out before you got money to buy more?: Often true Do you have trouble paying for medicines?: Yes Do you have trouble getting transportation to medical appointments?: No Do you have trouble paying your heating and electricity bill?: No Do you have trouble taking care of your child, family member or friend?: No Do you have trouble with day-to-day activities such as bathing, preparing meals, shopping, managing finances, etc.?: No Are you currently unemployed and looking for a job?: No Are you interested in more education?: No THRIVE Score: 3 AUDIT C Alcohol Use Questionnaire (AUDIT-C) 1. How often do you have a drink containing alcohol?: 4 or more times a week 2. How many drinks containing alcohol do you have on a typical day when you are drinking?: 3 or 4 3. How often do you have six or more drinks on one occasion?: Never Total Score: 5 ZEKE-7 AMB Questionnaire ZEKE-7 Date ZEKE - 7 assessed: 11/23/24 Feeling nervous, anxious, or on edge: 0 = Not at all Not being able to stop or control worryin = Several days Worrying too much about different things: 2 = More than half the days Trouble relaxin = Not at all Being so restless that it is hard to sit still: 0 = Not at all Becoming easily annoyed or irritable: 1 = Several days Source: Developed by Drs. Esvin Tim, Darlin Cabral, Evaristo Ortiz and colleagues, with an educational maddie from [employer]. ZEKE-7 Assessment Billing ZEKE-7 Assessment Tool: ZEKE-7 Assessment 23225 Review of Systems Const All systems reviewed & are unremarkable except as noted in HPI and below Eyes Reports no additional complaints ENT Reports no additional complaints Card Reports no additional complaints Resp Reports no additional complaints GI Reports no additional complaints Reports no additional complaints Physical exam (Primary Care) Vital Signs: Last Vital Signs Temp 98.2 F 11/23/24 08:13 Pulse 88 11/23/24 08:13 Resp 18 11/23/24 08:13 BP 120/74 11/23/24 08:13 Pulse Ox 96 11/23/24 08:13 Oxygen Delivery Method Room Air 11/23/24 08:13 BMI result Body Mass Index 20.5 Tobacco/Smoking Status: Tobacco use Status Tobacco use date assessed 11/23/24 11/23/24 08:21 Patient Tobacco Use Status Current everyday Tobacco 11/23/24 08:21 Tobacco use type Cigarette 11/23/24 08:21 e-Cigarette/Vaping Use Never Used 11/23/24 08:21 Depression Screening Interpretation: Positive (Patient is established with a psychiatrist and counselor) Depression Screening Follow-up: Existing condition and In treatment Thrive Assessment: Date of Thrive Assessment Date Thrive assessed 04/14/24 11/23/24 08:21 Const General: no acute distress HENMT Head: Yes normal to inspection Ears: TM's normal bilaterally General nose exam: Abnormal mucous membranes and turbinates present erythematous Face and sinus: Yes sinus tenderness Mouth: Normal oral and palatal mucosa present Throat: Yes postnasal drainage Eyes General: appearance normal, both eyes and all related structures Neck Neck: Yes no lymphadenopathy and Yes supple Resp Effort & Inspection: normal respiratory effort Auscultation: rhonchi, wheezes and diminished lung sounds Cardio Rhythm: regular rhythm Heart sounds: S1 normal heart sound present and S2 normal heart sound present GI Inspection: Yes normal to inspection Palpation (GI): Soft to palpation Percussion: Yes normal to percussion Auscultation: normal bowel sounds Skin Other: Right apodaca healing wound with slight erythema and small amount of yellowish discharge Extrem General: Yes no clubbing, cyanosis or edema Coding Level of Care Code Est Pt Prev Care 40-64y(99261) Diagnoses COPD (chronic obstructive pulmonary disease) J44.9 Vitamin D deficiency E55.9 Annual physical exam Z00.00 Cervical myelopathy G95.9 Hypertension I10 Rheumatoid arthritis M06.9 Acute frontal sinusitis, recurrence not specified J01.10 Sinusitis location: frontal Chronicity: acute Recurrence: not specified as recurrent Age-related osteoporosis with current pathological fracture, initial encounter M80.00XA Osteoporosis type: age-related Presence of current pathological fracture: with current pathological fracture Encounter type: initial encounter Additional Codes ZEKE-7 Assessment Billing - ZEKE-7 Assessment Tool: ZEKE-7 Assessment 39112 ([id number]) PHQ-9 - 39407 - PHQ-9 Billing: Yes ([id number]) Assessment & Plan Assessment & Plan (1) COPD (chronic obstructive pulmonary disease): Comment: Lung CA screen program at [facility], last CT 12/2023, patient intolerant to powder inhalers, 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 She has PFTs schedule at [facility] and follow-up with flyer repairer there (2) Vitamin D deficiency: Code(s): E55.9 - Vitamin D deficiency, unspecified Category: Medical Plan: Check vitamin-D level continue the supplement (3) Annual physical exam: Code(s): Z00.00 - Encounter for general adult medical examination without abnormal findings Category: Medical Plan: Well-balanced diet regular physical activity tobacco quitting discussed with the patient. She will schedule mammogram and is up-to-date with colonoscopy at [place], patient will return for fasting blood work (4) Cervical myelopathy: Comment: s/p ant cervical fusion C3-4, 06/2024 Dr. Esparza Code(s): G95.9 - Disease of spinal cord, unspecified Category: Medical Plan: Follow-up with Spine center (5) Hypertension: Code(s): I10 - Essential (primary) hypertension Category: Medical Plan: Continue current medications (6) Rheumatoid arthritis: Comment: Established with data warehouse specialist no active treatment Code(s): M06.9 - Rheumatoid arthritis, unspecified Category: Medical Plan: Follow-up with Rheumatology (7) Sinusitis: Code(s): J32.9 - Chronic sinusitis, unspecified Category: Medical Qualifiers: Sinusitis location: frontal Chronicity: acute Recurrence: not specif ied as recurrent Qualified Code(s): J01.10 - Acute frontal sinusitis, unspecified Plan: Z-Brendon and prednisone taper prescribed (8) Osteoporosis: Comment: DEXA 05/2022 T score -2.5, osteoporotic risk fracture 2022, Fosamax started 11/05 Code(s): M81.0 - Age-related osteoporosis without current pathological fracture Category: Medical Qualifiers: Osteoporosis type: age-related Presence of current pathological fracture: with current pathological fracture Encounter type: initial encounter Qualified Code(s): M80.00XA - Age-related osteoporosis with current pathological fracture, unspecified site, initial encounter for fracture Plan: Continue Fosamax and vitamin-D Orders: Orders Comprehensive [place]. Panel Fast Today E55.9 - Vitamin D deficiency, unspecified, J44.9 - Chronic obstructive pulmonary disease, unspecified, M80.00XA - Age-relat ed osteoporosis with current pathological fracture, unspecified site, initial encounter for fracture, Z00.00 - Encounter for general adult medical examination without abnormal findings Hemoglobin A1c Today E55.9 - Vitamin D deficiency, unspecified, J44.9 - Chronic obstructive pulmonary disease, unspecified, M80.00XA - Age-related osteoporosis with current pathological fracture, unspecified site, initial encounter for fracture, Z00.00 - Encounter for general adult medical examination without abnormal findings Lipid Panel Today E55.9 - Vitamin D deficiency, unspecified, J44.9 - Chronic obstructive pulmonary disease, unspecified, M80.00XA - Age-related osteoporosis with current pathological fracture, unspecified site, initial encounter for fracture, Z00.00 - Encounter for general adult medical examination without abnormal findings Complete Blood Count Auto Diff Today E55.9 - Vitamin D deficiency, unspecified, J44.9 - Chronic obstructive pulmonary disease, unspecified, M80.00XA - Age- related osteoporosis with current pathological fracture, unspecified site, initial encounter for fracture, Z00.00 - Encounter for general adult medical examination without abnormal findings Microalbumin, Random (w Creat) Today E55.9 - Vitamin D deficiency, unspecified, J44.9 - Chronic obstructive pulmonary disease, unspecified, M80.00XA - Age- related osteoporosis with current pathological fracture, unspecified site, initial encounter for fracture, Z00.00 - Encounter for general adult medical examination without abnormal findings UA w Microscopic Today E55.9 - Vitamin D deficiency, unspecified, J44.9 - Chronic obstructive pulmonary disease, unspecified, M80.00XA - Age-related osteoporosis with current pathological fracture, unspecified site, initial encounter for fracture, Z00.00 - Encounter for general adult medical examination without abnormal findings Medications: New silver (Acticoat Dressing) 1 ea topical .qd 24 ea 0RF prednisone 4 tabl qd x 3, then 3 tabl qd x3. then 2 tabl x 3, then 1 qd x3 10 mg PO DAILY 30 tabs 0RF azithromycin 2 tabl po x 1 day, then 1 QD x 4 days 250 mg PO DAILY 6 days 6 tabs 0RF Refilled lisinopril 30 mg PO DAILY 90 tabs 3RF aspirin 1 tab PO DAILY 90 tabs 3RF Discontinued diltiazem HCl ER (Tiadylt ER) Discontinued Reason: Doctor's Order 240 mg PO DAILY oxycodone Partial Fill upon patient request. Discontinued Reason: Doctor's Order 5 mg PO Q6H PRN 20 tabs 0RF pain (scale score 7-10)
== END 2024-11-23 09:31 | disposition home or self-care (01) ==
LOC: HO.HMCC 08:00
PROVIDERS: PCP Internal Medicine; Visit Provider Internal Medicine
DX: Z00.00 Encounter for general adult medical examination without abnormal findings (principal); J44.9 Chronic obstructive pulmonary disease, unspecified; G95.9 Disease of spinal cord, unspecified; M06.9 Rheumatoid arthritis, unspecified; E55.9 Vitamin D deficiency, unspecified; I10 Essential (primary) hypertension; J01.10 Acute frontal sinusitis, unspecified; M80.00XA Age-related osteoporosis with current pathological fracture, unspecified site, initial encounter for fracture

== ENCOUNTER → 2024-11-23 08:00 | Outpatient (BNVA) | payer OTHER, SELFPAY | PROVIDERS: PCP Internal Medicine; Visit Provider Internal Medicine | DX: Z00.00 Encounter for general adult medical examination without abnormal findings (principal); J44.9 Chronic obstructive pulmonary disease, unspecified; E55.9 Vitamin D deficiency, unspecified; G95.9 Disease of spinal cord, unspecified; I10 Essential (primary) hypertension; M06.9 Rheumatoid arthritis, unspecified; J01.10 Acute frontal sinusitis, unspecified; M80.00XA Age-related osteoporosis with current pathological fracture, unspecified site, initial encounter for fracture; Z98.1 Arthrodesis status | CPT/HCPCS: 96127 ==

== ENCOUNTER 2024-11-28 11:55 | Outpatient (REF) | payer OTHER, SELFPAY ==
[2024-11-28 13:00] LABS: MANUAL DIFF FLAG NO
[2024-11-28 13:22] LABS: Basophils Absolute Auto 0.1 X10*3/uL (0.0-0.2); Basophils Percent Auto 0.9 % (0-2); Eosinophils Percent Auto 0.1 % (0-4); Hematocrit 38.1 % (37.0-47.0); Hemoglobin 12.9 g/dl (12.0-16.0); Imm Gran Abs Auto 0.03 X10*3/uL (0.00-0.03); Imm Gran Pct Auto 0.4 % (0.0-0.4); Lymphocytes Absolute Auto 0.8 X10*3/uL (1.2-4.9); Lymphocytes Percent Auto 10.4 % (20-40); Mean Corpuscular HGB Conc 33.9 g/dl (31.0-35.0); Mean Corpuscular Hemoglobin 34.1 pg (27.0-33.0); Mean Corpuscular Volume 100.8 fL (80.0-98.0); Mean Platelet Volume 8.5 fL (9.4-12.3); Monocytes Absolute Auto 0.4 X10*3/uL (0.1-1.2); Monocytes Percent Auto 5.5 % (2-11); Neutrophils Absolute Auto 6.4 x10*3/uL (2.0-8.3); Neutrophils Percent Auto 82.7 % (45-73); Platelet Count 349 X10*3/uL (160-400); Red Blood Count 3.78 X10*6/uL (4.20-5.50); White Blood Count 7.7 X10*3/uL (4.8-10.8)
[2024-11-28 13:32] LABS: Alanine Aminotransferase 21 U/L (0-31); Albumin Level 4.6 g/dL (3.5-5.0); Alkaline Phosphatase 61 U/L (39-117); Anion Gap 14 (12-20); Aspartate Amino Transferase 24 U/L (5-31); Bilirubin Total 0.4 mg/dL (0.0-1.0); Blood Urea Nitrogen 4 mg/dL (9-16); Calcium 9.6 mg/dL (8.4-10.2); Carbon Dioxide 26 mmol/L (22-29); Chloride 97 mmol/L (96-108); Cholesterol 205 mg/dL (<200); Estimated Glomerular Filt Rate > 60; Glucose Fasting 97 mg/dL (60-99); HDL Cholesterol 81 mg/dL (>40); LDL Cholesterol Calculated 98 mg/dL (<100); Sodium 133 mmol/L (135-145); Total Protein 7.7 g/dL (6.5-8.0); Triglycerides 134 mg/dL (<150)
[2024-11-28 13:38] LABS: Estimated Average Glucose 97 mg/dL
[2024-11-28 13:58] LABS: Appearance Urine Clear; Color Urine Yellow; Glucose Urine UA Negative (Negative); Leukocyte Esterase Urine Negative (Negative); Nitrite Urine Negative (Negative); PH 6.5 (5.0-9.0); Specific Gravity - Urine <= 1.005 (1.005-1.025); UMIC TRIGGER UA YES; Urine Blood Small (1+) (Negative); Urine Ketones Negative (Negative); Urine Protein Trace mg/dL (Neg-Trace)
[2024-11-28 14:14] LABS: Creatinine Urine 13.12 mg/dL; Microalbum/Creatinine Ratio Ur 1120.4 ug/mg cr (<30)
[2024-11-28 14:17] LABS: Bacteria Urine None Seen (None Seen); Hyaline Casts Urine 0-2 /LPF (0-2); RBC Urine 0-2 /HPF (0-2); Squamous Epithelial Cell Urine 0-2 /HPF (0-2); WBC Urine 0-5 /HPF (0-5)
== END 2024-11-28 11:56 | disposition home or self-care (01) ==
LOC: HO.HMGCLDS 11:55
PROVIDERS: PCP Internal Medicine; Visit Provider Internal Medicine
DX: Z00.00 Encounter for general adult medical examination without abnormal findings (principal); J44.9 Chronic obstructive pulmonary disease, unspecified; M80.00XA Age-related osteoporosis with current pathological fracture, unspecified site, initial encounter for fracture; E55.9 Vitamin D deficiency, unspecified; Z13.1 Encounter for screening for diabetes mellitus
CPT/HCPCS: 36415; 80053; 80061; 81001; 82043; 82570; 83036; 85025

== ENCOUNTER 2025-02-27 16:13 | Outpatient (REF) | payer OTHER, SELFPAY ==
[2025-02-28 11:22] LABS: Influenza A PCR NEGATIVE (Negative); Influenza B PCR NEGATIVE (Negative); Resp Syncy Virus RNA Qual PCR NEGATIVE (Negative); SARS COV2 PCR INHOUSE NEGATIVE (Negative)
== END 2025-02-27 16:14 | disposition home or self-care (01) ==
LOC: HO.LAB 16:13
PROVIDERS: Physician Assistant; PCP Internal Medicine
DX: J06.9 Acute upper respiratory infection, unspecified (principal); R09.89 Other specified symptoms and signs involving the circulatory and respiratory systems
CPT/HCPCS: 0241U

== ENCOUNTER 2025-02-27 16:13 | Outpatient (AMB) | payer OTHER, SELFPAY ==
--- NOTE | 2025-02-27 16:21 | AM.OFFWIN_ITS ---
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 user Erecting Engineer Required: No Allergies doxycycline Allergy (Intermediate, Verified 02/27/25 16:26) nausea, vomiting onion Allergy (Intermediate, Verified 02/27/25 16:26) Vomiting Tetracyclines Allergy (Intermediate, Verified 02/27/25 16:26) Nausea and Vomiting fluticasone furoate [From Trelegy Ellipta] Adverse Reaction (Intermediate, Verified 02/27/25 16:26) Dry Mucus Membranes Penicillins Adverse Reaction (Intermediate, Verified 02/27/25 16:26) Nausea and Vomiting umeclidinium [From Trelegy Ellipta] Adverse Reaction (Intermediate, Verified 02/27/25 16:26) Dry Mucus Membranes vilanterol [From Trelegy Ellipta] Adverse Reaction (Intermediate, Verified 02/27/25 16:26) Dry Mucus Membranes inhaled anticholinergic steroids Adverse Reaction (Intermediate, Uncoded 5 08:15) dry mucous membranes Do you need a note to return to daycare/school/sports/work: Yes HPI HPI Comments History of Present Illness Details History - The patient is a 64-year-old female pr esenting with acute cough and fever. - The cough has persisted for more than a week, approximately 10 days, and is associated with her underlying COPD. - The patient reports a history of heart infection leading to a heart attack, which raises her concern about current symptoms. - She has experienced a persistent fever with temperatures reaching 102?F, which has been ongoing daily. - The patient had an adverse reaction to a medication over the weekend, causing her tongue to swell, leading to discontinuation of the medication. - She reports tinnitus, described as rin ging in the ears, persisting for more than a week. Physical Exam General: Cooperative, healthy appearing, comfortable and no acute distress Orientation/consciousness: Patient oriented x3 Limitations: No limitations Head: Normal to inspection Ears: Hearing grossly normal bilaterally, external ears normal and TM's normal bilaterally Nose: Normal external nose present, Normal nares present and No nasal discharge present Face and sinus: Normal facial exam and sinuses tender to palpation Mouth: Normal oral and palatal mucosa present and moist mucous membranes Throat: Yes tonsils normal, Yes uvula midline. Posterior oropharynx erythema, no exudates Eyes: Appearance normal, both eyes and all related structures Neck: Normal visual inspection, full ROM Respiratory: Clear to auscultation bilaterally. Normal respiratory effort, able to speak in complete sentences, Actively coughing, no respiratory distress, not tachypneic, no tripod positioning and no use of accessory muscles Cardiovascular: Regular rate and rhythm. Normal S1 and S2 Skin: No rashes or lesions noted Neuro: Patient oriented x3 Extremities: Normal to inspection and Yes no clubbing, cyanosis or edema PFSH Medical History (Updated 02/27/25 @ 16:39 by Shila Martinez PA-C) Back pain Migraine Anxiety Depression Lumbar herniated disc Deviated nasal septum Asthma Mitral valve prolapse Right ankle pain VIKAS (obstructive sleep apnea) STEMI (ST elevation myocardial infarction) Mitral regurgitation Tobacco dependence due to cigarettes Alcohol abuse Easy bruising Scoliosis Degenerative disc disease, lumbar COPD (chronic obstructive pulmonary disease) Muscle spasms of neck Rheumatoid arthritis Bursitis of both hips Hypertension Osteoarthritis Surgical History (Updated 11/23/24 @ 08:44 by Yun Wynne MD) Hx of cervical discectomy Hx of shoulder surgery (~01/28/24) History of lumbar surgery Hx of left knee surgery History of ankle surgery Hx of shoulder surgery H/O eye surgery H/O colonoscopy Hx of cataract extraction History of open reduction and internal fixation (ORIF) procedure History of lumbar discectomy Family History Mother Substance use disorder Father Substance use disorder Maternal Aunt Substance use disorder Maternal Uncle Substance use disorder Paternal Uncle Substance use disorder Paternal Aunt Substance use disorder Social History Household Members: Significant Other Housing: Apartment Are you a primary career technical education teacher to a significant other at home: No Do you presently have visiting nurse or other home services: No Alcohol intake: current Alcohol intake frequency: 3 or more drinks per day Alcohol type: beer Patient Tobacco Use Status: Current everyday Tobacco user Tobacco use type: Cigarette Cigarettes Per Day: 7 Years Smoked: 50 e-Cigarette/Vaping Use: Never Used service: No 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al status: employed and disabled 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 - Await results of flu, COVID-19, and RSV tests to determine the cause of fever and cough. - Prescribe Tessalon Perles for cough suppression to aid in sleep. - If viral tests are negative, consider prescribing antibiotics to address potential bacterial infection. - Monitor for any further adverse reactions to medications and adjust treatment as necessary. Patient was informed and verbally consented to the use of an ambient scribe for clinic note documentation during this visit Orders: Orders SARS-CoV2/FLU/RSV Today R09.89 - Other specified symptoms and signs involving the circulatory and respiratory systems Medications: New benzonatate 200 mg PO BEDTIME PRN 10 caps 0RF cough Coding Level of Care Code Est Pt Level 3 (41604) Diagnoses URI, acute J06.9
[2025-02-27 16:22] VITALS: BP 136/90; PULSE 86; TEMP 36.7; O2SAT 96; BMI 20.8
--- OUTSIDE RECORDS SUMMARY | 2025-02-27 18:29 | XMS_ITS | Clinical Summary ---
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
== END 2025-02-27 16:40 | disposition home or self-care (01) ==
PROVIDERS: PCP Internal Medicine; Visit Provider Physician Assistant
DX: J06.9 Acute upper respiratory infection, unspecified (principal)

== ENCOUNTER 2025-03-20 15:55 | Outpatient (AMB) | payer OTHER, SELFPAY ==
[2025-03-20 16:02] VITALS: BP 118/54; PULSE 87; TEMP 36.6; O2SAT 94; BMI 21.1
--- NOTE | 2025-03-20 16:02 | MHC.OFFWIV ---
Intake Vital Signs 03/20/25 16:02 Height 5 ft 5 in Weight 127 lb BMI 21.1 BP 118/54 L Blood Pressure Location Rt brachial Position Sitting Pulse 87 Pulse Source Pulse Oximeter Temp 98 F Temp Source Oral Pulse Oximetry (%) 94 Oxygen Delivery Method Room Air Intake Visit Reasons: EP Sinus infection, cough Intake Note: presents with unresolved sinus infection and URI, also c/o left foot and ankle pain Patient Tobacco Use Status: Current everyday Tobacco user Allergies doxycycline Allergy (Intermediate, Verified 03/20/25 16:03) nausea, vomiting onion Allergy (Intermediate, Verified 03/20/25 16:03) Vomiting Tetracyclines Allergy (Intermediate, Verified 03/20/25 16:03) Nausea and Vomiting fluticasone furoate (From Trelegy Ellipta) Adverse Reaction (Intermediate, Verified 03/20/25 16:03) Dry Mucus Membranes Penicillins Adverse Reaction (Intermediate, Verified 03/20/25 16:03) Nausea and Vomiting umeclidinium (From Trelegy Ellipta) Adverse Reaction (Intermediate, Verified 03/20/25 16:03) Dry Mucus Membranes vilanterol (From Trelegy Ellipta) Adverse Reaction (Intermediate, Verified 03/20/25 16:03) Dry Mucus Membranes inhaled anticholinergic steroids Adverse Reaction (Intermediate, Uncoded 11/23/24 08:15) dry mucous membranes Do you need a note to return to daycare/school/sports/work: Yes Return to daycare/school/sports/work/other note: work HPI HPI Comments History of Present Illness Details History - The patient is a 64-year-old female presenting with persistent sinusitis and swelling in the foot and leg. - Sinusitis: The patient reports having a sinus infection for a week or two before her initial visit. - She was prescribed Azithromycin (Zithromax) but reports no improvement in symptoms. - Symptoms include upper respiratory congestion with green nasal discharge, extending to the chest and throat. - COVID-19, influenza, and RSV tests were negative during the last visit. - She contunues with congestion, green phlegm and a cough. - She denies fever or chills. - Peripheral edema: The patient noticed swelling in her foot and leg over the weekend, persisting throughout the week. - She worked a longer shift on Wednesday, standing for nine hours, which may have contributed to the swelling. - The swelling has not subsided despite rest, and she experiences pain extending up the leg. - She does not use compression stockings or diuretics. - She has no associated CP, SOB, or calf pain. - She had no trauma or falls. - She denies recent travel in a car or plane for a long period of time. Physical Exam General: Cooperative, healthy appearing, comfortable and no acute distress Orientation/consciousness: Patient oriented x3 Limitations: No limitations Head: Normal to inspection Ears: Hearing grossly normal bilaterally, external ears normal and TM's normal bilaterally Nose: Normal external nose present, normal nares present, and green nasal discharge present. Face and sinus: Sinuses tender to palpation. Mouth: Normal oral and palatal mucosa present and moist mucous membranes noted. Throat: Tonsils normal. Uvula is midline. Posterior oropharynx with erythema and no exudates. Eyes: Appearance normal, both eyes and all related structures Neck: Normal visual inspection, full ROM. No lymphadenopathy noted. Respiratory: Clear to auscultation bilaterally. Normal respiratory effort, able to speak in complete sentences. No respiratory distress, not tachypneic, no tripod positioning and no use of accessory muscles. Occasional cough noted, with difficulty catching breath. Cardiovascular: Regular rate and rhythm. Normal S1 and S2 Skin: No rashes or lesions noted. 3+ pitting edema noted on the left foot, no warmth noted. 2+ pitting edema noted on the left lower leg. Patient was informed and verbally consented to the use of an ambient scribe for clinic note documentation during this visit [facility] Medical History (Updated 02/27/25 @ 16:39 by Shila Martinez PA-C) Back pain Migraine Anxiety Depression Lumbar herniated disc Deviated nasal septum Asthma Mitral valve prolapse Right ankle pain VIKAS (obstructive sleep apnea) STEMI (ST elevation myocardial infarction) Mitral regurgitation Tobacco dependence due to cigarettes Alcohol abuse Easy bruising Scoliosis Degenerative disc disease, lumbar COPD (chronic obstructive pulmonary disease) Muscle spasms of neck Rheumatoid arthritis Bursitis of both hips Hypertension Osteoarthritis Surgical History (Updated 11/23/24 @ 08:44 by Yun Wynne MD) Hx of cervical discectomy Hx of shoulder surgery (~01/28/24) History of lumbar surgery Hx of left knee surgery History of ankle surgery Hx of shoulder surgery H/O eye surgery H/O colonoscopy Hx of cataract extraction History of open reduction and internal fixation (ORIF) procedure History of lumbar discectomy Family History Mother Substance use disorder Father Substance use disorder Maternal Aunt Substance use disorder Maternal Uncle Substance use disorder Paternal Uncle Substance use disorder Paternal Aunt Substance use disorder Social History Household Members: Significant Other Housing: Apartment Are you a primary urgent care nurse practitioner to a significant other at home: No Do you presently have visiting nurse or other home services: No Alcohol intake: current Alcohol intake frequency: 3 or more drinks per day Alcohol type: beer Patient Tobacco Use Status: Current everyday Tobacco user Tobacco use type: Cigarette Cigarettes Per Day: 7 Years Smoked: 50 e-Cigarette/Vaping Use: Never Used service: No 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al status: employed and disabled 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: [employer], 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 Cognitive needs: No Hearing needs: No Vision needs: Yes Review of Systems Const All systems reviewed & are unremarkable except as noted in HPI and below Physical Exam Vital Signs: Last Vital Signs Temp 98 F 03/20/25 16:02 Pulse 87 03/20/25 16:02 BP 118/54 L 03/20/25 16:02 Pulse Ox 94 03/20/25 16:02 Oxygen Delivery Method Room Air 03/20/25 16:02 BMI result Body Mass Index 21.1 Assessment & Plan Assessment & Plan (1) URI with cough and congestion: Code(s): J06.9 - Acute upper respiratory infection, unspecified (2) Swelling of left foot: Code(s): M79.89 - Other specified soft tissue disorders Plan Plan - Prescribe a course of antibiotics to address the persistent sinusitis. - Prescribe diuretics for five days to manage peripheral edema. - Recommend the use of compression stockings to aid in reducing leg swelling. - Advise follow-up with a primary care physician if swelling persists. - May need an u/s if it continues. - Provide a note for work absence to allow rest and recovery. - VSS, pt well appearing Medications: New furosemide (Lasix) 20 mg PO DAILY 5 tabs 0RF 5 days amoxicillin-pot clavulanate 875-125 mg 1 tab PO Q12H 20 tabs 0RF 10 days comp.stocking,thigh,short,smal As directed 2 ea 0RF Coding Level of Care Code Est Pt Level 4 (82648) Diagnoses URI with cough and congestion J06.9 Swelling of left foot M79.89
--- OUTSIDE RECORDS SUMMARY | 2025-03-20 16:10 | XMS_ITS | Clinical Summary ---
Author Organization [address] [facility] Address [address] [place] [address] Phone Care Team Providers Care Ldr Rn Name Role Phone Yun Wynne MD Primary Care Provider [phone] Allergies Active Allergy Reactions Criticality Noted Date Comments Clindamycin GI intolerance 12/03/2022 Gastritis Doxycycline Hyclate 01/25/2020 Nausea Jpulptodnme-Uatnhpndu-Jqnvtg e r Medium 03/31/2021 Gum bleed. Onion [...] 2 (two) times a day. 3 Active albuterol HFA (PROAIR HFA ; [...] mg total) by mouth. 2 Active lisinopriL (PRINIVIL,ZEST RIL) 30 mg tablet Take 1 tablet (30 [...] 1 (one) time each day. 2 Active cholecalcifero l (VITAMIN D-3) 50 mcg (2,000 unit) tablet [...] 3 weeks. 2 Active sodium chloride-aloe vera (Auburn Saline) gel topical gel 1 Dose by [...] MOUTH DAILY 90 tablet 3 4 Active fluticasone-sa lmeterol (ADVAIR DISKUS) 250-50 mcg/dose diskus inhaler Inhale 1 puff by mouth 2 (two) times a day. Rinse mouth with water after use to reduce aftertaste and incidence of candidiasis. Do not swallow. Active Vitamin B-1 100 mg tablet Take 1 tablet (100 mg total) by mouth 1 (one) time each day. [address] (ENTOCORT EC) 3 mg 24 hr capsule Take 3 capsules (9 mg total) by mouth 1 (one) time each day in the morning. 90 each [address] (ENTOCORT EC) 3 mg 24 hr capsule Take 3 capsules (9 mg total) by mouth 1 (one) time each day in the morning. 90 each 2 5 025 Discontin ued(Reord er) Active Problems Problem Noted Date Diagnosed Date Chronic sinusitis 09/11/2024 Environmental allergies 05/17/2024 Sleep apnea, primary central 08/11/2022 Overview (06/09/2024): MIxed Sleep apnea , primarily central AHI [facility] Home Sleep Apnea Test: Date ; BMI [...] 1/2 PPD (November 2021) Emphysema of lung (CMS/HCC V24, CMS/HCC V28) Overview (06/09/2024): COPD/emphysema of lung PFTs 2013 - normal LDCT 2019 - emphysematous changes. 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 (mitral valve prolapse) Environmental allergies DX:Envir onmental [...] Date Smoking Tobacco: Every Day Cigarettes 0.3 50.5 Started: 1973 Smokeless Tobacco: Never Tobacco Cessation:Ready [...] 82 09/11/2024 8:55 AM EST Temperature 36.8 C (98.2 F) 09/11/2024 8:55 AM EST Respiratory Rate 18 09/11/2024 8:55 AM EST Oxygen Saturation 96% 09/11/2024 8:55 AM EST Inhaled Oxygen Concentration - - Weight 57.1 kg (125 lb 12.8 oz) 09/11/2024 8:55 AM EST Height 165.1 cm (5' 5 ) 09/11/2024 8:55 AM EST Body Mass Index 20.93 09/11/2024 8:55 AM EST Plan of Treatment Upcoming Encounters Date Type Department Care Team (Late st Contact Info) Description 05/31/2025 8:30 AM EDT Office Visit Gastroenterology - [place] [address] [place] [id number] Aimee Gil PA [address] [place] [address] Health Maintenance Due Date Last Done Comments Hepatitis A Vaccines (1 of 2 - Risk 2-dose series) 1980 Pneumococcal Vaccine: 50+ Years (2 of 2 - PCV) 07/23/2016 07/23/2015 Pneumococcal Vaccine: Pediatrics (0 to 5 Years) and At-Risk Patients (6 to 49 Years) (2 of 2 - PCV) 07/23/2016 07/23/2015 Cervical Cancer Screening: Pap Smear 06/20/2018 06/20/2015, 06/20/2015 RSV Immunization Adult Patients (1 - Risk 60-74 years 1-dose series) 2021 Depression Screening 08/22/2022 HIV Screening 08/22/2022 Social Influencers of Health Screening 08/22/2022 Hypertension/CHF/CAD Annual BMP Blood Test 08/23/2022 12/24/2020 COVID-19 Vaccine ( season) 2024 09/26/2021, 02/05/2021, 01/08/2021 Cholesterol Screening (Lipid Panel) 01/17/2025 01/18/2020 Lung Cancer Screening (Low Dose CT) 04/19/2025 04/19/2024, 04/12/2023, 04/10/2022, Additional history exists Influenza Vaccine (#1) 2025 Breast Cancer Screening 12/09/2025 12/10/19 24, 12/02/2022, [...] age to complete this topic Meningococcal B Vaccine Aged Out No l onger eligible based on patient's age to complete [...] AM EDT Narrative 04/19/2024 7:15 PM EDT [facility] Diagnostic Imaging Department [address] [place] [id number] Patient: URVASHI WAKEFIELD /Age/Sex: 1960 - 63 - F Unit#: [id number] Location/Status: SPDICATLS/REG CLI Mnemonic/[facility] Ordering Physician: DAVIS MACK MD CT Lung Screening Low Dose - 04/16/24 - 807 Report Status:Signed PROCEDURE: Chest CT INDICATION: Lung cancer screening, current smoker, 48 pack year smoking history TECHNIQUE: Chest CT without contrast. Multi planar reformats were created and interpreted. The examination was performed utilizing dose reduction techniques. Total DLP 180 COMPARISON: 04/12/2023 FINDINGS: LUNGS/PLEURA: Central airways are patent. Emphysema. 2 mm right upper lobe nodule is stable compared to prior. No new or suspicious pulmonary nodules. No pleural effusion or pneumothorax. MEDIASTINUM: Thyroid [...] MD Dic Date/Time: 04/19/241824 Sign date/Time: 04/19/241914 Procedure Note Kingsley Fontanez MD - 06/28/2024 [facility] Diagnostic Imaging Department [address] [place] [id number] Patient: URVASHI WAKEFIELD /Age/Sex: 1960 - 63 - F Unit#: [id number] Location/Status: [facility] CLI Mnemonic/Ordering Site: [facility] Ordering Physician: DAVIS MACK MD CT [...] Signed by: KINGSLEY FONTANEZ MD Dic Date/Time: 04/19/24 1825 Sign date/Time: 04/19/24 1915 Davis Mack MD IMG CT PROCEDURES Final [...] % Breast cancer risk category Low (<15%) Kemi Patiño MD IMG XR PROCEDURES Final Result * Annual BMP Blood Test (12/24/2020) Annual BMP Blood Test Abstracted Historical Provider HEALTH MAINTENANCE Final Result * Colonoscopy (03/01/2020) [facility] Colonoscopy Abstracted, no interpretation Anatomical Region Laterality Modality Other [facility] Provider HEALTH MAINTENANCE Final Result * (ABNORMAL) Lipid panel (01/18/2020) [facility] LDL/HDL Ratio 3 0 - 4 Triglycerides 99 0 - 150 mg/dL Cholesterol 190 0 - 200 mg/dL HDL 61 >=40 mg/dL LDL Cholesterol 110(A) 0 - 100 mg/dL Blood Venous blood specimen / Unknown [facility] Provider LAB BLOOD ORDERABLES [facility] Result * Cervical Cancer Screening: HPV (06/20/2015) [facility] Cervical Cancer Screening: HPV Abstracted, negative [facility] Provider HEALTH MAINTENANCE Final Result * Hepatitis C Screening (03/04/2013) [facility] Hepatitis C Screening Abstracted [facility] Provider HEALTH MAINTENANCE Final Result from Last 3 Months or Most Recently Relevant to Health Maintenance Insurance [employer] [facility] Care Teams Ldr Rn Relationship Specialty Start Date End Date Yun Wynne MD [address] [place] [phone] PCP - General Internal Medicine 03/08/25
--- OUTSIDE RECORDS SUMMARY | 2025-03-20 16:10 | XMS_ITS | Encounter Summary ---
Author Organization [facility] Address [address] [place] [address] Care Team Providers Care Lean Manufacturing Engineer Name Role Phone Yessy Jung MD Primary Care Provider Unava Kemi Su MD Primary Care Provider [phone] Yun Wynne MD Primary Care Provider Unavaila ble [facility] Yun Wynne MD Primary Care Provider Unavaila ble Reason for Visit * Reason Onset Date Comments Pre Op Visit Cancelled 09/20/2018 Encounter Details Date Type Department Care Team Description 09/20/2018 Telephone Adult [address] [address] Yessy Jung MD Pre Op Visit Cancelled Social History Tobacco Use Types Packs/Day Years Used Date Smoking Tobacco: Every Day Cigarettes 1 43 Smokeless Tobacco: Never Comments:had nicotine patche s in the past Alcohol Use Standard Drinks/Week Comments Yes 0 (1 standard drink = 0.6 oz pur e alcohol) 6-12 beers per day. Alcohol Habits Answer Date Recorded How often do you have a drin k containing alcohol? 4 or more times a week 02/29/2020 How many drinks containing a lcohol do you have on a typical day when you are drinking? 7 to 9 02/29/2020 How often do you have six or more drinks on one occasion? Daily or almost daily 02/29/2020 Sex Assigned at Date Recorded Not on file Job Start Date Occupation Industry Not on file Not on file Not on file documented as of this encounter Miscellaneous Notes * Telephone Encounter - Fiorella Singh - 09/29/2018 3:34 PM EST Appointment rescheduled. * Telephone Encounter - Alessandra Salmeron - 09/29/2018 2:55 PM EST Patient states that she cannot make her Pre-op EKG tomorrow or the pre-op scheduled for 10/04/18, please call to reschedule. * Telephone Encounter - Frederick Paniagua - 09/20/2018 4:13 PM EST Date of surgery:TBD What surgery is patient having (gall bladder, cataract, appendix, etc...)?: Spinal cord surgery Surgeon's name: Rufino delcid Office phone number of surgeon: [phone] Fax # for surgeons office: [phone] Where is surgery being performed? [facility] Diagnosis/problem for surgery: Compression in neck and back PCP: Yessy Jung Did you verify that the insurance below is correct? YES Patients insurance: Payor: [employer] / Plan: POS $20 [employer] [id number] / Product Type: POS [id number] documented in this encounter Plan of Treatment Not on file documented as of this encounter Visit Diagnoses Not on filedocumented in this encounter Care Teams Lean Manufacturing Engineer Relationship Specialty Start Date End Date Yessy Jung MD PCP - General Internal Medicine 08/26/11 02/27/21 Kemi Patiño MD [address] [place] [address] PCP - General Internal Medicine 02/28/21 04/14/22 Yun Wynne MD [address] [place] [id number] PCP - General Internal Medicine 04/15/22 06/08/22 [facility], [place] [id number] PCP - General Internal Medicine 06/09/22 08/24/22 Yun Wynne MD [address] [place] [address] PCP - General Internal Medicine 08/25/22 documented as of this encounter
--- OUTSIDE RECORDS SUMMARY | 2025-03-20 16:10 | XMS_ITS | Clinical Summary ---
Author Organization [facility] Facility Address [address] [place] [address] Care Team Providers Care Professor Of Law Name Role Phone Unavailable Primary Care Provider [...] - PCV) 07/23/2016 07/23/2015 Influenza Vaccine (#1) 2025 Pneumococcal Vaccine: Peds ( 0 to 5 Years) and At-Risk Patients (6 to 49 Years) Discontinued 07/23/2015 Hepatitis B Vaccine Aged Out No longe r eligible based on patient's age to [place] [id number] Comprehensive Benefits
== END 2025-03-20 16:40 | disposition home or self-care (01) ==
PROVIDERS: PCP Internal Medicine; Visit Provider Physician Assistant Medical
DX: J06.9 Acute upper respiratory infection, unspecified (principal); M79.89 Other specified soft tissue disorders

== ENCOUNTER 2025-04-05 15:57 | Outpatient (AMB) | payer OTHER, SELFPAY ==
--- OUTSIDE RECORDS SUMMARY | 2025-04-05 15:58 | XMS_ITS | Clinical Summary ---
Author Organization [facility] Facility Address [address] [place] [id number] Care Team Providers Care Outdoor Illuminating Engineer Name Role Phone Unavailable Primary Care Provider [...] complete [place] [id number] Comprehensive Benefits
--- OUTSIDE RECORDS SUMMARY | 2025-04-05 15:59 | XMS_ITS | Clinical Summary ---
Author Organization [facility] Address [address] [place] [address] Phone Care Team Providers Care Neurourologist Name Role Phone Yun Wynne MD Primary Care Provider [phone] Allergies Active Allergy Reactions Criticality Noted Date Comments Clindamycin GI intolerance 12/03/2022 Gastritis Doxycycline Hyclate 01/25/2020 Nausea Lfmlskukarp-Ssvehqard-Vqprdi e r Medium 03/31/2021 Gum bleed. Onion [...] 3 weeks. 2 Active sodium chloride-aloe vera (Dietrich Saline) gel topical gel 1 Dose by [...] in the morning. 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 (mitral valve prolapse) Environmental allergies DX:Envir onmental [...] Care Team (Late st Contact Info) Description 04/17/2025 2:00 PM EDT Appointment [facility] CT Scan [address] [place] [phone] 05/31/2025 8:30 AM EDT Office Visit Gastroenterology - [place] [address] [facility] [address] [facility] [address] [place] [phone] Aimee Gil PA [address] [facility] [address] [place] [address] Health Maintenance Due Date Last Done Comments Hepatitis A Vaccines (1 of 2 - Risk 2-dose series) 1980 Pneumococcal Vaccine: 50+ Years (2 of 2 - PCV) 07/23/2016 07/23/2015 Cervical Cancer Screening: Pap Smear 06/20/2018 06/20/2015, 06/20/2015 RSV Immunization Adult Patients (1 - Risk 60-74 years 1-dose series) 2021 HIV Screening 08/22/2022 Social Influencers of Health Screening 08/22/2022 Hypertension/CHF/CAD Annual BMP Blood Test 08/23/2022 12/24/2020 COVID-19 Vaccine ( season) 2024 09/26/2021, 02/05/2021, 01/08/2021 Depression Screening 09/13/2024 Cholesterol Screening (Lipid Panel) 01/17/2025 01/18/2020 Lung [...] AM EDT Narrative 04/19/2024 7:15 PM EDT [facility] Diagnostic Imaging Department [address] [place] [address] Patient: KATE NUNEZ /Age/Sex: 1960 - 63 - F Unit#: [id number] Location/Status: SPDICATLS/REG CLI Mnemonic/Ordering Site: [facility] Ordering Physician: MARY MACK MD CT Lung Screening Low Dose [...] chest CT in 12 months. Dictating Physician: CHARAN FONTANEZ MD Electronically Signed by: CHARAN FONTANEZ MD Dic Date/Time: 04/19/241824 Sign date/Time: 04/19/241914 Procedure Note Charan Fontanez MD - 06/28/2024 [facility] Diagnostic Imaging Department [address] [place] [address] Patient: KATE NUNEZ /Age/Sex: 1960 - 63 - F Unit#: [id number] [facility] CLI Mnemonic/Ordering Site: [facility] Ordering Physician: MARY MACK MD CT Lung Screening Low Dose - 04/16/24 - 08 Report Status:Signed PROCEDURE: Chest CT INDICATION: Lung [...] chest CT in 12 months. Dictating Physician: CHARAN FONTANEZ MD Electronically Signed by: CHARAN FONTANEZ MD Dic Date/Time: 04/19/24 1825 Sign date/Time: 04/19/24 1915 Mary Mack MD IMG CT PROCEDURES Final Result [...] Breast cancer risk category Low (<15%) Result [facility] Kemi Patiño MD IMG XR PROCEDURES Final Result * Annual BMP Blood Test (12/24/2020) Annual BMP Blood Test Abstracted Result [facility] Historical Provider HEALTH MAINTENANCE Final Result * Colonoscopy (03/01/2020) [facility] Colonoscopy Abstracted, no interpretation Anatomical Region Laterality Modality Other [facility] Provider HEALTH MAINTENANCE Final Result * (ABNORMAL) Lipid panel (01/18/2020) [facility] LDL/HDL Ratio 3 0 - 4 Triglycerides 99 0 - 150 mg/dL Cholesterol 190 0 - 200 mg/dL HDL 61 >=40 mg/dL LDL Cholesterol 110(A) 0 - 100 mg/dL Blood Venous blood specimen / Unknown [facility] Provider LAB BLOOD ORDERABLES [facility] Result * Cervical Cancer Screening: HPV (06/20/2015) [facility] Cervical Cancer Screening: HPV Abstracted, negative [facility] Provider HEALTH MAINTENANCE Final Result * Hepatitis C Screening (03/04/2013) [facility] Hepatitis C Screening Abstracted [facility] Provider HEALTH MAINTENANCE Final Result from Last 3 Months or Most Recently Relevant to Health Maintenance Insurance [place] [employer] [facility] Care Teams Neurourologist Relationship Specialty Start Date End Date Yun Wynne MD PCP - General Internal Medicine 03/08/25
[2025-04-05 16:05] VITALS: BP 138/76; PULSE 68; TEMP 36.3; O2SAT 94; BMI 20.8
--- NOTE | 2025-04-05 16:05 | AM.OFFWIN_ITS ---
Intake Vital Signs 04/05/25 16:05 Height 5 ft 5 in Weight 125 lb BMI 20.8 BP 138/76 Blood Pressure Location Lt brachial Position Sitting Pulse 68 Pulse Source Pulse Oximeter Temp 97.3 F Temp Source Oral Pulse Oximetry (%) 94 Oxygen Delivery Method Room Air Intake Visit Reasons: EP-uti Intake Note: presents with pain to low abdomen and low back, takes a while to pee and only a little comes out Patient Tobacco Use Status: Current everyday Tobacco user Allergies doxycycline Allergy (Intermediate, Verified 04/05/25 16:07) nausea, vomiting onion Allergy (Intermediate, Verified 04/05/25 16:07) Vomiting Tetracyclines Allergy (Intermediate, Verified 04/05/25 16:07) Nausea and Vomiting fluticasone furoate (From Trelegy Ellipta) Adverse Reaction (Intermediate, Verified 04/05/25 16:07) Dry Mucus Membranes Penicillins Adverse Reaction (Intermediate, Verified 04/05/25 16:07) Nausea and Vomiting umeclidinium (From Trelegy Ellipta) Adverse Reaction (Intermediate, Verified 04/05/25 16:07) Dry Mucus Membranes vilanterol (From Trelegy Ellipta) Adverse Reaction (Intermediate, Verified 04/05/25 16:07) Dry Mucus Membranes inhaled anticholinergic steroids Adverse Reaction (Intermediate, Uncoded 11/23/24 08:15) dry mucous membranes Do you need a note to return to daycare/school/sports/work: No HPI HPI Comments History of Present Illness Details History - The patient is a 64-year-old female pr esenting with a urinary tract infection (UTI). - She reports severe lower abdominal africa n with radiation to the back and a sensation of incomplete bladder emptying for the past week. - She denies burning sensation during ur ination but notes urinary frequency and bright yellow urine. - There is some vaginal discharge, but n o associated itching or burning. - The patient has a history of menopausa l symptoms, which she attributes to ongoing changes despite being told she is post-menopausal. - She took a home test and it was positi ve. - She brought urine from home to get tootie tosin. - She denies fever, chills, hematuria, C P, SOB, nausea, vomiting, and abd pain. - She was advised by her PCP not to take Motrin for pain due to her liver. Physical Exam General: Cooperative, healthy appearing, comfortable, no acute distress and well developed Cardiac: Normal S1 and S2. RRR, no M/R/G noted. Respiratory: Normal respiratory effort and able to speak in complete sentences. Clear to auscultation bilaterally. No w/r/r noted. Skin: No rashes or lesions noted. GI: Normal inspection. Normal BS noted. Soft, non-tender, non-distended. No TTP of all 4 quadrants. No guarding or rebound tenderness noted. Back: Negative CVA bilaterally Patient was informed and verbally consented to the use of an ambient scribe for clinic note documentation during this visit. [facility] Medical History (Updated 02/27/25 @ 16:39 by Shila Martinez PA-C) Back pain Migraine Anxiety Depression Lumbar herniated disc Deviated nasal septum Asthma Mitral valve prolapse Right ankle pain VIKAS (obstructive sleep apnea) STEMI (ST elevation myocardial infarction) Mitral regurgitation Tobacco dependence due to cigarettes Alcohol abuse Easy bruising Scoliosis Degenerative disc disease, lumbar COPD (chronic obstructive pulmonary disease) Muscle spasms of neck Rheumatoid arthritis Bursitis of both hips Hypertension Osteoarthritis Surgical History (Updated 11/23/24 @ 08:44 by Yun Wynne MD) Hx of cervical discectomy Hx of shoulder surgery (~01/28/24) History of lumbar surgery Hx of left knee surgery History of ankle surgery Hx of shoulder surgery H/O eye surgery H/O colonoscopy Hx of cataract extraction History of open reduction and internal fixation (ORIF) procedure History of lumbar discectomy Family History Mother Substance use disorder Father Substance use disorder Maternal Aunt Substance use disorder Maternal Uncle Substance use disorder Paternal Uncle Substance use disorder Paternal Aunt Substance use disorder Social History Household Members: Significant Other Housing: Apartment Are you a primary family day care worker to a significant other at home: No Do you presently have visiting nurse or other home services: No Alcohol intake: current Alcohol intake frequency: 3 or more drinks per day Alcohol type: beer Patient Tobacco Use Status: Current everyday Tobacco user Tobacco use type: Cigarette Cigarettes Per Day: 7 Years Smoked: 50 e-Cigarette/Vaping Use: Never Used service: No 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al status: employed and disabled 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: [employer], 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 Cognitive needs: No Hearing needs: No Vision needs: Yes Review of Systems Const All systems reviewed & are unremarkable except as noted in HPI and below Physical Exam Vital Signs: Last Vital Signs Temp 97.3 F 04/05/25 16:05 Pulse 68 04/05/25 16:05 BP 138/76 04/05/25 16:05 Pulse Ox 94 04/05/25 16:05 Oxygen Delivery Method Room Air 04/05/25 16:05 BMI result Body Mass Index 20.8 Assessment & Plan Assessment & Plan (1) Dysuria: Code(s): R30.0 - Dysuria Plan Most likely UTI vs stone Unable to use the urine pt provider due to not being a clean catch urine in a clean sterile cup Plan - A urinalysis and culture was ordered for confirmation of the UTI diagnosis. - The patient was prescribed antibiotics and pyridium for pain management. - The patient was advised to provide a urine sample at the lab before leaving or the following day - Drink lots of fluids - tylenol as needed for pain - will give her a work note - follow up with PCP Orders: Orders UA CC w/rflx Micro + Cult Today R30.0 - Dysuria Medications: New cefuroxime axetil 500 mg PO Q12H 14 tabs 0RF 7 days phenazopyridine 100 mg PO tid PRN 6 tabs 0RF Pain Coding Level of Care Code Est Pt Level 4 (00854) Diagnoses Dysuria R30.0
== END 2025-04-05 16:28 | disposition home or self-care (01) ==
PROVIDERS: PCP Internal Medicine; Visit Provider Physician Assistant Medical
DX: R30.0 Dysuria (principal)

== ENCOUNTER 2025-07-26 13:51 | Outpatient (REF) | payer OTHER, SELFPAY ==
--- NOTE | ~2025-07-26 | XR_ITS ---
EXAMINATION: XR SHOULDER, RIGHT CLINICAL INFORMATION: M25.511 - Pain in right shoulder COMPARISON: Contralateral left shoulder radiographs on July 15, 2023 TECHNIQUE: AP external rotation, Grashey and scapular Y views of the right shoulder. FINDINGS: No acute fracture. No dislocation. There is mild widening of the acromioclavicular joint space of 0.6 cm, which is top normal, however, wider than the contralateral side in 2022. Mild high riding of the humeral head in relation to the glenoid fossa. Mild narrowing of the glenohumeral joint space. Very faint curvilinear calcification adjacent to the greater tuberosity of the humerus could represent calcific tendinitis. XR/XR shoulder RT min 2V IMPRESSION: 1. Mild widening of the acromioclavicular joint could represent acromioclavicular separation. 2. Possible findings suggestive of rotator cuff injury. 3. Early calcification tendinitis. Electronically signed by: Yaz Dey MD 07/26/2025 03:16 PM EST
--- OUTSIDE RECORDS SUMMARY | 2025-07-26 18:08 | XMS_ITS | Clinical Summary ---
Author Organization [address] [facility] Address [address] [place] [address] Phone Care Team Providers [employer] Name Role Phone Yun Wynne MD Primary Care Provider [phone] Allergies Active Allergy Reactions Criticality Noted Date Comments Clindamycin GI intolerance 12/03/2022 Gastritis Doxycycline Hyclate 01/25/2020 Nausea Jlqqszzoapo-Olcaqnqag-Oxhvut e r Medium 03/31/2021 Gum bleed. Onion Nausea And Vomiting 04/28/2023 Penicillins 02/07/2011 Medications dilTIAZem CD (CARDIZEM CD) 120 mg 24 hr capsule Take 2 capsules (240 mg total) by mouth 1 (one) time each day. 08/27/20 21 Active alendronate (FOSAMAX) 70 mg tablet Take 1 tablet (70 mg total) by mouth every 7 (seven) days. 11/04/19 23 Active albuterol HFA (PROAIR HFA ; PROVENTIL HFA ; VENTOLIN HFA) 90 mcg/actuation inhaler Inhale 2 puffs by mouth every 4 (four) hours if needed for wheezing or shortness of breath. 04/28/20 23 Active albuterol 2.5 mg /3 mL (0.083 %) nebulizer solution Take 3 mL (2.5 mg total) by nebulization every 4 (four) hours if needed for wheezing or shortness of breath. 04/28/20 23 Active multivitamin tablet Take 1 tablet by mouth 1 (one) time each day. 11/04/19 23 Active methocarbamoL (ROBAXIN) 750 mg tablet Take 1 tablet (750 mg total) by mouth. 08/02/20 22 Active lisinopriL (PRINIVIL,ZEST RIL) 30 mg tablet Take 1 tablet (30 mg total) by mouth 1 (one) time each day. 11/13/19 Active lidocaine (LIDODERM) 5 % patch Apply 1 patch topically every 12 (twelve) hours if needed for moderate pain. APPLY 1 PATCH TO THE AFFECTED AREA. REMOVE AFTER 12 HOURS 04/07/20 Active dilTIAZem (Tiadylt ER) 120 mg 24 hr capsule Take 1 capsule (120 mg total) by mouth 1 (one) time each day. 02/11/20 22 Active DULoxetine (CYMBALTA) [address] capsule Take 1 capsule (60 mg total) by mouth 1 (one) time each day. 08/04/20 Active gabapentin (NEURONTIN) 300 mg capsule Take 1 capsule (300 mg total) by mouth 3 (three) times a day. 08/13/20 21 Active fluticasone propionate (FLONASE) 50 mcg/actuation nasal spray Administer 1 spray into each nostril 1 (one) time each day. 06/15/20 22 Active cholecalcifero l (VITAMIN D-3) 50 mcg (2,000 unit) tablet Take 1 tablet (2,000 Units total) by mouth 1 (one) time each day. 11/04/19 23 Active traZODone (DESYREL) 50 mg tablet Take 1 tablet (50 mg total) by mouth at bedtime. 04/15/20 22 Active triamcinolone (NASACORT) 55 mcg nasal inhaler 2 Sprays by Nasal route daily. Intranasal: Two sprays in each nostril once daily; once symptoms controlled reduce to 1 spray in each nostril once daily. Discontinue therapy if adequate symptomatic relief is not observed within 3 weeks. 05/01/20 22 Active sodium chloride-aloe vera (Willis Saline) gel topical gel 1 Dose by Nasal route 2 times daily as needed for Other (for nasal dryness). 01/13/20 24 Active ibuprofen (ADVIL,MOTRIN) 600 mg tablet Take 1 tablet (600 mg total) by mouth every 8 (eight) hours if needed for mild pain. 11/09/19 24 Active folic acid (FOLVITE) 1 mg tablet Take 1 tablet (1,000 mcg total) by mouth 1 (one) time each day. 09/18/19 24 Active aspirin 81 mg chewable tablet Chew 1 tablet (81 mg total). 12/31/19 23 Active HYDROmorphone (DILAUDID) 4 mg tablet Take [...] 2 Sprays by Each Nare route daily. 12/17/19 24 Active cetirizine (ZyrTEC) 10 mg tablet TAKE 1 TABLET BY MOUTH DAILY 90 tablet 3 09/12/20 24 Active fluticasone-sa lmeterol (ADVAIR DISKUS) 250-50 mcg/dose diskus inhaler Inhale 1 puff by mouth 2 (two) times a day. Rinse mouth with water after use to reduce aftertaste and incidence of candidiasis. Do not swallow. Active Vitamin B-1 100 mg tablet Take 1 tablet (100 mg total) by mouth 1 (one) time each day. 06/09/20 24 Active baclofen (LIORESAL) 10 mg tablet TAKE 1 TABLET BY MOUTH TWICE DAILY 180 tablet 3 04/15/20 25 Active montelukast (SINGULAIR) 10 mg tablet TAKE 1 TABLET BY MOUTH AT BEDTIME 90 tablet 3 04/13/20 25 Active famotidine (PEPCID) 20 mg tablet Take 1 tablet (20 mg total) by mouth 2 (two) times a day. 60 tablet 3 05/31/[address] (ENTOCORT EC) 3 mg 24 hr capsule Take 3 capsules (9 mg total) by mouth 1 (one) time each day in the morning. 90 each 3 05/31/20 25 026 Active buPROPion SR (WELLBUTRIN SR) 150 mg 12 hr tablet TAKE 1 TABLET BY MOUTH TWICE DAILY 180 tablet 07/12/20 25 Active buPROPion SR (WELLBUTRIN SR) 150 mg 12 hr tablet TAKE 1 TABLET BY MOUTH TWICE DAILY 180 tablet 09/09/20 24 025 Discontinued Active Problems Problem Noted Date Diagnosed Date Chronic sinusitis 09/11/2024 Environmental allergies 05/17/2024 Sleep apnea, primary central 08/11/2022 Overview (06/09/2024): MIxed Sleep apnea , primarily central AHI 5 [facility] Home Sleep Apnea Test: Date [...] Encounters Date Type Department Care Team Description 06/02/2025 8:44 AM EDT - 06/02/2025 11:59 PM EDT Hospital Encounter [facility] CT Scan [address] [place] [address] Encounter for screening for lung cancer; Current smoker Discharge Disposition: Home or Self Care 05/31/2025 8:30 AM EDT Office Visit Gastroenterology [facility] [address] [facility] [address] [place] [address] Aimee Gil PA Lymphocytic colitis (Primary Dx); Tobacco dependency; Dysphagia, unspecified type 05/31/2025 Telephone Gastroenterology [facility] [address] [facility] [address] [place] [address] Aimee Gil PA from Last 3 Months Immunizations Immunization Administration Dates Next Due Moderna SARS-CoV-2 COVID-19, [...] Hypertension DX:Hypertension MVP (mitral valve prolapse) 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) Environmental allergies DX:Envir [...] Date Smoking Tobacco: Every Day Cigarettes 0.3 50.8 Started: 1973 Smokeless Tobacco: Never Tobacco Cessation:Ready to Q uit: Not Asked; Counseling Given: Not Answered Alcohol Use Standard Drinks/Week Comments Yes 3 (1 standard drink = 0.6 oz pur e alcohol) Comments Unknown Sex and Gender Information Value Date Recorded Sex Assigned at Female 04/26/2025 9:50 PM EDT Legal Sex Female 4:48 AM EST Gender Identity Not on file Sexual Orientation Not on file Obstetrics History Last Filed Vital Signs Vital Sign Reading Time Taken Comments Blood Pressure 136/68 05/31/2025 8:29 AM EDT Pulse 82 09/11/2024 8:55 AM EST Temperature 36.8 C (98.2 F) 09/11/2024 8:55 AM EST Respiratory Rate 18 09/11/2024 8:55 AM EST Oxygen Saturation 96% 09/11/2024 8:55 AM EST Inhaled Oxygen Concentration - - Weight 56.1 kg (123 lb 9.6 oz) 05/31/2025 8:29 A M EDT Height 165.1 cm (5' 5 ) 05/31/2025 8:29 AM EDT Body Mass Index 20.57 05/31/2025 8:29 AM EDT Plan of Treatment Upcoming Encounters Date Type Department Care Team ([facility] st Contact Info) Description 11/08/2025 8:30 AM EST Office Visit Gastroenterology - [address] [id number] Aimee Gil PA [address] [facility] [address] [place] [address] Health Maintenance Due Date Last Done Comments Hepatitis A Vaccines (1 of 2 - Risk 2-dose series) 1980 RSV Immunization Adult Patients (1 - Risk 50-74 years 1-dose series) 2011 Pneumococcal Vaccine: 50+ Years (2 of 2 - PCV) 07/23/2016 07/23/2015 Cervical Cancer Screening: Pap Smear 06/20/2018 06/20/2015, 06/20/2015 HIV Screening 08/22/2022 Social Influencers of Health Screening 08/22/2022 Hypertension/CHF/CAD Annual BMP Blood Test 08/23/2022 12/24/2020 Depression Screening 09/13/2024 Cholesterol Screening (Lipid Panel) 01/17/2025 01/18/2020 COVID-19 Vaccine ( season) 2025 09/26/2021, 02/05/2021, 01/08/2021 Influenza Vaccine (#1) 2025 Breast Cancer Screening 12/09/2025 12/10/19 24, 12/02/2022, 11/08/2021, Additional history exists Lung Cancer Screening (Low Dose CT) 06/02/2026 06/02/2025, 04/19/2024, 04/12/2023, Additional history exists Colorectal Cancer Screening: Colonoscopy [...] Date/Time Associated Diagnosis Comments CT LUNG SCREENING Routine 06/02/2025 8:5 1 AM EDT Encounter for screening for lung cancer Current smoker SCREENING MAMMOGRAPHY BI 2-VIEW BREAST INC CAD Routine 12/10/2023 7:50 AM EDT Encounter for screening mammogram for malignant neoplasm of breast ANNUAL BMP BLOOD TEST Routine 12/24/2020 COLONOSCOPY Routine 03/01/2020 LIPID PANEL Routine 01/18/2020 HM HPV Routine 06/20/2015 HEPATITIS C SCREENING Routine 03/04/2013 from Last 3 Months or Most Recently Relevant to Health Maintenance Results * CT Lung Screening (06/02/2025 8:51 AM EDT) Anatomical Region Laterality Modality Chest Computed Tomogra phy 06/06/2025 4:28 AM EDT Impressions 06/06/2025 4:33 AM EDT No suspicious pulmonary nodules Lung RADS 2: Benign Appearance or Behavior - Continue annual screening with LDCT in 12 months. -------- FINAL REPORT -------- Dictated By: Lynn Aceves Dictated Date: 06/06/2025 04:28 ET Assigned Physician: Lynn Aceves Reviewed and Electronically Signed By: Lynn Aceves Signed Date: 06/06/2025 04:33 ET Workstation ID: [id number] Transcribed By: Self Edit Transcribed Date: 06/06/2025 04:28 ET Narrative 06/06/2025 4:33 AM EDT Indication: Greater than 20 total pack-year smoking history, asymptomatic current smoker Technique: Low-dose CT scan of the chest obtained as a lung cancer screening study. Multiplanar reformatted images were obtained. Dose reduction technique: ASIR (Adaptive statistical iterative reconstruction) and/or AEC (automated exposure control) DLP: 114.60 mGy-cm COMPARISON: 04/2024. FINDINGS: Lack of intravenous contrast limits evaluation of the ernie, vascular structures and visualized abdominal viscera. Lungs/airways: Trachea and central airways are patent. Mild bronchial wall thickening. Emphysematous changes. Scattered sub-5 mm pulmonary nodules, similar to prior. Base of the neck, mediastinum, heart, chest wall, vessels: The assessment of hilar lymphadenopathy is difficult without the use of IV contrast. No enlarged mediastinal lymph nodes. Coronary artery calcifications. Upper abdomen: This study was performed without contrast and with lower than standard dose. These factors reduce the sensitivity for detection of small lesions in the upper abdomen. No significant abnormality is seen Bones/soft tissues: Mild degenerative changes Procedure Note Lynn Aceves MD - 06/06/2025 Indication: Greater than 20 total pack-year smoking history, asymptomaticcurrent smoker Technique: Low-dose CT scan of the chest obtained as a lung cancerscreening study. Multiplanar reformatted images were obtained. Dosereduction technique: ASIR (Adaptive statistical iterative reconstruction)and/or AEC (automated exposure control) DLP: 114.60 mGy-cm COMPARISON: 04/2024. FINDINGS: Lack of intravenous contrast limits evaluation of the ernie,vascular structures and visualized abdominal viscera. Lungs/airways: Trachea and central airways are patent. Mild bronchialwall thickening. Emphysematous changes. Scattered sub-5 mm pulmonary nodules, similar to prior. Base of the neck, mediastinum, heart, chest wall, vessels: The assessmentof hilar lymphadenopathy is difficult without the use of IV contrast. Noenlarged mediastinal lymph nodes. Coronary artery calcifications. Upper abdomen: This study was performed without contrast and with lowerthan standard dose. These factors reduce the sensitivity for detection ofsmall lesions in the upper abdomen. No significant abnormality is seen Bones/soft tissues: Mild degenerative changes IMPRESSION: No suspicious pulmonary nodules Lung RADS 2: Benign Appearance or Behavior - Continue annual screeningwith LDCT in 12 months. -------- FINAL REPORT -------- Dictated By: Lynn Aceves Dictated Date: 06/06/2025 04:28 ET Assigned Physician: Lynn Aceves Reviewed and Electronically Signed By: Lynn Aceves Signed Date: 06/06/2025 04:33 ET Workstation ID: [id number] Transcribed By: Self Edit Transcribed Date: 06/06/2025 04:28 ET us Davis Loya MD IMG CT PROCEDURES Final Result * [...] Result * Annual BMP Blood Test (12/24/2020) [facility] Annual BMP Blood Test Abstracted Result [facility] Provider [facility] MAINTE[facility]CE Final Result * Colonoscopy (03/01/2020) [facility] Colonoscopy Abstracted, no interpretation Anatomical Region Laterality Modality Other [facility] Provider [facility] Final Result * (ABNORMAL) Lipid panel (01/18/2020) [facility] LDL/HDL Ratio 3 0 - 4 Triglycerides 99 0 - 150 mg/dL Cholesterol 190 0 - 200 mg/dL HDL 61 >=40 mg/dL LDL Cholesterol 110(A) 0 - 100 mg/dL Blood Venous blood specimen / Unknown Historical Provider LAB BLOOD ORDERABLES Nova l Result * Cervical Cancer Screening: HPV (06/20/2015) [facility] Cervical Cancer Screening: HPV Abstracted, negative Historical Provider HEALTH MAINTENANCE Final Result * Hepatitis C Screening (03/04/2013) [facility] Hepatitis C Screening Abstracted Historical Provider HEALTH MAINTENANCE Final Result from Last 3 Months or Most Recently Relevant to Health Maintenance Insurance [place] [email or web address] [facility] Care Teams [employer] Relationship Specialty Start Date End Date Yun Wynne MD [address] [place] [address] PCP - General Internal Medicine 04/15/25
== END 2025-07-26 13:52 | disposition home or self-care (01) ==
LOC: HO.HMGCX 13:51
PROVIDERS: PCP Internal Medicine; Visit Provider Physician Assistant Medical
DX: M25.511 Pain in right shoulder (principal)
CPT/HCPCS: 73030

== ENCOUNTER 2025-07-26 13:51 | Outpatient (AMB) | payer OTHER, SELFPAY ==
--- NOTE | 2025-07-26 13:54 | MHC.OFFWIV ---
Intake Vital Signs 07/26/25 13:55 Height 5 ft 5 in BMI Reason not done Patient refused/unable BP 136/78 Blood Pressure Location Lt brachial Position Sitting Pulse 73 Pulse Source Pulse Oximeter Temp 98.0 F Temp Source Oral Pulse Oximetry (%) 96 Intake Visit Reasons: ep popped rt shoulder two in alot of pain for over Patient Tobacco Use Status: Current everyday Tobacco user Allergies doxycycline Allergy (Intermediate, Verified 07/26/25 13:55) nausea, vomiting onion Allergy (Intermediate, Verified 07/26/25 13:55) Vomiting Tetracyclines Allergy (Intermediate, Verified 07/26/25 13:55) Nausea and Vomiting fluticasone furoate (From Trelegy Ellipta) Adverse Reaction (Intermediate, Verified 07/26/25 13:55) Dry Mucus Membranes Penicillins Adverse Reaction (Intermediate, Verified 07/26/25 13:55) Nausea and Vomiting umeclidinium (From Trelegy Ellipta) Adverse Reaction (Intermediate, Verified 07/26/25 13:55) Dry Mucus Membranes vilanterol (From Trelegy Ellipta) Adverse Reaction (Intermediate, Verified 07/26/25 13:55) Dry Mucus Membranes inhaled anticholinergic steroids Adverse Reaction (Intermediate, Uncoded 11/23/24 08:15) dry mucous membranes Do you need a note to return to daycare/school/sports/work: Yes HPI HPI Comments History of Present Illness Details History of Present Illness - The patient is a 64-year-old female presenting with right shoulder pain and upper back pain. - The shoulder pain started after a popping sound was heard during exercises. - She was doing some stretching exericses to the shoulder when she heard a pop in the shoulder. - The pain is exacerbated by lifting the arm and writing, and the patient uses a sling for relief. - The upper back pain is linked to a sensation of a disc popping out, with a history of nerve fusion in the back. - She has continued to do work at home despite the pain. - She denies neck pain, chest pain, SOB, arm pain, numbness, tingling. - She denies chest pain or SOB. Physical Exam General: Cooperative, healthy appearing, comfortable, no acute distress and well developed Orientation: Patient oriented x3 Limitations: Limitations in lifting arm and performing activities due to shoulder pain Head: Normal to inspection Neck: Pain present, normal visual inspection and full ROM Respiratory: Normal respiratory effort and able to speak in complete sentences. Clear to auscultation bilaterally Cardiovascular: Regular rate and rhythm. Normal S1 and S2 Skin: No rashes or lesions noted Neuro: Sensation is intact. Extremities: FROM of the right shoulder. No click noted. TTP of the posterior shoulder, AC joint, anterior shoulder, trapezius on the right. No TTP of the bicep, tricep, elbow, forearm or wrist. Supination and pronation is intact. Negative can test. Negative apprehension test. Negative lift off. 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 Strength is 5/5 on the UE bilaterally. Patient was informed and verbally consented to the use of an ambient scribe for clinic note documentation during this visit. [facility] Medical History (Updated 07/26/25 @ 14:52 by Sharyn Rao PA-C) Back pain Migraine Anxiety Depression Lumbar herniated disc Deviated nasal septum Asthma Mitral valve prolapse Right ankle pain VIKAS (obstructive sleep apnea) STEMI (ST elevation myocardial infarction) Mitral regurgitation Tobacco dependence due to cigarettes Alcohol abuse Easy bruising Scoliosis Degenerative disc disease, lumbar COPD (chronic obstructive pulmonary disease) Muscle spasms of neck Rheumatoid arthritis Bursitis of both hips Hypertension Osteoarthritis Surgical History (Updated 11/23/24 @ 08:44 by Yun Wynne MD) Hx of cervical discectomy Hx of shoulder surgery (~01/28/24) History of lumbar surgery Hx of left knee surgery History of ankle surgery Hx of shoulder surgery H/O eye surgery H/O colonoscopy Hx of cataract extraction History of open reduction and internal fixation (ORIF) procedure History of lumbar discectomy Family History Mother Substance use disorder Father Substance use disorder Maternal Aunt Substance use disorder Maternal Uncle Substance use disorder Paternal Uncle Substance use disorder Paternal Aunt Substance use disorder Social History Household Members: Significant Other Housing: Apartment Are you a primary health care specialist to a significant other at home: No Do you presently have visiting nurse or other home services: No Alcohol intake: current Alcohol intake frequency: 3 or more drinks per day Alcohol type: beer Patient Tobacco Use Status: Current everyday Tobacco user Tobacco use type: Cigarette Cigarettes Per Day: 7 Years Smoked: 50 e-Cigarette/Vaping Use: Never Used service: No 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al status: employed and disabled 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, 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 Cognitive needs: No Hearing needs: No Vision needs: Yes Review of Systems Const All systems reviewed & are unremarkable except as noted in HPI and below Physical Exam Vital Signs: Last Vital Signs Temp 98.0 F 07/26/25 13:55 Pulse 73 07/26/25 13:55 BP 136/78 07/26/25 13:55 Pulse Ox 96 07/26/25 13:55 Results Reviewed Results Reviewed: will review the xray in the office Assessment & Plan Assessment & Plan (1) Right shoulder pain: Code(s): M25.511 - Pain in right shoulder Qualifiers: Chronicity: acute Qualified Code(s): M25.511 - Pain in right shoulder Plan Most likely strain vs AC separation vs fracture vs dislocation vs arthritis vs tendonitis plan - Plan includes obtaining a shoulder x-ray to assess for any structural abnormalities. - will call her with the results - Recommended use of a sling for support and rest. - Advised alternating heat and ice application, and use of ibuprofen for pain management. - Lidocaine patches prescribed for additional pain relief. - Advised to follow up with orthopedics for further evaluation and management. Orders: Orders XR shoulder RT min 2V Today M25.511 - Pain in right shoulder Medications: Refilled lidocaine 5% leave on most painful area for up to 12 hrs 1 patch topical DAILY 30 ea 1RF Coding Level of Care Code Est Pt Level 4 (03710) Diagnoses Acute pain of right shoulder M25.511 Chronicity: acute
[2025-07-26 13:55] VITALS: BP 136/78; PULSE 73; TEMP 36.7; O2SAT 96
== END 2025-07-26 14:51 | disposition home or self-care (01) ==
PROVIDERS: PCP Internal Medicine; Visit Provider Physician Assistant Medical
DX: M25.511 Pain in right shoulder (principal)

== ENCOUNTER → 2025-07-26 14:54 | Outpatient (BNV) | payer OTHER, SELFPAY | PROVIDERS: PCP Internal Medicine; Visit Provider Radiology Body Imaging | DX: M75.31 Calcific tendinitis of right shoulder (principal) | CPT/HCPCS: 73030 ==

== ENCOUNTER 2025-09-12 09:58 | Outpatient (AMB) | payer OTHER, SELFPAY ==
--- NOTE | 2025-09-12 09:59 | A.OFFVIS_ITS ---
Vital Signs 09/12/25 10:02 Height 5 ft 5 in Weight 120 lb BMI 20.0 Handedness Right Intake Visit Reasons: Right shoulder pain and weakness Intake Note: Kathie is a 64 year old female who presents for her right shoulder pain. Patient reports one day she was working when she had an onset of pain in the right shoulder. She says one day she was okay and the next when she went back she had pain with lifting. 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 Says her pain is at its worse when she swings her arm. She has tried methocarbamol with no relief. Says at this time baclofen is also giving her mild relief. She has failed the last 6 weeks of conservative treatment which has included Tylenol, anti-inflammatory medicines, muscle relaxants, a home exercise program and physical therapy exercises. She has undergone bilateral shoulder surgeries in the past. Her right shoulder surgery was several years ago. She reports weakness when lifting her right hand above shoulder height. Allergies doxycycline Allergy (Intermediate, Verified 09/12/25 10:03) nausea, vomiting onion Allergy (Intermediate, Verified 09/12/25 10:03) Vomiting Tetracyclines Allergy (Intermediate, Verified 09/12/25 10:03) Nausea and Vomiting fluticasone furoate (From Trelegy Ellipta) Adverse Reaction (Intermediate, Verified 09/12/25 10:03) Dry Mucus Membranes Penicillins Adverse Reaction (Intermediate, Verified 09/12/25 10:03) Nausea and Vomiting umeclidinium (From Trelegy Ellipta) Adverse Reaction (Intermediate, Verified 09/12/25 10:03) Dry Mucus Membranes vilanterol (From Trelegy Ellipta) Adverse Reaction (Intermediate, Verified 09/12/25 10:03) Dry Mucus Membranes inhaled anticholinergic steroids Adverse Reaction (Intermediate, Uncoded 11/23/24 08:15) dry mucous membranes Medication List - Last Reconciled 09/12/25 by Dewayne Stroud MD albuterol sulfate 90 mcg/actuation 2 puffs inhalation Q4H PRN albuterol sulfate 2.5 mg inhalation Q4H PRN alendronate 70 mg PO QWEEK aspirin 1 tab PO DAILY baclofen 10 mg PO BID bismuth tribrom-petrolatum,wh 5 X 9 (Xeroform) As directed budesonide DR-ER 3 mg PO DAILY bupropion HCl SR 150 mg PO BID cetirizine 10 mg PO DAILY cholecalciferol (vitamin D3) 50 mcg PO DAILY comp.stocking,thigh,short,smal As directed diltiazem HCl ER (Tiadylt ER) 240 mg PO DAILY duloxetine 60 mg PO DAILY famotidine 20 mg PO BID folic acid 1 mg PO DAILY furosemide (Lasix) 20 mg PO DAILY 5 days gabapentin 600 mg (2 x 300 mg) PO TID ibuprofen 600 mg PO Q8H PRN leg brace (Ankle Brace) As directed lidocaine 5% 1 patch topical DAILY lisinopril 30 mg PO DAILY methocarbamol 750 mg PO Q8H PRN montelukast 10 mg PO BEDTIME multivitamin 1 tab PO DAILY nicotine 1 patch transdermal DAILY prednisone 10 mg PO DAILY thiamine HCl (vitamin B1) (Vitamin B-1) 100 mg PO DAILY PFSH Medical History Back pain Migraine Anxiety Depression Lumbar herniated disc Deviated nasal septum Asthma Mitral valve prolapse Right ankle pain VIKAS (obstructive sleep apnea) STEMI (ST elevation myocardial infarction) Mitral regurgitation Tobacco dependence due to cigarettes Alcohol abuse Easy bruising Scoliosis Degenerative disc disease, lumbar COPD (chronic obstructive pulmonary disease) Muscle spasms of neck Rheumatoid arthritis Bursitis of both hips Hypertension Osteoarthritis Surgical History (Updated 11/23/24 @ 08:44 by Yun Wynne MD) Hx of cervical discectomy Hx of shoulder surgery (~01/28/24) History of lumbar surgery Hx of left knee surgery History of ankle surgery Hx of shoulder surgery H/O eye surgery H/O colonoscopy Hx of cataract extraction History of open reduction and internal fixation (ORIF) procedure History of lumbar discectomy Family History Mother Substance use disorder Father Substance use disorder Maternal Aunt Substance use disorder Maternal Uncle Substance use disorder Paternal Uncle Substance use disorder Paternal Aunt Substance use disorder Social History Household Members: Significant Other Housing: Apartment Are you a primary director of medicare to a significant other at home: No Do you presently have visiting nurse or other home services: No Alcohol intake: current Alcohol intake frequency: 3 or more drinks per day Alcohol type: beer Patient Tobacco Use Status: Current everyday Tobacco user Tobacco use type: Cigarette Cigarettes Per Day: 7 Years Smoked: 50 e-Cigarette/Vaping Use: Never Used service: No 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al status: employed and disabled 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, 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 Cognitive needs: No Hearing needs: No Vision needs: Yes Physical Exam Vital Signs: BMI result Body Mass Index 20.0 Extrem Other: Right shoulder examination shows decreased range of motion when compared to her left shoulder, 4+ out of 5 strength with supraspinatus testing, positive impingement signs, no instability Results Reviewed Results Reviewed: X-rays of the patient's right shoulder show a type 2 acromion, no acute bony abnormalities, possible acromioclavicular joint widening versus postsurgical changes Assessment & Plan Assessment & Plan (1) Rotator cuff insufficiency of right shoulder: Code(s): M25.311 - Other instability, right shoulder Category: Medical Plan Ms. Wakefield presents with recurrent right shoulder pain and weakness due to impingement syndrome and possible rotator cuff tearing. Thus, I will send the patient for an MRI of her right shoulder for further evaluation. I will see her back once the MRI is completed. She will continue with her activity modifications in the meantime. Feel free to call me at any time should questions regarding her orthopedic management arise. I spent 22 minutes in reviewing the patient's records and imaging studies, seeing the patient and documenting in the medical record. Orders: Orders MR shoulder RT wo con 09/14/25 M25.311 - Other instability, right shoulder Coding Level of Care Code Est Pt Level 3 (82930) Add On Problem Visit Only Diagnoses Rotator cuff insufficiency of right shoulder M25.311
--- OUTSIDE RECORDS SUMMARY | 2025-09-12 10:51 | XMS_ITS | Clinical Summary ---
Author Organization [facility] Facility Address [address] [place] [address] Care Team Providers Care Forms Designer Name Role Phone Unavailable Primary Care Provider [...] complete [place] [id number] [place] [address]
--- OUTSIDE RECORDS SUMMARY | 2025-09-12 10:51 | XMS_ITS | Clinical Summary ---
Author Organization [facility] Address [address] [place] [address] Phone Care Team Providers Care Deputy Sheriff Building Guard Name Role Phone Yun Wynne MD Primary Care Provider [phone] Allergies Active Allergy Reactions Criticality Noted Date Comments Clindamycin GI intolerance 12/03/2022 Gastritis Doxycycline Hyclate 01/25/2020 Nausea Eajfcntrans-Wltpbbxua-Nizxpj e r Medium 03/31/2021 Gum bleed. Onion Nausea And Vomiting 04/28/2023 Penicillins 02/07/2011 Medications dilTIAZem CD (CARDIZEM CD) 120 mg 24 hr capsule Take 2 capsules (240 mg total) by mouth 1 (one) time each day. 1 Active alendronate (FOSAMAX) 70 mg tablet Take 1 tablet (70 mg total) by mouth every 7 (seven) days. 3 Active albuterol HFA (PROAIR HFA ; [...] total) by mouth at bedtime. 2 Active triamcinolone (NASACORT) 55 mcg nasal inhaler 2 Sprays by Nasal route daily. Intranasal: Two sprays in each nostril once daily; once symptoms controlled reduce to 1 spray in each nostril once daily. Discontinue therapy if adequate symptomatic relief is not observed within 3 weeks. 2 Active sodium chloride-aloe vera ([place] Saline) gel topical gel 1 Dose by [...] 1 tablet (81 mg total). 3 Active HYDROmorphone (DILAUDID) 4 mg tablet Take [...] by Each Nare route daily. 4 Active cetirizine (ZyrTEC) 10 mg tablet [...] 1 (one) time each day. 4 Active baclofen (LIORESAL) 10 mg tablet TAKE 1 TABLET BY MOUTH TWICE DAILY 180 tablet 3 5 Active montelukast (SINGULAIR) 10 mg tablet TAKE 1 TABLET BY MOUTH AT BEDTIME 90 tablet 3 5 Active famotidine (PEPCID) 20 mg tablet Take 1 tablet (20 mg total) by mouth 2 (two) times a day. 60 tablet [address] (ENTOCORT EC) 3 mg 24 hr capsule Take 3 capsules (9 mg total) by mouth 1 (one) time each day in the morning. 90 each 3 5 11/28/19 26 Active buPROPion SR (WELLBUTRIN SR) 150 mg 12 hr tablet TAKE 1 TABLET BY MOUTH TWICE DAILY 180 tablet 5 Active Active Problems Problem Noted Date Diagnosed Date Chronic sinusitis 09/11/2024 Environmental allergies 05/17/2024 Sleep apnea, primary central 08/11/2022 Overview (06/09/2024): MIxed Sleep apnea , primarily central [facility] [address] [facility] Home Sleep Apnea Test: Date ; BMI [...] Encounters Date Type Department Care Team Description 08/29/2025 Telephone Gastroenterology - [place] [address] [facility] [address] [facility] [address] [place] [address] Osvaldo Bradley MD from Last 3 Months Immunizations Immunization Administration [...] Hypertension DX:Hypertension MVP (mitral valve prolapse) DX:M [employer] (mitral valve prolapse) Environmental allergies DX:Envir onmental [...] Date Smoking Tobacco: Every Day Cigarettes 0.3 51 Started: 1973 Smokeless Tobacco: Never Tobacco Cessation:Ready [...] on file Sexual Orientation Not on file Last Filed Vital Signs Vital Sign Reading [...] Care Team (Late st Contact Info) Description 11/08/2025 8:30 AM EST Office Visit Gastroenterology - [address] [facility] [address] [place] [id number] Aimee Gil PA [address] [facility] [address] [place] [address] Health Maintenance Due Date Last Done Comments Hepatitis A Vaccines (1 of 2 - Risk 2-dose series) 1980 RSV Immunization Adult Patients (1 - Risk 50-74 years 1-dose series) 2011 Pneumococcal Vaccine: 50+ Years (2 of 2 - PCV) 07/23/2016 07/23/2015 Cervical Cancer Screening: Pap Smear 06/20/2018 06/20/2015 HIV Screening 08/22/2022 Social Influencers of [...] COLONOSCOPY Routine 03/01/2020 LIPID PANEL Routine 01/18/2020 PAP SMEAR Routine 06/20/2015 HEPATITIS C SCREENING Routine 03/04/2013 [...] Signed Date: 06/06/2025 04:33 ET Workstation ID: [id number] Transcribed By: Self Edit Transcribed Date: 06/06/2025 [...] Signed Date: 06/06/2025 04:33 ET Workstation ID: [id number] Transcribed By: Self Edit Transcribed Date: 06/06/2025 [...] Breast cancer risk category Low (<15%) Result [facility] Kemi Patiño MD IMG XR PROCEDURES Final Result * Annual BMP Blood Test (12/24/2020) [facility] Annual BMP Blood Test Abstracted Result [facility] HEALTH MAINTENANCE Final Result * Colonoscopy (03/01/2020) [facility] Colonoscopy Abstracted, no interpretation Anatomical Region Laterality Modality Other Result [facility] HEALTH MAINTENANCE Final Result * (ABNORMAL) Lipid panel (01/18/2020) [facility] LDL/HDL Ratio 3 0 - 4 Triglycerides 99 0 - 150 mg/dL Cholesterol 190 0 - 200 mg/dL HDL 61 >=40 mg/dL LDL Cholesterol 110(A) 0 - 100 mg/dL Blood Venous blood specimen / Unknown Result [facility] LAB BLOOD ORDERABLES [place] Result * Pap Smear (06/20/2015) [facility] Pap smear Abstracted, negative Result [facility] HEALTH MAINTENANCE Final Result * Hepatitis C Screening (03/04/2013) [facility] Hepatitis C Screening Abstracted Result [facility] HEALTH MAINTENANCE Final Result from Last 3 Months or Most Recently Relevant to Health Maintenance Insurance [employer] [facility] Care Teams Deputy Sheriff Building Guard Relationship Specialty Start Date End Date Yun Wynne MD [address] [place] [id number] PCP - General Internal Medicine 04/15/25
== END 2025-09-12 10:31 | disposition home or self-care (01) ==
LOC: HO.HOS 09:59
PROVIDERS: PCP Internal Medicine; Visit Provider Orthopaedic Surgery
DX: M25.311 Other instability, right shoulder (principal)
CPT/HCPCS: 99213